=== PATIENT | male | born 2000 | race Caucasian/White ===

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

== ENCOUNTER → 2021-04-21 15:33 | Outpatient (CLI) | payer BC, SELFPAY ==
[2021-04-21 16:01] LABS: COVID19 -Nasal RAPID Negative (Negative)
== END ==
PROVIDERS: PCP Physician Assistant Medical; Visit Provider Nurse Practitioner Family
DX: R09.89 Other specified symptoms and signs involving the circulatory and respiratory systems (principal); R11.10 Vomiting, unspecified
CPT/HCPCS: 87635

== ENCOUNTER 2021-06-07 17:02 | Emergency (ER) | payer BC, SELFPAY ==
[2021-06-07 17:11] VITALS: BP 128/58; PULSE 75; RESP 14; TEMP 37.9; O2SAT 99; BMI 24.7
[2021-06-07] MEDS: ONDANSETRON 4 MG/2 ML INJ IV (17:31)
[2021-06-07] MEDS: SODIUM CHLORIDE 0.9% 1,000 ML 1000 ML IV (17:32)
[2021-06-07 17:35] LABS: Add Manual Diff / Slide Review NO; Basophils Absolute Auto 0 /uL (0-100); Basophils Percent Auto 0.2 % (0-2); Eosinophils Absolute Auto 200 /uL (0-450); Eosinophils Percent Auto 2.8 % (2-4); Hematocrit 45.4 % (41-53); Hemoglobin 16.2 g/dL (13.5-17.5); Lymphocytes Absolute Auto 1900 /uL (1100-4500); Lymphocytes Percent Auto 24.2 % (25-40); Mean Corpuscular HGB Conc 35.6 % (30-36); Mean Corpuscular Hemoglobin 31.3 PG (26-34); Mean Corpuscular Volume 87.8 fL (80-100); Monocytes Absolute Auto 500 /uL (0-900); Monocytes Percent Auto 6.7 % (3-14); Neutrophils Absolute Auto 5200 /uL (1500-7000); Neutrophils Percent Auto 66.1 % (50-75); Platelet Count 211 X10^3/uL (150-400); Red Blood Cell Count 5.17 X10^6/uL (4.5-5.9); Red Cell Distribution Width 13.1 % (11.6-14.8); White Blood Cell Count 7.8 X10^3/uL (4.5-11.0)
[2021-06-07 17:55] LABS: Alanine Aminotransferase 18 IU/L (<50); Albumin 4.4 g/dL (3.5-5.0); Albumin Globulin Ratio 1.5 (1.0-2.8); Alkaline Phosphatase 47 U/L (38-126); Aspartate Aminotransferase 24 IU/L (17-59); BUN Creatinine Ratio 23.1 (6-22); Bilirubin Total 0.6 mg/dL (0.2-1.3); Blood Urea Nitrogen 62 mg/dL (9-20); Calcium 9.6 mg/dL (8.4-10.2); Carbon Dioxide 25 mmol/L (22-32); Chloride 106 mmol/L (98-107); Estimated Glomerular Filt Rate 30.5 mL/min (>60); Globulin 2.9 g/dL (1.7-4.1); Glucose 101 mg/dL (70-100); HEMOLYSIS 27 (0-50); Lipase 161 U/L (23-300); Potassium 4.1 mmol/L (3.4-5.1); Sodium 140 mmol/L (137-145); Total Protein 7.3 g/dL (6.3-8.2)
[2021-06-07 18:03] LABS: COVID19 -Nasal RAPID Negative (Negative)
--- NOTE | 2021-06-07 18:19 | DI.CT.S_ITS ---
PROCEDURE: CT ABDOMEN PELVIS WO CON INDICATIONS: RLQ pain TECHNIQUE: After the administration of oral contrast, 5 mm thick sections acquired from the diaphragms to the symphysis. 5 mm coronal and sagittal reformats were performed. For radiation dose reduction, the following was used: automated exposure control, adjustment of mA and/or kV according to patient size. COMPARISON: None. FINDINGS: Image quality: Excellent. ABDOMEN: Lung bases: Mild lingula infiltrate. Heart size is normal. Solid organs: Liver is normal in size. Gallbladder is not visualized, probably contracted. Pancreas is normal in size. Spleen is normal in size. No adrenal nodules. Both kidneys are normal in size, without hydronephrosis or nephrolithiasis. Peritoneum and bowel: Bowel loops demonstrate normal wall thickness and caliber. Appendix is normal. No free fluid or air. Nodes and vessels: No retroperitoneal or mesenteric adenopathy by size criteria. Aorta and inferior vena cava are normal in size. Miscellaneous: No ventral hernias. PELVIS: Genitourinary: Bladder wall thickness is normal. Miscellaneous: No inguinal hernias or adenopathy. There is a elliptical taped structure in the left inguinal area measuring 2.3 x 2.8 x 6[address] density 38.4 HU. Bones: No suspicious bony lesions. No vertebral body compression fractures. IMPRESSION: 1. No acute abnormalities in abdomen or pelvis. A cause for right lower quadrant pain is not identified. 2. Normal appendix. 3. No renal stone or hydronephrosis. 4. A 2.3 x 2.8 x 6.9 cm elliptical shaped soft tissue density in the left inguinal area demonstrating CT density 38.4 HU not compatible with simple fluid. Differential diagnosis include postsurgical change no hematoma. Recommend clinical correlation. If clinically indicated, ultrasound follow-up may be helpful. Dictated by: Suellen Moncada M.D. on 06/07/2021 at 20:02 Approved by: Suellen Moncada M.D. on 06/07/2021 at 20:07
--- NOTE | 2021-06-07 18:19 | ED.ABDPAIN ---
HPI - Abdominal Pain General Chief Complaint: Abdominal Pain Stated Complaint: LOWER RT SIDE PAIN & ABD FEVER THREW UP Time Seen by Provider: 06/07/21 17:53 Source: patient Mode of arrival: Ambulatory History of Present Illness HPI narrative: Patient is a 20-year-old male on autistic spectrum is with history of kidney disease previously on dialysis but not currently history of hypertension presenting today with right lower quadrant pain. Pain is non radiating. He states his been on and off since middle school however today it is significantly worse and he feels nauseous. Denies vomiting or diarrhea. He presents with a low-grade fever. Pain Consistency: constant Quality: aching Radiation: none Related Data Previous Rx's Medication Instructions Recorded albuterol sulfate 90 mcg/actuation 1 inh INHALATION Q4-6H PRN #18 gram 06/06/18 aerosol inhaler albuterol sulfate 90 mcg/actuation 2 puff INHALATION Q4-6H PRN #8.5 08/28/18 aerosol inhaler gram fluticasone propionate 115 2 puff INHALATION BID #12 gram 08/28/18 mcg-salmeterol 21 mcg/actuation HFA inhaler (Advair HFA) albuterol sulfate 90 mcg/actuation 2 puff INHALATION Q4-6H PRN #18 01/30/19 aerosol inhaler (ProAir HFA) gram fluticasone propionate 115 2 puff INHALATION BID #12 gram 01/30/19 mcg-salmeterol 21 mcg/actuation HFA inhaler (Advair HFA) prednisone 50 mg tablet 50 mg PO DAILY #5 tab 01/30/19 doxycycline hyclate 100 mg capsule 100 mg PO BID #14 cap 07/17/19 Allergies Allergy/AdvReac Type Severity Reaction Status Date / Time No Known Drug Allergies Allergy Verified 06/07/21 16:55 Review of Systems Review of Systems Narrative: GENERAL: Denies chills, fatigue, malaise, fever, sweats, travel HEENT: Denies sinus pain, ear pain, sore throat, difficulty swallowing, neck pain RESPIRATORY: Denies dyspnea, cough, wheezing, hemoptysis, sputum. CARDIOVASCULAR: Denies chest pain, palpitations, orthopnea, edema GASTROINTESTINAL: See HPI : Denies dysuria, frequency, incontinence, hematuria, urinary retention, flank pain. MUSCULOSKELETAL: Denies weakness, joint pain, or bony pain SKIN: No rash, no erythema, no pruritus NEUROLOGIC: Denies weakness, dizziness, headache, numbness, change in speech, confusion PSYCHIATRIC: No concerning psychosocial issues. 12 point review of systems is negative except for those stated above and HPI Patient History Medical History (Updated 06/07/21 @ 20:22 by Julissa Toney DO) Asthma Chronic kidney disease Social History Smoking Status: Never smoker Smoking Status: Never smoker alcohol intake frequency: 0-2 drinks per day Substance Use Type: does not use Exam Initial Vital Signs Initial Vital Signs: Vital Signs Temperature 100.2 F H 06/07/21 17:11 Pulse Rate 75 06/07/21 17:11 Respiratory Rate 14 06/07/21 17:11 Blood Pressure 128/58 L 06/07/21 17:11 Pulse Oximetry 99 06/07/21 17:11 GENERAL: Alert well-appearing 20-year-old male HEENT: Head atraumatic,EOMI, pupils reactive, face symmetric, moist mucous membranes CARDIOVASCULAR: Regular rate and rhythm without murmurs, rubs or gallops. RESPIRATORY: Breath sounds equal bilaterally, no wheezes rales or rhonchi. ABDOMEN: Soft, tender right lower quadrant no guarding or rebound negative Harris's : No CVA tenderness EXTREMITIES: Normal range of motion, no clubbing or edema. Neurovascularly intact NEUROLOGICAL: Alert and oriented x4.Normal gait and speech. SKIN: Warm, dry, no laceration, no petechiae, no rashes or lesions. Course Orders Ordered: ED Orders 06/07/21 17:21 Complete Blood Count AUTO DIFF Stat Comprehensive Metabolic Panel Stat Lipase Stat 06/07/21 17:30 Urine Culture Stat Urine Microscopic Stat 06/07/21 17:40 COVID19 -Nasal swab/Pre-Proc Stat 06/07/21 18:19 CT abdomen pelvis wo con Stat Discontinued Medications Sodium Chloride (Normal Saline 0.9%) 1,000 mls @ 1,000 mls/hr IV BOLUS ONE Stop: 06/07/21 18:25 Last Infusion: 06/07/21 18:28 Dose: 0 mls/hr Documented by: Admin: 06/07/21 17:32 Dose: 1,000 mls/hr Documented by: PITA Ondansetron HCl (Ondansetron 4 Mg/2 Ml Inj) 4 mg IV NOW ONE Stop: 06/07/21 17:17 Last Admin: 06/07/21 17:31 Dose: 4 mg Documented by: PITA Vital Signs Vital signs: Vital Signs - 8 hr 06/07/21 17:11 06/07/21 20:29 Temperature 100.2 F H Pulse Rate 75 67 Respiratory Rate 14 14 Blood Pressure 128/58 L 114/66 Pulse Oximetry 99 98 MDM - Abdominal Pain Lab Data Result diagrams: 06/07/21 17:21 06/07/21 17:21 Labs: Lab Results 06/07/21 06/07/21 06/07/21 Range/Units 17:21 17:21 17:30 WBC 7.8 (4.5-11.0) X10^3/uL RBC 5.17 (4.5-5.9) X10^6/uL Hgb 16.2 (13.5-17.5) g/dL Hct 45.4 (41-53) % MCV 87.8 (80-100) fL MCH 31.3 (26-34) PG MCHC 35.6 (30-36) % RDW 13.1 (11.6-14.8) % Plt Count 211 (150-400) X10^3/uL Neut % (Auto) 66.1 (50-75) % Lymph % (Auto) 24.2 L (25-40) % [place] % (Auto) 6.7 (3-14) % Eos % (Auto) 2.8 (2-4) % Baso % (Auto) 0.2 (0-2) % Neut # (Auto) 5200 (6763-8204) /uL Lymph # (Auto) 1900 (8587-2324) /uL [place] # (Auto) 500 (0-900) /uL Eos # (Auto) 200 (0-450) /uL Baso # (Auto) 0 (0-100) /uL Sodium 140 (137-145) mmol/L Potassium 4.1 (3.4-5.1) mmol/L Chloride 106 (98-107) mmol/L Carbon Dioxide 25 (22-32) mmol/L BUN 62 H (9-20) mg/dL Creatinine 2.68 H (0.66-1.25) mg/dL Estimated GFR 30.5 L (>60) mL/min BUN/Creatinine Ratio 23.1 H (6-22) Glucose 101 H (70-100) mg/dL Calcium 9.6 (8.4-10.2) mg/dL Total Bilirubin 0.6 (0.2-1.3) mg/dL AST 24 (17-59) IU/L ALT 18 (<50) IU/L Alkaline Phosphatase 47 (38-126) U/L Total Protein 7.3 (6.3-8.2) g/dL Albumin 4.4 (3.5-5.0) g/dL Globulin 2.9 (1.7-4.1) g/dL Albumin/Globulin Ratio 1.5 (1.0-2.8) Lipase 161 (23-300) U/L Urine RBC None seen (0-5/HPF) Urine WBC 0-1/hpf (0-5/HPF) Ur Squamous Epith Cells 0-1 /hpf (0-5/HPF) Urine Bacteria None seen (None) Ur Culture Indicated? Cult not indicated SARS-CoV-2 (PCR) (Negative) 06/07/21 Range/Units 17:40 WBC (4.5-11.0) X10^3/uL RBC (4.5-5.9) X10^6/uL Hgb (13.5-17.5) g/dL Hct (41-53) % MCV (80-100) fL MCH (26-34) PG MCHC (30-36) % RDW (11.6-14.8) % Plt Count (150-400) X10^3/uL Neut % (Auto) (50-75) % Lymph % (Auto) (25-40) % [place] % (Auto) (3-14) % Eos % (Auto) (2-4) % Baso % (Auto) (0-2) % Neut # (Auto) (3233-0397) /uL Lymph # (Auto) (5370-8214) /uL [place] # (Auto) (0-900) /uL Eos # (Auto) (0-450) /uL Baso # (Auto) (0-100) /uL Sodium (137-145) mmol/L Potassium (3.4-5.1) mmol/L Chloride (98-107) mmol/L Carbon Dioxide (22-32) mmol/L BUN (9-20) mg/dL Creatinine (0.66-1.25) mg/dL Estimated GFR (>60) mL/min BUN/Creatinine Ratio (6-22) Glucose (70-100) mg/dL Calcium (8.4-10.2) mg/dL Total Bilirubin (0.2-1.3) mg/dL AST (17-59) IU/L ALT (<50) IU/L Alkaline Phosphatase (38-126) U/L Total Protein (6.3-8.2) g/dL Albumin (3.5-5.0) g/dL Globulin (1.7-4.1) g/dL Albumin/Globulin Ratio (1.0-2.8) Lipase (23-300) U/L Urine RBC (0-5/HPF) Urine WBC (0-5/HPF) Ur Squamous Epith Cells (0-5/HPF) Urine Bacteria (None) Ur Culture Indicated? SARS-CoV-2 (PCR) Negative (Negative) Point of care testing: Urine Dip Bedside Urine Glucose Negative Bedside Urine Bilirubin - Negative Bedside Urine Ketone - Negative Urine Specific [employer] 1.015 Bedside Urine Occult Blood - Negative Bedside Urine pH 6 Bedside Urine Protein + 30 Bedside Urine Urobilinogen - Negative Bedside Urine Nitrite - Negative Bedside Urine Leukocytes - Negative Esterase Imaging Data CT scan - abdomen/pelvis: Radiologist's Impression: PROCEDURE:? CT ABDOMEN PELVIS WO CON ? INDICATIONS:? RLQ pain ? TECHNIQUE:? After the administration of oral contrast, 5 mm thick sections acquired from the diaphragms to the symphysis.? 5 mm coronal and sagittal reformats were performed.? For radiation dose reduction, the following was used:? automated exposure control, adjustment of mA and/or kV according to patient size.? ? COMPARISON:? None. ? FINDINGS:? Image quality:? Excellent.? ? ABDOMEN:? Lung bases:? Mild lingula infiltrate.? Heart size is normal.? ? Solid organs:? Liver is normal in size.? Gallbladder is not visualized, probably contracted.? Pancreas is normal in size.? Spleen is normal in size.? No adrenal nodules.? Both kidneys are normal in size, without hydronephrosis or nephrolithiasis.? ? Peritoneum and bowel:? Bowel loops demonstrate normal wall thickness and caliber.? Appendix is normal.? No free fluid or air.? ? Nodes and vessels:? No retroperitoneal or mesenteric adenopathy by size criteria.? Aorta and inferior vena cava are normal in size.? ? Miscellaneous:? No ventral hernias.? ? ? PELVIS:? Genitourinary:? Bladder wall thickness is normal.? ? Miscellaneous:? No inguinal hernias or adenopathy.? There is a elliptical taped structure in the left inguinal area measuring 2.3 x 2.8 x 6.[address] density 38.4 HU. ? Bones:? No suspicious bony lesions.? No vertebral body compression fractures.? ? IMPRESSION:? ? 1. No acute abnormalities in abdomen or pelvis.? A cause for right lower quadrant pain is not identified.? 2. Normal appendix. 3. No renal stone or hydronephrosis. 4. A 2.3 x 2.8 x 6.9 cm elliptical shaped soft tissue density in the left inguinal area demonstrating CT density 38.4 HU not compatible with simple fluid.? Differential diagnosis include postsurgical change no hematoma.? Recommend clinical correlation.? If clinically indicated, ultrasound follow-up may be helpful. ? ? ? Dictated by: Suellen Moncada M.D. on 06/07/2021 at 20:02 ? ? [facility] Narrative Medical decision making narrative: Patient is found to have chronic kidney disease which seems stable at this time. Tender in right lower quadrant concern for possible appendicitis. Due to renal function IV contrast was not used but he did drink oral contrast and CT does not show any evidence of appendicitis. It is found have some abnormality in the left lower quadrant which does not correlate clinically. He is again reexamined and nontender in the left lower quadrant. He overall appears well. Discharge Plan Departure Patient Disposition: Home Clinical Impression: Abdominal pain Instructions: DI for Abdominal Pain-Adult Activity Restrictions/Additional Instructions: Creatinine today 2.68, GFR 30.5 *You have been diagnosed with abdominal pain *What to do: Of your abdominal pain found today. It was found that you have abnormal fluid collection on the left side but this is not thought to be causing her pain on the right side today and dental. Please have this followed with her primary care provider *Continue to take medications as directed *Follow up with your primary care provider in 2-3 days or call [phone] *Return to ER if you should have worsening abdominal pain, fever more than 100.4, persistent vomiting or any new, worsening or concerning symptoms Prescriptions: No Action albuterol sulfate 90 mcg/actuation HFA aerosol inhaler 1 inh INHALATION Q4-6H PRN (Reason: shortness of breath) Qty: 18 0RF albuterol sulfate 90 mcg/actuation HFA aerosol inhaler 2 puff INHALATION Q4-6H PRN (Reason: shortness of breath) Qty: 8.5 1RF Advair HFA 115-21 mcg/actuation HFA aerosol inhaler 2 puff INHALATION BID Qty: 12 1RF Advair HFA 115-21 mcg/actuation HFA aerosol inhaler 2 puff INHALATION BID Qty: 12 0RF Rx Instructions: administer with spacer albuterol sulfate [ProAir HFA] 90 mcg/actuation HFA aerosol inhaler 2 puff INHALATION Q4-6H PRN (Reason: shortness of breath) Qty: 18 0RF prednisone 50 mg tablet 50 mg PO DAILY Qty: 5 0RF doxycycline hyclate 100 mg capsule 100 mg PO BID Qty: 14 0RF Referrals: Regino Boyer PA-C [Primary Care Provider] -
[2021-06-07 18:43] LABS: Bacteria Urine None Seen; RBC Urine None Seen (0-5/HPF); Squamous Epithelial Cell Urine 0-1 /HPF (0-5/HPF); WBC Urine 0-1/HPF (0-5/HPF)
[2021-06-07 18:44] LABS: Culture Indicated Urine Cult Not Indicated
[2021-06-07 20:29] VITALS: BP 114/66; PULSE 67; RESP 14; O2SAT 98
== END 2021-06-07 20:32 | disposition home or self-care (01) ==
PROVIDERS: Emergency Medicine; Emergency Provider Emergency Medicine; PCP Physician Assistant Medical
DX: R10.31 Right lower quadrant pain (principal); Z20.822 Contact with and (suspected) exposure to COVID-19
CPT/HCPCS: 36415; 74176; 80053; 81003; 81015; 83690; 85025; 87086; 87635; 96361; 96374; 99284; C9803; J2405

== ENCOUNTER 2021-07-12 11:10 | Emergency (ER) | payer OTHER, SELFPAY ==
[2021-07-12 11:14] VITALS: BP 118/57; PULSE 81; RESP 14; TEMP 36.7; O2SAT 98; BMI 25.1
--- NOTE | 2021-07-12 12:08 | ED.URI ---
HPI - URI/Sore Throat <Carolee Nieves, [facility] - Last Filed: 07/12/21 18:09> General Chief Complaint: Upper Respiratory Symptoms Stated Complaint: COVID+, throwing up, night sweats; kidney disease Time Seen by Provider: 07/12/21 12:08 Source: patient Mode of arrival: Ambulatory History of Present Illness HPI Narrative: 20-year-old male presents to the emergency department complaining of nausea vomiting and diarrhea for 3 days with fever, headache, and chills for 4 days. Patient states he had a positive COVID test at home, today is day 4 of his symptoms, he states he has a history of chronic kidney disease with kidney function of 30% at baseline. Patient states he came to the emergency department because his kidney doctor told him to have his creatinine checked because he states it tends to go up when he gets sick. Patient states that he is still making urine, has had difficulty keeping anything down for the last 2 days and states that he feels dehydrated because he is also having diarrhea. Patient denies any shortness of breath, wheezing, difficulty breathing, chest tightness, chest pain, dizziness, or weakness. Related Data Previous Rx's Medication Instructions Recorded albuterol sulfate 90 mcg/actuation 1 inh INHALATION Q4-6H PRN #18 gram 06/06/18 aerosol inhaler albuterol sulfate 90 mcg/actuation 2 puff INHALATION Q4-6H PRN #8.5 08/28/18 aerosol inhaler gram fluticasone propionate 115 2 puff INHALATION BID #12 gram 08/28/18 mcg-salmeterol 21 mcg/actuation HFA inhaler (Advair HFA) albuterol sulfate 90 mcg/actuation 2 puff INHALATION Q4-6H PRN #18 01/30/19 aerosol inhaler (ProAir HFA) gram fluticasone propionate 115 2 puff INHALATION BID #12 gram 01/30/19 mcg-salmeterol 21 mcg/actuation HFA inhaler (Advair HFA) prednisone 50 mg tablet 50 mg PO DAILY #5 tab 01/30/19 doxycycline hyclate 100 mg capsule 100 mg PO BID #14 cap 07/17/19 loperamide 2 mg tablet 2 mg PO Q6H PRN #10 tab 07/12/21 ondansetron 4 mg disintegrating 4 mg PO Q8HR PRN #10 tab 07/12/21 tablet Allergies Allergy/AdvReac Type Severity Reaction Status Date / Time No Known Drug Allergies Allergy Verified 07/12/21 11:14 Review of Systems <SHARON Brunner - Last Filed: 07/12/21 18:09> Review of Systems Narrative: General: Endorses fever, chills, malaise, sweats, fatigue Head/Neck: Endorses headache, denies neck pain, dizziness Eyes: denies visual changes, eye pain Cardio: denies chest pain, palpitations, edema Respiratory: denies dyspnea, cough, orthopnea GI: denies abdominal pain, endorses nausea, vomiting, and diarrhea : denies dysuria, hematuria, urinary retention, frequency or incontinence MSK: denies joint pain, muscle weakness Skin: denies rash, itching, skin lesions or other Neuro: denies numbness, tingling Patient History <SHARON Brunner - Last Filed: 07/12/21 18:09> Medical History (Updated 07/12/21 @ 13:25 by SHARON Brunner) Asthma Chronic kidney disease Social History Smoking Status: Never smoker Smoking Status: Never smoker alcohol intake frequency: holidays/special occasions only Substance Use Type: does not use Exam <SHARON Brunner - Last Filed: 07/12/21 18:09> Narrative Exam Narrative: Independently reviewed vitals signs and nursing notes. General: Cooperative, comfortable, in no acute distress, appears tired, holding emesis bag Head/Neck: Normal visual inspection and supple, atraumatic, no JVD or lymphadenopathy. Normal facial exam Eyes: Pupils equal round and reactive, EOMI, conjunctiva normal, no scleral icterus or injections Nose: External nose normal, nares patent, no rhinorrhea, without purulent drainage Mouth/Throat: uvula midline, moist mucus membranes Cardio: Regular rate and rhythm, no peripheral edema, warm extremities Respiratory: Normal respiratory effort, able to speak in complete sentences without wheezing, stridor, or rales. No retractions. No accessory muscle use GI: Abdomen soft, nontender to palpation x4 quadrants, nondistended, no masses or exquisite tenderness with exam, no flank tenderness MSK: Moves all extremities, neurovascularly intact Skin: Normal capillary refill, no rash Neuro: Normal speech and cognition, normal gait, A&O x3, tone normal, moves all extremities Psych: Mental status is grossly normal, speech is clear, congruent mood, normal affect Initial Vital Signs Initial Vital Signs: Vital Signs Temperature 98.0 F 07/12/21 11:14 Pulse Rate 81 07/12/21 11:14 Respiratory Rate 14 07/12/21 11:14 Blood Pressure 118/57 L 07/12/21 11:14 Pulse Oximetry 98 07/12/21 11:14 <Alena Orlando DO - Last Filed: 07/13/21 09:17> Initial Vital Signs Initial Vital Signs: Vital Signs Temperature 98.0 F 07/12/21 11:14 Pulse Rate 81 07/12/21 11:14 Respiratory Rate 14 07/12/21 11:14 Blood Pressure 118/57 L 07/12/21 11:14 Pulse Oximetry 98 07/12/21 11:14 Course <SHARON Brunner - Last Filed: 07/12/21 18:09> Orders Ordered: Discontinued Medications Acetaminophen (Acetaminophen 325 Mg Tablet) 975 mg PO NOW ONE Stop: 07/12/21 13:03 Last Admin: 07/12/21 13:22 Dose: 975 mg Documented by: RONNIEYLYONATHAN Sodium Chloride (Normal Saline 0.9%) 1,000 mls @ 1,000 mls/hr IV BOLUS ONE Stop: 07/12/21 13:12 Last Infusion: 07/12/21 14:01 Dose: 0 mls/hr Documented by: Admin: 07/12/21 12:52 Dose: 1,000 mls/hr Documented by: RUTHY Ondansetron HCl (Ondansetron 4 Mg/2 Ml Inj) 4 mg IV NOW ONE Stop: 07/12/21 12:14 Last Admin: 07/12/21 12:53 Dose: 4 mg Documented by: RUTHY Vital Signs Vital signs: Vital Signs - 8 hr 07/12/21 11:14 07/12/21 13:28 Temperature 98.0 F Pulse Rate 81 76 Respiratory Rate 14 16 Blood Pressure 118/57 L 114/57 L Pulse Oximetry 98 99 <Alena Orlando DO - Last Filed: 07/13/21 09:17> Orders Ordered: Discontinued Medications Acetaminophen (Acetaminophen 325 Mg Tablet) 975 mg PO NOW ONE Stop: 07/12/21 13:03 Last Admin: 07/12/21 13:22 Dose: 975 mg Documented by: RUTHY Sodium Chloride (Normal Saline 0.9%) 1,000 mls @ 1,000 mls/hr IV BOLUS ONE Stop: 07/12/21 13:12 Last Infusion: 07/12/21 14:01 Dose: 0 mls/hr Documented by: Admin: 07/12/21 12:52 Dose: 1,000 mls/hr Documented by: RUTHY Ondansetron HCl (Ondansetron 4 Mg/2 Ml Inj) 4 mg IV NOW ONE Stop: 07/12/21 12:14 Last Admin: 07/12/21 12:53 Dose: 4 mg Documented by: RUTHY Vital Signs Vital signs: Vital Signs - 8 hr 07/12/21 11:14 07/12/21 13:28 Temperature 98.0 F Pulse Rate 81 76 Respiratory Rate 14 16 Blood Pressure 118/57 L 114/57 L Pulse Oximetry 98 99 MDM - URI/Sore Throat <SHARON Brunner - Last Filed: 07/12/21 18:09> Lab Data Result diagrams: 07/12/21 12:45 07/12/21 12:45 Labs: Lab Results 07/12/21 07/12/21 07/12/21 Range/Units 12:45 12:45 12:45 WBC 4.9 (4.5-11.0) X10^3/uL RBC 4.64 (4.5-5.9) X10^6/uL Hgb 14.5 (13.5-17.5) g/dL Hct 40.8 L (41-53) % MCV 88.0 (80-100) fL MCH 31.2 (26-34) PG MCHC 35.4 (30-36) % RDW 12.7 (11.6-14.8) % Plt Count 131 L (150-400) X10^3/uL Neut % (Auto) 66.5 (50-75) % Lymph % (Auto) 21.8 L (25-40) % Schley % (Auto) 9.6 (3-14) % Eos % (Auto) 1.7 L (2-4) % Baso % (Auto) 0.4 (0-2) % Neut # (Auto) 3300 (6646-1044) /uL Lymph # (Auto) 1100 (3477-0434) /uL Schley # (Auto) 500 (0-900) /uL Eos # (Auto) 100 (0-450) /uL Baso # (Auto) 0 (0-100) /uL Sodium 143 (137-145) mmol/L Potassium 4.2 (3.4-5.1) mmol/L Chloride 110 H (98-107) mmol/L Carbon Dioxide 24 (22-32) mmol/L BUN 35 H (9-20) mg/dL Creatinine 1.95 H (0.66-1.25) mg/dL Estimated GFR 44.1 L (>60) mL/min BUN/Creatinine Ratio 17.9 (6-22) Glucose 95 (70-100) mg/dL Calcium 8.8 (8.4-10.2) mg/dL Magnesium 1.8 (1.6-2.3) mg/dL Total Bilirubin 0.5 (0.2-1.3) mg/dL AST 30 (17-59) IU/L ALT 18 (<50) IU/L Alkaline Phosphatase 31 L (38-126) U/L Total Protein 6.9 (6.3-8.2) g/dL Albumin 4.0 (3.5-5.0) g/dL Globulin 2.9 (1.7-4.1) g/dL Albumin/Globulin Ratio 1.4 (1.0-2.8) MDM Narrative Medical decision making narrative: 20-year-old male presents to the emergency department with known COVID (+) diagnosis and is on day 4 of his symptoms without hypoxia, respiratory distress, dehydration, or focal exam to suggest secondary bacterial infection. Discussed CDC guidelines for quarantine, mask wearing, physical distancing, and infection prevention measures such as frequent handwashing. Patient was g 1 L normal saline for Low volume status and dehydration. Patient has a history of chronic kidney disease with a baseline creatinine Of approximately 2. Today his creatinine is 1.95, previously on 05/30/2021 is 2.68. Patient appears much better after 1 L of saline, Symptoms suggest bacterial infection. Breath sounds are clear throughout all cooney. Discussed supportive treatments: Tylenol/Motrin as needed for pain/fever. OTC decongestant medications and/or antihistamines for symptomatic relief. Maintain adequate fluid intake. Follow-up with PCP as directed. Return to clinic/ER instructions discussed for new, not improving, or worsening symptoms. All questions answered. <Alena Orlando, DO - Last Filed: 07/13/21 09:17> Lab Data Labs: Lab Results 07/12/21 07/12/21 07/12/21 Range/Units 12:45 12:45 12:45 WBC 4.9 (4.5-11.0) X10^3/uL RBC 4.64 (4.5-5.9) X10^6/uL Hgb 14.5 (13.5-17.5) g/dL Hct 40.8 L (41-53) % MCV 88.0 (80-100) fL MCH 31.2 (26-34) PG MCHC 35.4 (30-36) % RDW 12.7 (11.6-14.8) % Plt Count 131 L (150-400) X10^3/uL Neut % (Auto) 66.5 (50-75) % Lymph % (Auto) 21.8 L (25-40) % Schley % (Auto) 9.6 (3-14) % Eos % (Auto) 1.7 L (2-4) % Baso % (Auto) 0.4 (0-2) % Neut # (Auto) 3300 (7067-0288) /uL Lymph # (Auto) 1100 (0496-1179) /uL Schley # (Auto) 500 (0-900) /uL Eos # (Auto) 100 (0-450) /uL Baso # (Auto) 0 (0-100) /uL Sodium 143 (137-145) mmol/L Potassium 4.2 (3.4-5.1) mmol/L Chloride 110 H (98-107) mmol/L Carbon Dioxide 24 (22-32) mmol/L BUN 35 H (9-20) mg/dL Creatinine 1.95 H (0.66-1.25) mg/dL Estimated GFR 44.1 L (>60) mL/min BUN/Creatinine Ratio 17.9 (6-22) Glucose 95 (70-100) mg/dL Calcium 8.8 (8.4-10.2) mg/dL Magnesium 1.8 (1.6-2.3) mg/dL Total Bilirubin 0.5 (0.2-1.3) mg/dL AST 30 (17-59) IU/L ALT 18 (<50) IU/L Alkaline Phosphatase 31 L (38-126) U/L Total Protein 6.9 (6.3-8.2) g/dL Albumin 4.0 (3.5-5.0) g/dL Globulin 2.9 (1.7-4.1) g/dL Albumin/Globulin Ratio 1.4 (1.0-2.8) Discharge Plan Departure Patient Disposition: Home Clinical Impression: COVID-19 Instructions: DI for COVID-19 (Suspected or Confirmed ) Activity Restrictions/Additional Instructions: *You have been diagnosed with COVID-19, dehydration with nausea vomiting. Your white blood cell count was not elevated, your creatinine today was 1.95 which is less than the 2 previous values in our chart. I will send your chart to Dr. Mike and your kidney doctor. Please try and stay hydrated with drinks like you brought with you today, you may use Zofran every 8 hours for nausea and vomiting and loperamide every 6 hours as needed for diarrhea. I hope you start feeling better soon, if you develop any shortness of breath, difficulty breathing, or the inability to keep anything down, please return to the emergency department for evaluation. You should start to get better in the next couple of days. I hope you feel better soon. *What to do: *Please continue to take your regular medications as directed. [x ] New medication prescriptions sent to your pharmacy: [[facility] [place] ] [ ] New medication written as a paper prescription [ ] No new medications given *Please follow up with your primary care provider in 2-3 days, call for an appointment. Let them know you were seen in the Emergency Department and that we ask that you be seen in follow up. We will electronically transmit a record of today's note if your PCP is in our system *If you do not have a primary care provider please contact the [facility] Resource line at [phone]. They will ask some questions about your medical history and help get you set up with a doctor in the community. *Return to Emergency Department if you should have any new, worsening or concerning symptoms, such as [fever greater than 101F, chills, worsening pain, persistent vomiting or other bothersome symptoms] Prescriptions: New ondansetron 4 mg tablet,disintegrating 4 mg PO Q8HR PRN (Reason: nausea and vomiting) Qty: 10 0RF loperamide 2 mg tablet 2 mg PO Q6H PRN (Reason: loose stool) Qty: 10 0RF No Action albuterol sulfate 90 mcg/actuation HFA aerosol inhaler 1 inh INHALATION Q4-6H PRN (Reason: shortness of breath) Qty: 18 0RF albuterol sulfate 90 mcg/actuation HFA aerosol inhaler 2 puff INHALATION Q4-6H PRN (Reason: shortness of breath) Qty: 8.5 1RF Advair HFA 115-21 mcg/actuation HFA aerosol inhaler 2 puff INHALATION BID Qty: 12 1RF Advair HFA 115-21 mcg/actuation HFA aerosol inhaler 2 puff INHALATION BID Qty: 12 0RF Rx Instructions: administer with spacer albuterol sulfate [ProAir HFA] 90 mcg/actuation HFA aerosol inhaler 2 puff INHALATION Q4-6H PRN (Reason: shortness of breath) Qty: 18 0RF prednisone 50 mg tablet 50 mg PO DAILY Qty: 5 0RF doxycycline hyclate 100 mg capsule 100 mg PO BID Qty: 14 0RF Referrals: Wilfrido Young MD [Non-Staff] - Andrea Mike DO [Primary Care Provider] - <Alena Orlando DO - Last Filed: 07/13/21 09:17> Cosign ED Attending Ibeth Attestation: I was immediately available in the department for consultation. Documentation has been reviewed. Case was discussed agree with plan on assessment.
[2021-07-12] MEDS: SODIUM CHLORIDE 0.9% 1,000 ML 1000 ML IV (12:52)
[2021-07-12] MEDS: ONDANSETRON 4 MG/2 ML INJ IV (12:53)
[2021-07-12 12:55] LABS: Add Manual Diff / Slide Review NO; Basophils Absolute Auto 0 /uL (0-100); Basophils Percent Auto 0.4 % (0-2); Eosinophils Absolute Auto 100 /uL (0-450); Eosinophils Percent Auto 1.7 % (2-4); Hematocrit 40.8 % (41-53); Hemoglobin 14.5 g/dL (13.5-17.5); Lymphocytes Absolute Auto 1100 /uL (1100-4500); Lymphocytes Percent Auto 21.8 % (25-40); Mean Corpuscular HGB Conc 35.4 % (30-36); Mean Corpuscular Hemoglobin 31.2 PG (26-34); Monocytes Absolute Auto 500 /uL (0-900); Monocytes Percent Auto 9.6 % (3-14); Neutrophils Absolute Auto 3300 /uL (1500-7000); Neutrophils Percent Auto 66.5 % (50-75); Platelet Count 131 X10^3/uL (150-400); Red Blood Cell Count 4.64 X10^6/uL (4.5-5.9); Red Cell Distribution Width 12.7 % (11.6-14.8); White Blood Cell Count 4.9 X10^3/uL (4.5-11.0)
[2021-07-12 13:07] LABS: Alanine Aminotransferase 18 IU/L (<50); Albumin Globulin Ratio 1.4 (1.0-2.8); Alkaline Phosphatase 31 U/L (38-126); Aspartate Aminotransferase 30 IU/L (17-59); BUN Creatinine Ratio 17.9 (6-22); Bilirubin Total 0.5 mg/dL (0.2-1.3); Blood Urea Nitrogen 35 mg/dL (9-20); Calcium 8.8 mg/dL (8.4-10.2); Carbon Dioxide 24 mmol/L (22-32); Chloride 110 mmol/L (98-107); Estimated Glomerular Filt Rate 44.1 mL/min (>60); Globulin 2.9 g/dL (1.7-4.1); Glucose 95 mg/dL (70-100); HEMOLYSIS 57 (0-50); Potassium 4.2 mmol/L (3.4-5.1); Sodium 143 mmol/L (137-145); Total Protein 6.9 g/dL (6.3-8.2)
[2021-07-12 13:08] LABS: Magnesium 1.8 mg/dL (1.6-2.3)
[2021-07-12] MEDS: ACETAMINOPHEN 325 MG TABLET 975 MG PO (13:22)
[2021-07-12 13:28] VITALS: BP 114/57; PULSE 76; RESP 16; O2SAT 99
--- NOTE | 2021-07-12 14:04 | PC.NURSE ---
Per provider, no need to collect and run urine. patient's IV removed and he was discharged.
== END 2021-07-12 14:05 | disposition home or self-care (01) ==
PROVIDERS: Emergency Provider Nurse Practitioner Critical Care Medicine; PCP Family Medicine
DX: U07.1 COVID-19 (principal); E86.0 Dehydration; R11.2 Nausea with vomiting, unspecified
CPT/HCPCS: 36415; 80053; 83735; 85025; 96361; 96374; 99284; J2405

== ENCOUNTER 2022-04-23 15:50 | Emergency (ER) | payer OTHER, SELFPAY ==
[2022-04-23 15:55] VITALS: BP 132/87; PULSE 74; PULSE 88; RESP 15; TEMP 36.9; O2SAT 98; O2SAT 99; BMI 26.5
--- NOTE | 2022-04-23 15:56 | DI.CT.S_ITS ---
PROCEDURE: CT CERVICAL SPINE WO CON INDICATIONS: Trauma TECHNIQUE: Noncontrast 3 mm thick sections acquired from the skull base to the T4 level. Sagittal and coronal reformats were then constructed. For radiation dose reduction, the following was used: automated exposure control, adjustment of mA and/or kV according to patient size. COMPARISON: None. FINDINGS: Image quality: Excellent. Bones: No fractures or dislocations. Visualized superior ribs are intact. Soft tissues: Prevertebral soft tissues are normal in thickness. No paravertebral hematomas. No apical pneumothoraces. IMPRESSION: No CT evidence of acute traumatic cervical spine injury. Dictated by: Dante Tay M.D. on 04/23/2022 at 16:28 Approved by: Dante Tay M.D. on 04/23/2022 at 16:30
--- NOTE | 2022-04-23 15:56 | DI.CT.S_ITS ---
PROCEDURE: CT HEAD/BRAIN WO CON INDICATIONS: Trauma TECHNIQUE: Noncontrast 4.5 mm thick angled axial sections acquired from the foramen magnum to the vertex, with coronal and sagittal reformats. For radiation dose reduction, the following was used: automated exposure control, adjustment of mA and/or kV according to patient size. COMPARISON: None. FINDINGS: Image quality: Excellent. CSF spaces: Basal cisterns are patent. No extra-axial fluid collections. Ventricles are normal in size and shape. Brain: No midline shift. No intracranial masses or hemorrhage. Reyes-white matter interface is normal. Skull and face: Calvarium and visualized facial bones are intact, without suspicious lesions. Sinuses: Visualized sinuses and mastoids are clear other than aerated secretions in the right frontal sinus and mild mucosal thickening. IMPRESSION: No acute intracranial finding. Dictated by: Dante Tay M.D. on 04/23/2022 at 16:27 Approved by: Dante Tay M.D. on 04/23/2022 at 16:28
--- NOTE | 2022-04-23 16:02 | DI.CT.S_ITS ---
PROCEDURE: CT CHEST ABD PEL W CON INDICATIONS: trauma, back pain TECHNIQUE: After the administration of oral and intravenous contrast, axial sections acquired from the supraclavicular neck to the pubic symphysis. Coronal and sagittal reformats were performed. For radiation dose reduction, the following was used: automated exposure control, adjustment of mA and/or kV according to patient size. COMPARISON: [facility], CT, CT ABDOMEN PELVIS WO [facility], 06/07/2021, 19:28. [facility], CT, CT HEAD/BRAIN WO CON, 04/23/2022, 16:00. [facility], CT, CT CERVICAL SPINE WO CON, 04/23/2022, 16:00. FINDINGS: Image quality: Excellent. CHEST: Lower Neck: No enlarged lymph nodes. Thyroid: Within normal limits. Axillae: No enlarged lymph nodes. Chest Wall: Unremarkable. Lungs and Airways: No consolidation or suspicious nodules. Pleura: No pneumothorax or pleural effusions. Heart: Heart size is normal. No pericardial effusion. Thoracic Vessels: The aorta and pulmonary arteries demonstrate normal size. Mediastinum and Arianna: And soft tissue No enlarged lymph nodes. Prominent prevascular lymph node with likely residual thymic tissue. Esophagus: No wall thickening. Small hiatal hernia. ABDOMEN: Liver: Unremarkable. Gallbladder: Unremarkable. Biliary ducts: Unremarkable. Pancreas: Unremarkable. Spleen: Unremarkable. Adrenal Glands: Unremarkable. Kidneys and Ureters: Unremarkable. Stomach and Bowel: Stomach, small bowel loops, and colon are unremarkable. Normal appendix. Peritoneum: No abnormal intraperitoneal fluid. No free air. Ventral Wall: No hernia. Abdominal Nodes: No retroperitoneal or mesenteric adenopathy by size criteria. Numerous small mesenteric lymph nodes are present, most likely reactive. Vessels: Aorta and inferior vena cava are normal in size. PELVIS: Pelvic Organs: Unremarkable. Bladder: Unremarkable. Pelvic Nodes: No enlarged lymph nodes. Miscellaneous: No inguinal hernias are seen. Bones: Unremarkable. IMPRESSION: 1. No acute visceral injuries in thorax, abdomen or pelvis. Dictated by: Suellen Moncada M.D. on 04/23/2022 at 16:41 Approved by: Suellen Moncada M.D. on 04/23/2022 at 17:29
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
[2022-04-23 16:14] VITALS: BP 133/82; PULSE 96; O2SAT 99
[2022-04-23] MEDS: TET,DIPH,PERTUSS(ACELL),VAC/PF 0.5 ML SYRINGE IM (16:15)
[2022-04-23 16:30] VITALS: PULSE 99; O2SAT 99
[2022-04-23 16:41] LABS: Add Manual Diff / Slide Review NO; Basophils Absolute Auto 0 /uL (0-100); Basophils Percent Auto 0.3 % (0-2); Eosinophils Absolute Auto 300 /uL (0-450); Eosinophils Percent Auto 3.7 % (2-4); Hematocrit 39.5 % (41-53); Hemoglobin 13.9 g/dL (13.5-17.5); Lymphocytes Absolute Auto 1900 /uL (1100-4500); Lymphocytes Percent Auto 24.1 % (25-40); Mean Corpuscular HGB Conc 35.1 % (30-36); Mean Corpuscular Hemoglobin 31.6 PG (26-34); Monocytes Absolute Auto 500 /uL (0-900); Monocytes Percent Auto 6.7 % (3-14); Neutrophils Absolute Auto 5200 /uL (1500-7000); Neutrophils Percent Auto 65.2 % (50-75); Platelet Count 177 X10^3/uL (150-400); Red Blood Cell Count 4.39 X10^6/uL (4.5-5.9); Red Cell Distribution Width 12.6 % (11.6-14.8); White Blood Cell Count 7.9 X10^3/uL (4.5-11.0)
[2022-04-23 16:47] LABS: INR 1.1 (0.9-1.3); Prothrombin Time 12.2 SECONDS (10.1-12.7)
[2022-04-23 16:50] LABS: PTT Partial Thromboplastin Tim 27 SECONDS (26-36)
[2022-04-23 16:53] LABS: Lactate (Lactic Acid) 0.6 mmol/L (0.7-2.1)
[2022-04-23 16:54] LABS: Alanine Aminotransferase 26 IU/L (<50); Albumin Globulin Ratio 1.3 (1.0-2.8); Alkaline Phosphatase 51 U/L (38-126); Aspartate Aminotransferase 21 IU/L (17-59); BUN Creatinine Ratio 28.5 (6-22); Bilirubin Total 0.3 mg/dL (0.2-1.3); Blood Urea Nitrogen 69 mg/dL (9-20); Calcium 8.7 mg/dL (8.4-10.2); Carbon Dioxide 18 mmol/L (22-32); Chloride 105 mmol/L (98-107); Estimated Glomerular Filt Rate 38 mL/min (>60); Ethanol (ETOH) < 10 mg/dL; Globulin 3.1 g/dL (1.7-4.1); Glucose 76 mg/dL (70-100); HEMOLYSIS < 15 (0-50); Lipase 156 U/L (23-300); Potassium 4.3 mmol/L (3.4-5.1); Sodium 136 mmol/L (137-145); Total Protein 7.1 g/dL (6.3-8.2)
[2022-04-23 17:35] VITALS: BP 130/80; PULSE 80; RESP 18; O2SAT 98
[2022-04-23 17:42] LABS: UR Morphine/Opiate cutoff 300 Negative (Negative); Ur Creatinine Normal (Normal); Ur Specific Gravity Normal (Normal); Urine Amphetamines Negative (Negative); Urine Barbiturates Negative (Negative); Urine Benzodiazepines Negative (Negative); Urine Cocaine Negative (Negative); Urine MDMA Negative (Negative); Urine Methadone Negative (Negative); Urine Methamphetamines Negative (Negative); Urine Oxycodone Negative (Negative); Urine Phencyclidine Negative (Negative); Urine Tetrahydrocannabinol Negative (Negative); Urine Tricyclic Antidepressant Negative (Negative); Urine pH Normal (Normal)
== END 2022-04-23 17:41 | disposition home or self-care (01) ==
PROVIDERS: Emergency Provider Emergency Medicine; PCP Family Medicine
DX: M62.838 Other muscle spasm (principal); M54.9 Dorsalgia, unspecified; S09.90XA Unspecified injury of head, initial encounter; V89.2XXA Person injured in unspecified motor-vehicle accident, traffic, initial encounter; Z23 Encounter for immunization
CPT/HCPCS: 70450; 71260; 72125; 74177; 80053; 80305; 80320; 83605; 83690; 85025; 85610; 85730; 90471; 99284; 90715; Q9967

== ENCOUNTER 2022-05-02 13:54 | Inpatient (IN) | payer BC, SELFPAY ==
[2022-05-02] VITALS (66 sets, daily range): BP systolic 66–133; BP diastolic 31–65; PULSE 69–124; RESP 12–30; TEMP 36.6–37.7; O2SAT 92–100; BMI 25.1
[2022-05-02] MEDS: ONDANSETRON 4 MG ODT SL (14:14)
--- NOTE | 2022-05-02 15:02 | DI.RAD.S_ITS ---
PROCEDURE: XR ACUTE ABDOMEN SERIES INDICATIONS: nvd TECHNIQUE: One view chest and two views of the abdomen were acquired. COMPARISON: None. FINDINGS: Surgical changes and devices: None. Chest: Lungs are clear. Heart size is normal. No pleural effusions. No pneumoperitoneum. Abdomen: Bowel gas pattern is normal. No dilated loops of bowel. There are air-fluid levels present in small and large bowel suggesting possible gastroenteritis. No suspicious calcifications. Visualized solid organ contours appear normal. Bones: No suspicious bony lesions. IMPRESSION: Bowel gas pattern is supportive of a diagnosis of gastroenteritis. No evidence acute pulmonary process. Dictated by: Vaibhav Anna M.D. on 05/02/2022 at 15:43 Approved by: Vaibhav Anna M.D. on 05/02/2022 at 15:45
[2022-05-02 15:25] LABS: Alanine Aminotransferase 30 IU/L (<50); Albumin 4.8 g/dL (3.5-5.0); Albumin Globulin Ratio 1.2 (1.0-2.8); Alkaline Phosphatase 64 U/L (38-126); Aspartate Aminotransferase 32 IU/L (17-59); BUN Creatinine Ratio 24.8 (6-22); Bilirubin Total 0.6 mg/dL (0.2-1.3); Blood Urea Nitrogen 84 mg/dL (9-20); Calcium 9.4 mg/dL (8.4-10.2); Carbon Dioxide 20 mmol/L (22-32); Chloride 111 mmol/L (98-107); Creatine Kinase 56 U/L (55-170); Estimated Glomerular Filt Rate 25 mL/min (>60); Globulin 4.1 g/dL (1.7-4.1); Glucose 120 mg/dL (70-100); HEMOLYSIS 23 (0-50); Sodium 142 mmol/L (137-145); Total Protein 8.9 g/dL (6.3-8.2)
[2022-05-02 15:26] LABS: Lactate (Lactic Acid) 0.9 mmol/L (0.7-2.1)
[2022-05-02 15:36] LABS: Troponin I < 0.012 ng/mL (0.01-0.034)
[2022-05-02 15:41] LABS: Procalcitonin 0.25 ng/mL (<0.5)
[2022-05-02 15:53] LABS: Add Manual Diff / Slide Review NO; Basophils Absolute Auto 0 /uL (0-100); Basophils Percent Auto 0.1 % (0-2); Eosinophils Absolute Auto 100 /uL (0-450); Eosinophils Percent Auto 0.9 % (2-4); Hematocrit 49.7 % (41-53); Hemoglobin 16.7 g/dL (13.5-17.5); Lymphocytes Absolute Auto 300 /uL (1100-4500); Lymphocytes Percent Auto 3.3 % (25-40); Mean Corpuscular HGB Conc 33.6 % (30-36); Mean Corpuscular Hemoglobin 30.8 PG (26-34); Mean Corpuscular Volume 91.7 fL (80-100); Monocytes Absolute Auto 600 /uL (0-900); Monocytes Percent Auto 5.6 % (3-14); Neutrophils Absolute Auto 9200 /uL (1500-7000); Neutrophils Percent Auto 90.1 % (50-75); Platelet Count 249 X10^3/uL (150-400); Red Blood Cell Count 5.42 X10^6/uL (4.5-5.9); Red Cell Distribution Width 13.1 % (11.6-14.8); White Blood Cell Count 10.2 X10^3/uL (4.5-11.0)
[2022-05-02] MEDS: SODIUM CHLORIDE 0.9% 2,449.41 ML 816.47 ML IV (15:57)
[2022-05-02 16:34] LABS: Influenza A - CEPHEID Flu A NEGATIVE (NEGATIVE); Influenza B - CEPHEID Flu B NEGATIVE (NEGATIVE); Respiratory Syncytial Virus Negative (Negative)
[2022-05-02 16:38] LABS: COVID-19 CEPHEID 4-PLEX PCR Negative (Negative)
[2022-05-02 16:53] LABS: Appearance Urine UA CLEAR; Bilirubin Urine UA NEGATIVE (NEGATIVE); Color Urine UA YELLOW; Glucose Urine UA TRACE g/dL (Negative); Ketones Urine UA NEGATIVE (NEGATIVE); Leukocyte Esterase Urine UA NEGATIVE (NEGATIVE); Nitrite Urine UA NEGATIVE (Negative); Occult Blood Urine UA NEGATIVE (Negative); Protein Urine UA 2+ (Negative); Specific Gravity Urine UA >=1.030 (1.000-1.035); Urobilinogen Urine UA 0.2 E.U./dL (0.2)
--- NOTE | 2022-05-02 17:02 | PC.NURSE ---
notified Dr. Orlando of pt's blood pressure. Verbal order to start second IV line.
--- NOTE | 2022-05-02 17:04 | ED.NAVMDI ---
HPI - Nausea/Vomiting/Diarrhea General Chief complaint: Nausea/Vomiting/Diarrhea Stated complaint: food posioning x1 Time Seen by Provider: 05/02/22 15:01 Source: patient Mode of arrival: Ambulatory Limitations: no limitations Related Data Previous Rx's Medication Instructions Recorded albuterol sulfate 90 mcg/actuation 1 inh inhalation Q4-6H PRN 06/06/18 aerosol inhaler shortness of breath #18 grams albuterol sulfate 90 mcg/actuation 2 puff inhalation Q4-6H PRN 08/28/18 aerosol inhaler shortness of breath #8.5 grams fluticasone propionate 115 2 puff inhalation BID #12 grams 08/28/18 mcg-salmeterol 21 mcg/actuation HFA inhaler (Advair HFA) albuterol sulfate 90 mcg/actuation 2 puff inhalation Q4-6H PRN 01/30/19 aerosol inhaler (ProAir HFA) shortness of breath #18 grams fluticasone propionate 115 2 puff inhalation BID #12 grams 01/30/19 mcg-salmeterol 21 mcg/actuation HFA inhaler (Advair HFA) prednisone 50 mg tablet 50 mg PO DAILY #5 tabs 01/30/19 doxycycline hyclate 100 mg capsule 100 mg PO BID #14 caps 07/17/19 loperamide 2 mg tablet 2 mg PO Q6H PRN loose stool #10 07/12/21 tabs ondansetron 4 mg disintegrating 4 mg PO Q8HR PRN nausea and 07/12/21 tablet vomiting #10 tabs cyclobenzaprine 10 mg tablet 10 mg PO TID PRN muscle spasm #14 04/23/22 tabs hydrocodone 5 mg-acetaminophen 325 1 tab PO Q4-6H PRN pain #10 tabs 04/23/22 mg tablet ondansetron 4 mg disintegrating 4 mg PO TID-QID PRN nausea and 04/23/22 tablet vomiting #10 tabs Allergies Allergy/AdvReac Type Severity Reaction Status Date / Time No Known Drug Allergies Allergy Verified 05/02/22 14:06 Review of Systems Review of Systems ROS Unobtainable: All systems reviewed & are unremarkable except as noted in HPI and below Patient History Medical History Asthma Chronic kidney disease Social History Smoking Status: Never smoker Smoking Status: Never smoker alcohol intake frequency: holidays/special occasions only Substance Use Type: does not use Exam Initial Vital Signs Initial Vital Signs: Vital Signs Temperature 97.8 F 05/02/22 14:06 Pulse Rate 123 H 05/02/22 14:06 Respiratory Rate 16 05/02/22 14:06 Blood Pressure 72/44 L 05/02/22 14:06 Pulse Oximetry 96 05/02/22 14:06 Oxygen Delivery Method 05/02/22 14:06 Course Orders Ordered: ED Orders 05/02/22 14:20 BNP [NT-proBNP (BNP-Adult 18+)] Stat Complete Blood Count AUTO DIFF Stat Comprehensive Metabolic Panel Stat Lactate (Lactic Acid) Stat Procalcitonin Stat Troponin & CK Cardiac Panel Stat 05/02/22 15:01 EKG-12 Lead Stat 05/02/22 15:02 XR acute abdomen series Stat 05/02/22 15:42 Covid-19 + FLU A/B + RSV - PCR Stat 05/02/22 15:45 Blood Culture Stat 05/02/22 16:28 Urinalysis and Microscopic Stat 05/02/22 17:26 CT kidney ureter bladder (KUB) Stat 05/02/22 17:52 XR chest for PICC 1V Stat 05/02/22 19:05 EKG-12 Lead Stat Ondansetron HCl (Ondansetron 4 Mg Odt) 4 mg SL NOW PRN PRN Reason: Nausea And Vomiting Last Admin: 05/02/22 14:14 Dose: 4 mg Documented By: VENUS Discontinued Medications Sodium Chloride (Normal Saline 0.9%) 2,449.41 mls @ 816.47 mls/hr 30 ml/kg infuse over 3 hr (2449.41 ml) IV NOW ONE Stop: 05/02/22 18:00 Last Admin: 05/02/22 15:57 Dose: 816.47 mls/hr Documented By: BIA Ondansetron HCl (Ondansetron 4 Mg/2 Ml Inj) 4 mg IV NOW ONE Stop: 05/02/22 19:06 Vital Signs Vital signs: Vital Signs - 8 hr 05/02/22 14:06 05/02/22 14:26 05/02/22 14:29 Temperature 97.8 F Pulse Rate 123 H 109 H Respiratory Rate 16 Blood Pressure 72/44 L 109/53 L Pulse Oximetry 96 98 Oxygen Delivery Method Room Air 05/02/22 14:29 05/02/22 14:30 05/02/22 14:30 Temperature Pulse Rate 111 H 110 H Respiratory Rate 19 16 Blood Pressure 102/50 L Pulse Oximetry 98 97 Oxygen Delivery Method Room Air Room Air 05/02/22 15:00 05/02/22 15:00 05/02/22 15:32 Temperature Pulse Rate 105 H 111 H Respiratory Rate 17 17 Blood Pressure 94/46 L Pulse Oximetry 95 96 Oxygen Delivery Method Room Air 05/02/22 16:03 05/02/22 16:04 05/02/22 16:04 Temperature Pulse Rate 104 H Respiratory Rate 18 Blood Pressure 98/54 L Pulse Oximetry 92 97 Oxygen Delivery Method Room Air 05/02/22 16:30 05/02/22 16:30 05/02/22 17:00 Temperature Pulse Rate 94 H Respiratory Rate 17 Blood Pressure 92/46 L 89/43 L Pulse Oximetry 99 Oxygen Delivery Method Room Air 05/02/22 17:00 05/02/22 17:02 05/02/22 17:02 Temperature Pulse Rate 97 H 93 H Respiratory Rate 18 16 Blood Pressure 86/42 L Pulse Oximetry 99 100 Oxygen Delivery Method Room Air Room Air 05/02/22 17:06 05/02/22 17:06 05/02/22 17:08 Temperature Pulse Rate 89 89 Respiratory Rate 16 16 Blood Pressure 85/40 L Pulse Oximetry 99 100 Oxygen Delivery Method Room Air Room Air 05/02/22 17:08 05/02/22 17:20 05/02/22 17:20 Temperature Pulse Rate 90 Respiratory Rate 18 Blood Pressure 84/40 L 85/49 L Pulse Oximetry 100 Oxygen Delivery Method Room Air 05/02/22 17:30 05/02/22 17:30 05/02/22 18:00 Temperature Pulse Rate 91 H 95 H Respiratory Rate 18 17 Blood Pressure 87/52 L Pulse Oximetry 100 100 Oxygen Delivery Method Room Air Room Air 05/02/22 18:09 05/02/22 18:09 05/02/22 18:10 Temperature Pulse Rate 108 H Respiratory Rate Blood Pressure 111/53 L 110/50 L Pulse Oximetry 100 Oxygen Delivery Method Room Air 05/02/22 18:10 05/02/22 18:18 05/02/22 18:18 Temperature Pulse Rate 113 H 119 H Respiratory Rate 22 24 Blood Pressure 114/53 L Pulse Oximetry 100 95 Oxygen Delivery Method Room Air Room Air 05/02/22 18:24 05/02/22 18:24 05/02/22 18:30 Temperature Pulse Rate 108 H Respiratory Rate 12 Blood Pressure 109/53 L 116/57 L Pulse Oximetry 99 Oxygen Delivery Method Room Air 05/02/22 18:30 Temperature Pulse Rate 104 H Respiratory Rate 20 Blood Pressure Pulse Oximetry 99 Oxygen Delivery Method Room Air MDM - Nausea/Vomiting/Diarrhea Lab Data Result diagrams: 05/02/22 14:20 05/02/22 14:20 Labs: Lab Results 05/02/22 05/02/22 05/02/22 Range/Units 14:20 14:20 14:20 WBC 10.2 (4.5-11.0) X10^3/uL RBC 5.42 (4.5-5.9) X10^6/uL Hgb 16.7 (13.5-17.5) g/dL Hct 49.7 (41-53) % MCV 91.7 (80-100) fL MCH 30.8 (26-34) PG MCHC 33.6 (30-36) % RDW 13.1 (11.6-14.8) % Plt Count 249 (150-400) X10^3/uL Neut % (Auto) 90.1 H (50-75) % Lymph % (Auto) 3.3 L (25-40) % Stanley % (Auto) 5.6 (3-14) % Eos % (Auto) 0.9 L (2-4) % Baso % (Auto) 0.1 (0-2) % Neut # (Auto) 9200 H (1649-6347) /uL Lymph # (Auto) 300 L (7280-7040) /uL Stanley # (Auto) 600 (0-900) /uL Eos # (Auto) 100 (0-450) /uL Baso # (Auto) 0 (0-100) /uL Sodium 142 (137-145) mmol/L Potassium 5.0 (3.4-5.1) mmol/L Chloride 111 H (98-107) mmol/L Carbon Dioxide 20 L (22-32) mmol/L BUN 84 H (9-20) mg/dL Creatinine 3.39 H (0.66-1.25) mg/dL Estimated GFR 25 L (>60) mL/min BUN/Creatinine Ratio 24.8 H (6-22) Glucose 120 H (70-100) mg/dL Lactate 0.9 (0.7-2.1) mmol/L Calcium 9.4 (8.4-10.2) mg/dL Total Bilirubin 0.6 (0.2-1.3) mg/dL AST 32 (17-59) IU/L ALT 30 (<50) IU/L Alkaline Phosphatase 64 (38-126) U/L Total Creatine Kinase 56 (55-170) U/L CK-MB (CK-2) TNP CK-MB (CK-2) Rel Index TNP Troponin I < 0.012 (0.01-0.034) ng/mL NT-Pro-B Natriuret Pep (<125) pg/mL Total Protein 8.9 H (6.3-8.2) g/dL Albumin 4.8 (3.5-5.0) g/dL Globulin 4.1 (1.7-4.1) g/dL Albumin/Globulin Ratio 1.2 (1.0-2.8) Procalcitonin 0.25 (<0.5) ng/mL Urine Color Urine Appearance Urine pH (4.5-8.0) Ur Specific [place] (1.000-1.035) Urine Protein (Negative) Urine Glucose (UA) (Negative) g/dL Urine Ketones (NEGATIVE) Urine Occult Blood (Negative) Urine Nitrate (Negative) Urine Bilirubin (NEGATIVE) Urine Urobilinogen (0.2) E.U./dL Ur Leukocyte Esterase (NEGATIVE) Urine RBC (0-5/HPF) Urine WBC (0-5/HPF) Ur Squamous Epith Cells (0-5/HPF) Amorphous Sediment Urine Bacteria (None) Urine Mucus (Negative) Ur Culture Indicated? SARS-CoV-2 (PCR) (Negative) Influenza A (RT-PCR) (NEGATIVE) Influenza B (RT-PCR) (NEGATIVE) RSV (PCR) (Negative) 05/02/22 05/02/22 05/02/22 Range/Units 14:20 15:42 16:28 WBC (4.5-11.0) X10^3/uL RBC (4.5-5.9) X10^6/uL Hgb (13.5-17.5) g/dL Hct (41-53) % MCV (80-100) fL MCH (26-34) PG MCHC (30-36) % RDW (11.6-14.8) % Plt Count (150-400) X10^3/uL Neut % (Auto) (50-75) % Lymph % (Auto) (25-40) % Stanley % (Auto) (3-14) % Eos % (Auto) (2-4) % Baso % (Auto) (0-2) % Neut # (Auto) (7122-2662) /uL Lymph # (Auto) (2776-0593) /uL Stanley # (Auto) (0-900) /uL Eos # (Auto) (0-450) /uL Baso # (Auto) (0-100) /uL Sodium (137-145) mmol/L Potassium (3.4-5.1) mmol/L Chloride (98-107) mmol/L Carbon Dioxide (22-32) mmol/L BUN (9-20) mg/dL Creatinine (0.66-1.25) mg/dL Estimated GFR (>60) mL/min BUN/Creatinine Ratio (6-22) Glucose (70-100) mg/dL Lactate (0.7-2.1) mmol/L Calcium (8.4-10.2) mg/dL Total Bilirubin (0.2-1.3) mg/dL AST (17-59) IU/L ALT (<50) IU/L Alkaline Phosphatase (38-126) U/L Total Creatine Kinase (55-170) U/L CK-MB (CK-2) CK-MB (CK-2) Rel Index Troponin I (0.01-0.034) ng/mL NT-Pro-B Natriuret Pep 44 (<125) pg/mL Total Protein (6.3-8.2) g/dL Albumin (3.5-5.0) g/dL Globulin (1.7-4.1) g/dL Albumin/Globulin Ratio (1.0-2.8) Procalcitonin (<0.5) ng/mL Urine Color Yellow Urine Appearance Clear Urine pH 5.0 (4.5-8.0) Ur Specific [place] >=1.030 H (1.000-1.035) Urine Protein 2+ H (Negative) Urine Glucose (UA) Trace H (Negative) g/dL Urine Ketones Negative (NEGATIVE) Urine Occult Blood Negative (Negative) Urine Nitrate Negative (Negative) Urine Bilirubin Negative (NEGATIVE) Urine Urobilinogen 0.2 (0.2) E.U./dL Ur Leukocyte Esterase Negative (NEGATIVE) Urine RBC None seen (0-5/HPF) Urine WBC 1-5/hpf (0-5/HPF) Ur Squamous Epith Cells 1-5 /hpf (0-5/HPF) Amorphous Sediment 2+ Urine Bacteria None seen (None) Urine Mucus 1+ H (Negative) Ur Culture Indicated? Cult not indicated SARS-CoV-2 (PCR) Negative (Negative) Influenza A (RT-PCR) Flu a negative (NEGATIVE) Influenza B (RT-PCR) Flu b negative (NEGATIVE) RSV (PCR) Negative (Negative) Discharge Plan Departure Prescriptions: No Action albuterol sulfate 90 mcg/actuation HFA aerosol inhaler 1 inh INHALATION Q4-6H PRN (Reason: shortness of breath) Qty: 18 0RF albuterol sulfate 90 mcg/actuation HFA aerosol inhaler 2 puff INHALATION Q4-6H PRN (Reason: shortness of breath) Qty: 8.5 1RF Advair HFA 115-21 mcg/actuation HFA aerosol inhaler 2 puff INHALATION BID Qty: 12 1RF Advair HFA 115-21 mcg/actuation HFA aerosol inhaler 2 puff INHALATION BID Qty: 12 0RF Rx Instructions: administer with spacer albuterol sulfate [ProAir HFA] 90 mcg/actuation HFA aerosol inhaler 2 puff INHALATION Q4-6H PRN (Reason: shortness of breath) Qty: 18 0RF prednisone 50 mg tablet 50 mg PO DAILY Qty: 5 0RF doxycycline hyclate 100 mg capsule 100 mg PO BID Qty: 14 0RF cyclobenzaprine 10 mg tablet 10 mg PO TID PRN (Reason: muscle spasm) Qty: 14 0RF hydrocodone-acetaminophen 5-325 mg tablet 1 tab PO Q4-6H PRN (Reason: pain) Qty: 10 0RF ondansetron 4 mg tablet,disintegrating 4 mg PO TID-QID PRN (Reason: nausea and vomiting) Qty: 10 0RF ondansetron 4 mg tablet,disintegrating 4 mg PO Q8HR PRN (Reason: nausea and vomiting) Qty: 10 0RF loperamide 2 mg tablet 2 mg PO Q6H PRN (Reason: loose stool) Qty: 10 0RF Referrals: Andrea Mike DO [Primary Care Provider] -
[2022-05-02 17:05] LABS: Amorphous Sediment Urine 2+; Bacteria Urine None Seen; Culture Indicated Urine Cult Not Indicated; Mucus Urine 1+ (Negative); RBC Urine None Seen (0-5/HPF); Squamous Epithelial Cell Urine 1-5 /HPF (0-5/HPF); WBC Urine 1-5/HPF (0-5/HPF)
--- NOTE | 2022-05-02 17:26 | DI.CT.S_ITS ---
PROCEDURE: CT KIDNEY URETER BLADDER (KUB) INDICATIONS: n,v, d started yesterday acute on chronic kidney failiure TECHNIQUE: Axial sections were acquired from the lung bases to the pubic symphysis. Coronal and sagittal reformats were performed. For radiation dose reduction, the following was used: automated exposure control, adjustment of mA and/or kV according to patient size. COMPARISON: [facility], CT, CT CHEST ABD PEL W CON, 04/23/2022, 16:06. FINDINGS: Image quality: Excellent. Lung bases: Unremarkable. Heart: No significant findings. URINARY: Right Kidney: Somewhat small. No stones or hydronephrosis. Right Ureter: No hydroureter. Left Kidney: Somewhat small. No stones or hydronephrosis. Left Ureter: No hydroureter. Bladder: Normal wall thickness. No stones. ABDOMEN: Liver: Unremarkable. Gallbladder: Not visualized, possibly surgically absent. Biliary ducts: Unremarkable. Pancreas: Unremarkable. Spleen: Unremarkable. Adrenal Glands: Unremarkable. Stomach and Bowel: Ileus pattern. Liquid colonic contents. Findings consistent with gastroenteritis. No obstructed or thickened loops. Peritoneum: No abnormal intraperitoneal fluid. No free air. Ventral Wall: No hernia. Abdominal Nodes: No enlarged retroperitoneal or mesenteric lymph nodes. Vessels: Aorta and inferior vena cava are normal in size. PELVIS: Pelvic Organs: Unremarkable. Pelvic Nodes: Unremarkable. Miscellaneous: No inguinal hernias are seen. The left testicle is currently in the top of the inguinal canal. It was in normal location previously. Bones: Mild degenerative change at L5-S1. IMPRESSION: 1. Kidneys are both somewhat small. There is no stone, mass, hydronephrosis, or hydroureter noted. 2. Ileus pattern, gastroenteritis. 3. Left testicle currently at top of inguinal canal. Dictated by: Vaibhav Anna M.D. on 05/02/2022 at 18:41 Approved by: Vaibhav Anna M.D. on 05/02/2022 at 18:47
--- NOTE | 2022-05-02 17:52 | DI.RAD.S_ITS ---
PROCEDURE: XR CHEST FOR PICC 1V INDICATIONS: line placement COMPARISON: [facility], CR, XR CHEST 2V, 07/17/2019, 19:11. FINDINGS: PICC was placed by the intravenous therapy team from the left side. Fluoroscopic spot film demonstrates the tip of PICC projecting to the area of SVC. IMPRESSION: Tip of PICC projects to the area of SVC. Dictated by: Moreno Townsend M.D. on 05/02/2022 at 18:13 Approved by: Moreno Townsend M.D. on 05/02/2022 at 18:14
[2022-05-02 18:31] LABS: NT-proBNP (BNP-Adult 18+) 44 pg/mL (<125)
[2022-05-02] MEDS: ONDANSETRON 4 MG/2 ML INJ IV (19:17)
[2022-05-02] MEDS: PIPERACILLIN/TAZO 4.5 GM in SODIUM CHLORIDE 0.9% 100 ML IV (19:39)
[2022-05-02] MEDS: ACETAMINOPHEN 325 MG TABLET 975 MG PO (19:40)
--- NOTE | 2022-05-02 20:01 | ED.GENADULT ---
HPI - General Adult General Chief complaint: Nausea/Vomiting/Diarrhea Stated complaint: food posioning x1 Time Seen by Provider: 05/02/22 15:01 Source: patient Mode of arrival: Ambulatory History of Present Illness HPI narrative: 21-year-old gentleman with a history of chronic kidney disease, asthma occasional recurrent episodes of vomiting and diarrhea sometimes associated with chills and rigors that have never had a definitive source diagnosed. States that he ate a [employer] last night began having diarrhea last night vomiting approximately 12 hours later and has continued to have prolific vomiting and diarrhea with no blood involved. On arrival blood pressure is 72/44 and he is tachycardic at 123 with normal oxygen saturations, he reports no fevers no significant abdominal pain aside from cramping associated with the diarrhea and the vomiting. There is no chest pain or hypoxia. He has not noticed rashes or skin changes. No changes to medications otherwise. No recent headaches, fevers or cough. Related Data Previous Rx's Medication Instructions Recorded albuterol sulfate 90 mcg/actuation 1 inh inhalation Q4-6H PRN 06/06/18 aerosol inhaler shortness of breath #18 grams albuterol sulfate 90 mcg/actuation 2 puff inhalation Q4-6H PRN 08/28/18 aerosol inhaler shortness of breath #8.5 grams fluticasone propionate 115 2 puff inhalation BID #12 grams 08/28/18 mcg-salmeterol 21 mcg/actuation HFA inhaler (Advair HFA) albuterol sulfate 90 mcg/actuation 2 puff inhalation Q4-6H PRN 01/30/19 aerosol inhaler (ProAir HFA) shortness of breath #18 grams fluticasone propionate 115 2 puff inhalation BID #12 grams 01/30/19 mcg-salmeterol 21 mcg/actuation HFA inhaler (Advair HFA) prednisone 50 mg tablet 50 mg PO DAILY #5 tabs 01/30/19 doxycycline hyclate 100 mg capsule 100 mg PO BID #14 caps 07/17/19 loperamide 2 mg tablet 2 mg PO Q6H PRN loose stool #10 07/12/21 tabs ondansetron 4 mg disintegrating 4 mg PO Q8HR PRN nausea and 07/12/21 tablet vomiting #10 tabs cyclobenzaprine 10 mg tablet 10 mg PO TID PRN muscle spasm #14 04/23/22 tabs hydrocodone 5 mg-acetaminophen 325 1 tab PO Q4-6H PRN pain #10 tabs 04/23/22 mg tablet ondansetron 4 mg disintegrating 4 mg PO TID-QID PRN nausea and 04/23/22 tablet vomiting #10 tabs Allergies Allergy/AdvReac Type Severity Reaction Status Date / Time No Known Drug Allergies Allergy Verified 05/02/22 14:06 Review of Systems Review of Systems Narrative: Remainder of complete review of systems is otherwise unremarkable except for that included in the HPI. Patient History Medical History (Updated 05/02/22 @ 20:32 by Nicole Almonte MD) Asthma Chronic kidney disease Social History Smoking Status: Never smoker Smoking Status: Never smoker alcohol intake frequency: holidays/special occasions only Substance Use Type: does not use Exam Initial Vital Signs Initial Vital Signs: Vital Signs Temperature 97.8 F 05/02/22 14:06 Pulse Rate 123 H 05/02/22 14:06 Respiratory Rate 16 05/02/22 14:06 Blood Pressure 72/44 L 05/02/22 14:06 Pulse Oximetry 96 05/02/22 14:06 Oxygen Delivery Method 05/02/22 14:06 General: Pale, appears to feel unwell and asked his mother to help with history because he does not want to talk. HEENT: Moist mucous membranes, normal sclera with reactive pupils, Neck: No JVD, supple Respiratory: Lungs are clear to auscultation, no wheezing no rales no rhonchi. Full and symmetrical air movement Cardiac: Tachycardic but otherwise Regular rate and rhythm no murmurs no bruits Abdomen: Soft, mild diffuse tenderness without rebound or guarding, hyperactive bowel tones, no flank pain Skin: Pale but Warm and dry, no rashes Neurologic: Globally weak, Grossly neurologically intact with no obvious asymmetries or abnormalities Extremities: No trauma, well perfused Psych: Cooperative, appropriate insight and affect Course Orders Ordered: ED Orders 05/02/22 14:20 BNP [NT-proBNP (BNP-Adult 18+)] Stat Complete Blood Count AUTO DIFF Stat Comprehensive Metabolic Panel Stat Lactate (Lactic Acid) Stat Procalcitonin Stat Troponin & CK Cardiac Panel Stat 05/02/22 15:01 EKG-12 Lead Stat 05/02/22 15:02 XR acute abdomen series Stat 05/02/22 15:42 Covid-19 + FLU A/B + RSV - PCR Stat 05/02/22 15:45 Blood Culture Stat 05/02/22 16:28 Urinalysis and Microscopic Stat Urine Culture Stat 05/02/22 17:26 CT kidney ureter bladder (KUB) Stat 05/02/22 17:52 XR chest for PICC 1V Stat Ondansetron HCl (Ondansetron 4 Mg Odt) 4 mg SL NOW PRN PRN Reason: Nausea And Vomiting Last Admin: 05/02/22 14:14 Dose: 4 mg Documented By: VENUS Discontinued Medications Acetaminophen (Acetaminophen 325 Mg Tablet) 975 mg PO NOW ONE Stop: 05/02/22 19:15 Last Admin: 05/02/22 19:40 Dose: 975 mg Documented By: BIA Sodium Chloride (Normal Saline 0.9%) 2,449.41 mls @ 816.47 mls/hr 30 ml/kg infuse over 3 hr (2449.41 ml) IV NOW ONE Stop: 05/02/22 18:00 Last Infusion: 05/02/22 19:02 Dose: 0 mls/hr Documented By: Admin: 05/02/22 15:57 Dose: 816.47 mls/hr Documented By: BIA Piperacillin Sod/Tazobactam (Sod 4.5 gm/ Sodium Chloride) 100 mls @ 200 mls/hr IV NOW ONE Stop: 05/02/22 19:13 Last Admin: 05/02/22 19:39 Dose: 200 mls/hr Documented By: BIA Ondansetron HCl (Ondansetron 4 Mg/2 Ml Inj) 4 mg IV NOW ONE Stop: 05/02/22 19:06 Last Admin: 05/02/22 19:17 Dose: 4 mg Documented By: BIA Vital Signs Vital signs: Vital Signs - 8 hr 05/02/22 14:06 05/02/22 14:26 05/02/22 14:29 Temperature 97.8 F Pulse Rate 123 H 109 H Respiratory Rate 16 Blood Pressure 72/44 L 109/53 L Pulse Oximetry 96 98 Oxygen Delivery Method Room Air 05/02/22 14:29 05/02/22 14:30 05/02/22 14:30 Temperature Pulse Rate 111 H 110 H Respiratory Rate 19 16 Blood Pressure 102/50 L Pulse Oximetry 98 97 Oxygen Delivery Method Room Air Room Air 05/02/22 15:00 05/02/22 15:00 05/02/22 15:32 Temperature Pulse Rate 105 H 111 H Respiratory Rate 17 17 Blood Pressure 94/46 L Pulse Oximetry 95 96 Oxygen Delivery Method Room Air 05/02/22 16:03 05/02/22 16:04 05/02/22 16:04 Temperature Pulse Rate 104 H Respiratory Rate 18 Blood Pressure 98/54 L Pulse Oximetry 92 97 Oxygen Delivery Method Room Air 05/02/22 16:30 05/02/22 16:30 05/02/22 17:00 Temperature Pulse Rate 94 H Respiratory Rate 17 Blood Pressure 92/46 L 89/43 L Pulse Oximetry 99 Oxygen Delivery Method Room Air 05/02/22 17:00 05/02/22 17:02 05/02/22 17:02 Temperature Pulse Rate 97 H 93 H Respiratory Rate 18 16 Blood Pressure 86/42 L Pulse Oximetry 99 100 Oxygen Delivery Method Room Air Room Air 05/02/22 17:06 05/02/22 17:06 05/02/22 17:08 Temperature Pulse Rate 89 89 Respiratory Rate 16 16 Blood Pressure 85/40 L Pulse Oximetry 99 100 Oxygen Delivery Method Room Air Room Air 05/02/22 17:08 05/02/22 17:20 05/02/22 17:20 Temperature Pulse Rate 90 Respiratory Rate 18 Blood Pressure 84/40 L 85/49 L Pulse Oximetry 100 Oxygen Delivery Method Room Air 05/02/22 17:30 05/02/22 17:30 05/02/22 18:00 Temperature Pulse Rate 91 H 95 H Respiratory Rate 18 17 Blood Pressure 87/52 L Pulse Oximetry 100 100 Oxygen Delivery Method Room Air Room Air 05/02/22 18:09 05/02/22 18:09 05/02/22 18:10 Temperature Pulse Rate 108 H Respiratory Rate Blood Pressure 111/53 L 110/50 L Pulse Oximetry 100 Oxygen Delivery Method Room Air 05/02/22 18:10 05/02/22 18:18 05/02/22 18:18 Temperature Pulse Rate 113 H 119 H Respiratory Rate 22 24 Blood Pressure 114/53 L Pulse Oximetry 100 95 Oxygen Delivery Method Room Air Room Air 05/02/22 18:24 05/02/22 18:24 05/02/22 18:30 Temperature Pulse Rate 108 H Respiratory Rate 12 Blood Pressure 109/53 L 116/57 L Pulse Oximetry 99 Oxygen Delivery Method Room Air 05/02/22 18:30 05/02/22 18:45 05/02/22 18:45 Temperature Pulse Rate 104 H 108 H Respiratory Rate 20 27 H Blood Pressure 120/60 Pulse Oximetry 99 99 Oxygen Delivery Method Room Air Room Air 05/02/22 19:00 05/02/22 19:00 05/02/22 19:15 Temperature Pulse Rate 119 H Respiratory Rate 24 Blood Pressure 133/65 124/56 L Pulse Oximetry 100 Oxygen Delivery Method Room Air 05/02/22 19:15 05/02/22 19:30 05/02/22 19:30 Temperature Pulse Rate 120 H 114 H Respiratory Rate 24 23 Blood Pressure 101/50 L Pulse Oximetry 99 99 Oxygen Delivery Method Room Air Room Air 05/02/22 19:45 05/02/22 19:45 05/02/22 19:20 Temperature 98.5 F Pulse Rate 121 H Respiratory Rate 22 Blood Pressure 101/48 L Pulse Oximetry 98 Oxygen Delivery Method Room Air Medical Decision Making Lab Data Result diagrams: 05/02/22 14:20 05/02/22 14:20 Labs: Lab Results 05/02/22 05/02/22 05/02/22 Range/Units 14:20 14:20 14:20 WBC 10.2 (4.5-11.0) X10^3/uL RBC 5.42 (4.5-5.9) X10^6/uL Hgb 16.7 (13.5-17.5) g/dL Hct 49.7 (41-53) % MCV 91.7 (80-100) fL MCH 30.8 (26-34) PG MCHC 33.6 (30-36) % RDW 13.1 (11.6-14.8) % Plt Count 249 (150-400) X10^3/uL Neut % (Auto) 90.1 H (50-75) % Lymph % (Auto) 3.3 L (25-40) % [place] % (Auto) 5.6 (3-14) % Eos % (Auto) 0.9 L (2-4) % Baso % (Auto) 0.1 (0-2) % Neut # (Auto) 9200 H (6970-5289) /uL Lymph # (Auto) 300 L (5065-8931) /uL [place] # (Auto) 600 (0-900) /uL Eos # (Auto) 100 (0-450) /uL Baso # (Auto) 0 (0-100) /uL Sodium 142 (137-145) mmol/L Potassium 5.0 (3.4-5.1) mmol/L Chloride 111 H (98-107) mmol/L Carbon Dioxide 20 L (22-32) mmol/L BUN 84 H (9-20) mg/dL Creatinine 3.39 H (0.66-1.25) mg/dL Estimated GFR 25 L (>60) mL/min BUN/Creatinine Ratio 24.8 H (6-22) Glucose 120 H (70-100) mg/dL Lactate 0.9 (0.7-2.1) mmol/L Calcium 9.4 (8.4-10.2) mg/dL Total Bilirubin 0.6 (0.2-1.3) mg/dL AST 32 (17-59) IU/L ALT 30 (<50) IU/L Alkaline Phosphatase 64 (38-126) U/L Total Creatine Kinase 56 (55-170) U/L CK-MB (CK-2) TNP CK-MB (CK-2) Rel Index TNP Troponin I < 0.012 (0.01-0.034) ng/mL NT-Pro-B Natriuret Pep (<125) pg/mL Total Protein 8.9 H (6.3-8.2) g/dL Albumin 4.8 (3.5-5.0) g/dL Globulin 4.1 (1.7-4.1) g/dL Albumin/Globulin Ratio 1.2 (1.0-2.8) Procalcitonin 0.25 (<0.5) ng/mL Urine Color Urine Appearance Urine pH (4.5-8.0) Ur Specific [place] (1.000-1.035) Urine Protein (Negative) Urine Glucose (UA) (Negative) g/dL Urine Ketones (NEGATIVE) Urine Occult Blood (Negative) Urine Nitrate (Negative) Urine Bilirubin (NEGATIVE) Urine Urobilinogen (0.2) E.U./dL Ur Leukocyte Esterase (NEGATIVE) Urine RBC (0-5/HPF) Urine WBC (0-5/HPF) Ur Squamous Epith Cells (0-5/HPF) Amorphous Sediment Urine Bacteria (None) Urine Mucus (Negative) Ur Culture Indicated? SARS-CoV-2 (PCR) (Negative) Influenza A (RT-PCR) (NEGATIVE) Influenza B (RT-PCR) (NEGATIVE) RSV (PCR) (Negative) 05/02/22 05/02/22 05/02/22 Range/Units 14:20 15:42 16:28 WBC (4.5-11.0) X10^3/uL RBC (4.5-5.9) X10^6/uL Hgb (13.5-17.5) g/dL Hct (41-53) % MCV (80-100) fL MCH (26-34) PG MCHC (30-36) % RDW (11.6-14.8) % Plt Count (150-400) X10^3/uL Neut % (Auto) (50-75) % Lymph % (Auto) (25-40) % [place] % (Auto) (3-14) % Eos % (Auto) (2-4) % Baso % (Auto) (0-2) % Neut # (Auto) (9285-8891) /uL Lymph # (Auto) (8440-3430) /uL [place] # (Auto) (0-900) /uL Eos # (Auto) (0-450) /uL Baso # (Auto) (0-100) /uL Sodium (137-145) mmol/L Potassium (3.4-5.1) mmol/L Chloride (98-107) mmol/L Carbon Dioxide (22-32) mmol/L BUN (9-20) mg/dL Creatinine (0.66-1.25) mg/dL Estimated GFR (>60) mL/min BUN/Creatinine Ratio (6-22) Glucose (70-100) mg/dL Lactate (0.7-2.1) mmol/L Calcium (8.4-10.2) mg/dL Total Bilirubin (0.2-1.3) mg/dL AST (17-59) IU/L ALT (<50) IU/L Alkaline Phosphatase (38-126) U/L Total Creatine Kinase (55-170) U/L CK-MB (CK-2) CK-MB (CK-2) Rel Index Troponin I (0.01-0.034) ng/mL NT-Pro-B Natriuret Pep 44 (<125) pg/mL Total Protein (6.3-8.2) g/dL Albumin (3.5-5.0) g/dL Globulin (1.7-4.1) g/dL Albumin/Globulin Ratio (1.0-2.8) Procalcitonin (<0.5) ng/mL Urine Color Yellow Urine Appearance Clear Urine pH 5.0 (4.5-8.0) Ur Specific [place] >=1.030 H (1.000-1.035) Urine Protein 2+ H (Negative) Urine Glucose (UA) Trace H (Negative) g/dL Urine Ketones Negative (NEGATIVE) Urine Occult Blood Negative (Negative) Urine Nitrate Negative (Negative) Urine Bilirubin Negative (NEGATIVE) Urine Urobilinogen 0.2 (0.2) E.U./dL Ur Leukocyte Esterase Negative (NEGATIVE) Urine RBC None seen (0-5/HPF) Urine WBC 1-5/hpf (0-5/HPF) Ur Squamous Epith Cells 1-5 /hpf (0-5/HPF) Amorphous Sediment 2+ Urine Bacteria None seen (None) Urine Mucus 1+ H (Negative) Ur Culture Indicated? Cult not indicated SARS-CoV-2 (PCR) Negative (Negative) Influenza A (RT-PCR) Flu a negative (NEGATIVE) Influenza B (RT-PCR) Flu b negative (NEGATIVE) RSV (PCR) Negative (Negative) Imaging Data CT scan - abdomen/pelvis: Radiologist's Impression: FINDINGS:? Image quality:? Excellent.? ? Lung bases:? Unremarkable.? ? Heart:? No significant findings. ? URINARY: Right Kidney:? Somewhat small.? No stones or hydronephrosis.? Right Ureter:? No hydroureter.? ? Left Kidney:? Somewhat small.? No stones or hydronephrosis.? Left Ureter:? No hydroureter.? ? Bladder:? Normal wall thickness. No stones. ? ? ? ABDOMEN: Liver:? Unremarkable.? ? Gallbladder:? Not visualized, possibly surgically absent.? ? Biliary ducts:? Unremarkable.? ? Pancreas:? Unremarkable.? ? Spleen:? Unremarkable.? ? Adrenal Glands:? Unremarkable.? ? ? Stomach and Bowel:? Ileus pattern.? Liquid colonic contents.? Findings consistent with gastroenteritis.? No obstructed or thickened loops.? Peritoneum:? No abnormal intraperitoneal fluid.? No free air.? ? Ventral Wall: ? No hernia.? Abdominal Nodes:? No enlarged retroperitoneal or mesenteric lymph nodes.? Vessels:? Aorta and inferior vena cava are normal in size.? ? PELVIS: Pelvic Organs:? Unremarkable.? ? Pelvic Nodes: Unremarkable. Miscellaneous: No inguinal hernias are seen. ? The left testicle is currently in the top of the inguinal canal.? It was in normal location previously.? ? Bones:? Mild degenerative change at L5-S1. ? IMPRESSION:? ? 1. Kidneys are both somewhat small.? There is no stone, mass, hydronephrosis, or hydroureter noted. ? 2. Ileus pattern, gastroenteritis. ? 3. Left testicle currently at top of inguinal canal.? Dictated by: Vaibhav Anna M.D. on 05/02/2022 at 18:41 ? ? Chest x-ray: Radiologist's Impression: FINDINGS:? PICC was placed by the intravenous therapy team from the left side.? Fluoroscopic spot film demonstrates the tip of PICC projecting to the area of SVC. ? IMPRESSION:? Tip of PICC projects to the area of SVC. ? ? Dictated by: Moreno Townsend M.D. on 05/02/2022 at 18:13 ? ? X-ray chest and abdomen: Radiologist's Impression: FINDINGS:? ? Surgical changes and devices:? None.? ? Chest:? Lungs are clear.? Heart size is normal.? No pleural effusions.? No pneumoperitoneum.? ? Abdomen:? Bowel gas pattern is normal.? No dilated loops of bowel.? There are air-fluid levels present in small and large bowel suggesting possible gastroenteritis.? No suspicious calcifications.? Visualized solid organ contours appear normal.? ? Bones:? No suspicious bony lesions.? ? IMPRESSION:? Bowel gas pattern is supportive of a diagnosis of gastroenteritis.? No evidence acute pulmonary process. ? ? Dictated by: Vaibhav Anna M.D. on 05/02/2022 at 15:43 ? ? ECG Data Interpretation: Interpreted by me Sinus tachycardia at 124 Poor baseline No acute ischemic changes MDM Narrative Medical decision making narrative: 21-year-old gentleman with chronic kidney disease recurrent episodes of vomiting and diarrhea in the past started last night CT scan does not suggest acute surgical findings but suspicious for gastroenteritis. Stool PCR will be obtained. Has responded nicely to 30 per kilos bolus of fluid however blood pressure is now continuing to drop again will add another L of fluid and then continuous maintenance fluid. At this time I do not believe he needs any IV vasopressors. Because of the shakes and rigors we have added Zosyn. Will wait for remainder of cultures to return. I am slightly concerned that he may be bacteremic although I do not have a source for said bacteremia. Discussed findings with patient and his mother and have recommended hospitalization, both are amenable to this. Findings reviewed with the hospitalist service and he will be accepted for admission for acute dehydration with worsening renal function in the setting of renal insufficiency, rigors with suspected bacteremia, continue diarrhea. No evidence of influenza, COVID or RSV. No acute surgical abnormalities or GI bleeding. He is safe for transfer to the floor Discharge Plan Departure Patient Disposition: Admitted as Observation Clinical Impression: Acute kidney injury superimposed on chronic kidney disease, Gastroenteritis, Dehydration, Vomiting and diarrhea, Bacteremia Admit Date/Time: 05/02/22 19:53 Admit Provider: Ronel Alfonso
[2022-05-02] MEDS: LACTATED RINGERS 1,000 ML 1000 ML IV (20:57)
[2022-05-02] MEDS: NOREPINEPHRINE BITARTRATE/D5W 4 MG/250 ML PLAST..BAG 30 MG IV (21:43)
[2022-05-02] MEDS: LACTATED RINGERS 1,000 ML 200 ML IV (22:02)
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
[2022-05-02 22:51] LABS: Lipase 148 U/L (23-300)
[2022-05-02] MEDS: HEPARIN 5,000 UNIT/ML VIAL 5000 UNIT SUBCUT (23:22)
--- NOTE | 2022-05-02 23:30 | PC.NURSE ---
Report received - assumed care of pt at this time - family at bedside - no needs voiced - resting quietly
[2022-05-02 23:45] LABS: Lactate (Lactic Acid) 0.6 mmol/L (0.7-2.1)
[2022-05-02 23:53] LABS: Phosphorous 4.5 mg/dL (2.5-4.5)
[2022-05-03] VITALS (188 sets, daily range): BP systolic 78–139; BP diastolic 44–75; PULSE 26–134; RESP 10–59; TEMP 36.6–39.3; O2SAT 92–100
--- NOTE | 2022-05-03 | PC.NURSE ---
Resting quietly in darkened room with family at bedside - no needs voiced at this time - VSS - respirations equal and unlabored bilaterally
--- NOTE | 2022-05-03 00:30 | PC.NURSE ---
No changes in pt status at this time
--- NOTE | 2022-05-03 01:00 | PC.NURSE ---
No changes in pt status at this time
--- NOTE | 2022-05-03 01:30 | PC.NURSE ---
no changes in pt status - left to rest - Mom at bedside - no titration or changes in pt BP - stable
--- NOTE | 2022-05-03 02:00 | PC.NURSE ---
no changes in pt status - mom at the bedside
--- NOTE | 2022-05-03 02:30 | PC.NURSE ---
No changes in pt status at this time - mom remains at bedside
--- NOTE | 2022-05-03 03:00 | PC.NURSE ---
Pt called RN to bedside - Assisted to get up and use the bedside commode - able to stand and walk without assistance - denies shortness of breath dizziness - pt tremulous - states that he is cold - gown changed VSS have remained stable - levo infusion continued at current rate
--- NOTE | 2022-05-03 03:20 | PC.NURSE ---
Pt climbs back in bed - old blankets removed nad new blankets placed for comfort - recliner put in room for Mom - pt given ice chips at this time - no further needs voiced - alert and oriented - PWD with respirations equal and unlabored bilaterally - speaking clearly
--- NOTE | 2022-05-03 03:45 | PC.NURSE ---
At bedside with the tin can laborer - blood drawn from the PICC line - tolerated well - given to tin can laborer - blood transferred to tubes and labelled at bedside by tech - family remains at bedside - lights dimmed and door closed for patient comfort
[2022-05-03 03:53] LABS: Add Manual Diff / Slide Review NO; Basophils Absolute Auto 100 /uL (0-100); Basophils Percent Auto 1.3 % (0-2); Eosinophils Absolute Auto 100 /uL (0-450); Eosinophils Percent Auto 2.6 % (2-4); Hematocrit 37.5 % (41-53); Hemoglobin 12.8 g/dL (13.5-17.5); Lymphocytes Absolute Auto 300 /uL (1100-4500); Lymphocytes Percent Auto 5.6 % (25-40); Mean Corpuscular HGB Conc 34.1 % (30-36); Mean Corpuscular Volume 91.1 fL (80-100); Monocytes Absolute Auto 700 /uL (0-900); Monocytes Percent Auto 13.1 % (3-14); Neutrophils Absolute Auto 4200 /uL (1500-7000); Neutrophils Percent Auto 77.4 % (50-75); Platelet Count 167 X10^3/uL (150-400); Red Blood Cell Count 4.12 X10^6/uL (4.5-5.9); Red Cell Distribution Width 12.7 % (11.6-14.8); White Blood Cell Count 5.4 X10^3/uL (4.5-11.0)
--- NOTE | 2022-05-03 04:00 | PC.NURSE ---
Mom asking about plan of care - updated that the patient is awaiting admission to the ICU upstairs - understanding verbalized - denies further questions or needs
[2022-05-03 04:08] LABS: Alanine Aminotransferase 21 IU/L (<50); Albumin 3.3 g/dL (3.5-5.0); Albumin Globulin Ratio 1.1 (1.0-2.8); Alkaline Phosphatase 45 U/L (38-126); Aspartate Aminotransferase 16 IU/L (17-59); BUN Creatinine Ratio 20.8 (6-22); Bilirubin Total 0.5 mg/dL (0.2-1.3); Blood Urea Nitrogen 65 mg/dL (9-20); Calcium 7.6 mg/dL (8.4-10.2); Carbon Dioxide 15 mmol/L (22-32); Chloride 110 mmol/L (98-107); Estimated Glomerular Filt Rate 28 mL/min (>60); Globulin 2.9 g/dL (1.7-4.1); Glucose 188 mg/dL (70-100); HEMOLYSIS < 15 (0-50); Magnesium 1.5 mg/dL (1.6-2.3); Potassium 3.8 mmol/L (3.4-5.1); Sodium 138 mmol/L (137-145); Total Protein 6.2 g/dL (6.3-8.2)
--- NOTE | 2022-05-03 04:30 | PC.NURSE ---
Resting quietly in a darkened room - Mom at bedside - no needs voiced - left to rest at this time
--- NOTE | 2022-05-03 05:00 | PC.NURSE ---
No changes in pt status at this time
--- NOTE | 2022-05-03 05:07 | PM.EICU.INT ---
Teleintensivist Intervention Date/Time Was camera activated?: No Issue(s) Addressed Issue(s): Shock/hypotension Other:: Notified by CARLOTTA Kaden of this patient's pending admission to ICU for hypovolemic shock requiring vasopressors and CJ superimposed on CKD. Etiology appears to be gastroenteritis-related diarrhea. Lactate/procalcitonin (-). Orders reviewed; continue present plan. Unable to evaluate patient as he is still physicially in the ED.
--- NOTE | 2022-05-03 05:30 | PC.NURSE ---
No changes in pt status at this time
[2022-05-03] MEDS: LACTATED RINGERS 1,000 ML 200 ML IV ×5 (06:13→22:52)
--- NOTE | 2022-05-03 06:15 | PC.NURSE ---
In to check patient - sitting upright - appears better - states that he is feeling better at this time - denies feeling s/sx of hypotension - states that he feels off and sleepy when his BP drops - has not felt that way all night - alert and oriented - PWD with respirations equal and unlabored bilaterally
--- NOTE | 2022-05-03 07:17 | PC.NURSE ---
Report given to dayshift RN team - care relinquished at this time
[2022-05-03] MEDS: ACETAMINOPHEN 325 MG TABLET 650 MG PO ×3 (08:01→21:23)
[2022-05-03] MEDS: NOREPINEPHRINE BITARTRATE/D5W 4 MG/250 ML PLAST..BAG 11.25 MG IV (08:05)
[2022-05-03] MEDS: HEPARIN 5,000 UNIT/ML VIAL 5000 UNIT SUBCUT ×2 (08:24→21:19)
[2022-05-03] MEDS: MAGNESIUM SULFATE 2 GM/50 ML PIGGYBACK IV (08:45)
[2022-05-03] MEDS: AZITHROMYCIN 250 MG TABLET 500 MG PO (09:15)
[2022-05-03] MEDS: VANCOMYCIN 125 MG CAPSULE PO (09:50)
[2022-05-03] MEDS: CEFEPIME 1 GM in SODIUM CHLORIDE 0.9% 100 ML IV (09:51)
[2022-05-03 10:25] LABS: Clostridium Difficile Tox PCR Negative for C. diff (Negative)
[2022-05-03 10:46] LABS: HCO3 ABG 15 mmol/L (22-26); PCO2 ABG 30.3 mmHg (35-45); PO2 ABG 85 mmHg (80-100)
[2022-05-03 10:47] LABS: Fractionated Inspired Oxygen 21; Oxygen Saturation ABG 96 % (95-100); TCO2 ABG 16 mmol/L (21-31)
[2022-05-03] MEDS: ONDANSETRON 4 MG/2 ML INJ IV ×2 (12:21→19:41)
[2022-05-03 13:10] LABS: Adenovirus F 40/41 Not Detected (Not Detect); Astrovirus Not Detected (Not Detect); Campylobacter Not Detected (Not Detect); Clostridium difficile toxin AB Not Detected (Not Detect); Cryptosporidium Not Detected (Not Detect); Cyclospora cayetanensis Not Detected (Not Detect); Entamoeba histolytica Not Detected (Not Detect); Enteroaggregative E.coli Not Detected (Not Detect); Enteropathogenic E.coli Not Detected (Not Detect); Enterotoxigenic E.coli It/st Not Detected (Not Detect); Giardia lamblia Not Detected (Not Detect); Norovirus GI/GII Not Detected (Not Detect); Plesiomonsa shigelloides Not Detected (Not Detect); Rotavirus A Detected (Not Detect); Salmonella Not Detected (Not Detect); Sapovirus Not Detected (Not Detect); Shiga-like toxin-prod E.coli Not Detected (Not Detect); Shigella/Enteroinvasive E.coli Not Detected (Not Detect); Vibrio Not Detected (Not Detect); Vibrio cholerae Not Detected (Not Detect); Yersinia enterocolitica Not Detected (Not Detect)
[2022-05-03 15:50] LABS: BUN Creatinine Ratio 18.8 (6-22); Blood Urea Nitrogen 53 mg/dL (9-20); Calcium 7.7 mg/dL (8.4-10.2); Carbon Dioxide 18 mmol/L (22-32); Chloride 112 mmol/L (98-107); Estimated Glomerular Filt Rate 32 mL/min (>60); Glucose 90 mg/dL (70-100); HEMOLYSIS < 15 (0-50); Magnesium 2.3 mg/dL (1.6-2.3); Potassium 3.6 mmol/L (3.4-5.1); Sodium 138 mmol/L (137-145)
--- NOTE | 2022-05-03 20:03 | PM.PN.1 ---
Subjective Subjective Date Patient Seen: 05/03/22 Time Patient Seen: 08:00 Interval history: He is having frequent diarrhea. He actually does feel quite a bit better. Levophed has been attempted to be weaned off and he becomes hypotensive. Exam Vital Signs (past 8 hours): - 05/03/22 12:05 05/03/22 12:10 05/03/22 12:15 Temperature Pulse Rate 123 H 116 H 115 H Respiratory Rate 31 H 19 19 Blood Pressure Pulse Oximetry 100 97 96 Oxygen Delivery Method Oxygen Flow Rate 05/03/22 12:20 05/03/22 12:25 05/03/22 12:30 Temperature Pulse Rate 114 H 116 H 115 H Respiratory Rate 17 20 23 Blood Pressure Pulse Oximetry 97 94 93 Oxygen Delivery Method Oxygen Flow Rate 05/03/22 12:53 05/03/22 12:35 05/03/22 12:40 Temperature 100.8 F H Pulse Rate 122 H 116 H Respiratory Rate 16 23 Blood Pressure Pulse Oximetry 96 93 Oxygen Delivery Method Oxygen Flow Rate 05/03/22 12:45 05/03/22 12:45 05/03/22 12:50 Temperature Pulse Rate 124 H Respiratory Rate 20 Blood Pressure 108/51 L 104/50 L Pulse Oximetry 95 Oxygen Delivery Method Oxygen Flow Rate 05/03/22 12:50 05/03/22 12:55 05/03/22 13:00 Temperature Pulse Rate 128 H 119 H Respiratory Rate 17 17 Blood Pressure 111/53 L Pulse Oximetry 96 98 Oxygen Delivery Method Oxygen Flow Rate 05/03/22 13:00 05/03/22 13:05 05/03/22 13:10 Temperature Pulse Rate 117 H 120 H Respiratory Rate 22 24 Blood Pressure 116/54 L Pulse Oximetry 99 98 Oxygen Delivery Method Oxygen Flow Rate 05/03/22 13:10 05/03/22 13:15 05/03/22 13:20 Temperature Pulse Rate 117 H 118 H Respiratory Rate 18 20 Blood Pressure 93/54 L Pulse Oximetry 98 98 Oxygen Delivery Method Oxygen Flow Rate 05/03/22 13:20 05/03/22 13:25 05/03/22 13:30 Temperature Pulse Rate 119 H 132 H Respiratory Rate 23 20 Blood Pressure 102/51 L Pulse Oximetry 98 97 Oxygen Delivery Method Oxygen Flow Rate 05/03/22 13:30 05/03/22 13:35 05/03/22 13:40 Temperature Pulse Rate 118 H 121 H Respiratory Rate 22 23 Blood Pressure 104/51 L Pulse Oximetry 98 95 Oxygen Delivery Method Oxygen Flow Rate 05/03/22 13:40 05/03/22 13:45 05/03/22 13:48 Temperature 99.7 F H Pulse Rate 120 H 122 H Respiratory Rate 21 21 Blood Pressure Pulse Oximetry 98 98 Oxygen Delivery Method Oxygen Flow Rate 05/03/22 13:50 05/03/22 13:50 05/03/22 13:50 Temperature 99.7 F H Pulse Rate 119 H Respiratory Rate 20 Blood Pressure 102/49 L Pulse Oximetry 96 Oxygen Delivery Method Oxygen Flow Rate 05/03/22 13:55 05/03/22 14:00 05/03/22 14:00 Temperature Pulse Rate 122 H 121 H Respiratory Rate 19 21 Blood Pressure 105/49 L Pulse Oximetry 95 96 Oxygen Delivery Method Oxygen Flow Rate 05/03/22 14:05 05/03/22 14:10 05/03/22 14:10 Temperature Pulse Rate 121 H 122 H Respiratory Rate 23 19 Blood Pressure 92/48 L Pulse Oximetry 95 95 Oxygen Delivery Method Oxygen Flow Rate 05/03/22 14:15 05/03/22 14:20 05/03/22 14:20 Temperature Pulse Rate 121 H 116 H Respiratory Rate 22 17 Blood Pressure 95/46 L Pulse Oximetry 93 95 Oxygen Delivery Method Oxygen Flow Rate 05/03/22 14:25 05/03/22 14:30 05/03/22 14:30 Temperature Pulse Rate 121 H 120 H Respiratory Rate 21 19 Blood Pressure 94/46 L Pulse Oximetry 93 93 Oxygen Delivery Method Oxygen Flow Rate 05/03/22 14:35 05/03/22 14:40 05/03/22 14:40 Temperature Pulse Rate 119 H 120 H Respiratory Rate 19 22 Blood Pressure 95/44 L Pulse Oximetry 93 93 Oxygen Delivery Method Oxygen Flow Rate 05/03/22 14:45 05/03/22 14:50 05/03/22 14:50 Temperature Pulse Rate 115 H 116 H Respiratory Rate 21 20 Blood Pressure 97/51 L Pulse Oximetry 93 93 Oxygen Delivery Method Oxygen Flow Rate 05/03/22 14:55 05/03/22 15:00 05/03/22 15:00 Temperature Pulse Rate 114 H 116 H Respiratory Rate 20 19 Blood Pressure 106/48 L Pulse Oximetry 93 92 Oxygen Delivery Method Oxygen Flow Rate 05/03/22 15:05 05/03/22 15:10 05/03/22 15:10 Temperature Pulse Rate 115 H 110 H Respiratory Rate 21 19 Blood Pressure 93/46 L Pulse Oximetry 93 93 Oxygen Delivery Method Oxygen Flow Rate 05/03/22 15:15 05/03/22 15:20 05/03/22 15:20 Temperature Pulse Rate 109 H 112 H Respiratory Rate 22 19 Blood Pressure 78/48 L Pulse Oximetry 94 95 Oxygen Delivery Method Oxygen Flow Rate 05/03/22 15:25 05/03/22 15:30 05/03/22 15:30 Temperature Pulse Rate 115 H 112 H Respiratory Rate 10 L 22 Blood Pressure 88/48 L Pulse Oximetry 94 94 Oxygen Delivery Method Oxygen Flow Rate 05/03/22 15:35 05/03/22 15:40 05/03/22 15:40 Temperature Pulse Rate 110 H 115 H Respiratory Rate 23 19 Blood Pressure 93/51 L Pulse Oximetry 93 96 Oxygen Delivery Method Room Air Oxygen Flow Rate 05/03/22 15:45 05/03/22 15:50 05/03/22 15:55 Temperature Pulse Rate 117 H 123 H 134 H Respiratory Rate 21 Blood Pressure Pulse Oximetry 95 Oxygen Delivery Method Oxygen Flow Rate 05/03/22 16:00 05/03/22 16:02 05/03/22 16:02 Temperature Pulse Rate 117 H 112 H Respiratory Rate 17 Blood Pressure 99/48 L Pulse Oximetry 97 95 Oxygen Delivery Method Oxygen Flow Rate 05/03/22 16:05 05/03/22 16:10 05/03/22 16:10 Temperature Pulse Rate 106 H 99 H Respiratory Rate 22 19 Blood Pressure 107/57 L Pulse Oximetry 97 98 Oxygen Delivery Method Oxygen Flow Rate 05/03/22 16:15 05/03/22 16:20 05/03/22 16:20 Temperature Pulse Rate 97 H 97 H Respiratory Rate 19 18 Blood Pressure 109/56 L Pulse Oximetry 96 95 Oxygen Delivery Method Oxygen Flow Rate 05/03/22 16:25 05/03/22 16:30 05/03/22 16:30 Temperature Pulse Rate 96 H 97 H Respiratory Rate 19 19 Blood Pressure 112/55 L Pulse Oximetry 95 94 Oxygen Delivery Method Oxygen Flow Rate 05/03/22 16:35 05/03/22 16:40 05/03/22 16:40 Temperature Pulse Rate 97 H 97 H Respiratory Rate 18 17 Blood Pressure 112/53 L Pulse Oximetry 94 95 Oxygen Delivery Method Oxygen Flow Rate 05/03/22 16:45 05/03/22 16:50 05/03/22 16:50 Temperature Pulse Rate 98 H 98 H Respiratory Rate 18 19 Blood Pressure 114/53 L Pulse Oximetry 94 94 Oxygen Delivery Method Oxygen Flow Rate 05/03/22 16:55 05/03/22 17:00 05/03/22 17:00 Temperature Pulse Rate 99 H 99 H Respiratory Rate 16 19 Blood Pressure 109/52 L Pulse Oximetry 95 95 Oxygen Delivery Method Oxygen Flow Rate 05/03/22 17:05 05/03/22 17:10 05/03/22 17:10 Temperature Pulse Rate 97 H 99 H Respiratory Rate 17 20 Blood Pressure 119/53 L Pulse Oximetry 96 97 Oxygen Delivery Method Oxygen Flow Rate 05/03/22 17:15 05/03/22 17:20 05/03/22 17:20 Temperature Pulse Rate 110 H 105 H Respiratory Rate 28 H 27 H Blood Pressure 119/57 L Pulse Oximetry 96 96 Oxygen Delivery Method Oxygen Flow Rate 05/03/22 17:25 05/03/22 17:30 05/03/22 17:30 Temperature Pulse Rate 101 H 103 H Respiratory Rate 21 18 Blood Pressure 115/55 L Pulse Oximetry 97 97 Oxygen Delivery Method Oxygen Flow Rate 05/03/22 17:35 05/03/22 17:40 05/03/22 17:40 Temperature Pulse Rate 103 H 108 H Respiratory Rate 22 22 Blood Pressure 120/63 Pulse Oximetry 97 98 Oxygen Delivery Method Oxygen Flow Rate 05/03/22 17:45 05/03/22 17:50 05/03/22 17:50 Temperature Pulse Rate 104 H 103 H Respiratory Rate 22 27 H Blood Pressure 114/59 L Pulse Oximetry 99 98 Oxygen Delivery Method Oxygen Flow Rate 05/03/22 17:55 05/03/22 18:00 05/03/22 18:05 Temperature Pulse Rate 103 H 123 H 122 H Respiratory Rate 47 H 35 H 35 H Blood Pressure Pulse Oximetry 96 98 96 Oxygen Delivery Method Oxygen Flow Rate 05/03/22 18:10 05/03/22 18:15 05/03/22 18:20 Temperature Pulse Rate 111 H 107 H 102 H Respiratory Rate 20 22 21 Blood Pressure Pulse Oximetry 98 99 99 Oxygen Delivery Method Oxygen Flow Rate 05/03/22 18:25 05/03/22 18:30 12/24/22 18:31 Temperature Pulse Rate 102 H 99 H Respiratory Rate 24 20 Blood Pressure 127/61 Pulse Oximetry 98 99 Oxygen Delivery Method Oxygen Flow Rate 05/03/22 18:31 05/03/22 18:50 Temperature 101.3 F H Pulse Rate 100 H 97 H Respiratory Rate 21 21 Blood Pressure 137/75 Pulse Oximetry 99 97 Oxygen Delivery Method Oxygen Flow Rate 0 Oxygen Delivery Method Room Air Oxygen Flow Rate 0 Narrative Exam Narrative: GEN: mild distress from abdominal discomfort HEENT: dry mucous membranes CV: tachycardic PULM: clear bilaterally ABD: soft, tenderness is mild and diffuse, no rebound/guarding Objective Labs Result Diagrams: 05/03/22 03:40 05/03/22 15:00 Labs: Laboratory Results - last 24 hr 05/02/22 05/02/22 05/02/22 14:20 14:20 23:20 WBC RBC Hgb Hct MCV MCH MCHC RDW Plt Count Neut % (Auto) Lymph % (Auto) Zavala % (Auto) Eos % (Auto) Baso % (Auto) Neut # (Auto) Lymph # (Auto) Zavala # (Auto) Eos # (Auto) Baso # (Auto) ABG pH ABG pCO2 ABG pO2 ABG HCO3 ABG Total CO2 ABG O2 Saturation ABG Base Excess FiO2 Sodium Potassium Chloride Carbon Dioxide BUN Creatinine Estimated GFR BUN/Creatinine Ratio Glucose Lactate 0.6 L Calcium Phosphorus 4.5 Magnesium Total Bilirubin AST ALT Alkaline Phosphatase Total Protein Albumin Globulin Albumin/Globulin Ratio Lipase 148 TSH Stl C. cayetanensis PCR Stool Rotavirus (PCR) Stool Adenovirus (PCR) Stool Astrovirus (PCR) Stool Cryptosporidium PCR Stl E.coli Shiga Tox PCR St Sh/Enteroin Ecoli PCR Stool E coli O157 PCR Stl Enterotoxigenic E PCR Stool EPEC (PCR) Stl E. histolytica PCR Stool Giardia Lamblia PCR Stool Sapovirus (PCR) Stl P. shigelloides PCR St Y.enterocolitica PCR Stool Vibrio (PCR) Stl Vibrio cholerae PCR Stl Enteroaggr Ecoli PCR Stl Norovirus GI/GII PCR Campylobacter (PCR) C. difficile Tox (PCR) Salmonella (PCR) 05/03/22 05/03/22 05/03/22 03:40 03:40 03:40 WBC 5.4 RBC 4.12 L Hgb 12.8 L Hct 37.5 L MCV 91.1 MCH 31.0 MCHC 34.1 RDW 12.7 Plt Count 167 Neut % (Auto) 77.4 H Lymph % (Auto) 5.6 L Zavala % (Auto) 13.1 Eos % (Auto) 2.6 Baso % (Auto) 1.3 Neut # (Auto) 4200 Lymph # (Auto) 300 L Zavala # (Auto) 700 Eos # (Auto) 100 Baso # (Auto) 100 ABG pH ABG pCO2 ABG pO2 ABG HCO3 ABG Total CO2 ABG O2 Saturation ABG Base Excess FiO2 Sodium 138 Potassium 3.8 D Chloride 110 H Carbon Dioxide 15 L BUN 65 H Creatinine 3.13 H Estimated GFR 28 L BUN/Creatinine Ratio 20.8 Glucose 188 H Lactate Calcium 7.6 L Phosphorus Magnesium 1.5 L Total Bilirubin 0.5 AST 16 L ALT 21 Alkaline Phosphatase 45 Total Protein 6.2 L Albumin 3.3 L Globulin 2.9 Albumin/Globulin Ratio 1.1 Lipase TSH 2.10 Stl C. cayetanensis PCR Stool Rotavirus (PCR) Stool Adenovirus (PCR) Stool Astrovirus (PCR) Stool Cryptosporidium PCR Stl E.coli Shiga Tox PCR St Sh/Enteroin Ecoli PCR Stool E coli O157 PCR Stl Enterotoxigenic E PCR Stool EPEC (PCR) Stl E. histolytica PCR Stool Giardia Lamblia PCR Stool Sapovirus (PCR) Stl P. shigelloides PCR St Y.enterocolitica PCR Stool Vibrio (PCR) Stl Vibrio cholerae PCR Stl Enteroaggr Ecoli PCR Stl Norovirus GI/GII PCR Campylobacter (PCR) C. difficile Tox (PCR) Salmonella (PCR) 05/03/22 05/03/22 05/03/22 08:21 08:21 08:37 WBC RBC Hgb Hct MCV MCH MCHC RDW Plt Count Neut % (Auto) Lymph % (Auto) Zavala % (Auto) Eos % (Auto) Baso % (Auto) Neut # (Auto) Lymph # (Auto) Zavala # (Auto) Eos # (Auto) Baso # (Auto) ABG pH 7.30 L ABG pCO2 30.3 L ABG pO2 85 ABG HCO3 15 L ABG Total CO2 16 L ABG O2 Saturation 96 ABG Base Excess -11.0 L FiO2 21 Sodium Potassium Chloride Carbon Dioxide BUN Creatinine Estimated GFR BUN/Creatinine Ratio Glucose Lactate Calcium Phosphorus Magnesium Total Bilirubin AST ALT Alkaline Phosphatase Total Protein Albumin Globulin Albumin/Globulin Ratio Lipase TSH Stl C. cayetanensis PCR Not detected Stool Rotavirus (PCR) Detected H Stool Adenovirus (PCR) Not detected Stool Astrovirus (PCR) Not detected Stool Cryptosporidium PCR Not detected Stl E.coli Shiga Tox PCR Not detected St Sh/Enteroin Ecoli PCR Not detected Stool E coli O157 PCR Not detected Stl Enterotoxigenic E PCR Not detected Stool EPEC (PCR) Not detected Stl E. histolytica PCR Not detected Stool Giardia Lamblia PCR Not detected Stool Sapovirus (PCR) Not detected Stl P. shigelloides PCR Not detected St Y.enterocolitica PCR Not detected Stool Vibrio (PCR) Not detected Stl Vibrio cholerae PCR Not detected Stl Enteroaggr Ecoli PCR Not detected Stl Norovirus GI/GII PCR Not detected Campylobacter (PCR) Not detected C. difficile Tox (PCR) Not detected Negative for c. diff Salmonella (PCR) Not detected 05/03/22 15:00 WBC RBC Hgb Hct MCV MCH MCHC RDW Plt Count Neut % (Auto) Lymph % (Auto) Zavala % (Auto) Eos % (Auto) Baso % (Auto) Neut # (Auto) Lymph # (Auto) Zavala # (Auto) Eos # (Auto) Baso # (Auto) ABG pH ABG pCO2 ABG pO2 ABG HCO3 ABG Total CO2 ABG O2 Saturation ABG Base Excess FiO2 Sodium 138 Potassium 3.6 Chloride 112 H Carbon Dioxide 18 L BUN 53 H Creatinine 2.82 H Estimated GFR 32 L BUN/Creatinine Ratio 18.8 Glucose 90 Lactate Calcium 7.7 L Phosphorus Magnesium 2.3 Total Bilirubin AST ALT Alkaline Phosphatase Total Protein Albumin Globulin Albumin/Globulin Ratio Lipase TSH Stl C. cayetanensis PCR Stool Rotavirus (PCR) Stool Adenovirus (PCR) Stool Astrovirus (PCR) Stool Cryptosporidium PCR Stl E.coli Shiga Tox PCR St Sh/Enteroin Ecoli PCR Stool E coli O157 PCR Stl Enterotoxigenic E PCR Stool EPEC (PCR) Stl E. histolytica PCR Stool Giardia Lamblia PCR Stool Sapovirus (PCR) Stl P. shigelloides PCR St Y.enterocolitica PCR Stool Vibrio (PCR) Stl Vibrio cholerae PCR Stl Enteroaggr Ecoli PCR Stl Norovirus GI/GII PCR Campylobacter (PCR) C. difficile Tox (PCR) Salmonella (PCR) [facility] Medical History Asthma Chronic kidney disease Pyloric stricture Surgical History History of gastrostomy tube placement Family History Mother Placental abruption Grandmother Diabetes mellitus Father Alive and well Social History Smoking Status: Never smoker Assessment & Plan Assessment & Plan narrative: 1. 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
--- NOTE | 2022-05-03 20:42 | PM.CN.EICU ---
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 Further workup showed possible ileus pattern c/w gastroenteritis. He met SIRS for sepsis and was given crystalloids bolus and started on broad spectrum abx. Stool positive for rotavirus. Cx negative to date. Patient remains hypotensive which he was started on levophed which is currently at 3 mcg. Admitted to ICU for further management. [facility] Medical History Asthma Chronic kidney disease Pyloric stricture Surgical History History of gastrostomy tube placement Family History Mother Placental abruption Grandmother Diabetes mellitus Father Alive and well Social History Smoking Status: Never smoker Current Medications Current Medications Medications: Home Medications albuterol sulfate 90 mcg/actuation aerosol inhaler 1 inh inhalation Q4-6H PRN shortness of breath #18 grams 06/06/18 [Rx Confirmed 06/07/21] albuterol sulfate 90 mcg/actuation aerosol inhaler 2 puff inhalation Q4-6H PRN shortness of breath #8.5 grams 08/28/18 [Rx Confirmed 06/07/21] fluticasone propionate 115 mcg-salmeterol 21 mcg/actuation HFA inhaler (Advair HFA) 2 puff inhalation BID #12 grams 08/28/18 [Rx Confirmed 06/07/21] albuterol sulfate 90 mcg/actuation aerosol inhaler (ProAir HFA) 2 puff inhalation Q4-6H PRN shortness of breath #18 grams 01/30/19 [Rx Confirmed 06/07/21] fluticasone propionate 115 mcg-salmeterol 21 mcg/actuation HFA inhaler (Advair HFA) 2 puff inhalation BID #12 grams 01/30/19 [Rx Confirmed 06/07/21] prednisone 50 mg tablet 50 mg PO DAILY #5 tabs 01/30/19 [Rx Confirmed 06/07/21] doxycycline hyclate 100 mg capsule 100 mg PO BID #14 caps 07/17/19 [Rx Confirmed 06/07/21] loperamide 2 mg tablet 2 mg PO Q6H PRN loose stool #10 tabs 07/12/21 [Rx] ondansetron 4 mg disintegrating tablet 4 mg PO Q8HR PRN nausea and vomiting #10 tabs 07/12/21 [Rx] cyclobenzaprine 10 mg tablet 10 mg PO TID PRN muscle spasm #14 tabs 04/23/22 [Rx] hydrocodone 5 mg-acetaminophen 325 mg tablet 1 tab PO Q4-6H PRN pain #10 tabs 04/23/22 [Rx] ondansetron 4 mg disintegrating tablet 4 mg PO TID-QID PRN nausea and vomiting #10 tabs 04/23/22 [Rx] Visit Medications (administered) Generic Name Dose Route Start Last Admin Trade Name Freq PRN Reason Stop Dose Admin Acetaminophen 650 mg 05/02/22 22:31 05/03/22 12:53 Acetaminophen 325 Mg Tablet PO 650 mg Q6H PRN Administration Fever/Mild Pain (1-3) Heparin Sodium (Porcine) 5,000 unit 05/02/22 22:45 05/03/22 08:24 Heparin 5,000 Unit/Ml Vial SUBCUT 5,000 unit BID MICAELA Administration Lactated Ringer's 1,000 mls @ 200 mls/hr 05/02/22 20:45 05/03/22 11:32 Lactated Ringers IV Infused CONT MICAELA Infusion NOREPINEPHRINE BITARTRATE/D5W 4 mg in 250 mls @ 30 mls/hr 05/02/22 21:33 05/03/22 19:53 Levophed IV 3 mcg/min TITRATE MICAELA 11.25 mls/hr Titration Protocol 8 MCG/MIN Lactated Ringer's 1,000 mls @ 200 mls/hr 05/03/22 11:45 05/03/22 16:52 Lactated Ringers IV Infused CONT MICAELA Infusion Lactated Ringer's 1,000 mls @ 200 mls/hr 05/03/22 17:00 05/03/22 17:00 Lactated Ringers IV 200 mls/hr CONT MICAELA Administration Ondansetron HCl 4 mg 05/02/22 14:09 05/02/22 14:14 Ondansetron 4 Mg Odt SL 4 mg NOW PRN Administration Nausea And Vomiting Ondansetron HCl 4 mg 05/03/22 19:35 05/03/22 19:41 Ondansetron 4 Mg/2 Ml Inj IV 4 mg Q6HR PRN Administration Nausea And Vomiting Exam Vital Signs (past 8 hours): - 05/03/22 12:53 05/03/22 12:45 05/03/22 12:45 Temperature 100.8 F H Pulse Rate 124 H Respiratory Rate 20 Blood Pressure 108/51 L Pulse Oximetry 95 Oxygen Delivery Method Oxygen Flow Rate 05/03/22 12:50 05/03/22 12:50 05/03/22 12:55 Temperature Pulse Rate 128 H 119 H Respiratory Rate 17 17 Blood Pressure 104/50 L Pulse Oximetry 96 98 Oxygen Delivery Method Oxygen Flow Rate 05/03/22 13:00 05/03/22 13:00 05/03/22 13:05 Temperature Pulse Rate 117 H 120 H Respiratory Rate 22 24 Blood Pressure 111/53 L Pulse Oximetry 99 98 Oxygen Delivery Method Oxygen Flow Rate 05/03/22 13:10 05/03/22 13:10 05/03/22 13:15 Temperature Pulse Rate 117 H 118 H Respiratory Rate 18 20 Blood Pressure 116/54 L Pulse Oximetry 98 98 Oxygen Delivery Method Oxygen Flow Rate 05/03/22 13:20 05/03/22 13:20 05/03/22 13:25 Temperature Pulse Rate 119 H 132 H Respiratory Rate 23 20 Blood Pressure 93/54 L Pulse Oximetry 98 97 Oxygen Delivery Method Oxygen Flow Rate 05/03/22 13:30 05/03/22 13:30 05/03/22 13:35 Temperature Pulse Rate 118 H 121 H Respiratory Rate 22 23 Blood Pressure 102/51 L Pulse Oximetry 98 95 Oxygen Delivery Method Oxygen Flow Rate 05/03/22 13:40 05/03/22 13:40 05/03/22 13:45 Temperature Pulse Rate 120 H 122 H Respiratory Rate 21 21 Blood Pressure 104/51 L Pulse Oximetry 98 98 Oxygen Delivery Method Oxygen Flow Rate 05/03/22 13:48 05/03/22 13:50 05/03/22 13:50 Temperature 99.7 F H 99.7 F H Pulse Rate Respiratory Rate Blood Pressure 102/49 L Pulse Oximetry Oxygen Delivery Method Oxygen Flow Rate 05/03/22 13:50 05/03/22 13:55 05/03/22 14:00 Temperature Pulse Rate 119 H 122 H Respiratory Rate 20 19 Blood Pressure 105/49 L Pulse Oximetry 96 95 Oxygen Delivery Method Oxygen Flow Rate 05/03/22 14:00 05/03/22 14:05 05/03/22 14:10 Temperature Pulse Rate 121 H 121 H Respiratory Rate 21 23 Blood Pressure 92/48 L Pulse Oximetry 96 95 Oxygen Delivery Method Oxygen Flow Rate 05/03/22 14:10 05/03/22 14:15 05/03/22 14:20 Temperature Pulse Rate 122 H 121 H Respiratory Rate 19 22 Blood Pressure 95/46 L Pulse Oximetry 95 93 Oxygen Delivery Method Oxygen Flow Rate 05/03/22 14:20 05/03/22 14:25 05/03/22 14:30 Temperature Pulse Rate 116 H 121 H Respiratory Rate 17 21 Blood Pressure 94/46 L Pulse Oximetry 95 93 Oxygen Delivery Method Oxygen Flow Rate 05/03/22 14:30 05/03/22 14:35 05/03/22 14:40 Temperature Pulse Rate 120 H 119 H Respiratory Rate 19 19 Blood Pressure 95/44 L Pulse Oximetry 93 93 Oxygen Delivery Method Oxygen Flow Rate 05/03/22 14:40 05/03/22 14:45 05/03/22 14:50 Temperature Pulse Rate 120 H 115 H Respiratory Rate 22 21 Blood Pressure 97/51 L Pulse Oximetry 93 93 Oxygen Delivery Method Oxygen Flow Rate 05/03/22 14:50 05/03/22 14:55 05/03/22 15:00 Temperature Pulse Rate 116 H 114 H Respiratory Rate 20 20 Blood Pressure 106/48 L Pulse Oximetry 93 93 Oxygen Delivery Method Oxygen Flow Rate 05/03/22 15:00 05/03/22 15:05 05/03/22 15:10 Temperature Pulse Rate 116 H 115 H Respiratory Rate 19 21 Blood Pressure 93/46 L Pulse Oximetry 92 93 Oxygen Delivery Method Oxygen Flow Rate 05/03/22 15:10 05/03/22 15:15 05/03/22 15:20 Temperature Pulse Rate 110 H 109 H Respiratory Rate 19 22 Blood Pressure 78/48 L Pulse Oximetry 93 94 Oxygen Delivery Method Oxygen Flow Rate 05/03/22 15:20 05/03/22 15:25 05/03/22 15:30 Temperature Pulse Rate 112 H 115 H Respiratory Rate 19 10 L Blood Pressure 88/48 L Pulse Oximetry 95 94 Oxygen Delivery Method Oxygen Flow Rate 05/03/22 15:30 05/03/22 15:35 05/03/22 15:40 Temperature Pulse Rate 112 H 110 H Respiratory Rate 22 23 Blood Pressure 93/51 L Pulse Oximetry 94 93 Oxygen Delivery Method Oxygen Flow Rate 05/03/22 15:40 05/03/22 15:45 05/03/22 15:50 Temperature Pulse Rate 115 H 117 H 123 H Respiratory Rate 19 21 Blood Pressure Pulse Oximetry 96 95 Oxygen Delivery Method Room Air Oxygen Flow Rate 05/03/22 15:55 05/03/22 16:00 05/03/22 16:02 Temperature Pulse Rate 134 H 117 H 112 H Respiratory Rate 17 Blood Pressure Pulse Oximetry 97 95 Oxygen Delivery Method Oxygen Flow Rate 05/03/22 16:02 05/03/22 16:05 05/03/22 16:10 Temperature Pulse Rate 106 H Respiratory Rate 22 Blood Pressure 99/48 L 107/57 L Pulse Oximetry 97 Oxygen Delivery Method Oxygen Flow Rate 05/03/22 16:10 05/03/22 16:15 05/03/22 16:20 Temperature Pulse Rate 99 H 97 H Respiratory Rate 19 19 Blood Pressure 109/56 L Pulse Oximetry 98 96 Oxygen Delivery Method Oxygen Flow Rate 05/03/22 16:20 05/03/22 16:25 05/03/22 16:30 Temperature Pulse Rate 97 H 96 H Respiratory Rate 18 19 Blood Pressure 112/55 L Pulse Oximetry 95 95 Oxygen Delivery Method Oxygen Flow Rate 05/03/22 16:30 05/03/22 16:35 05/03/22 16:40 Temperature Pulse Rate 97 H 97 H Respiratory Rate 19 18 Blood Pressure 112/53 L Pulse Oximetry 94 94 Oxygen Delivery Method Oxygen Flow Rate 05/03/22 16:40 05/03/22 16:45 05/03/22 16:50 Temperature Pulse Rate 97 H 98 H Respiratory Rate 17 18 Blood Pressure 114/53 L Pulse Oximetry 95 94 Oxygen Delivery Method Oxygen Flow Rate 05/03/22 16:50 05/03/22 16:55 05/03/22 17:00 Temperature Pulse Rate 98 H 99 H Respiratory Rate 19 16 Blood Pressure 109/52 L Pulse Oximetry 94 95 Oxygen Delivery Method Oxygen Flow Rate 05/03/22 17:00 05/03/22 17:05 05/03/22 17:10 Temperature Pulse Rate 99 H 97 H Respiratory Rate 19 17 Blood Pressure 119/53 L Pulse Oximetry 95 96 Oxygen Delivery Method Oxygen Flow Rate 05/03/22 17:10 05/03/22 17:15 05/03/22 17:20 Temperature Pulse Rate 99 H 110 H Respiratory Rate 20 28 H Blood Pressure 119/57 L Pulse Oximetry 97 96 Oxygen Delivery Method Oxygen Flow Rate 05/03/22 17:20 05/03/22 17:25 05/03/22 17:30 Temperature Pulse Rate 105 H 101 H Respiratory Rate 27 H 21 Blood Pressure 115/55 L Pulse Oximetry 96 97 Oxygen Delivery Method Oxygen Flow Rate 05/03/22 17:30 05/03/22 17:35 05/03/22 17:40 Temperature Pulse Rate 103 H 103 H Respiratory Rate 18 22 Blood Pressure 120/63 Pulse Oximetry 97 97 Oxygen Delivery Method Oxygen Flow Rate 05/03/22 17:40 05/03/22 17:45 05/03/22 17:50 Temperature Pulse Rate 108 H 104 H Respiratory Rate 22 22 Blood Pressure 114/59 L Pulse Oximetry 98 99 Oxygen Delivery Method Oxygen Flow Rate 05/03/22 17:50 05/03/22 17:55 05/03/22 18:00 Temperature Pulse Rate 103 H 103 H 123 H Respiratory Rate 27 H 47 H 35 H Blood Pressure Pulse Oximetry 98 96 98 Oxygen Delivery Method Oxygen Flow Rate 05/03/22 18:05 05/03/22 18:10 05/03/22 18:15 Temperature Pulse Rate 122 H 111 H 107 H Respiratory Rate 35 H 20 22 Blood Pressure Pulse Oximetry 96 98 99 Oxygen Delivery Method Oxygen Flow Rate 05/03/22 18:20 05/03/22 18:25 05/03/22 18:30 Temperature Pulse Rate 102 H 102 H 99 H Respiratory Rate 21 24 20 Blood Pressure Pulse Oximetry 99 98 99 Oxygen Delivery Method Oxygen Flow Rate 05/03/22 18:31 05/03/22 18:31 05/03/22 18:50 Temperature 101.3 F H Pulse Rate 100 H 97 H Respiratory Rate 21 21 Blood Pressure 127/61 137/75 Pulse Oximetry 99 97 Oxygen Delivery Method Oxygen Flow Rate 0 Oxygen Delivery Method Room Air Oxygen Flow Rate 0 Narrative Exam Narrative: NAD. Ill appearing. Objective Labs Result Diagrams: 05/03/22 03:40 05/03/22 15:00 Labs: Laboratory Results - last 24 hr 05/02/22 05/02/22 05/02/22 14:20 14:20 23:20 WBC RBC Hgb Hct MCV MCH MCHC RDW Plt Count Neut % (Auto) Lymph % (Auto) [place] % (Auto) Eos % (Auto) Baso % (Auto) Neut # (Auto) Lymph # (Auto) [place] # (Auto) Eos # (Auto) Baso # (Auto) ABG pH ABG pCO2 ABG pO2 ABG HCO3 ABG Total CO2 ABG O2 Saturation ABG Base Excess FiO2 Sodium Potassium Chloride Carbon Dioxide BUN Creatinine Estimated GFR BUN/Creatinine Ratio Glucose Lactate 0.6 L Calcium Phosphorus 4.5 Magnesium Total Bilirubin AST ALT Alkaline Phosphatase Total Protein Albumin Globulin Albumin/Globulin Ratio Lipase 148 TSH Stl C. cayetanensis PCR Stool Rotavirus (PCR) Stool Adenovirus (PCR) Stool Astrovirus (PCR) Stool Cryptosporidium PCR Stl E.coli Shiga Tox PCR St Sh/Enteroin Ecoli PCR Stool E coli O157 PCR Stl Enterotoxigenic E PCR Stool EPEC (PCR) Stl E. histolytica PCR Stool Giardia Lamblia PCR Stool Sapovirus (PCR) Stl P. shigelloides PCR St Y.enterocolitica PCR Stool Vibrio (PCR) Stl Vibrio cholerae PCR Stl Enteroaggr Ecoli PCR Stl Norovirus GI/GII PCR Campylobacter (PCR) C. difficile Tox (PCR) Salmonella (PCR) 05/03/22 05/03/22 05/03/22 03:40 03:40 03:40 WBC 5.4 RBC 4.12 L Hgb 12.8 L Hct 37.5 L MCV 91.1 MCH 31.0 MCHC 34.1 RDW 12.7 Plt Count 167 Neut % (Auto) 77.4 H Lymph % (Auto) 5.6 L [place] % (Auto) 13.1 Eos % (Auto) 2.6 Baso % (Auto) 1.3 Neut # (Auto) 4200 Lymph # (Auto) 300 L [place] # (Auto) 700 Eos # (Auto) 100 Baso # (Auto) 100 ABG pH ABG pCO2 ABG pO2 ABG HCO3 ABG Total CO2 ABG O2 Saturation ABG Base Excess FiO2 Sodium 138 Potassium 3.8 D Chloride 110 H Carbon Dioxide 15 L BUN 65 H Creatinine 3.13 H Estimated GFR 28 L BUN/Creatinine Ratio 20.8 Glucose 188 H Lactate Calcium 7.6 L Phosphorus Magnesium 1.5 L Total Bilirubin 0.5 AST 16 L ALT 21 Alkaline Phosphatase 45 Total Protein 6.2 L Albumin 3.3 L Globulin 2.9 Albumin/Globulin Ratio 1.1 Lipase TSH 2.10 Stl C. cayetanensis PCR Stool Rotavirus (PCR) Stool Adenovirus (PCR) Stool Astrovirus (PCR) Stool Cryptosporidium PCR Stl E.coli Shiga Tox PCR St Sh/Enteroin Ecoli PCR Stool E coli O157 PCR Stl Enterotoxigenic E PCR Stool EPEC (PCR) Stl E. histolytica PCR Stool Giardia Lamblia PCR Stool Sapovirus (PCR) Stl P. shigelloides PCR St Y.enterocolitica PCR Stool Vibrio (PCR) Stl Vibrio cholerae PCR Stl Enteroaggr Ecoli PCR Stl Norovirus GI/GII PCR Campylobacter (PCR) C. difficile Tox (PCR) Salmonella (PCR) 05/03/22 05/03/22 05/03/22 08:21 08:21 08:37 WBC RBC Hgb Hct MCV MCH MCHC RDW Plt Count Neut % (Auto) Lymph % (Auto) [place] % (Auto) Eos % (Auto) Baso % (Auto) Neut # (Auto) Lymph # (Auto) [place] # (Auto) Eos # (Auto) Baso # (Auto) ABG pH 7.30 L ABG pCO2 30.3 L ABG pO2 85 ABG HCO3 15 L ABG Total CO2 16 L ABG O2 Saturation 96 ABG Base Excess -11.0 L FiO2 21 Sodium Potassium Chloride Carbon Dioxide BUN Creatinine Estimated GFR BUN/Creatinine Ratio Glucose Lactate Calcium Phosphorus Magnesium Total Bilirubin AST ALT Alkaline Phosphatase Total Protein Albumin Globulin Albumin/Globulin Ratio Lipase TSH Stl C. cayetanensis PCR Not detected Stool Rotavirus (PCR) Detected H Stool Adenovirus (PCR) Not detected Stool Astrovirus (PCR) Not detected Stool Cryptosporidium PCR Not detected Stl E.coli Shiga Tox PCR Not detected St Sh/Enteroin Ecoli PCR Not detected Stool E coli O157 PCR Not detected Stl Enterotoxigenic E PCR Not detected Stool EPEC (PCR) Not detected Stl E. histolytica PCR Not detected Stool Giardia Lamblia PCR Not detected Stool Sapovirus (PCR) Not detected Stl P. shigelloides PCR Not detected St Y.enterocolitica PCR Not detected Stool Vibrio (PCR) Not detected Stl Vibrio cholerae PCR Not detected Stl Enteroaggr Ecoli PCR Not detected Stl Norovirus GI/GII PCR Not detected Campylobacter (PCR) Not detected C. difficile Tox (PCR) Not detected Negative for c. diff Salmonella (PCR) Not detected 05/03/22 15:00 WBC RBC Hgb Hct MCV MCH MCHC RDW Plt Count Neut % (Auto) Lymph % (Auto) [place] % (Auto) Eos % (Auto) Baso % (Auto) Neut # (Auto) Lymph # (Auto) [place] # (Auto) Eos # (Auto) Baso # (Auto) ABG pH ABG pCO2 ABG pO2 ABG HCO3 ABG Total CO2 ABG O2 Saturation ABG Base Excess FiO2 Sodium 138 Potassium 3.6 Chloride 112 H Carbon Dioxide 18 L BUN 53 H Creatinine 2.82 H Estimated GFR 32 L BUN/Creatinine Ratio 18.8 Glucose 90 Lactate Calcium 7.7 L Phosphorus Magnesium 2.3 Total Bilirubin AST ALT Alkaline Phosphatase Total Protein Albumin Globulin Albumin/Globulin Ratio Lipase TSH Stl C. cayetanensis PCR Stool Rotavirus (PCR) Stool Adenovirus (PCR) Stool Astrovirus (PCR) Stool Cryptosporidium PCR Stl E.coli Shiga Tox PCR St Sh/Enteroin Ecoli PCR Stool E coli O157 PCR Stl Enterotoxigenic E PCR Stool EPEC (PCR) Stl E. histolytica PCR Stool Giardia Lamblia PCR Stool Sapovirus (PCR) Stl P. shigelloides PCR St Y.enterocolitica PCR Stool Vibrio (PCR) Stl Vibrio cholerae PCR Stl Enteroaggr Ecoli PCR Stl Norovirus GI/GII PCR Campylobacter (PCR) C. difficile Tox (PCR) Salmonella (PCR) Assessment & Plan Assessment & Plan narrative: NEURO: -- Seek early mobility RESP: -- Encourage IS and OOB as tolerated CVS: # Distributive shock -- Secondary to sepsis and dehydration from diarrhea -- Cont IVF resuscitation -- On levophed 3 mcg -- MAP goal > 65 : # CJ on CKD -- Unknown baseline Cr -- Cr improving slowly with IVF -- Cont IVF -- Avoid nephrotoxin agents -- Daily BMP -- Monitor UOP ID: # Septic shock -- Secondary to rota virus w/ possible superimposed bacterial infection -- On ceftriaxone and flagyl -- Cx negative to date -- DC abx after 48 hours if cx remains negative ENDO: -- Goal BS < 180 D/w RN. Time Spent With Patient Critical Care time: I spent a total of 35 minutes of critical care time on this patient's care today; this time is exclusive of procedural time.
[2022-05-03] MEDS: metroNIDAZOLE 500 MG/100 ML PIGGYBACK 100 MG IV (21:19)
[2022-05-03] MEDS: cefTRIAXone 1,000 MG in SODIUM CHLORIDE 0.9% 100 ML 200 MG IV (21:20)
[2022-05-04] VITALS (17 sets, daily range): BP systolic 102–150; BP diastolic 53–72; PULSE 77–99; RESP 13–20; TEMP 36.4–38.4; O2SAT 95–98; BMI 25.0
[2022-05-04] MEDS: metroNIDAZOLE 500 MG/100 ML PIGGYBACK 100 MG IV (03:52)
[2022-05-04] MEDS: LACTATED RINGERS 1,000 ML 200 ML IV (03:53)
[2022-05-04 04:18] LABS: Add Manual Diff / Slide Review NO; Basophils Absolute Auto 0 /uL (0-100); Basophils Percent Auto 0.2 % (0-2); Eosinophils Absolute Auto 0 /uL (0-450); Eosinophils Percent Auto 0.6 % (2-4); Hematocrit 32.9 % (41-53); Hemoglobin 11.4 g/dL (13.5-17.5); Lymphocytes Absolute Auto 800 /uL (1100-4500); Lymphocytes Percent Auto 22.3 % (25-40); Mean Corpuscular HGB Conc 34.6 % (30-36); Mean Corpuscular Hemoglobin 31.1 PG (26-34); Mean Corpuscular Volume 89.8 fL (80-100); Monocytes Absolute Auto 600 /uL (0-900); Monocytes Percent Auto 16.4 % (3-14); Neutrophils Absolute Auto 2300 /uL (1500-7000); Neutrophils Percent Auto 60.5 % (50-75); Platelet Count 136 X10^3/uL (150-400); Red Blood Cell Count 3.66 X10^6/uL (4.5-5.9); Red Cell Distribution Width 12.5 % (11.6-14.8); White Blood Cell Count 3.8 X10^3/uL (4.5-11.0)
[2022-05-04 04:29] LABS: Alanine Aminotransferase 27 IU/L (<50); Albumin Globulin Ratio 1.1 (1.0-2.8); Alkaline Phosphatase 40 U/L (38-126); Aspartate Aminotransferase 25 IU/L (17-59); Bilirubin Total 0.3 mg/dL (0.2-1.3); Blood Urea Nitrogen 36 mg/dL (9-20); Calcium 7.7 mg/dL (8.4-10.2); Carbon Dioxide 17 mmol/L (22-32); Chloride 111 mmol/L (98-107); Estimated Glomerular Filt Rate 35 mL/min (>60); Globulin 2.7 g/dL (1.7-4.1); Glucose 106 mg/dL (70-100); HEMOLYSIS < 15 (0-50); Magnesium 1.9 mg/dL (1.6-2.3); Potassium 3.4 mmol/L (3.4-5.1); Sodium 138 mmol/L (137-145); Total Protein 5.7 g/dL (6.3-8.2)
[2022-05-04] MEDS: ACETAMINOPHEN 325 MG TABLET 650 MG PO ×2 (04:51→16:40)
[2022-05-04] MEDS: POTASSIUM CHLORIDE 20 MEQ TAB 40 MEQ PO (09:12)
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
--- NOTE | 2022-05-04 13:16 | PC.NURSE ---
Addendum entered by Roula Angel R.N. 05/04/22 17:02: Pt feeling better. VSS. Discharge instructions reviewed with pt and mom. Questions answered. APAP and Zofran provided prior to discharge. D/C via WC with PCT. Original Note: [id number] - Dr. Meza notified that vitals remain stable off of IV support. Pt has had 2 episodes of stooling today. Per MD continue to monitor until after lunch. Possible D/C late afternoon. Patient requesting a shower. PCT to assist.
--- NOTE | 2022-05-04 13:27 | CM.DANOTE ---
DCP Assessment: Payor confirmed: [place] [employer] PCP: [facility] providers Pt is a 21 y.o. M who was admitted for CJ and gastroenteritis. Pt continuing on med management DCP met with pt and pt mom briefly to discuss discharge needs. Pt sitting in bed eating. Mom answered all questions and pt is independent at baseline. Pt lives in [place] with family and is a student. Pt has no needs. Pt mom thankful for discussion. DCP does not identify any needs. DCP available if needs arise. P: Anticipate home via mom POV once medically stable for discharge. Rebekah Mcclure RN/ANNETTAP Discharge Planning/Care Management CM Discharge Assessment Start: 05/04/22 08:50 Freq: Status: Active Protocol: Document 05/04/22 13:26 BRADLY (Rec: 05/04/22 13:27 BRADLY [id number]) Discharge Planning Assessment Assigned Apprentice Photographer Rebekah Mcclure RN/STANTON Advance Directives? No History Provided By Patient,Parents Prior Living Arrangements House Household Members family Independent with ADL's Yes Is patient alert and oriented? Yes Discharge Plan Home Referrals Initiated None needed Review Status In Process Please Provide Date Initial DC 05/04/22 Assessment Was Performed Next Review Type Continued Stay Review
[2022-05-04] MEDS: ONDANSETRON 4 MG ODT SL (16:52)
== END 2022-05-04 16:57 | disposition home or self-care (01) | DRG 871 ==
LOC: ED 19:12 → AC 19:54 → ICU 05-04 11:36 → AC 05-06 08:36 → ICU 05-06 08:37
PROVIDERS: Emergency Medicine; Internal Medicine; Admitting Provider Nurse Practitioner Family; Emergency Provider Emergency Medicine; PCP Family Medicine; Referring Provider Emergency Medicine; Visit Provider Nurse Practitioner Family
DX: A41.9 Sepsis, unspecified organism (principal); R65.21 Severe sepsis with septic shock; A08.0 Rotaviral enteritis; N17.9 Acute kidney failure, unspecified; N18.4 Chronic kidney disease, stage 4 (severe); J45.909 Unspecified asthma, uncomplicated; Z20.822 Contact with and (suspected) exposure to COVID-19
CPT/HCPCS: 0241U; 36415; 36569; 36600; 74022; 74176; 80048; 80053; 81001; 82550; 82805; 83605; 83690; 83735; 83880; 84100; 84145; 84443; 84484; 85025; 87040; 87086; 87493; 87507; 93005; 96365; 96366; 96367; 96368; 96375; 96376; 99285; 99291; 99292; G0378; J0692; J0696; J1642; J1644; J2405; J2543; J3475

== ENCOUNTER 2022-05-27 10:19 | Emergency (ER) | payer BC, SELFPAY ==
[2022-05-04 00:19] VITALS: BMI 25.0
[2022-05-27] VITALS (7 sets, daily range): BP systolic 105–111; BP diastolic 61–69; PULSE 63–93; RESP 14; TEMP 37.4; O2SAT 94–98; BMI 25.5
--- NOTE | 2022-05-27 11:21 | ED.GIBLEED ---
HPI - GI Bleed General Chief complaint: GI Bleed Stated complaint: blood in stool Time Seen by Provider: 05/27/22 10:27 Source: patient Mode of arrival: Family Vehicle History of Present Illness HPI Narrative: 21-year-old male nonsmoker, nondrinker with history of chronic kidney disease stage 3 presents at the request of his primary care provider for evaluation of an episode of painless bright red stool. He had a bowel movement that his mother looked at and thought it looked like blood and called his doctor. He denies any pain, fever or chills. He denies any straining on the toilet. He is not dizzy nor weak or lightheaded. He denies nausea, vomiting or diarrhea. He states that he had a hospitalization at another facility a few weeks ago for rotovirus. He denies any new medications or dietary change. He does not know if it was bright red blood or streaks. He denies urinary complaints Related Data Previous Rx's Medication Instructions Recorded albuterol sulfate 90 mcg/actuation 1 inh inhalation Q4-6H PRN 06/06/18 aerosol inhaler shortness of breath #18 grams Allergies Allergy/AdvReac Type Severity Reaction Status Date / Time No Known Drug Allergies Allergy Verified 05/02/22 14:06 Review of Systems Review of Systems Narrative: GENERAL: Denies chills, fatigue, malaise, fever, sweats. HEENT: Denies sinus pain, ear pain, sore throat, difficulty swallowing, dizziness. RESPIRATORY: Denies dyspnea, cough, wheezing, hemoptysis, sputum. CARDIOVASCULAR: Denies chest pain, palpitations, orthopnea, edema, GASTROINTESTINAL: See HPI : Denies dysuria, frequency, incontinence, hematuria, urinary retention. MUSCULOSKELETAL: denies weakness, joint pain, or bony pain SKIN: Denies rash, skin lesions, or other NEUROLOGIC: Denies weakness, headache, numbness, change in speech, confusion, seizures, incoordination. PSYCHIATRIC: No concerning psychosocial issues. 12 point review of systems is negative except for those stated above Patient History Medical History Asthma Chronic kidney disease Pyloric stricture Surgical History History of gastrostomy tube placement Family History Mother Placental abruption Grandmother Diabetes mellitus Father Alive and well Social History household members: family Smoking Status: Never smoker Smoking Status: Never smoker alcohol intake frequency: holidays/special occasions only Substance Use Type: does not use Exam Narrative Exam Narrative: GENERAL: [21] year old patient appears stated age. Well-developed patient, in mild distress. HEAD: Atraumatic. Normocephalic. EYES: Pupils equal round and reactive. Extraocular motions intact. No scleral icterus. No injection or drainage. ENT: Nose without bleeding, purulent drainage. Throat without erythema, tonsillar hypertrophy or exudate. Airway patent. NECK: Trachea midline. Non tender CARDIOVASCULAR: Regular rate and rhythm without murmurs, gallops, or rubs. RESPIRATORY: Clear to auscultation. Breath sounds equal bilaterally. No wheezes, rales, or rhonchi. GASTROINTESTINAL: Abdomen soft, non-tender, nondistended. RECTAL: No hemorrhoid or fissure, heme-negative, no evidence of bleeding EXTREMITIES: No edema or joint tenderness. BACK: Nontender without deformity or crepitance. No flank tenderness. NEURO: AOx3. SKIN: No rash or erythema of visible areas Initial Vital Signs Initial Vital Signs: Vital Signs Temperature 99.4 F 05/27/22 10:43 Pulse Rate 93 H 05/27/22 10:43 Respiratory Rate 14 05/27/22 10:43 Blood Pressure 110/63 05/27/22 10:43 Pulse Oximetry 94 05/27/22 10:43 Oxygen Delivery Method 05/27/22 10:43 Course Orders Ordered: ED Orders 05/27/22 11:26 BMP [Basic Metabolic Panel] Stat CBC Auto Diff [Complete Blood Count AUTO DIFF] Stat Vital Signs Vital signs: Vital Signs - 8 hr 05/27/22 10:43 Temperature 99.4 F Pulse Rate 93 H Respiratory Rate 14 Blood Pressure 110/63 Pulse Oximetry 94 Oxygen Delivery Method Room Air MDM - GI Bleed Lab Data Result diagrams: 05/27/22 11:30 05/27/22 11:30 Labs: Lab Results 05/27/22 05/27/22 Range/Units 11:30 11:30 WBC 5.8 (4.5-11.0) X10^3/uL RBC 4.73 (4.5-5.9) X10^6/uL Hgb 14.4 (13.5-17.5) g/dL Hct 42.4 (41-53) % MCV 89.5 (80-100) fL MCH 30.5 (26-34) PG MCHC 34.0 (30-36) % RDW 13.2 (11.6-14.8) % Plt Count 169 (150-400) X10^3/uL Neut % (Auto) 58.6 (50-75) % Lymph % (Auto) 28.4 (25-40) % [place] % (Auto) 6.9 (3-14) % Eos % (Auto) 5.5 H (2-4) % Baso % (Auto) 0.6 (0-2) % Neut # (Auto) 3400 (8769-0536) /uL Lymph # (Auto) 1600 (0071-7994) /uL [place] # (Auto) 400 (0-900) /uL Eos # (Auto) 300 (0-450) /uL Baso # (Auto) 0 (0-100) /uL Sodium 140 (137-145) mmol/L Potassium 4.3 (3.4-5.1) mmol/L Chloride 106 (98-107) mmol/L Carbon Dioxide 22 (22-32) mmol/L BUN 43 H (9-20) mg/dL Creatinine 2.26 H (0.66-1.25) mg/dL Estimated GFR 41 L (>60) mL/min BUN/Creatinine Ratio 19.0 (6-22) Glucose 81 (70-100) mg/dL Calcium 9.4 (8.4-10.2) mg/dL [facility] Narrative Medical decision making narrative: CC: 21-year-old with concern of GI bleed Complicating co-morbidities: Chronic kidney disease Data collected from: Patient and mother Medical records reviewed: Including prior visits in the emergency department Differential considered, but not limited to: Hemorrhoid, fissure, diverticular bleed versus other Exam documented above, pertinent findings include: No conjunctival pallor, abdomen soft and nontender, no hemorrhoid or fissure, heme-negative exam and no evidence of bleed currently Lab Test results independently reviewed as above. Pertinent findings: H&H stable, BUN and creatinine relatively stable for patient Re-evaluations: Patient stable throughout visit, no episodes of bleeding, he is completely asymptomatic for the duration Discussion: 21-year-old male with concern for lower GI bleed. He states his mother looked in the toilet after he had a bowel movement and thought it was blood, he never looked in his had no recurrent episodes. He is completely asymptomatic leading into this visit and for the duration of this visit. No abdominal pain, labs reassuring, heme-negative rectal exam. Disposition: see below, along with detailed discharge instructions that have been reviewed with patient as well as indications for ED re-evaluation and additional outpatient follow up Discharge Plan Departure Patient Disposition: Home Clinical Impression: Rectal bleed Instructions: Gastrointestinal Bleeding Activity Restrictions/Additional Instructions: *You have been diagnosed with [possible rectal bleeding. As we discussed there was no evidence of bleeding on my exam, the chemical test or suggestion of low blood counts in the blood work.] *What to do: *Please continue to take your regular medications as directed. *Please follow up with your primary care provider in 2-3 days, call for an appointment. Let them know you were seen in the Emergency Department and that we ask that you be seen in follow up. We will electronically transmit a record of today's note if your PCP is in our system *If you do not have a primary care provider please contact the [facility] Resource line at [phone]. They will ask some questions about your medical history and help get you set up with a doctor in the community. *Return to Emergency Department if you should have any new, worsening or concerning symptoms, such as [fever greater than 101 F, shaking chills, worsening pain, persistent vomiting or other bothersome symptoms] Prescriptions: No Action albuterol sulfate 90 mcg/actuation HFA aerosol inhaler 1 inh INHALATION Q4-6H PRN (Reason: shortness of breath) Qty: 18 0RF Referrals: Andrea Mike DO [Primary Care Provider] - Stand Alone Forms: Patient Portal/API
[2022-05-27 11:46] LABS: Add Manual Diff / Slide Review NO; Basophils Absolute Auto 0 /uL (0-100); Basophils Percent Auto 0.6 % (0-2); Eosinophils Absolute Auto 300 /uL (0-450); Eosinophils Percent Auto 5.5 % (2-4); Hematocrit 42.4 % (41-53); Hemoglobin 14.4 g/dL (13.5-17.5); Lymphocytes Absolute Auto 1600 /uL (1100-4500); Lymphocytes Percent Auto 28.4 % (25-40); Mean Corpuscular Hemoglobin 30.5 PG (26-34); Mean Corpuscular Volume 89.5 fL (80-100); Monocytes Absolute Auto 400 /uL (0-900); Monocytes Percent Auto 6.9 % (3-14); Neutrophils Absolute Auto 3400 /uL (1500-7000); Neutrophils Percent Auto 58.6 % (50-75); Platelet Count 169 X10^3/uL (150-400); Red Blood Cell Count 4.73 X10^6/uL (4.5-5.9); Red Cell Distribution Width 13.2 % (11.6-14.8); White Blood Cell Count 5.8 X10^3/uL (4.5-11.0)
[2022-05-27 13:12] LABS: Blood Urea Nitrogen 43 mg/dL (9-20); Calcium 9.4 mg/dL (8.4-10.2); Carbon Dioxide 22 mmol/L (22-32); Chloride 106 mmol/L (98-107); Estimated Glomerular Filt Rate 41 mL/min (>60); Glucose 81 mg/dL (70-100); HEMOLYSIS < 15 (0-50); Potassium 4.3 mmol/L (3.4-5.1); Sodium 140 mmol/L (137-145)
== END 2022-05-27 13:28 | disposition home or self-care (01) ==
PROVIDERS: Emergency Provider Emergency Medicine; PCP Family Medicine
DX: K92.2 Gastrointestinal hemorrhage, unspecified (principal); N18.30 Chronic kidney disease, stage 3 unspecified
CPT/HCPCS: 36415; 80048; 85025; 99283

== ENCOUNTER 2022-07-23 21:04 | Inpatient (IN) | payer BC, SELFPAY ==
[2022-05-04 00:19] VITALS: BMI 25.0
[2022-07-23] VITALS (10 sets, daily range): BP systolic 81–127; BP diastolic 51–68; PULSE 113–130; RESP 13–26; TEMP 37.2; O2SAT 96–99; BMI 27.9
--- NOTE | 2022-07-23 21:33 | DI.RAD.S_ITS ---
PROCEDURE: XR CHEST 1V INDICATIONS: suspected sepsis TECHNIQUE: One view of the chest was acquired. COMPARISON: [facility], CR, XR CHEST FOR PICC 1V, 05/02/2022, 17:50. FINDINGS: Surgical changes and devices: Macro CT normal abdomen macro CT normal abdomen Lungs and pleura: Lungs are clear. No pleural effusions or pneumothorax. Mediastinum: Mediastinal contours appear normal. Heart size is normal. Bones and chest wall: No suspicious bony lesions. Overlying soft tissues appear unremarkable. IMPRESSION: 1. No acute cardiopulmonary disease. Dictated by: Hadley Jama M.D. on 07/23/2022 at 23:05 Approved by: Hadley Jama M.D. on 07/23/2022 at 23:08
[2022-07-23] MEDS: ONDANSETRON 4 MG/2 ML INJ IV (21:38)
[2022-07-23] MEDS: SODIUM CHLORIDE 0.9% 1,000 ML 1000 ML IV ×2 (21:38→23:15)
--- NOTE | 2022-07-23 21:45 | ED_ITS ---
HPI - Nausea/Vomiting/Diarrhea General Chief complaint: Nausea/Vomiting/Diarrhea Stated complaint: vomiting, diarrhea, abn BP Time Seen by Provider: 07/23/22 21:44 Source: patient and family Mode of arrival: Ambulatory History of Present Illness HPI Narrative: Patient is a 22-year-old male history of chronic kidney disease, asthma, ongoing diarrhea since April 2022 presenting today with vomiting. Mom reports that she had a gastrointestinal she with diarrhea and vomiting he started vomiting this afternoon. She does check his blood pressure was low he was dizzy and lightheaded. He vomited numerous times. He denies any fever or chills. He is got some cramping. He reports that he has about 2 episodes of diarrhea daily to usually pure liquid. He also had PICC line placed in April where he got IV fluids he then later developed an upper extremity DVT was supposed to be on Xarelto due to insurance reasons he only got 11 days of Xarelto this was back in May. His arm is no longer swollen isn't having chest pain or shortness of breath. He is found to be slightly hypotensive with a blood pressure than 90 and heart rate in 120s. Related Data Previous Rx's Medication Instructions Recorded albuterol sulfate 90 mcg/actuation 1 inh inhalation Q4-6H PRN 06/06/18 aerosol inhaler shortness of breath #18 grams Allergies Allergy/AdvReac Type Severity Reaction Status Date / Time No Known Drug Allergies Allergy Verified 05/02/22 14:06 Review of Systems Review of Systems ROS Unobtainable: All systems reviewed & are unremarkable except as noted in HPI and below Patient History Medical History Asthma Chronic kidney disease Pyloric stricture Surgical History History of gastrostomy tube placement Family History Mother Placental abruption Grandmother Diabetes mellitus Father Alive and well Social History household members: family Smoking Status: Never smoker Smoking Status: Never smoker alcohol intake frequency: holidays/special occasions only Substance Use Type: does not use Exam Initial Vital Signs Initial Vital Signs: Vital Signs Temperature 98.9 F 07/23/22 21:10 Pulse Rate 122 H 07/23/22 21:10 Respiratory Rate 18 07/23/22 21:10 Blood Pressure 90/53 L 07/23/22 21:10 Pulse Oximetry 97 07/23/22 21:10 Oxygen Delivery Method Room Air 07/23/22 21:10 GENERAL: Alert shaking 22-year-old male, holding vomit bag dry heaving HEENT: Head atraumatic,EOMI, pupils reactive, face symmetric, moist mucous membranes CARDIOVASCULAR: Tachycardic regular no murmur RESPIRATORY: Breath sounds equal bilaterally, no wheezes rales or rhonchi. ABDOMEN: Soft, nontender. Normoactive bowel sounds all 4 quadrants. No guarding or rebound. EXTREMITIES: Normal range of motion, no clubbing or edema. Neurovascularly intact NEUROLOGICAL: Alert and oriented x4. SKIN: Warm, dry, no laceration, no petechiae, no rashes or lesions. Course Orders Ordered: ED Orders 07/23/22 21:28 Complete Blood Count AUTO DIFF Stat Comprehensive Metabolic Panel Stat Lactate (Lactic Acid) Stat Lipase Stat PTT Partial Thromboplastin Sammy Stat Procalcitonin Stat Prothrombin Time INR Stat 07/23/22 21:33 XR chest 1V Stat EKG-12 Lead Stat RT Consult Eval and Treat NOW 07/23/22 21:58 Blood Culture Stat 07/23/22 22:09 COVID19 -Nasal RAPID Stat 07/23/22 23:23 GI Panel (Film Array) Stat 07/23/22 23:31 CT abdomen pelvis wo con Stat 07/24/22 02:08 BMP [Basic Metabolic Panel] Stat Lactate (Lactic Acid) Stat 07/25/22 05:00 Basic Metabolic Panel Routine Complete Blood Count AUTO DIFF Routine Magnesium Routine Acetaminophen (Acetaminophen 325 Mg Tablet) 650 mg PO Q6H PRN PRN Reason: Fever/Mild Pain (1-3) Enoxaparin Sodium (Enoxaparin 40 Mg/0.4 Ml Syringe) 40 mg SUBCUT DAILY [facility] Metronidazole (Flagyl) 500 mg in 100 mls @ 100 mls/hr IV Q8H MICAELA Naloxone HCl (Naloxone 0.4 Mg/Ml Vial) 0.2 mg IV Q2MIN PRN PRN Reason: Opiate Reversal Ondansetron HCl (Ondansetron 4 Mg/2 Ml Inj) 4 mg IV Q8HR PRN PRN Reason: Nausea And Vomiting Vancomycin HCl (Vancomycin 125 Mg Capsule) 500 mg PO Q6H MICAELA Discontinued Medications Sodium Chloride (Normal Saline 0.9%) 1,000 mls @ 1,000 mls/hr IV BOLUS ONE Stop: 07/23/22 22:32 Last Infusion: 07/23/22 23:03 Dose: 0 mls/hr Documented By: Admin: 07/23/22 21:38 Dose: 1,000 mls/hr Documented By: HAROON Sodium Chloride (Normal Saline 0.9%) 1,000 mls @ 1,000 mls/hr IV BOLUS ONE Stop: 07/24/22 00:09 Last Infusion: 07/24/22 00:20 Dose: 0 mls/hr Documented By: Admin: 07/23/22 23:15 Dose: 1,000 mls/hr Documented By: KONSTANTIN Lactated Ringer's (Lactated Ringers) 2,653.53 mls @ 884.51 mls/hr 30 ml/kg infuse over 3 hr (2653.53 ml) IV NOW ONE Stop: 07/24/22 02:09 Last Infusion: 07/24/22 02:16 Dose: 0 mls/hr Documented By: Admin: 07/23/22 23:17 Dose: 884.51 mls/hr Documented By: KONSTANTIN Lactated Ringer's (Lactated Ringers) 1,000 mls @ 1,000 mls/hr IV BOLUS ONE Stop: 07/24/22 02:28 Last Infusion: 07/24/22 02:54 Dose: 0 mls/hr Documented By: Admin: 07/24/22 01:40 Dose: 1,000 mls/hr Documented By: KONSTANTIN Ketorolac Tromethamine (Ketorolac 30 Mg/Ml Vial) 15 mg IV NOW ONE Stop: 07/23/22 21:51 Last Admin: 07/23/22 22:02 Dose: Not Given Documented By: HAROON Metoclopramide HCl (Metoclopramide 10 Mg/2 Ml Inj) 10 mg IV NOW ONE Stop: 07/23/22 23:11 Last Admin: 07/23/22 23:18 Dose: 10 mg Documented By: KONSTANTIN Ondansetron HCl (Ondansetron 4 Mg Odt) 4 mg SL NOW PRN PRN Reason: Nausea And Vomiting Ondansetron HCl (Ondansetron 4 Mg/2 Ml Inj) 4 mg IV NOW PRN PRN Reason: Nausea And Vomiting Last Admin: 07/23/22 21:38 Dose: 4 mg Documented By: HAROON Pantoprazole Sodium (Pantoprazole 40 Mg Vial) 40 mg IV NOW ONE Stop: 07/23/22 21:51 Last Admin: 07/23/22 22:02 Dose: 40 mg Documented By: KONSTANTIN Vital Signs Vital signs: Vital Signs - 8 hr 07/23/22 21:10 07/23/22 21:14 07/23/22 21:17 Temperature 98.9 F Pulse Rate 122 H 124 H Respiratory Rate 18 Blood Pressure 90/53 L 90/53 L Pulse Oximetry 97 96 Oxygen Delivery Method Room Air 07/23/22 21:17 07/23/22 21:30 07/23/22 22:00 Temperature Pulse Rate 121 H 126 H Respiratory Rate 20 Blood Pressure 102/51 L Pulse Oximetry 97 97 Oxygen Delivery Method Room Air 07/23/22 22:00 07/23/22 22:30 07/23/22 22:30 Temperature Pulse Rate 113 H 114 H Respiratory Rate 21 13 Blood Pressure 127/68 Pulse Oximetry 99 97 Oxygen Delivery Method 07/23/22 23:00 07/23/22 23:01 07/23/22 23:01 Temperature Pulse Rate 129 H 130 H Respiratory Rate 26 H 23 Blood Pressure 81/51 L Pulse Oximetry 98 98 Oxygen Delivery Method 07/23/22 23:30 07/23/22 23:30 07/23/22 23:33 Temperature Pulse Rate 115 H 113 H Respiratory Rate 19 20 Blood Pressure 116/59 L Pulse Oximetry 96 98 Oxygen Delivery Method Room Air 07/23/22 23:33 07/24/22 00:00 07/24/22 00:30 Temperature Pulse Rate 115 H 111 H Respiratory Rate 19 18 Blood Pressure 109/53 L Pulse Oximetry 97 99 Oxygen Delivery Method 07/24/22 00:58 07/24/22 00:58 07/24/22 01:00 Temperature Pulse Rate 118 H Respiratory Rate 21 Blood Pressure 111/55 L 102/50 L Pulse Oximetry 97 Oxygen Delivery Method 07/24/22 01:00 07/24/22 01:30 07/24/22 01:30 Temperature Pulse Rate 123 H 116 H Respiratory Rate 21 20 Blood Pressure 103/52 L Pulse Oximetry 96 97 Oxygen Delivery Method 07/24/22 02:00 07/24/22 02:00 Temperature Pulse Rate 130 H Respiratory Rate 24 Blood Pressure 97/56 L Pulse Oximetry 98 Oxygen Delivery Method MDM - Nausea/Vomiting/Diarrhea Lab Data 07/23/22 21:28 07/24/22 02:08 Labs: Lab Results 07/23/22 07/23/22 07/23/22 Range/Units 21:28 21:28 21:28 WBC 11.4 H (4.5-11.0) X10^3/uL RBC 5.92 H (4.5-5.9) X10^6/uL Hgb 18.0 H (13.5-17.5) g/dL Hct 52.4 (41-53) % MCV 88.5 (80-100) fL MCH 30.3 (26-34) PG MCHC 34.3 (30-36) % RDW 13.6 (11.6-14.8) % Plt Count 271 (150-400) X10^3/uL Neut % (Auto) 82.5 H (50-75) % Lymph % (Auto) 6.9 L (25-40) % Harrison % (Auto) 8.9 (3-14) % Eos % (Auto) 1.5 L (2-4) % Baso % (Auto) 0.2 (0-2) % Neut # (Auto) 9400 H (0691-0743) /uL Lymph # (Auto) 800 L (8508-8781) /uL Harrison # (Auto) 1000 H (0-900) /uL Eos # (Auto) 200 (0-450) /uL Baso # (Auto) 0 (0-100) /uL PT 11.6 (10.1-12.7) SECONDS INR 1.0 (0.9-1.3) APTT 30 (26-36) SECONDS Sodium 139 (137-145) mmol/L Potassium 4.6 (3.4-5.1) mmol/L Chloride 107 (98-107) mmol/L Carbon Dioxide 16 L (22-32) mmol/L BUN 55 H (9-20) mg/dL Creatinine 2.91 H (0.66-1.25) mg/dL Estimated GFR 30 L (>60) mL/min BUN/Creatinine Ratio 18.9 (6-22) Glucose 133 H (70-100) mg/dL Lactate (0.7-2.1) mmol/L Calcium 9.2 (8.4-10.2) mg/dL Total Bilirubin 0.8 (0.2-1.3) mg/dL AST 26 (17-59) IU/L ALT 43 (<50) IU/L Alkaline Phosphatase 69 (38-126) U/L Total Protein 9.3 H (6.3-8.2) g/dL Albumin 5.0 (3.5-5.0) g/dL Globulin 4.3 H (1.7-4.1) g/dL Albumin/Globulin Ratio 1.2 (1.0-2.8) Lipase 174 (23-300) U/L Procalcitonin 0.19 (<0.5) ng/mL Stl C. cayetanensis PCR (Not Detect) Stool Rotavirus (PCR) (Not Detect) Stool Adenovirus (PCR) (Not Detect) Stool Astrovirus (PCR) (Not Detect) Stool Cryptosporidium PCR (Not Detect) Stl E.coli Shiga Tox PCR (Not Detect) St Sh/Enteroin Ecoli PCR (Not Detect) Stool E coli O157 PCR Stl Enterotoxigenic E PCR (Not Detect) Stool EPEC (PCR) (Not Detect) Stl E. histolytica PCR (Not Detect) Stool Giardia Lamblia PCR (Not Detect) Stool Sapovirus (PCR) (Not Detect) Stl P. shigelloides PCR (Not Detect) St Y.enterocolitica PCR (Not Detect) Stool Vibrio (PCR) (Not Detect) Stl Vibrio cholerae PCR (Not Detect) Stl Enteroaggr Ecoli PCR (Not Detect) Stl Norovirus GI/GII PCR (Not Detect) Campylobacter (PCR) (Not Detect) C. difficile Tox (PCR) (Not Detect) SARS-CoV-2 (PCR) (Negative) Salmonella (PCR) (Not Detect) 07/23/22 07/23/22 07/23/22 Range/Units 21:28 22:09 23:23 WBC (4.5-11.0) X10^3/uL RBC (4.5-5.9) X10^6/uL Hgb (13.5-17.5) g/dL Hct (41-53) % MCV (80-100) fL MCH (26-34) PG MCHC (30-36) % RDW (11.6-14.8) % Plt Count (150-400) X10^3/uL Neut % (Auto) (50-75) % Lymph % (Auto) (25-40) % Harrison % (Auto) (3-14) % Eos % (Auto) (2-4) % Baso % (Auto) (0-2) % Neut # (Auto) (5386-0871) /uL Lymph # (Auto) (8455-0136) /uL Harrison # (Auto) (0-900) /uL Eos # (Auto) (0-450) /uL Baso # (Auto) (0-100) /uL PT (10.1-12.7) SECONDS INR (0.9-1.3) APTT (26-36) SECONDS Sodium (137-145) mmol/L Potassium (3.4-5.1) mmol/L Chloride (98-107) mmol/L Carbon Dioxide (22-32) mmol/L BUN (9-20) mg/dL Creatinine (0.66-1.25) mg/dL Estimated GFR (>60) mL/min BUN/Creatinine Ratio (6-22) Glucose (70-100) mg/dL Lactate 1.2 (0.7-2.1) mmol/L Calcium (8.4-10.2) mg/dL Total Bilirubin (0.2-1.3) mg/dL AST (17-59) IU/L ALT (<50) IU/L Alkaline Phosphatase (38-126) U/L Total Protein (6.3-8.2) g/dL Albumin (3.5-5.0) g/dL Globulin (1.7-4.1) g/dL Albumin/Globulin Ratio (1.0-2.8) Lipase (23-300) U/L Procalcitonin (<0.5) ng/mL Stl C. cayetanensis PCR Not detected (Not Detect) Stool Rotavirus (PCR) Detected H (Not Detect) Stool Adenovirus (PCR) Not detected (Not Detect) Stool Astrovirus (PCR) Not detected (Not Detect) Stool Cryptosporidium PCR Not detected (Not Detect) Stl E.coli Shiga Tox PCR Not detected (Not Detect) St Sh/Enteroin Ecoli PCR Not detected (Not Detect) Stool E coli O157 PCR Not Reportable Stl Enterotoxigenic E PCR Not detected (Not Detect) Stool EPEC (PCR) Not detected (Not Detect) Stl E. histolytica PCR Not detected (Not Detect) Stool Giardia Lamblia PCR Not detected (Not Detect) Stool Sapovirus (PCR) Not detected (Not Detect) Stl P. shigelloides PCR Not detected (Not Detect) St Y.enterocolitica PCR Not detected (Not Detect) Stool Vibrio (PCR) Not detected (Not Detect) Stl Vibrio cholerae PCR Not detected (Not Detect) Stl Enteroaggr Ecoli PCR Not detected (Not Detect) Stl Norovirus GI/GII PCR Detected H (Not Detect) Campylobacter (PCR) Not detected (Not Detect) C. difficile Tox (PCR) Detected H (Not Detect) SARS-CoV-2 (PCR) Negative (Negative) Salmonella (PCR) Not detected (Not Detect) 07/24/22 07/24/22 Range/Units 02:08 02:08 WBC (4.5-11.0) X10^3/uL RBC (4.5-5.9) X10^6/uL Hgb (13.5-17.5) g/dL Hct (41-53) % MCV (80-100) fL MCH (26-34) PG MCHC (30-36) % RDW (11.6-14.8) % Plt Count (150-400) X10^3/uL Neut % (Auto) (50-75) % Lymph % (Auto) (25-40) % Harrison % (Auto) (3-14) % Eos % (Auto) (2-4) % Baso % (Auto) (0-2) % Neut # (Auto) (5936-8629) /uL Lymph # (Auto) (1832-6006) /uL Harrison # (Auto) (0-900) /uL Eos # (Auto) (0-450) /uL Baso # (Auto) (0-100) /uL PT (10.1-12.7) SECONDS INR (0.9-1.3) APTT (26-36) SECONDS Sodium 141 (137-145) mmol/L Potassium 4.7 (3.4-5.1) mmol/L Chloride 116 H (98-107) mmol/L Carbon Dioxide 18 L (22-32) mmol/L BUN 58 H (9-20) mg/dL Creatinine 2.56 H (0.66-1.25) mg/dL Estimated GFR 35 L (>60) mL/min BUN/Creatinine Ratio 22.7 H (6-22) Glucose 107 H (70-100) mg/dL Lactate 2.0 (0.7-2.1) mmol/L Calcium 7.5 L (8.4-10.2) mg/dL Total Bilirubin (0.2-1.3) mg/dL AST (17-59) IU/L ALT (<50) IU/L Alkaline Phosphatase (38-126) U/L Total Protein (6.3-8.2) g/dL Albumin (3.5-5.0) g/dL Globulin (1.7-4.1) g/dL Albumin/Globulin Ratio (1.0-2.8) Lipase (23-300) U/L Procalcitonin (<0.5) ng/mL Stl C. cayetanensis PCR (Not Detect) Stool Rotavirus (PCR) (Not Detect) Stool Adenovirus (PCR) (Not Detect) Stool Astrovirus (PCR) (Not Detect) Stool Cryptosporidium PCR (Not Detect) Stl E.coli Shiga Tox PCR (Not Detect) St Sh/Enteroin Ecoli PCR (Not Detect) Stool E coli O157 PCR Stl Enterotoxigenic E PCR (Not Detect) Stool EPEC (PCR) (Not Detect) Stl E. histolytica PCR (Not Detect) Stool Giardia Lamblia PCR (Not Detect) Stool Sapovirus (PCR) (Not Detect) Stl P. shigelloides PCR (Not Detect) St Y.enterocolitica PCR (Not Detect) Stool Vibrio (PCR) (Not Detect) Stl Vibrio cholerae PCR (Not Detect) Stl Enteroaggr Ecoli PCR (Not Detect) Stl Norovirus GI/GII PCR (Not Detect) Campylobacter (PCR) (Not Detect) C. difficile Tox (PCR) (Not Detect) SARS-CoV-2 (PCR) (Negative) Salmonella (PCR) (Not Detect) Imaging Data CT scan - abdomen/pelvis: Radiologist's Impression: PROCEDURE:? CT ABDOMEN PELVIS WO CON ? INDICATIONS:? Vomiting ? TECHNIQUE:? Axial sections were acquired from the lung bases to the pubic symphysis.? Coronal and sagittal reformats were performed.? For radiation dose reduction, the following was used: ?automated exposure control, adjustment of mA and/or kV according to patient si ze.? ? COMPARISON:? [facility], CT, CT KIDNEY URETER BLADDER (KUB), 05/02/2022, 17:31.? [facility], CT, CT ABDOMEN PELVIS WO CON, 06/07/2021, 19:28. ? FINDINGS:? Image quality:? Excellent.? ? Lung bases:? There is mild dependent atelectasis.? ? Heart:? Heart is normal in size. ? ? ABDOMEN: Liver:? Noncontrast evaluation of the liver demonstrates no discrete hepatic mass. Gallbladder:? Within normal limits without calcified gallstones.? ? Biliary ducts:? No biliary ductal dilatation.? ? Pancreas:? Unremarkable.? ? Spleen:? Normal in size.? ? Adrenal Glands:? No adrenal nodules.? ? Kidneys and Ureters:? No hydronephrosis or renal stones.? Kidneys are mildly atrophic in size.? Ureters are nondistended.? ? ? Stomach and Bowel:? Stomach, small bowel loops, and colon are normal in caliber and wall thickness.? There is mild fluid distention with scattered air-fluid levels throughout the small and large bowel suggestive of a gastroenteritis or ileus.? No definite bowel obstruction.? The appendix is normal.? Peritoneum:? No abnormal intraperitoneal fluid.? No free air.? ? Ventral Wall: ? No hernia.? Abdominal Nodes:? No retroperitoneal or mesenteric adenopathy by size criteria.? Vessels:? Aorta and inferior vena cava are normal in size.? ? PELVIS: Pelvic Organs:? Unremarkable.? ? Bladder:? The bladder is partially distended.? ? Pelvic Nodes: No enlarged lymph nodes.? Miscellaneous: No inguinal hernias are seen. ? ? ? Bones:? Visualized osseous structures demonstrate no suspicious focal lesions. IMPRESSION:? ? 1. Mild fluid distention with scattered air-fluid levels throughout the small and large bowel likely representing a gastroenteritis, versus an ileus.? No definite bowel obstruction. ? ? Dictated by: Hadley Jama M.D. on 07/24/2022 at 0:31 ? Chest x-ray: Radiologist's Impression: PROCEDURE:? XR CHEST 1V ? INDICATIONS:? suspected sepsis ? TECHNIQUE:? One view of the chest was acquired.? ? COMPARISON:? [facility], , XR CHEST FOR PICC 1V, 05/02/2022, 17:50. ? FINDINGS:? ? Surgical changes and devices:? Macro CT normal abdomen macro CT normal abdomen ? Lungs and pleura:? Lungs are clear.? No pleural effusions or pneumothorax.? ? Mediastinum:? Mediastinal contours appear normal.? Heart size is normal.? ? Bones and chest wall:? No suspicious bony lesions.? Overlying soft tissues appear unremarkable.? ? IMPRESSION:? ? 1.? No acute cardiopulmonary disease. ? ? ? Dictated by: Hadley Jama M.D. on 07/23/2022 at 23:05? ECG Data Interpretation: Sinus tachycardia rate 108 ND interval 140 QRS [address] changes no T- wave inversions similar to previous MDM Narrative Medical decision making narrative: Patient 22-year-old male who presents with ongoing diarrhea and vomiting. He is had diarrhea off and on for a number of months. He actually went to [facility] recently had a negative GI panel. 3rd vomiting suddenly today. He is found to be tachycardic and hypotensive heart rate 122 blood pressure 90/53. Electrolytes show normal sodium 139, potassium 4.6, chloride 107, bicarb 16, BUN 55 and creatinine 2.9. Baseline seems to be about 2.2. He also was found to have mild leukocytosis of 11.4 hemoglobin of 18 with hematocrit 50.9 likely concentrated. Lactate is 1.2 and repeat 2.0 and a procalcitonin 0.19. Patient is given IV fluids and anti nausea medication. CT shows probable enteritis without other etiology. He continues to be tachycardic although his heart rate and blood pressure do improve. Every time he stands up to urinate heart rate increases to 150. GI panel is positive for C diff, norovirus and rotavirus. Due to persistent ongoing tachycardia with standing up blood pressure is labile and low patient will be admitted for IV fluids and monitoring Dr. Meza in ED, accepts patient Discharge Plan Departure Patient Disposition: Admitted As Inpatient Clinical Impression: Clostridium difficile infection, Rotavirus infection, Norovirus Admit Date/Time: 07/24/22 02:17 Admit Provider: Armand Meza
[2022-07-23 21:46] LABS: Prothrombin Time 11.6 SECONDS (10.1-12.7)
[2022-07-23 21:49] LABS: Lactate (Lactic Acid) 1.2 mmol/L (0.7-2.1); PTT Partial Thromboplastin Tim 30 SECONDS (26-36)
[2022-07-23 21:51] LABS: Alanine Aminotransferase 43 IU/L (<50); Albumin Globulin Ratio 1.2 (1.0-2.8); Alkaline Phosphatase 69 U/L (38-126); Aspartate Aminotransferase 26 IU/L (17-59); BUN Creatinine Ratio 18.9 (6-22); Bilirubin Total 0.8 mg/dL (0.2-1.3); Blood Urea Nitrogen 55 mg/dL (9-20); Calcium 9.2 mg/dL (8.4-10.2); Carbon Dioxide 16 mmol/L (22-32); Chloride 107 mmol/L (98-107); Estimated Glomerular Filt Rate 30 mL/min (>60); Globulin 4.3 g/dL (1.7-4.1); Glucose 133 mg/dL (70-100); HEMOLYSIS < 15 (0-50); Lipase 174 U/L (23-300); Potassium 4.6 mmol/L (3.4-5.1); Sodium 139 mmol/L (137-145); Total Protein 9.3 g/dL (6.3-8.2)
[2022-07-23] MEDS: PANTOPRAZOLE 40 MG VIAL IV (22:02)
[2022-07-23 22:04] LABS: Add Manual Diff / Slide Review NO; Basophils Absolute Auto 0 /uL (0-100); Basophils Percent Auto 0.2 % (0-2); Eosinophils Absolute Auto 200 /uL (0-450); Eosinophils Percent Auto 1.5 % (2-4); Hematocrit 52.4 % (41-53); Lymphocytes Absolute Auto 800 /uL (1100-4500); Lymphocytes Percent Auto 6.9 % (25-40); Mean Corpuscular HGB Conc 34.3 % (30-36); Mean Corpuscular Hemoglobin 30.3 PG (26-34); Mean Corpuscular Volume 88.5 fL (80-100); Monocytes Absolute Auto 1000 /uL (0-900); Monocytes Percent Auto 8.9 % (3-14); Neutrophils Absolute Auto 9400 /uL (1500-7000); Neutrophils Percent Auto 82.5 % (50-75); Platelet Count 271 X10^3/uL (150-400); Red Blood Cell Count 5.92 X10^6/uL (4.5-5.9); Red Cell Distribution Width 13.6 % (11.6-14.8); White Blood Cell Count 11.4 X10^3/uL (4.5-11.0)
[2022-07-23 22:07] LABS: Procalcitonin 0.19 ng/mL (<0.5)
[2022-07-23 22:55] LABS: COVID19 -Nasal RAPID Negative (Negative)
[2022-07-23] MEDS: LACTATED RINGERS 2,653.53 ML 884.51 ML IV (23:17)
[2022-07-23] MEDS: METOCLOPRAMIDE 10 MG/2 ML INJ IV (23:18)
--- NOTE | 2022-07-23 23:31 | DI.CT.S_ITS ---
PROCEDURE: CT ABDOMEN PELVIS WO CON INDICATIONS: Vomiting TECHNIQUE: Axial sections were acquired from the lung bases to the pubic symphysis. Coronal and sagittal reformats were performed. For radiation dose reduction, the following was used: automated exposure control, adjustment of mA and/or kV according to patient size. COMPARISON: [facility], CT, CT KIDNEY URETER BLADDER (KUB), 05/02/2022, 17:31. [facility], CT, CT ABDOMEN PELVIS WO CON, 06/07/2021, 19:28. FINDINGS: Image quality: Excellent. Lung bases: There is mild dependent atelectasis. Heart: Heart is normal in size. ABDOMEN: Liver: Noncontrast evaluation of the liver demonstrates no discrete hepatic mass. Gallbladder: Within normal limits without calcified gallstones. Biliary ducts: No biliary ductal dilatation. Pancreas: Unremarkable. Spleen: Normal in size. Adrenal Glands: No adrenal nodules. Kidneys and Ureters: No hydronephrosis or renal stones. Kidneys are mildly atrophic in size. Ureters are nondistended. Stomach and Bowel: Stomach, small bowel loops, and colon are normal in caliber and wall thickness. There is mild fluid distention with scattered air-fluid levels throughout the small and large bowel suggestive of a gastroenteritis or ileus. No definite bowel obstruction. The appendix is normal. Peritoneum: No abnormal intraperitoneal fluid. No free air. Ventral Wall: No hernia. Abdominal Nodes: No retroperitoneal or mesenteric adenopathy by size criteria. Vessels: Aorta and inferior vena cava are normal in size. PELVIS: Pelvic Organs: Unremarkable. Bladder: The bladder is partially distended. Pelvic Nodes: No enlarged lymph nodes. Miscellaneous: No inguinal hernias are seen. Bones: Visualized osseous structures demonstrate no suspicious focal lesions. IMPRESSION: 1. Mild fluid distention with scattered air-fluid levels throughout the small and large bowel likely representing a gastroenteritis, versus an ileus. No definite bowel obstruction. Dictated by: Hadley Jama M.D. on 07/24/2022 at 0:31 Approved by: Hadley Jama M.D. on 07/24/2022 at 0:48
[2022-07-24] VITALS (24 sets, daily range): BP systolic 94–146; BP diastolic 45–82; PULSE 72–130; RESP 13–24; TEMP 36.7–38.4; O2SAT 94–100; BMI 27.9
[2022-07-24 01:05] LABS: Campylobacter Not Detected (Not Detect)
[2022-07-24 01:07] LABS: Clostridium difficile toxin AB Detected (Not Detect); Enteroaggregative E.coli Not Detected (Not Detect); Enteropathogenic E.coli Not Detected (Not Detect); Enterotoxigenic E.coli It/st Not Detected (Not Detect); Plesiomonsa shigelloides Not Detected (Not Detect); Salmonella Not Detected (Not Detect); Shiga-like toxin-prod E.coli Not Detected (Not Detect); Shigella/Enteroinvasive E.coli Not Detected (Not Detect); Vibrio Not Detected (Not Detect); Vibrio cholerae Not Detected (Not Detect); Yersinia enterocolitica Not Detected (Not Detect)
[2022-07-24 01:08] LABS: Adenovirus F 40/41 Not Detected (Not Detect); Astrovirus Not Detected (Not Detect); Cryptosporidium Not Detected (Not Detect); Cyclospora cayetanensis Not Detected (Not Detect); Entamoeba histolytica Not Detected (Not Detect); Giardia lamblia Not Detected (Not Detect); Norovirus GI/GII Detected (Not Detect); Rotavirus A Detected (Not Detect); Sapovirus Not Detected (Not Detect)
[2022-07-24] MEDS: LACTATED RINGERS 1,000 ML 1000 ML IV (01:40)
--- NOTE | 2022-07-24 01:49 | P.HP_ITS ---
History of Present Illness History of Present Illness Date Patient Seen: 07/24/22 Time Patient Seen: 01:30 Chief complaint: vomiting, diarrhea, abn BP Narrative: Mr. Cruz is a 22M with H CKD stage 3 who presents to the hospital with diarrhea and vomiting. 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 He also has a hsitory of pyloric stricture requiring dilation, he previously needed PEG feedings. He presented to the hospital with gastroenteritis in April and was found to have rotavirus. After discharge he had felt better, but had chronic diarrhea 1-2x daily. Earlier this week his family member had gotten sick with vomiting, and today he developed frequent diarrhea and vomiting. He felt dizzy and lightheaded so he presented to the hospital. In the ED workup was done, vitals notable for heart rate in the 120s, blood pressure in the 90s/50s, afebrile. Labs notable for WBC 11.4 hgb 18, plts 271. CO2 16, BUN 55, creatinine 2.91. Procal 0.19, Lactate 1.2. Stool pcr positive fo r rotavirus, norovirus and c diff. CT abdomen showed air fluid levels in small and large bowel consistent with gastroenteritis. He was given fluids and admitted for further treatment. Patient History Medical History Asthma Chronic kidney disease Pyloric stricture Surgical History History of gastrostomy tube placement Family & Social History Family History Mother Placental abruption Grandmother Diabetes mellitus Father Alive and well Social History: household members family Safety & Behavioral: Feels Safe in Current Yes Environment Been Physically Hurt or No Threatened By a Person Tobacco & Substance use: Smoking Status Never smoker alcohol intake frequency holiday/special occasion Substance Use Type does not use Meds Home Medications and Allergies Home Medications Medication Instructions Recorded Confirmed Type albuterol sulfate 90 mcg/actuation 1 inh inhalation Q4-6H PRN 06/06/18 06/07/21 Rx aerosol inhaler shortness of breath #18 grams Allergies Allergy/AdvReac Type Severity Reaction Status Date / Time No Known Drug Allergies Allergy Verified 05/02/22 14:06 Review of Systems Review of Systems Narrative: 14 systems reviewed and negative aside from what is noted in HPI Exam Vital Signs (past 8 hours): - 07/23/22 21:10 07/23/22 21:14 07/23/22 21:17 Temperature 98.9 F Pulse Rate 122 H 124 H Respiratory Rate 18 Blood Pressure 90/53 L 90/53 L Pulse Oximetry 97 96 Oxygen Delivery Method Room Air 07/23/22 21:17 07/23/22 21:30 07/23/22 22:00 Temperature Pulse Rate 121 H 126 H Respiratory Rate 20 Blood Pressure 102/51 L Pulse Oximetry 97 97 Oxygen Delivery Method Room Air 07/23/22 22:00 07/23/22 22:30 07/23/22 22:30 Temperature Pulse Rate 113 H 114 H Respiratory Rate 21 13 Blood Pressure 127/68 Pulse Oximetry 99 97 Oxygen Delivery Method 07/23/22 23:00 07/23/22 23:01 07/23/22 23:01 Temperature Pulse Rate 129 H 130 H Respiratory Rate 26 H 23 Blood Pressure 81/51 L Pulse Oximetry 98 98 Oxygen Delivery Method 07/23/22 23:30 07/23/22 23:30 07/23/22 23:33 Temperature Pulse Rate 115 H 113 H Respiratory Rate 19 20 Blood Pressure 116/59 L Pulse Oximetry 96 98 Oxygen Delivery Method Room Air 07/23/22 23:33 07/24/22 00:00 07/24/22 00:30 Temperature Pulse Rate 115 H 111 H Respiratory Rate 19 18 Blood Pressure 109/53 L Pulse Oximetry 97 99 Oxygen Delivery Method 07/24/22 00:58 07/24/22 00:58 07/24/22 01:00 Temperature Pulse Rate 118 H Respiratory Rate 21 Blood Pressure 111/55 L 102/50 L Pulse Oximetry 97 Oxygen Delivery Method 07/24/22 01:00 07/24/22 01:30 07/24/22 01:30 Temperature Pulse Rate 123 H 116 H Respiratory Rate 21 20 Blood Pressure 103/52 L Pulse Oximetry 96 97 Oxygen Delivery Method Oxygen Delivery Method Room Air Narrative Exam Narrative: GEN: sleepy, fatigued HEENT: dry mucous membranes, PERRL NECK: trachea midline, no JVD PULM: clear bilaterally, no wheezes, rhonchi, rales CV: regular rate and rhythm, no murmurs ABD: soft, nontender, nondistended, no organomegaly EXT: warm and well perfused with no edema NEURO: awake, alert, oriented, no focal deficits Objective Labs 07/23/22 21:28 07/23/22 21:28 Labs: Laboratory Results - last 24 hr 07/23/22 07/23/22 07/23/22 21:28 21:28 21:28 WBC 11.4 H RBC 5.92 H Hgb 18.0 H Hct 52.4 MCV 88.5 MCH 30.3 MCHC 34.3 RDW 13.6 Plt Count 271 Neut % (Auto) 82.5 H Lymph % (Auto) 6.9 L [place] % (Auto) 8.9 Eos % (Auto) 1.5 L Baso % (Auto) 0.2 Neut # (Auto) 9400 H Lymph # (Auto) 800 L [place] # (Auto) 1000 H Eos # (Auto) 200 Baso # (Auto) 0 PT 11.6 INR 1.0 APTT 30 Sodium 139 Potassium 4.6 Chloride 107 Carbon Dioxide 16 L BUN 55 H Creatinine 2.91 H Estimated GFR 30 L BUN/Creatinine Ratio 18.9 Glucose 133 H Lactate Calcium 9.2 Total Bilirubin 0.8 AST 26 ALT 43 Alkaline Phosphatase 69 Total Protein 9.3 H Albumin 5.0 Globulin 4.3 H Albumin/Globulin Ratio 1.2 Lipase 174 Procalcitonin 0.19 Stl C. cayetanensis PCR Stool Rotavirus (PCR) Stool Adenovirus (PCR) Stool Astrovirus (PCR) Stool Cryptosporidium PCR Stl E.coli Shiga Tox PCR St Sh/Enteroin Ecoli PCR Stool E coli O157 PCR Stl Enterotoxigenic E PCR Stool EPEC (PCR) Stl E. histolytica PCR Stool Giardia Lamblia PCR Stool Sapovirus (PCR) Stl P. shigelloides PCR St Y.enterocolitica PCR Stool Vibrio (PCR) Stl Vibrio cholerae PCR Stl Enteroaggr Ecoli PCR Stl Norovirus GI/GII PCR Campylobacter (PCR) C. difficile Tox (PCR) SARS-CoV-2 (PCR) Salmonella (PCR) 07/23/22 07/23/22 07/23/22 21:28 22:09 23:23 WBC RBC Hgb Hct MCV MCH MCHC RDW Plt Count Neut % (Auto) Lymph % (Auto) [place] % (Auto) Eos % (Auto) Baso % (Auto) Neut # (Auto) Lymph # (Auto) [place] # (Auto) Eos # (Auto) Baso # (Auto) PT INR APTT Sodium Potassium Chloride Carbon Dioxide BUN Creatinine Estimated GFR BUN/Creatinine Ratio Glucose Lactate 1.2 Calcium Total Bilirubin AST ALT Alkaline Phosphatase Total Protein Albumin Globulin Albumin/Globulin Ratio Lipase Procalcitonin Stl C. cayetanensis PCR Not detected Stool Rotavirus (PCR) Detected H Stool Adenovirus (PCR) Not detected Stool Astrovirus (PCR) Not detected Stool Cryptosporidium PCR Not detected Stl E.coli Shiga Tox PCR Not detected St Sh/Enteroin Ecoli PCR Not detected Stool E coli O157 PCR Not Reportable Stl Enterotoxigenic E PCR Not detected Stool EPEC (PCR) Not detected Stl E. histolytica PCR Not detected Stool Giardia Lamblia PCR Not detected Stool Sapovirus (PCR) Not detected Stl P. shigelloides PCR Not detected St Y.enterocolitica PCR Not detected Stool Vibrio (PCR) Not detected Stl Vibrio cholerae PCR Not detected Stl Enteroaggr Ecoli PCR Not detected Stl Norovirus GI/GII PCR Detected H Campylobacter (PCR) Not detected C. difficile Tox (PCR) Detected H SARS-CoV-2 (PCR) Negative Salmonella (PCR) Not detected Assessment & Plan Assessment & Plan narrative: 1. Sepsis from gastroenteritis and c diff colitis -has significant diarrhea, with gastroenteritis findings on CT -stool pcr shows rotavirus, norovirus, c. diff -for c. diff will treat with vancomycin po 500mg q6 and flagyl 500mg q8 [address] anned 10-14 day course -patient was rotavirus positive in april, question of weakened immune system leading to persistent positive rotavirus -consider further workup for immunodeficiency as outpatient -continue IV fluids as remains dehydrated 2. CJ on CKD stage 3 -baseline creatinine appears to be approximately 2.2, was 2.9 on admission -suspect secondary to hypovolemia -trend creatinine daily with fluid resuscitation as above I have discussed care and obtained history from patient and family. I have discussed plan of care with ED physician and bedside nurse. I have reviewed labs and CT imaging. CODE: Full Proxy: Layne Cruz, mother Time Spent With Patient Critical Care time: I spent a total of [] minutes of critical care time on this patient's care today; this time is exclusive of procedural time. Quality [facility] - Meds 'Current medications' to include all prescriptions, [id number] products, herbals, cannabis/cannabidiol products, and vitamin/mineral/dietary (nutritional) supplements. I have utilized all available resources to obtain, update, or review the patient?s current medications. [If Yes, STOP here]: Yes
[2022-07-24 02:38] LABS: BUN Creatinine Ratio 22.7 (6-22); Blood Urea Nitrogen 58 mg/dL (9-20); Calcium 7.5 mg/dL (8.4-10.2); Carbon Dioxide 18 mmol/L (22-32); Chloride 116 mmol/L (98-107); Estimated Glomerular Filt Rate 35 mL/min (>60); Glucose 107 mg/dL (70-100); HEMOLYSIS 15 (0-50); Potassium 4.7 mmol/L (3.4-5.1); Sodium 141 mmol/L (137-145)
[2022-07-24] MEDS: VANCOMYCIN 125 MG CAPSULE 500 MG PO ×4 (03:29→20:09)
[2022-07-24] MEDS: ACETAMINOPHEN 325 MG TABLET 650 MG PO ×3 (03:30→20:09)
[2022-07-24] MEDS: metroNIDAZOLE 500 MG/100 ML PIGGYBACK 100 MG IV ×3 (03:31→18:44)
[2022-07-24] MEDS: SODIUM CHLORIDE 0.9% 1,000 ML 150 ML IV ×2 (04:20→11:33)
--- NOTE | 2022-07-24 05:29 | PC.NURSE ---
Admit/NOC Shift Note- Patient arrived to room via streatcher from ER at 0320. Patient alert and oriented and able to make needs known to staff. Admit questions done, medications completed, physical assessment done, and skin check completed. Patient oriented to bed and bed cotrols,m room, lightws, phoe, menu, bathroom, and call boone/TV Remote. Safety measures in place. Patient agress to call for assistance. Mpm staying night in room for support. Call boone and phone within reach. Will continue to monitor.
--- NOTE | 2022-07-24 07:39 | P.PN_ITS ---
Subjective Subjective Interval history: Diarrhea continues. Abdominal pain, or nausea or vomiting. No fevers, or chills. Exam Vital Signs (past 8 hours): - 07/24/22 00:00 07/24/22 00:30 07/24/22 00:58 Temperature Pulse Rate 115 H 111 H Respiratory Rate 19 18 Blood Pressure 111/55 L Pulse Oximetry 97 99 Oxygen Delivery Method Oxygen Flow Rate 07/24/22 00:58 07/24/22 01:00 07/24/22 01:00 Temperature Pulse Rate 118 H 123 H Respiratory Rate 21 21 Blood Pressure 102/50 L Pulse Oximetry 97 96 Oxygen Delivery Method Oxygen Flow Rate 07/24/22 01:30 07/24/22 01:30 07/24/22 02:00 Temperature Pulse Rate 116 H Respiratory Rate 20 Blood Pressure 103/52 L 97/56 L Pulse Oximetry 97 Oxygen Delivery Method Oxygen Flow Rate 07/24/22 02:00 07/24/22 02:30 07/24/22 02:30 Temperature Pulse Rate 130 H 116 H Respiratory Rate 24 22 Blood Pressure 99/55 L Pulse Oximetry 98 97 Oxygen Delivery Method Oxygen Flow Rate 07/24/22 03:00 07/24/22 03:00 07/24/22 03:30 Temperature 101.2 F H Pulse Rate 119 H Respiratory Rate 13 Blood Pressure 94/46 L Pulse Oximetry 97 Oxygen Delivery Method Oxygen Flow Rate 07/24/22 03:35 07/24/22 04:30 07/24/22 03:14 Temperature 101.2 F H 100.4 F H Pulse Rate 121 H Respiratory Rate 19 Blood Pressure 95/51 L Pulse Oximetry 99 98 Oxygen Delivery Method Room Air Oxygen Flow Rate 0 0 07/24/22 05:00 Temperature 100.4 F H Pulse Rate Respiratory Rate Blood Pressure Pulse Oximetry Oxygen Delivery Method Oxygen Flow Rate Oxygen Delivery Method Room Air Oxygen Flow Rate 0 Narrative Exam Narrative: GEN: Awake, walking. Nontoxic appearance. HEENT: dry mucous membranes, symmetric pupils NECK: trachea midline, normal range of motion PULM: clear bilaterally, burden rate. CV: regular rate and rhythm, no murmurs ABD: soft, non-tender, non-distended, no organomegaly EXT: warm and well perfused with no edema NEURO: awake, alert, oriented, with normal judgment and speech. Objective Labs 07/23/22 21:28 07/24/22 02:08 Labs: Laboratory Results - last 24 hr 07/23/22 07/23/22 07/23/22 21:28 21:28 21:28 WBC 11.4 H RBC 5.92 H Hgb 18.0 H Hct 52.4 MCV 88.5 MCH 30.3 MCHC 34.3 RDW 13.6 Plt Count 271 Neut % (Auto) 82.5 H Lymph % (Auto) 6.9 L [place] % (Auto) 8.9 Eos % (Auto) 1.5 L Baso % (Auto) 0.2 Neut # (Auto) 9400 H Lymph # (Auto) 800 L [place] # (Auto) 1000 H Eos # (Auto) 200 Baso # (Auto) 0 PT 11.6 INR 1.0 APTT 30 Sodium 139 Potassium 4.6 Chloride 107 Carbon Dioxide 16 L BUN 55 H Creatinine 2.91 H Estimated GFR 30 L BUN/Creatinine Ratio 18.9 Glucose 133 H Lactate Calcium 9.2 Total Bilirubin 0.8 AST 26 ALT 43 Alkaline Phosphatase 69 Total Protein 9.3 H Albumin 5.0 Globulin 4.3 H Albumin/Globulin Ratio 1.2 Lipase 174 Procalcitonin 0.19 Stl C. cayetanensis PCR Stool Rotavirus (PCR) Stool Adenovirus (PCR) Stool Astrovirus (PCR) Stool Cryptosporidium PCR Stl E.coli Shiga Tox PCR St Sh/Enteroin Ecoli PCR Stool E coli O157 PCR Stl Enterotoxigenic E PCR Stool EPEC (PCR) Stl E. histolytica PCR Stool Giardia Lamblia PCR Stool Sapovirus (PCR) Stl P. shigelloides PCR St Y.enterocolitica PCR Stool Vibrio (PCR) Stl Vibrio cholerae PCR Stl Enteroaggr Ecoli PCR Stl Norovirus GI/GII PCR Campylobacter (PCR) C. difficile Tox (PCR) SARS-CoV-2 (PCR) Salmonella (PCR) 07/23/22 07/23/22 07/23/22 21:28 22:09 23:23 WBC RBC Hgb Hct MCV MCH MCHC RDW Plt Count Neut % (Auto) Lymph % (Auto) [place] % (Auto) Eos % (Auto) Baso % (Auto) Neut # (Auto) Lymph # (Auto) [place] # (Auto) Eos # (Auto) Baso # (Auto) PT INR APTT Sodium Potassium Chloride Carbon Dioxide BUN Creatinine Estimated GFR BUN/Creatinine Ratio Glucose Lactate 1.2 Calcium Total Bilirubin AST ALT Alkaline Phosphatase Total Protein Albumin Globulin Albumin/Globulin Ratio Lipase Procalcitonin Stl C. cayetanensis PCR Not detected Stool Rotavirus (PCR) Detected H Stool Adenovirus (PCR) Not detected Stool Astrovirus (PCR) Not detected Stool Cryptosporidium PCR Not detected Stl E.coli Shiga Tox PCR Not detected St Sh/Enteroin Ecoli PCR Not detected Stool E coli O157 PCR Not Reportable Stl Enterotoxigenic E PCR Not detected Stool EPEC (PCR) Not detected Stl E. histolytica PCR Not detected Stool Giardia Lamblia PCR Not detected Stool Sapovirus (PCR) Not detected Stl P. shigelloides PCR Not detected St Y.enterocolitica PCR Not detected Stool Vibrio (PCR) Not detected Stl Vibrio cholerae PCR Not detected Stl Enteroaggr Ecoli PCR Not detected Stl Norovirus GI/GII PCR Detected H Campylobacter (PCR) Not detected C. difficile Tox (PCR) Detected H SARS-CoV-2 (PCR) Negative Salmonella (PCR) Not detected 07/24/22 07/24/22 02:08 02:08 WBC RBC Hgb Hct MCV MCH MCHC RDW Plt Count Neut % (Auto) Lymph % (Auto) [place] % (Auto) Eos % (Auto) Baso % (Auto) Neut # (Auto) Lymph # (Auto) [place] # (Auto) Eos # (Auto) Baso # (Auto) PT INR APTT Sodium 141 Potassium 4.7 Chloride 116 H Carbon Dioxide 18 L BUN 58 H Creatinine 2.56 H Estimated GFR 35 L BUN/Creatinine Ratio 22.7 H Glucose 107 H Lactate 2.0 Calcium 7.5 L Total Bilirubin AST ALT Alkaline Phosphatase Total Protein Albumin Globulin Albumin/Globulin Ratio Lipase Procalcitonin Stl C. cayetanensis PCR Stool Rotavirus (PCR) Stool Adenovirus (PCR) Stool Astrovirus (PCR) Stool Cryptosporidium PCR Stl E.coli Shiga Tox PCR St Sh/Enteroin Ecoli PCR Stool E coli O157 PCR Stl Enterotoxigenic E PCR Stool EPEC (PCR) Stl E. histolytica PCR Stool Giardia Lamblia PCR Stool Sapovirus (PCR) Stl P. shigelloides PCR St Y.enterocolitica PCR Stool Vibrio (PCR) Stl Vibrio cholerae PCR Stl Enteroaggr Ecoli PCR Stl Norovirus GI/GII PCR Campylobacter (PCR) C. difficile Tox (PCR) SARS-CoV-2 (PCR) Salmonella (PCR) [facility] Medical History Asthma Chronic kidney disease Pyloric stricture Surgical History History of gastrostomy tube placement Family History Mother Placental abruption Grandmother Diabetes mellitus Father Alive and well Social History household members: family Smoking Status: Never smoker alcohol intake: never Assessment & Plan Assessment & Plan narrative: 1. Sepsis from gastroenteritis and c diff colitis, present on admission and active -has significant diarrhea, with gastroenteritis findings on CT -stool pcr shows rotavirus, norovirus, c. diff -for c. diff will treat with vancomycin po 500mg q6 and flagyl 500mg q8 for planned 10-14 day course -patient was rotavirus positive in April, question of weakened immune system leading to persistent positive rotavirus -consider further workup for immunodeficiency as outpatient -continue IV fluids as remains dehydrated -we will continue the current antibiotics for another 24 hours. 2. CJ on CKD stage 3, present on admission and improving. -baseline creatinine appears to be approximately 2.2, was 2.9 on admission -suspect secondary to hypovolemia -trend creatinine daily with fluid resuscitation as above I have discussed care and obtained history from patient and family. I have discussed plan of care with ED physician and bedside nurse. I have reviewed labs and CT imaging. CODE: Full Proxy: Layne Cruz, mother Quality VTE Deep Vein Thrombosis/Pulmonary Embolism Present on Admission: Yes
--- NOTE | 2022-07-24 08:31 | CM.DANOTE ---
Initial DCP Assessment Note Pt is a 22 yo male, lives w/family in [place], now POD#1 from Rt knee surgery by Dr Taylor Payor confirmed: [place] [facility] Reviewed chart, patient arrives w Chief complaint: vomiting, diarrhea, abn BP; Stool pcr positive for rotavirus, norovirus and c diff. CT abdomen showed air fluid levels in small and large bowel consistent with gastroenteritis. He was given fluids and admitted for further treatment. This note will serve as CM team initial assessment r/t patient's isolation precautions. Patient lives w/family, mostly indp at baseline, long standing h/o chronic illness. Likely no needs from this CM team, following Plan: Anticipate return home w/mom upon discharge, close outpatient follow up recommended BO Krause Discharge Planning/Care Management CM Discharge Assessment Start: 07/24/22 08:28 Freq: Status: Active Protocol: Document 07/24/22 08:28 LIZZIE (Rec: 07/24/22 08:31 LIZZIE [id number]) Discharge Planning Assessment Assigned Electric Accounting Machine Operator BO Randall DPOA/Assigned Designee Name Layne Cruz, mother Advance Directives? No History Provided By Patient,Parents,Medical Record Prior Living Arrangements House Household Members family Type of transporation used prior to Drives own vehicle admit Independent with ADL's Yes Is patient alert and oriented? Yes Needs Assistance With Meal Prep,Home Chores / Shopping Barriers to Discharge No Comment Home w/mom expected, close outpatient follow up Discharge Plan Home Transportation Arrangement Family Referrals Initiated None needed
[2022-07-24] MEDS: APIXABAN 5 MG TABLET PO ×2 (09:25→20:09)
--- NOTE | 2022-07-24 10:04 | PC.NURSE ---
Patients temp is 100, pulse increased. Will be getting more vs at 1100. If needed, will give patient some tylenol. He has been drinking a lot of fluids but not eating well. Up to the restroom independently and patient has had 1 loose bowel movement today. Mom in room and supportive.
--- NOTE | 2022-07-24 14:09 | CM.DANOTE ---
Initial DCP Assessment Note Pt is a 22 yo male, resident of [facility] CKD stage 3 who presents to the hospital with diarrhea and vomiting admitted for treatment of Sepsis from gastroenteritis and c diff colitis stool pcr shows rotavirus, norovirus, c. diff PCP: Andrea Mike Payer: [place] of [place] Reviewed chart, pt discussed in multidisciplinary rounds this morning. Patient here for treatment at least another 24 hrs This note acts as the CM team's initial assessment r/t patient's current isolation precaution for rotavirus, norovirus, c. diff + Patient lives w/supportive family, has had a complicated medical hx with CKD r/t renal failure requiring peritoneal dialysis and pyloric stricture requiring dilation and peg feedings No barriers identified at this time to patient's safe discharge home w/supportive family to assist. Close outpatient f/u recommended. BO Krause Discharge Planning/Care Management Document 07/24/22 14:08 LIZZIE (Rec: 07/24/22 14:09 LIZZIE [id number]) Discharge Planning Assessment Assigned Dry Transfer Worker BO Randall DPOA/Assigned Designee Name Layne Cruz, mother [phone] Advance Directives? No History Provided By Patient,Parents,Medical Record Prior Living Arrangements House Household Members family Type of transportation used prior to Drives own vehicle admit Independent with ADL's Yes Is patient alert and oriented? Yes Needs Assistance With Meal Prep,Home Chores / Shopping Barriers to Discharge No Comment Home w/mom expected, close outpatient follow up Discharge Plan Home Transportation Arrangement Family Referrals Initiated None needed
[2022-07-24] MEDS: NYSTATIN OINTMENT 15 APPLIC/TUBE OINT...G. TOP (15:19)
[2022-07-24 15:55] LABS: HIV 1 & 2 Ab/Ag 4th Gen Combo NEGATIVE (NEGATIVE)
[2022-07-24] MEDS: ONDANSETRON 4 MG/2 ML INJ IV (20:10)
[2022-07-25] VITALS (8 sets, daily range): BP systolic 104–131; BP diastolic 44–82; PULSE 88–109; RESP 16–18; TEMP 36.4–36.8; O2SAT 93–99
[2022-07-25] MEDS: metroNIDAZOLE 500 MG/100 ML PIGGYBACK 100 MG IV ×3 (03:08→18:30)
[2022-07-25] MEDS: VANCOMYCIN 125 MG CAPSULE 500 MG PO ×4 (03:08→20:41)
[2022-07-25] MEDS: ONDANSETRON 4 MG/2 ML INJ IV ×3 (04:07→23:17)
[2022-07-25] MEDS: ACETAMINOPHEN 325 MG TABLET 650 MG PO ×2 (04:07→15:41)
[2022-07-25 06:41] LABS: Add Manual Diff / Slide Review NO; Basophils Absolute Auto 0 /uL (0-100); Basophils Percent Auto 0.1 % (0-2); Eosinophils Absolute Auto 0 /uL (0-450); Eosinophils Percent Auto 0.6 % (2-4); Hematocrit 37.1 % (41-53); Hemoglobin 12.7 g/dL (13.5-17.5); Lymphocytes Absolute Auto 800 /uL (1100-4500); Lymphocytes Percent Auto 16.3 % (25-40); Mean Corpuscular HGB Conc 34.2 % (30-36); Mean Corpuscular Hemoglobin 30.8 PG (26-34); Monocytes Absolute Auto 700 /uL (0-900); Monocytes Percent Auto 14.3 % (3-14); Neutrophils Absolute Auto 3300 /uL (1500-7000); Neutrophils Percent Auto 68.7 % (50-75); Platelet Count 128 X10^3/uL (150-400); Red Blood Cell Count 4.13 X10^6/uL (4.5-5.9); Red Cell Distribution Width 13.3 % (11.6-14.8); White Blood Cell Count 4.8 X10^3/uL (4.5-11.0)
[2022-07-25 06:42] LABS: BUN Creatinine Ratio 14.8 (6-22); Blood Urea Nitrogen 43 mg/dL (9-20); Calcium 6.9 mg/dL (8.4-10.2); Carbon Dioxide 14 mmol/L (22-32); Chloride 114 mmol/L (98-107); Estimated Glomerular Filt Rate 30 mL/min (>60); Glucose 86 mg/dL (70-100); Magnesium 1.4 mg/dL (1.6-2.3); Potassium 3.9 mmol/L (3.4-5.1); Sodium 137 mmol/L (137-145)
[2022-07-25 06:44] LABS: HEMOLYSIS < 15 (0-50)
--- NOTE | 2022-07-25 07:21 | P.PN_ITS ---
Subjective Subjective Interval history: Exam Vital Signs (past 8 hours): - 07/25/22 01:35 07/25/22 03:00 07/25/22 06:00 Temperature 98.1 F 98.1 F Pulse Rate 104 H 109 H Respiratory Rate 16 16 Blood Pressure 104/55 L 105/82 Pulse Oximetry 98 97 97 Oxygen Delivery Method Room Air Oxygen Flow Rate 0 0 Oxygen Delivery Method Room Air Oxygen Flow Rate 0 Narrative Exam Narrative: GEN: Awake, walking. Nontoxic appearance. HEENT: dry mucous membranes, symmetric pupils NECK: trachea midline, normal range of motion PULM: clear bilaterally, burden rate. CV: regular rate and rhythm, no murmurs ABD: soft, non-tender, non-distended, no organomegaly EXT: warm and well perfused with no edema NEURO: awake, alert, oriented, with normal judgment and speech. Objective Labs 07/25/22 05:57 07/25/22 05:57 Labs: Laboratory Results - last 24 hr 07/24/22 07/25/22 07/25/22 14:20 05:57 05:57 WBC 4.8 D RBC 4.13 L Hgb 12.7 L Hct 37.1 L MCV 90.0 MCH 30.8 MCHC 34.2 RDW 13.3 Plt Count 128 L Neut % (Auto) 68.7 Lymph % (Auto) 16.3 L [place] % (Auto) 14.3 H Eos % (Auto) 0.6 L Baso % (Auto) 0.1 Neut # (Auto) 3300 Lymph # (Auto) 800 L [place] # (Auto) 700 Eos # (Auto) 0 Baso # (Auto) 0 Sodium 137 Potassium 3.9 Chloride 114 H Carbon Dioxide 14 L BUN 43 H Creatinine 2.90 H Estimated GFR 30 L BUN/Creatinine Ratio 14.8 Glucose 86 Calcium 6.9 L Magnesium 1.4 L HIV 1&2 Ab/P24 Ag 4thGn Negative [facility] Medical History Asthma Chronic kidney disease Pyloric stricture Surgical History History of gastrostomy tube placement Family History Mother Placental abruption Grandmother Diabetes mellitus Father Alive and well Social History household members: family Smoking Status: Never smoker alcohol intake: never Assessment & Plan Assessment & Plan narrative: [address] [address] Progress Note Patient: Chad Cruz MR#: [id number] : 2000 Acct:[id number] Age/Sex: 22 / M ? Date of Service: 07/24/22 Provider:?Stefan Hoffman MD Subjective Subjective Interval history: Diarrhea continues.? Abdominal pain, or nausea or vomiting.? No fevers, or chills. Exam Vital Signs (past 8 hours): - ? 07/24/2299:00 07/24/2299:30 07/24/2299:58 Temperature ? ? ? Pulse Rate 115 H 111 H ? Respiratory Rate 19 18 ? Blood Pressure ? ? 111/55 L Pulse Oximetry 97 99 ? Oxygen Delivery Method ? ? ? Oxygen Flow Rate ? 07/24/2299:58 07/24/2300:00 07/24/2300:00 Temperature ? ? ? Pulse Rate 118 H ? 123 H Respiratory Rate 21 ? 21 Blood Pressure ? 102/50 L ? Pulse Oximetry 97 ? 96 Oxygen Delivery Method ? ? ? Oxygen Flow Rate ? 07/24/2300:30 07/24/2300:30 07/24/2301:00 Temperature ? ? ? Pulse Rate ? 116 H ? Respiratory Rate ? 20 ? Blood Pressure 103/52 L ? 97/56 L Pulse Oximetry ? 97 ? Oxygen Delivery Method ? ? ? Oxygen Flow Rate ? 07/24/2301:00 07/24/2301:30 07/24/2301:30 Temperature ? ? ? Pulse Rate 130 H ? 116 H Respiratory Rate 24 ? 22 Blood Pressure ? 99/55 L ? Pulse Oximetry 98 ? 97 Oxygen Delivery Method ? ? ? Oxygen Flow Rate ? 07/24/2302:00 07/24/2302:00 07/24/2302:30 Temperature ? ? 101.2 F H Pulse Rate ? 119 H ? Respiratory Rate ? 13 ? Blood Pressure 94/46 L ? ? Pulse Oximetry ? 97 ? Oxygen Delivery Method ? ? ? Oxygen Flow Rate ? 07/24/2302:35 07/25/2303:30 07/24/2302:14 Temperature 101.2 F H 100.4 F H ? Pulse Rate 121 H ? ? Respiratory Rate 19 ? ? Blood Pressure 95/51 L ? ? Pulse Oximetry 99 ? 98 Oxygen Delivery Method ? ? Room Air Oxygen Flow Rate 0 ? 0 ? 07/24/2304:00 Temperature 100.4 F H Pulse Rate ? Respiratory Rate ? Blood Pressure ? Pulse Oximetry ? Oxygen Delivery Method ? Oxygen Flow Rate ? Oxygen Delivery Method? Room Air? Oxygen Flow Rate? 0 ? Narrative Exam Narrative: GEN:? Awake, walking.? Nontoxic appearance. HEENT: dry mucous membranes, symmetric pupils NECK: trachea midline, normal range of motion PULM: clear bilaterally, burden rate. CV: regular rate and rhythm, no murmurs ABD: soft, non-tender, non-distended, no organomegaly EXT: warm and well perfused with no edema NEURO: awake, alert, oriented, with normal judgment and speech. Objective Labs 07/23/22 21:28? 07/24/22 02:08? Labs: Laboratory Results - last 24 hr ? 07/23/22 07/23/22 07/23/22 ? 21:28 21:28 21:28 WBC ?11.4 H ? ? RBC ?5.92 H ? ? Hgb ?18.0 H ? ? Hct ?52.4 ? ? MCV ?88.5 ? ? MCH ?30.3 ? ? MCHC ?34.3 ? ? RDW ?13.6B ? ? Plt Count ?271 ? ? Neut % (Auto) ?82.5 H ? ? Lymph % (Auto) ?6.9 L ? ? [place] % (Auto) ?8.9 ? ? Eos % (Auto) ?1.5 L ? ? Baso % (Auto) ?0.2 ? ? Neut # (Auto) ?9400 H ? ? Lymph # (Auto) ?800 L ? ? [place] # (Auto) ?1000 H ? ? Eos # (Auto) ?200 ? ? Baso # (Auto) ?0 ? ? PT ? ?11.6 ? INR ? ?1.0 ? APTT ? ?30 ? Sodium ? ? ?139 Potassium ? ? ?4.6 Chloride ? ? ?107 Carbon Dioxide ? ? ?16 L BUN ? ? ?55 H Creatinine ? ? ?2.91 H Estimated GFR ? ? ?30 L BUN/Creatinine Ratio ? ? ?18.9 Glucose ? ? ?133 H Lactate ? ? ? Calcium ? ? ?9.2 Total Bilirubin ? ? ?0.8 AST ? ? ?26 ALT ? ? ?43 Alkaline Phosphatase ? ? ?69 Total Protein ? ? ?9.3 H Albumin ? ? ?5.0 Globulin ? ? ?4.3 H Albumin/Globulin Ratio ? ? ?1.2 Lipase ? ? ?174 Procalcitonin ? ? ?0.19 Stl C. cayetanensis PCR ? ? ? Stool Rotavirus (PCR) ? ? ? Stool Adenovirus (PCR) ? ? ? Stool Astrovirus (PCR) ? ? ? Stool Cryptosporidium PCR ? ? ? Stl E.coli Shiga Tox PCR ? ? ? St Sh/Enteroin Ecoli PCR ? ? ? Stool E coli O157 PCR ? ? ? Stl Enterotoxigenic E PCR ? ? ? Stool EPEC (PCR) ? ? ? Stl E. histolytica PCR ? ? ? Stool Giardia Lamblia PCR ? ? ? Stool Sapovirus (PCR) ? ? ? Stl P. shigelloides PCR ? ? ? St Y.enterocolitica PCR ? ? ? Stool Vibrio (PCR) ? ? ? Stl Vibrio cholerae PCRB ? ? ? Stl Enteroaggr Ecoli PCR ? ? ? Stl Norovirus GI/GII PCR ? ? ? Campylobacter (PCR) ? ? ? C. difficile Tox (PCR) ? ? ? SARS-CoV-2 (PCR) ? ? ? Salmonella (PCR) ? 07/23/22 07/23/22 07/23/22 ? 21:28 22:09 23:23 D WBC ? ? ? RBC ? ? ? Hgb ? ? ? Hct ? ? ? MCV ? ? ? MCH ? ? ? MCHC ? ? ? RDW ? ? ? Plt Count ? ? ? Neut % (Auto) ? ? ? Lymph % (Auto) ? ? ? D [place] % (Auto) ? ? ? Eos % (Auto) ? ? ? Baso % (Auto) ? ? ? Neut # (Auto) ? ? ? Lymph # (Auto) ? ? ? [place] # (Auto) ? ? ? Eos # (Auto) ? ? ? Baso # (Auto) ? ? ? PT ? ? ? INR ? ? ? APTT ? ? ? Sodium ?B ? ? Potassium ? ? ? Chloride ? ? ? Carbon Dioxide ? ? ? BUN ? ? ? Creatinine ? ? ? Estimated GFR ? ? ? BUN/Creatinine Ratio ? ? ? Glucose ? ? ? Lactate ?1.2 ? ? Calcium ? ? ? Total Bilirubin ? ? ? AST ? ? ? ALT ? ? ? Alkaline Phosphatase ? ? ? Total Protein ? ? ? Albumin ? ? ? Globulin ? ? ? Albumin/Globulin Ratio ? ? ? Lipase ? ? ? Procalcitonin ? ? ? Stl C. cayetanensis PCR ? ?C ?Not detected Stool Rotavirus (PCR) ? ? ?Detected H Stool Adenovirus (PCR) ? ? ?Not detected Stool Astrovirus (PCR) ? ? ?Not detected Stool Cryptosporidium PCR ? ?C ?Not detected Stl E.coli Shiga Tox PCR ? ? ?Not detected St Sh/Enteroin Ecoli PCR ? ? ?Not detected Stool E coli O157 PCR ? ? ?Not Reportable Stl Enterotoxigenic E PCR ? ? ?Not detected Stool EPEC (PCR) ? ? ?Not detected Stl E. histolytica PCR ? ? ?Not detected Stool Giardia [place] PCR ? ? ?Not detected Stool Sapovirus (PCR) ?B ? ?Not detected Stl P. shigelloides PCR ? ? ?Not detected St Y.enterocolitica PCR ? ? ?Not detected Stool Vibrio (PCR) ? ? ?Not detected Stl Vibrio cholerae PCR ? ? ?Not detected Stl Enteroaggr Ecoli PCR ? ? ?Not detected Stl Norovirus GI/GII PCR ? ? ?Detected H Campylobacter (PCR) ? ? ?Not detected C. difficile Tox (PCR) ? ? ?Detected H SARS-CoV-2 (PCR) ? ?Negative ? Salmonella (PCR) ? ? ?Not detected ? 07/24/22 07/24/22 ? 02:08 02:08 WBC ? ? RBC ? ? Hgb ? ? Hct ? ? MCV ? ? MCH ? ? MCHC ? ? RDW ? ? Plt Count ? ? Neut % (Auto) ? ? Lymph % (Auto) ? ? [place] % (Auto) ? ? Eos % (Auto) ? ? Baso % (Auto) ? ? Neut # (Auto) ? ? Lymph # (Auto) ? ? [place] # (Auto) ? ? Eos # (Auto) ? ? Baso # (Auto) ? ? PT ? ? INR ? ? APTT ? ? Sodium ?141 ? Potassium ?4.7 ? Chloride ?116 H ? Carbon Dioxide ?18 L ? BUN ?58 H ? Creatinine ?2.56 H ? Estimated GFR ?35 L ? BUN/Creatinine Ratio ?22.7 H ? Glucose ?107 H ? Lactate ? ?2.0 Calcium ?7.5 L ? Total Bilirubin ? ? AST ? ? ALT ? ? Alkaline Phosphatase ? ? Total Protein ? ? Albumin ? ? Globulin ? ? Albumin/Globulin Ratio ? ? Lipase ? ? Procalcitonin ? ? Stl C. cayetanensis PCR ? ? Stool Rotavirus (PCR) ? ? Stool Adenovirus (PCR) ? ? Stool Astrovirus (PCR) ? ? Stool Cryptosporidium PCR ? ? Stl E.coli Shiga Tox PCR ? ? St Sh/Enteroin Ecoli PCR ? ? Stool E coli O157 PCR ? ? Stl Enterotoxigenic E PCR ? ? Stool EPEC (PCR) ? ? Stl E. histolytica PCR ? ? Stool Giardia Lamblia PCR ? ? Stool Sapovirus (PCR) ? ? Stl P. shigelloides PCR ? ? St Y.enterocolitica PCR ? ? Stool Vibrio (PCR) ? ? Stl Vibrio cholerae PCR ? ? Stl Enteroaggr Ecoli PCR ? ? Stl Norovirus GI/GII PCR ? ? Campylobacter (PCR) ? ? C. difficile Tox (PCR) ? ? SARS-CoV-2 (PCR) ? ? Salmonella (PCR) ? ? PFSH Medical History? Asthma Chronic kidney disease Pyloric stricture Surgical History? History of gastrostomy tube placement Family History? Mother Placental abruptionGrandmother Diabetes mellitusFather Alive and well Social History? household members:? family Smoking Status:? Never smoker alcohol intake:? never Assessment & Plan 1. Sepsis from gastroenteritis (noro and rota) and c diff colitis, present on admission and active -has significant diarrhea, with gastroenteritis findings on CT -stool pcr shows rotavirus, norovirus, c. diff -for c. diff will treat with vancomycin po 500mg q6 and flagyl 500mg q8 for planned 10-14 day course -patient was rotavirus positive in April, question of weakened immune system leading to persistent positive rotavirus -consider further workup for immunodeficiency -continue IV fluids as remains dehydrated -we will continue the current antibiotics for another 24 hours. Then go to PO vanco. 2. CJ on CKD stage 3, present on admission and improving. -baseline creatinine appears to be approximately 2.2, was 2.9 on admission -suspect secondary to hypovolemia -trend creatinine daily with fluid resuscitation as above I have discussed care and obtained history from patient and family. I have dis cussed plan of care with ED physician and bedside nurse. I have reviewed labs and CT imaging. CODE: Full Proxy: Layne Cruz, mother Quality VTE Deep Vein Thrombosis/Pulmonary Embolism Present on Admission: Yes
[2022-07-25 08:36] LABS: Complement C3 76 mg/dL (82-167)
[2022-07-25] MEDS: MAGNESIUM CHLORIDE 64 MG TABLET 128 MG PO (10:12)
[2022-07-25] MEDS: APIXABAN 5 MG TABLET PO ×2 (10:12→20:40)
[2022-07-25] MEDS: NYSTATIN OINTMENT 15 APPLIC/TUBE OINT...G. TOP ×2 (10:13→15:50)
--- NOTE | 2022-07-25 14:12 | P.PN_ITS ---
Subjective Subjective Interval history: Feeling better, less diarrhea. Less nausea. Taking oral fluids. Exam Vital Signs (past 8 hours): - 07/25/22 08:00 07/25/22 07:45 07/25/22 07:45 Temperature 97.6 F Pulse Rate 102 H Respiratory Rate 18 Blood Pressure 115/62 Pulse Oximetry 98 95 Oxygen Delivery Method Room Air Room Air Oxygen Flow Rate 0 Oxygen Delivery Method Room Air Oxygen Flow Rate 0 Narrative Exam Narrative: GEN: Awake, walking. Nontoxic appearance. HEENT: dry mucous membranes, symmetric pupils NECK: trachea midline, normal range of motion PULM: clear bilaterally, burden rate. CV: regular rate and rhythm, no murmurs ABD: soft, non-tender, non-distended, no organomegaly EXT: warm and well perfused with no edema NEURO: awake, alert, oriented, with normal judgment and speech. Objective Labs 07/25/22 05:57 07/25/22 05:57 Labs: Laboratory Results - last 24 hr 07/24/22 07/24/22 07/25/22 14:20 14:20 05:57 WBC 4.8 D RBC 4.13 L Hgb 12.7 L Hct 37.1 L MCV 90.0 MCH 30.8 MCHC 34.2 RDW 13.3 Plt Count 128 L Neut % (Auto) 68.7 Lymph % (Auto) 16.3 L [place] % (Auto) 14.3 H Eos % (Auto) 0.6 L Baso % (Auto) 0.1 Neut # (Auto) 3300 Lymph # (Auto) 800 L [place] # (Auto) 700 Eos # (Auto) 0 Baso # (Auto) 0 Sodium Potassium Chloride Carbon Dioxide BUN Creatinine Estimated GFR BUN/Creatinine Ratio Glucose Calcium Magnesium Complement C3 76 L Complement C4 21 HIV 1&2 Ab/P24 Ag 4thGn Negative 07/25/22 05:57 WBC RBC Hgb Hct MCV MCH MCHC RDW Plt Count Neut % (Auto) Lymph % (Auto) [place] % (Auto) Eos % (Auto) Baso % (Auto) Neut # (Auto) Lymph # (Auto) [place] # (Auto) Eos # (Auto) Baso # (Auto) Sodium 137 Potassium 3.9 Chloride 114 H Carbon Dioxide 14 L BUN 43 H Creatinine 2.90 H Estimated GFR 30 L BUN/Creatinine Ratio 14.8 Glucose 86 Calcium 6.9 L Magnesium 1.4 L Complement C3 Complement C4 HIV 1&2 Ab/P24 Ag 4thGn [facility] Medical History Asthma Chronic kidney disease Pyloric stricture Surgical History History of gastrostomy tube placement Family History Mother Placental abruption Grandmother Diabetes mellitus Father Alive and well Social History household members: family Smoking Status: Never smoker alcohol intake: never Assessment & Plan Assessment & Plan narrative: 1. Sepsis from gastroenteritis and c diff colitis, present on admission and improving. -has significant diarrhea, with gastroenteritis findings on CT -stool pcr shows rotavirus, norovirus, c. diff -for c. diff will treat with vancomycin po 500mg q6 and flagyl 500mg q8 for planned 10-14 day course -patient was rotavirus positive in April, question of weakened immune system leading to persistent positive rotavirus -consider further workup for immunodeficiency as outpatient -continue IV fluids as remains dehydrated -we will continue the current antibiotics for another 24 hours. 2. C Diff colitis, present on admission and active. 3. Norovirus, rotavirus, present on admission and active 4. CJ on CKD stage 3 (volume depletion from diarrhea), present on admission and active. -baseline creatinine appears to be approximately 2.2, was 2.9 on admission -suspect secondary to hypovolemia -trend creatinine daily with fluid resuscitation as above Anticipate IV fluids and IV antibiotics for 1-2 more days. Met with mother and patient at the bedside. CODE: Full Proxy: mother Salazar Quality VTE Deep Vein Thrombosis/Pulmonary Embolism Present on Admission: Yes
[2022-07-25] MEDS: CALCIUM GLUCONATE 4.65 MEQ in SODIUM CHLORIDE 0.9% 50 ML 180 MEQ IV (15:16)
[2022-07-25] MEDS: SODIUM CHLORIDE 0.9% 1,000 ML 150 ML IV ×2 (15:16→23:11)
[2022-07-26] VITALS (10 sets, daily range): BP systolic 109–128; BP diastolic 58–82; PULSE 65–100; RESP 16–18; TEMP 36.5–37.2; O2SAT 93–100
[2022-07-26] MEDS: ACETAMINOPHEN 325 MG TABLET 650 MG PO ×2 (01:12→08:18)
[2022-07-26] MEDS: VANCOMYCIN 125 MG CAPSULE 500 MG PO ×2 (03:18→08:18)
[2022-07-26] MEDS: metroNIDAZOLE 500 MG/100 ML PIGGYBACK 100 MG IV ×2 (03:19→11:06)
[2022-07-26 06:17] LABS: Magnesium 1.6 mg/dL (1.6-2.3)
[2022-07-26] MEDS: ONDANSETRON 4 MG/2 ML INJ IV (08:18)
[2022-07-26] MEDS: MAGNESIUM CHLORIDE 64 MG TABLET 128 MG PO (08:18)
[2022-07-26] MEDS: NYSTATIN OINTMENT 15 APPLIC/TUBE OINT...G. TOP ×3 (08:18→23:19)
[2022-07-26] MEDS: APIXABAN 5 MG TABLET PO ×2 (08:18→20:25)
--- NOTE | 2022-07-26 10:57 | CM.DPNOTE ---
Discharge Planning Note: According to nursing, patient had N/V much of morning. Plan: When medically cleared, discharge home to family. Will need close outpatient followup on dc. Sara Crespo RN/DCP
--- NOTE | 2022-07-26 16:01 | PM.PN.1 ---
Subjective Subjective Interval history: Feeling better today, only one episode of loose stool but less watery today. Tolerating a diet today. Exam Vital Signs (past 8 hours): - 07/26/22 09:34 07/26/22 11:45 Temperature 97.7 F 98.1 F Pulse Rate 100 H 65 Respiratory Rate 18 18 Blood Pressure 128/82 126/58 L Pulse Oximetry 100 100 Oxygen Flow Rate 0 0 Oxygen Delivery Method Room Air Oxygen Flow Rate 0 Narrative Exam Narrative: GEN: Awake, walking. Nontoxic appearance. HEENT: moist mucous membranes, symmetric pupils NECK: trachea midline, normal range of motion PULM: clear bilaterally, burden rate. CV: regular rate and rhythm, no murmurs ABD: soft, non-tender, non-distended, no organomegaly EXT: warm and well perfused with no edema NEURO: awake, alert, oriented, with normal judgment and speech. Objective Labs 07/25/22 05:57 07/25/22 05:57 Labs: Laboratory Results - last 24 hr 07/26/22 05:20 Magnesium 1.6 PFSH Medical History Asthma Chronic kidney disease Pyloric stricture Surgical History History of gastrostomy tube placement Family History Mother Placental abruption Grandmother Diabetes mellitus Father Alive and well Social History household members: family Smoking Status: Never smoker alcohol intake: never Assessment & Plan Assessment & Plan narrative: 1. Sepsis from gastroenteritis and c diff colitis, present on admission and improving. -has significant diarrhea, with gastroenteritis findings on CT -stool pcr shows rotavirus, norovirus, c. diff -for c. diff will treat with vancomycin po 500mg q6 and flagyl 500mg q8 for planned 10-14 day course -patient was rotavirus positive in April, question of weakened immune system leading to persistent positive rotavirus -consider further workup for immunodeficiency as outpatient -can stop IV fluids today -we will continue the current antibiotics, change to oral antinauseal medications today to see if he can tolerate. 2. C Diff colitis, present on admission and active. - continue oral vanco 3. Norovirus, rotavirus, present on admission and active - supportive care. 4. CJ on CKD stage 3 (volume depletion from diarrhea), present on admission and active. -baseline creatinine appears to be approximately 2.2, was 2.9 on admission -suspect secondary to hypovolemia -trend creatinine Probable discharge home tomorrow if continues to improve, and can tolerate diet with oral antinausea medications. Met with patient at the bedside. CODE: Full Proxy: Layne Cruz, mother Time Spent With Patient Critical Care time: I spent a total of [] minutes of critical care time on this patient's care today; this time is exclusive of procedural time. Quality VTE Deep Vein Thrombosis/Pulmonary Embolism Present on Admission: Yes
[2022-07-26] MEDS: METOCLOPRAMIDE HCL 10 MG TABLET PO ×2 (17:58→23:18)
[2022-07-26] MEDS: VANCOMYCIN 125 MG CAPSULE PO ×2 (17:59→23:18)
[2022-07-27] MEDS: ACETAMINOPHEN 325 MG TABLET 650 MG PO (00:50)
[2022-07-27 03:00] VITALS: O2SAT 94
[2022-07-27] MEDS: ONDANSETRON 4 MG ODT SL (04:07)
[2022-07-27 05:20] LABS: Add Manual Diff / Slide Review NO; Basophils Absolute Auto 0 /uL (0-100); Basophils Percent Auto 0.5 % (0-2); Eosinophils Absolute Auto 100 /uL (0-450); Eosinophils Percent Auto 1.3 % (2-4); Hematocrit 36.2 % (41-53); Hemoglobin 12.9 g/dL (13.5-17.5); Lymphocytes Absolute Auto 800 /uL (1100-4500); Lymphocytes Percent Auto 12.3 % (25-40); Mean Corpuscular HGB Conc 35.7 % (30-36); Monocytes Absolute Auto 400 /uL (0-900); Monocytes Percent Auto 6.4 % (3-14); Neutrophils Absolute Auto 5500 /uL (1500-7000); Neutrophils Percent Auto 79.5 % (50-75); Platelet Count 158 X10^3/uL (150-400); Red Blood Cell Count 4.16 X10^6/uL (4.5-5.9); Red Cell Distribution Width 13.3 % (11.6-14.8); White Blood Cell Count 6.9 X10^3/uL (4.5-11.0)
[2022-07-27 05:30] LABS: Blood Urea Nitrogen 22 mg/dL (9-20); Calcium 8.1 mg/dL (8.4-10.2); Carbon Dioxide 14 mmol/L (22-32); Chloride 117 mmol/L (98-107); Estimated Glomerular Filt Rate 43 mL/min (>60); Glucose 110 mg/dL (70-100); HEMOLYSIS < 15 (0-50); Potassium 3.4 mmol/L (3.4-5.1); Sodium 140 mmol/L (137-145)
[2022-07-27 05:31] LABS: Magnesium 1.5 mg/dL (1.6-2.3)
[2022-07-27] MEDS: VANCOMYCIN 125 MG CAPSULE PO ×2 (05:53→10:37)
[2022-07-27 07:00] VITALS: BP 124/72; PULSE 103; RESP 20; TEMP 36.8; O2SAT 98
--- NOTE | 2022-07-27 09:37 | P.DS_ITS ---
History of Present Illness History of Present Illness Date Patient Seen: 07/27/22 Time Patient Seen: 09:37 Chief complaint: vomiting, diarrhea, abn BP Narrative: Per admitting provider, Mr. Cruz is a 22M with PMH CKD stage 3 who presents to the hospital with diarrhea and vomiting. 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 He also has a hsitory of pyloric stricture requiring dilation, he previously needed PEG feedings. He presented to the hospital with gastroenteritis in April and was found to have rotavirus. After discharge he had felt better, but had chronic diarrhea 1-2x daily. Earlier this week his family member had gotten sick with vomiting, and today he developed frequent diarrhea and vomiting. He felt dizzy and lightheaded so he presented to the hospital. In the ED workup was done, vitals notable for heart rate in the 120s, blood pressure in the 90s/50s, afebrile. Labs notable for WBC 11.4 hgb 18, plts 271. CO2 16, BUN 55, creatinine 2.91. Procal 0.19, Lactate 1.2. Stool pcr positive for rotavirus, norovirus and c diff. CT abdomen showed air fluid levels in small and large bowel consistent with gastroenteritis. He was given fluids and admitted for further treatment. Discharge Providers Provider Date of admission: 07/24/22 02:17 Discharge Date: 07/27/22 Primary care physician: Andrea Mike DO Discharge provider: Eduardo Ramirez DO Summary Hospital Course Discharge Diagnosis: 1. Sepsis from gastroenteritis and c diff colitis, present on admission and improving. 2. C Diff colitis, present on admission and active. 3. Norovirus, rotavirus, present on admission and active 4. CJ on CKD stage 3 (volume depletion from diarrhea), present on admission and active. 5. Recent VTE on anticoagulation Hospital Course: This is a 22 year old male with a PMH of CKD, recent VTE on AC admitted with sepsis secondary to gastroenteritis combined with C. diff colitis. Initial creatinine was 2.9 but improved to baseline of 2.2 with IV fluids. He tested positive for C. diff, noro and rotoviruses. Oral vancomycin was started with improvement in diarrhea. He did have a metabolic acidosis, due to his renal disease, and oral bicarbinate was sent on discharge for renal protection, this may need to be increased or stopped depending on lab evaluation in the next week or so with his PCP. Given multiple virsuses and persistent rotavirus on GI panel, immune deficiency evaluation was sent. Complement levels were unremarkable, though C3 was just barely below the cutoff for normal. Immuno globulin levels are currently pending and results are recommended to be followed up with primary care provider as well. No medication changes are recommended at this time, with improvement in his CJ he can resume his home lisinopril on discharge, which was held here. Time Spent with Patient Time spent: Greater than 30 minutes Exam Vital Signs (past 8 hours): - 07/27/22 03:00 07/27/22 07:00 Temperature 98.3 F Pulse Rate 103 H Respiratory Rate 20 Blood Pressure 124/72 Pulse Oximetry 94 98 Oxygen Delivery Method Room Air Oxygen Delivery Method Room Air Oxygen Flow Rate 0 Narrative Exam Narrative: GEN: Awake, showering. Nontoxic appearance. NEURO: awake, alert, oriented, with normal judgment and speech. Objective Labs 07/27/22 05:00 07/27/22 05:00 Labs: Laboratory Results - last 24 hr 07/27/22 07/27/22 07/27/22 05:00 05:00 05:00 WBC 6.9 RBC 4.16 L Hgb 12.9 L Hct 36.2 L MCV 87.0 D MCH 31.0 MCHC 35.7 RDW 13.3 Plt Count 158 Neut % (Auto) 79.5 H Lymph % (Auto) 12.3 L [place] % (Auto) 6.4 Eos % (Auto) 1.3 L Baso % (Auto) 0.5 Neut # (Auto) 5500 Lymph # (Auto) 800 L [place] # (Auto) 400 Eos # (Auto) 100 Baso # (Auto) 0 Sodium 140 Potassium 3.4 Chloride 117 H Carbon Dioxide 14 L BUN 22 H Creatinine 2.19 H Estimated GFR 43 L BUN/Creatinine Ratio 10.0 Glucose 110 H Calcium 8.1 L Magnesium 1.5 L PFSH Medical History Asthma Chronic kidney disease Pyloric stricture Surgical History History of gastrostomy tube placement Family History Mother Placental abruption Grandmother Diabetes mellitus Father Alive and well Social History household members: family Smoking Status: Never smoker alcohol intake: never Discharge Plan Discharge Plan Patient Disposition: Home Provider Discharge Comment: You were admitted to the hospital with C. diff colitis, along with rotovirus and norovirus. You improved with treatments and fluids. Nausea medications prescribed. I have also sent a bicarb tab to take for kidney protection. Please follow up with primary care as soon as possible, ideally next week to review symptoms, renal function, and repeat blood work. You may be able to stop taking the bicarb tablets based on repeat blood work. Discharge orders & Medications Prescriptions: New ondansetron 4 mg Tablet,Disintegrating 4 mg sublingual Q4HR PRN (Reason: Nausea) 7 Days Qty: 30 0RF metoclopramide HCl 10 mg Tablet 10 mg PO Q4HR PRN (Reason: Nausea And Vomiting) 7 Days Qty: 30 0RF vancomycin 125 mg Capsule 125 mg PO Q6H 11 Days Qty: 44 0RF sodium bicarbonate 650 mg tablet 650 mg PO BID 30 Days Qty: 60 0RF Continued albuterol sulfate 90 mcg/actuation HFA aerosol inhaler 1 inh INHALATION Q4-6H PRN (Reason: shortness of breath) Qty: 18 0RF lamotrigine 150 mg tablet 150 mg PO DAILY Patient Comments: Take 1 tablet by mouth once a day methylphenidate HCl 20 mg tablet extended release 20 mg PO DAILY lisinopril 5 mg tablet 5 mg PO DAILY escitalopram oxalate 20 mg tablet 20 mg PO DAILY Xarelto 10 mg tablet 10 mg PO DAILY Patient Comments: Take 1 tablet by mouth once a day Follow up/Referrals: Andrea Mike DO [Primary Care Provider] - Diet/Activity/Treatments Diet: Diet as Tolerated and Low-protein/Renal Activity: As tolerated Visit Report/Discharge Packet Instructions: Immune Support (Alternative Therapy), Norovirus Infection, DI for Norovirus Infection, Clostridioides (Clostridium) difficile Infection Stand Alone Forms: Patient Portal/API, Stroke Signs & Symptoms Discharge Data Primary Care Provider: Andrea Mike Quality VTE Deep Vein Thrombosis/Pulmonary Embolism Present on Admission: Yes
[2022-07-27] MEDS: POTASSIUM CHLORIDE 20 MEQ TAB 40 MEQ PO (10:33)
[2022-07-27] MEDS: APIXABAN 5 MG TABLET PO (10:34)
[2022-07-27] MEDS: MAGNESIUM CHLORIDE 64 MG TABLET 128 MG PO (10:34)
[2022-07-27] MEDS: NYSTATIN OINTMENT 15 APPLIC/TUBE OINT...G. TOP (10:34)
[2022-07-27 11:00] VITALS: O2SAT 98
--- NOTE | 2022-07-27 11:22 | CM.DPNOTE ---
Discharge Planning Note: Patient discharging home with family today. No needs. Sara Crespo, RN/DCP
[2022-07-27 19:36] LABS: Complement Total CH50 31 U/mL (>41)
[2022-07-28 06:40] LABS: IGA 108 mg/dL (90-386); IGG 880 mg/dL (603-1613); IGM 101 mg/dL (20-172)
[2022-07-29 11:57] LABS: C difficie Toxins A and B, EIA Negative (Negative)
== END 2022-07-27 11:15 | disposition home or self-care (01) | DRG 872 ==
LOC: ED 21:44 → AC 07-24 02:17
PROVIDERS: Hospitalist; Internal Medicine; Admitting Provider Internal Medicine; Emergency Provider Emergency Medicine; PCP Family Medicine; Referring Provider Emergency Medicine; Visit Provider Internal Medicine
DX: A41.9 Sepsis, unspecified organism (principal); A04.72 Enterocolitis due to Clostridium difficile, not specified as recurrent; N17.8 Other acute kidney failure; A08.11 Acute gastroenteropathy due to Norwalk agent; N18.30 Chronic kidney disease, stage 3 unspecified; B34.8 Other viral infections of unspecified site; J45.909 Unspecified asthma, uncomplicated; Z86.718 Personal history of other venous thrombosis and embolism; Z20.822 Contact with and (suspected) exposure to COVID-19; Z79.01 Long term (current) use of anticoagulants
CPT/HCPCS: 36415; 71045; 74176; 80048; 80053; 82784; 83605; 83690; 83735; 84145; 85025; 85610; 85730; 86160; 86162; 87040; 87324; 87389; 87507; 87635; 93005; 93010; 96374; 96375; 99284; C9803; C9113; J0610; J2405; J2765

== ENCOUNTER 2022-09-20 07:54 | Emergency (ER) | payer BC, SELFPAY ==
[2022-07-24 02:20] VITALS: BMI 27.9
[2022-09-20] VITALS (14 sets, daily range): BP systolic 93–129; BP diastolic 50–70; PULSE 94–112; RESP 10–24; TEMP 36.6; O2SAT 93–100; BMI 25.1
--- NOTE | 2022-09-20 08:04 | DI.RAD.S_ITS ---
PROCEDURE: XR CHEST 1V INDICATIONS: asthma, trouble breathing TECHNIQUE: One view of the chest was acquired. COMPARISON: [facility], CR, XR CHEST 1V, 07/23/2022, 21:57. FINDINGS: Surgical changes and devices: None. Lungs and pleura: Lungs are clear. No pleural effusions or pneumothorax. Mediastinum: Mediastinal contours appear normal. Heart size is normal. Bones and chest wall: No suspicious bony lesions. Overlying soft tissues appear unremarkable. IMPRESSION: No acute cardiopulmonary abnormality Dictated by: Joe Cedillo M.D. on 09/20/2022 at 8:59 Approved by: Joe Cedillo M.D. on 09/20/2022 at 9:00
--- NOTE | 2022-09-20 08:07 | ED.SOB ---
HPI - SOB/Dyspnea General Chief Complaint: Shortness of Breath/Dyspnea Stated Complaint: labored breathing, severe asthma attack Time Seen by Provider: 09/20/22 08:04 History of Present Illness HPI Narrative: This is a 22-year-old male with history of asthma chronic kidney disease, prior DVT and mood disorder who presents with difficulty breathing. Patient and mom state he often has seasonal allergy issues. He is had increased work of breathing and wheezing starting last night. Patient states he used his ProAir inhaler 4 times last night with his spacer. He would do 2 puffs each time with minimal to no improvement. Patient had some as well this morning without much improvement. Denies fevers or chills, he has not had any nasal congestion but states he is had a nonproductive cough. He denies chest pain or pressure. Feels tight and wheezy in his chest. He denies nausea or vomiting. Denies any diarrhea or constipation. No urinary symptoms. No new swelling in his extremities. Patient does take Claritin daily and had some this morning as well as his lisinopril. Family notes that he would completed his Xarelto and is no longer taking this medication. Patient and family note that they are also several farm animals in the with the heat that starting this spring they noticed that the smell is stronger and are wondering if that might be a trigger. Patient has had 1 prior hospitalization when he was initially diagnosed with asthma as a child. He otherwise has had ER visits but no inpatient. Mom states he had what sounds like BiPAP at that time but no intubation. He is never required that sort of intervention since. No prior surgeries. No known drug allergies. No tobacco, alcohol or illicit. Related Data Home Medications Medication Instructions Recorded Confirmed escitalopram oxalate 20 mg tablet 20 mg PO DAILY 07/27/22 07/27/22 lamotrigine 150 mg tablet 150 mg PO DAILY 07/27/22 07/27/22 lisinopril 5 mg tablet 5 mg PO DAILY 07/27/22 07/27/22 methylphenidate HCl 20 mg 20 mg PO DAILY 07/27/22 07/27/22 tablet,extended release rivaroxaban 10 mg tablet (Xarelto) 10 mg PO DAILY 07/27/22 07/27/22 Previous Rx's Medication Instructions Recorded albuterol sulfate 90 mcg/actuation 1 inh inhalation Q4-6H PRN 06/06/18 aerosol inhaler shortness of breath #18 grams albuterol sulfate 2.5 mg/3 mL 2.5 mg (3 mL) inhalation Q4-6H PRN 09/20/22 (0.083 %) solution for nebulization shortness of breath or wheezing #90 mL fluticasone 250 mcg-salmeterol 50 1 inh inhalation Q12H #60 ea 09/20/22 mcg/dose blistr powdr for inhalation (Advair Diskus) nebulizer accessories #1 ea 09/20/22 prednisone 20 mg tablet 40 mg PO DAILY #10 tabs 09/20/22 Allergies Allergy/AdvReac Type Severity Reaction Status Date / Time No Known Drug Allergies Allergy Verified 05/02/22 14:06 Review of Systems Review of Systems ROS Unobtainable: All systems reviewed & are unremarkable except as noted in HPI and below Patient History Medical History Asthma Chronic kidney disease Pyloric stricture Surgical History History of gastrostomy tube placement Family History Mother Placental abruption Grandmother Diabetes mellitus Father Alive and well Social History household members: family Smoking Status: Never smoker alcohol intake: never Smoking Status: Never smoker alcohol intake frequency: holidays/special occasions only Substance Use Type: does not use Exam Narrative Exam Narrative: GEN: well nourished, well appearing male, alert and oriented x 3, patient appears to be in mild distress. HEENT: Atraumatic, pupils are equal round reactive to light, extraocular movements are intact, nares are clear, there is no conjunctival pallor. Throat is clear without any exudates, erythema, tonsillar enlargement or uvular deviation HEART: Slightly tachycardic Regular rhythm without murmur, clicks, rubs. pulses are equal in upper and lower extremities. No swelling bilateral lower extremities. LUNGS:Lungs bilateral expiratory wheezes upper and lower lungs, no rales, crackles, chest moves symmetrically, mild tachypnea. Able to speak in 4-5 word sentences. ABD:bowel sounds normal, soft, non-tender, no guarding, rebound, rigidity, no masses noted, no hepatosplenomegaly :No CVA tenderness MSCL: Non-tender, no muscle atrophy, muscles strength 5/5 upper and lower extremities, full range of motion, normal gait NEURO:CN 2-12 intact, sensation normal SKIN: No rash, erythema or other skin changes. Initial Vital Signs Initial Vital Signs: Vital Signs Pulse Rate 112 H 09/20/22 07:59 Pulse Oximetry 98 09/20/22 07:59 Course Orders Ordered: ED Orders 09/20/22 08:04 XR chest 1V Stat 09/20/22 08:15 Covid-19 + FLU A/B + RSV - PCR Stat 09/20/22 08:18 BNP [NT-proBNP (BNP-Adult 18+)] Stat CBC Auto Diff [Complete Blood Count AUTO DIFF] Stat CMP [Comprehensive Metabolic Panel] Stat D Dimer Stat Troponin & CK Cardiac Panel Stat 09/20/22 08:21 EKG-12 Lead Stat Discontinued Medications Albuterol/Ipratropium (Albuterol/Ipratropium 3 Ml Ampul) 3 ml INH Q20M MICAELA Stop: 09/20/22 08:56 Last Admin: 09/20/22 09:35 Dose: Not Given Documented By: Admin: 09/20/22 09:35 Dose: Not Given Documented By: Admin: 09/20/22 08:13 Dose: 3 ml Documented By: MINA Sodium Chloride (Normal Saline 0.9%) 1,000 mls @ 1,000 mls/hr IV BOLUS ONE Stop: 09/20/22 09:34 Last Infusion: 09/20/22 09:35 Dose: 0 mls/hr Documented By: Admin: 09/20/22 08:37 Dose: 1,000 mls/hr Documented By: RB Methylprednisolone (Methylprednisolone 125 Mg/2 Ml Vial) 125 mg IV NOW ONE Stop: 09/20/22 08:05 Last Admin: 09/20/22 08:24 Dose: 125 mg Documented By: VENUS Vital Signs Vital signs: Vital Signs - 8 hr 09/20/22 08:03 09/20/22 08:13 09/20/22 07:59 Temperature 97.8 F Pulse Rate 96 H 94 H 112 H Respiratory Rate 24 22 Blood Pressure 108/59 L Pulse Oximetry 98 96 98 Oxygen Delivery Method Room Air Room Air 09/20/22 08:00 09/20/22 08:00 09/20/22 08:02 Temperature Pulse Rate 111 H Respiratory Rate 19 Blood Pressure 120/62 108/59 L Pulse Oximetry 99 Oxygen Delivery Method 09/20/22 08:02 09/20/22 08:15 09/20/22 08:27 Temperature Pulse Rate 102 H 97 H Respiratory Rate 14 14 Blood Pressure 123/70 Pulse Oximetry 100 94 Oxygen Delivery Method 09/20/22 08:27 09/20/22 08:30 09/20/22 08:30 Temperature Pulse Rate 95 H 98 H Respiratory Rate 13 19 Blood Pressure 93/50 L Pulse Oximetry 98 94 Oxygen Delivery Method 09/20/22 08:45 09/20/22 08:45 09/20/22 09:00 Temperature Pulse Rate 97 H Respiratory Rate 15 Blood Pressure 129/64 100/50 L Pulse Oximetry 94 Oxygen Delivery Method 09/20/22 09:00 09/20/22 09:15 09/20/22 09:15 Temperature Pulse Rate 101 H 100 H Respiratory Rate 17 17 Blood Pressure 104/51 L Pulse Oximetry 96 93 Oxygen Delivery Method 09/20/22 09:30 09/20/22 09:30 09/20/22 09:36 Temperature Pulse Rate 98 H Respiratory Rate 17 Blood Pressure 105/51 L 105/51 L Pulse Oximetry 95 Oxygen Delivery Method 09/20/22 09:36 09/20/22 09:45 09/20/22 09:45 Temperature Pulse Rate 111 H 102 H Respiratory Rate 10 L 15 Blood Pressure 112/58 L Pulse Oximetry 97 95 Oxygen Delivery Method MDM - SOB/Dyspnea Lab Data 09/20/22 08:18 09/20/22 08:18 Labs: Lab Results 09/20/22 09/20/22 09/20/22 Range/Units 08:15 08:18 08:18 WBC 6.2 (4.5-11.0) X10^3/uL RBC 4.79 (4.5-5.9) X10^6/uL Hgb 14.5 (13.5-17.5) g/dL Hct 41.3 (41-53) % MCV 86.3 (80-100) fL MCH 30.4 (26-34) PG MCHC 35.2 (30-36) % RDW 13.6 (11.6-14.8) % Plt Count 185 (150-400) X10^3/uL Neut % (Auto) 50.5 (50-75) % Lymph % (Auto) 36.3 (25-40) % Evangeline % (Auto) 8.1 (3-14) % Eos % (Auto) 4.8 H (2-4) % Baso % (Auto) 0.3 (0-2) % Neut # (Auto) 3100 (9667-6188) /uL Lymph # (Auto) 2300 (9574-9833) /uL Evangeline # (Auto) 500 (0-900) /uL Eos # (Auto) 300 (0-450) /uL Baso # (Auto) 0 (0-100) /uL D-Dimer (<500) ng/ml Sodium 140 (137-145) mmol/L Potassium 3.8 (3.4-5.1) mmol/L Chloride 107 (98-107) mmol/L Carbon Dioxide 19 L (22-32) mmol/L BUN 65 H (9-20) mg/dL Creatinine 2.78 H (0.66-1.25) mg/dL Estimated GFR 32 L (>60) mL/min BUN/Creatinine Ratio 23.4 H (6-22) Glucose 102 H (70-100) mg/dL Calcium 9.5 (8.4-10.2) mg/dL Total Bilirubin 0.5 (0.2-1.3) mg/dL AST 21 (17-59) IU/L ALT 33 (<50) IU/L Alkaline Phosphatase 53 (38-126) U/L Total Creatine Kinase (55-170) U/L CK-MB (CK-2) CK-MB (CK-2) Rel Index Troponin I (0.01-0.034) ng/mL NT-Pro-B Natriuret Pep (<125) pg/mL Total Protein 7.4 (6.3-8.2) g/dL Albumin 4.3 (3.5-5.0) g/dL Globulin 3.1 (1.7-4.1) g/dL Albumin/Globulin Ratio 1.4 (1.0-2.8) SARS-CoV-2 (PCR) Negative (Negative) Influenza A (RT-PCR) Flu a negative (NEGATIVE) Influenza B (RT-PCR) Flu b negative (NEGATIVE) RSV (PCR) Negative (Negative) 09/20/22 09/20/22 Range/Units 08:18 08:18 WBC (4.5-11.0) X10^3/uL RBC (4.5-5.9) X10^6/uL Hgb (13.5-17.5) g/dL Hct (41-53) % MCV (80-100) fL MCH (26-34) PG MCHC (30-36) % RDW (11.6-14.8) % Plt Count (150-400) X10^3/uL Neut % (Auto) (50-75) % Lymph % (Auto) (25-40) % Evangeline % (Auto) (3-14) % Eos % (Auto) (2-4) % Baso % (Auto) (0-2) % Neut # (Auto) (7014-1360) /uL Lymph # (Auto) (8567-5457) /uL Evangeline # (Auto) (0-900) /uL Eos # (Auto) (0-450) /uL Baso # (Auto) (0-100) /uL D-Dimer < 215 (<500) ng/ml Sodium (137-145) mmol/L Potassium (3.4-5.1) mmol/L Chloride (98-107) mmol/L Carbon Dioxide (22-32) mmol/L BUN (9-20) mg/dL Creatinine (0.66-1.25) mg/dL Estimated GFR (>60) mL/min BUN/Creatinine Ratio (6-22) Glucose (70-100) mg/dL Calcium (8.4-10.2) mg/dL Total Bilirubin (0.2-1.3) mg/dL AST (17-59) IU/L ALT (<50) IU/L Alkaline Phosphatase (38-126) U/L Total Creatine Kinase 71 (55-170) U/L CK-MB (CK-2) TNP CK-MB (CK-2) Rel Index TNP Troponin I < 0.012 (0.01-0.034) ng/mL NT-Pro-B Natriuret Pep < 11 (<125) pg/mL Total Protein (6.3-8.2) g/dL Albumin (3.5-5.0) g/dL Globulin (1.7-4.1) g/dL Albumin/Globulin Ratio (1.0-2.8) SARS-CoV-2 (PCR) (Negative) Influenza A (RT-PCR) (NEGATIVE) Influenza B (RT-PCR) (NEGATIVE) RSV (PCR) (Negative) Imaging Data Chest x-ray: Radiologist's Impression: [address] [address] XRay Report Signed Patient: Chad Cruz MR#: [id number] : 2000 Acct:[id number] Age/Sex: 22 / M Date of Service: 09/20/22 Loc: ED Accession Number: [id number] ?? Procedure: XR chest 1V Ordering Provider: Alena Orlando D.O. PROCEDURE:? XR CHEST 1V ? INDICATIONS:? asthma, trouble breathing ? TECHNIQUE:? One view of the chest was acquired.? ? COMPARISON:? [facility], CR, XR CHEST 1V, 07/23/2022, 21:57. ? FINDINGS:? ? Surgical changes and devices:? None.? ? Lungs and pleura:? Lungs are clear.? No pleural effusions or pneumothorax.? ? Mediastinum:? Mediastinal contours appear normal.? Heart size is normal.? ? Bones and chest wall:? No suspicious bony lesions.? Overlying soft tissues appear unremarkable.? ? IMPRESSION:? No acute cardiopulmonary abnormality ? ? Dictated by: Joe Cedillo M.D. on 09/20/2022 at 8:59 ? ? Approved by: Joe Cedillo M.D. on 09/20/2022 at 9:00?? ECG Data Attestation: I personally reviewed and interpreted this ECG as follows: Prior ECG tracings: available for review Interpretation: EKGs normal sinus rhythm rate of 97 [place] 144 QRS of 96 QTC of 403. No acute ST elevation depression nonspecific change. Patient has had from 07/23/2022 nonspecific change. MDM Narrative Medical decision making narrative: This is a 22-year-old male with history of chronic kidney disease, asthma, mood disorder who is also had prior DVT after having sepsis from gastritis and C diff colitis. During his stay he was positive for C diff, neuro and rotavirus. Patient has completed his anticoagulation according to family. He typically does have some seasonal flares with his asthma. He was using his albuterol frequently overnight. Patient has expiratory wheezes throughout but based on patient's prior history dimer, troponin, BNP were included as long as CBC and true lytes and renal function workup. Chest x-ray, EKG and for Plex swab-these show chronic kidney disease appears to be close to baseline no significant abnormalities. D-dimer is negative, troponin BNP were both negative. Mom notes that patient had about 40 days of anticoagulation with DOAC and then continued with high-dose aspirin at the recommendation of the physicians until completion after ultrasound showed resolution of his DVT. DVT was felt to be present because he had a PICC line in that arm and was felt to be the likely source. For Plex swab is negative. No other acute changes and lab work at this time suspect asthma exacerbation as patient's main source of symptoms. Patient received DuoNeb, Solu-Medrol: On recheck patient has had significant improvement patient was monitored for little bit longer while awaiting labs and still is clear. Blood pressure was a little bit low throughout his stay was given a L of fluids normal according to mom and patient is little bit closer to 110. Plan to restart patient's steroid inhaler he has been off of it for some time which might be contributing, mom states she has a nebulizer at home so was given albuterol vials as needed we discussed he can do actually 6-8 puffs which is more similar he does have a spacer and oral steroid with return precautions. Discharge Plan Departure Patient Disposition: Home Clinical Impression: Asthma exacerbation, CKD (chronic kidney disease) Instructions: DI for Asthma -- Adult Activity Restrictions/Additional Instructions: Please follow-up with your physician for recheck. You can use 6-8 puffs of albuterol with spacer every 4-6 hours as needed this is similar to dose of nebulized albuterol or you can use 1-2 vials of albuterol nebulized. Take steroids daily until gone. I would recommend restarting steroid inhaler, use twice daily whether you feel good or bad with your breathing. Prescription sent to [facility] in [place]. Please return to the emergency department for new or worsening difficulty with breathing, new chest pain, increasing shortness of breath, lightheadedness or passing out, new swelling in her extremities or other new or concerning changes. Prescriptions: New prednisone 20 mg tablet 40 mg PO DAILY Qty: 10 0RF fluticasone propion-salmeterol [Advair Diskus] 250-50 mcg/dose blister with device 1 inh inhalation Q12H Qty: 60 0RF albuterol sulfate 2.5 mg /3 mL (0.083 %) solution for nebulization 2.5 mg inhalation Q4-6H PRN (Reason: shortness of breath or wheezing) Qty: 90 0RF (DME) nebulizer accessories Kit See Rx Instructions .Route Qty: 1 0RF Rx Instructions: As directed No Action albuterol sulfate 90 mcg/actuation HFA aerosol inhaler 1 inh INHALATION Q4-6H PRN (Reason: shortness of breath) Qty: 18 0RF lamotrigine 150 mg tablet 150 mg PO DAILY Patient Comments: Take 1 tablet by mouth once a day methylphenidate HCl 20 mg tablet extended release 20 mg PO DAILY lisinopril 5 mg tablet 5 mg PO DAILY escitalopram oxalate 20 mg tablet 20 mg PO DAILY Xarelto 10 mg tablet 10 mg PO DAILY Patient Comments: Take 1 tablet by mouth once a day Referrals: Andrea Mike DO [Primary Care Provider] - Stand Alone Forms: Patient Portal/API
[2022-09-20] MEDS: ALBUTEROL/IPRATROPIUM 3 ML AMPUL INH (08:13)
[2022-09-20] MEDS: methylPREDNISolone 125 MG/2 ML VIAL IV (08:24)
--- NOTE | 2022-09-20 08:26 | RT ---
pt odalis cuevas well, on room air with no distress noted
[2022-09-20 08:27] LABS: Add Manual Diff / Slide Review NO; Basophils Absolute Auto 0 /uL (0-100); Basophils Percent Auto 0.3 % (0-2); Eosinophils Absolute Auto 300 /uL (0-450); Eosinophils Percent Auto 4.8 % (2-4); Hematocrit 41.3 % (41-53); Hemoglobin 14.5 g/dL (13.5-17.5); Lymphocytes Absolute Auto 2300 /uL (1100-4500); Lymphocytes Percent Auto 36.3 % (25-40); Mean Corpuscular HGB Conc 35.2 % (30-36); Mean Corpuscular Hemoglobin 30.4 PG (26-34); Mean Corpuscular Volume 86.3 fL (80-100); Monocytes Absolute Auto 500 /uL (0-900); Monocytes Percent Auto 8.1 % (3-14); Neutrophils Absolute Auto 3100 /uL (1500-7000); Neutrophils Percent Auto 50.5 % (50-75); Platelet Count 185 X10^3/uL (150-400); Red Blood Cell Count 4.79 X10^6/uL (4.5-5.9); Red Cell Distribution Width 13.6 % (11.6-14.8); White Blood Cell Count 6.2 X10^3/uL (4.5-11.0)
[2022-09-20 08:35] LABS: D Dimer < 215 ng/ml (<500)
[2022-09-20 08:37] LABS: Creatine Kinase 71 U/L (55-170)
[2022-09-20] MEDS: SODIUM CHLORIDE 0.9% 1,000 ML 1000 ML IV (08:37)
[2022-09-20 08:39] LABS: Alanine Aminotransferase 33 IU/L (<50); Albumin 4.3 g/dL (3.5-5.0); Albumin Globulin Ratio 1.4 (1.0-2.8); Alkaline Phosphatase 53 U/L (38-126); Aspartate Aminotransferase 21 IU/L (17-59); BUN Creatinine Ratio 23.4 (6-22); Bilirubin Total 0.5 mg/dL (0.2-1.3); Blood Urea Nitrogen 65 mg/dL (9-20); Calcium 9.5 mg/dL (8.4-10.2); Carbon Dioxide 19 mmol/L (22-32); Chloride 107 mmol/L (98-107); Estimated Glomerular Filt Rate 32 mL/min (>60); Globulin 3.1 g/dL (1.7-4.1); Glucose 102 mg/dL (70-100); HEMOLYSIS 16 (0-50); Potassium 3.8 mmol/L (3.4-5.1); Sodium 140 mmol/L (137-145); Total Protein 7.4 g/dL (6.3-8.2)
[2022-09-20 08:49] LABS: NT-proBNP (BNP-Adult 18+) < 11 pg/mL (<125); Troponin I < 0.012 ng/mL (0.01-0.034)
[2022-09-20 09:03] LABS: Influenza A - CEPHEID Flu A NEGATIVE (NEGATIVE); Influenza B - CEPHEID Flu B NEGATIVE (NEGATIVE); Respiratory Syncytial Virus Negative (Negative)
[2022-09-20 09:04] LABS: COVID-19 CEPHEID 4-PLEX PCR Negative (Negative)
== END 2022-09-20 09:57 | disposition home or self-care (01) ==
PROVIDERS: Emergency Provider Emergency Medicine; PCP Family Medicine
DX: J45.901 Unspecified asthma with (acute) exacerbation (principal); N18.9 Chronic kidney disease, unspecified; Z79.01 Long term (current) use of anticoagulants; Z79.899 Other long term (current) drug therapy; Z20.822 Contact with and (suspected) exposure to COVID-19
CPT/HCPCS: 0241U; 36415; 71045; 80053; 82550; 83880; 84484; 85025; 85379; 93005; 94150; 94640; 96361; 96374; 99284; J2930

== ENCOUNTER 2023-08-03 09:39 | Emergency (ER) | payer BC, SELFPAY ==
[2022-07-24 02:20] VITALS: BMI 27.9
[2023-08-03] VITALS (7 sets, daily range): BP systolic 112–126; BP diastolic 65–74; PULSE 63–92; RESP 18; TEMP 36.3; O2SAT 96–99; BMI 30.4
--- NOTE | 2023-08-03 09:58 | ED.MALEGU ---
HPI - Male Genitourinary General Chief complaint: Recheck/Abnormal Lab/Rx Stated complaint: sent by [facility]/ thinks Kidney Stones Time Seen by Provider: 08/03/23 09:44 History of Present Illness HPI Narrative: 23-year-old male with history of chronic kidney disease from presents for worsening kidney function and flank pain. Patient states that his normal GFR is 30, he used to be followed by [facility], however he was not seen his printing machine operator tape rules in 2 years it was in the process of establishing care with an adult printing machine operator tape rules. He states that last week he was having lots of scrotal pain, lower abdominal pain, and flank pain. He states that he passed a kidney stone on Thursday. He went to the walk-in clinic where blood work was drawn, and he received a call back stating that his kidney function was poor and he needed to go to the emergency department. Patient has been pain-free for the last 3 days Patient states kidney failure is a side effect from maternal hemorrhage during his . He was briefly on dialysis as a , but has not been on dialysis since. Related Data Home Medications Medication Instructions Recorded Confirmed escitalopram oxalate 20 mg tablet 20 mg PO DAILY 07/27/22 06/05/23 lamotrigine 150 mg tablet 150 mg PO DAILY 07/27/22 06/05/23 lisinopril 5 mg tablet 5 mg PO DAILY 07/27/22 06/05/23 methylphenidate HCl 20 mg 20 mg PO DAILY 07/27/22 06/05/23 tablet,extended release Previous Rx's Medication Instructions Recorded albuterol sulfate 2.5 mg/3 mL 2.5 mg (3 mL) inhalation Q4-6H PRN 09/20/22 (0.083 %) solution for nebulization shortness of breath or wheezing #90 mL nebulizer accessories #1 ea 09/20/22 prednisone 20 mg tablet 40 mg (2 x 20 mg) PO DAILY #10 tabs 09/20/22 albuterol sulfate 90 mcg/actuation 2 inh inhalation Q4-6H PRN 06/05/23 aerosol inhaler shortness of breath #18 grams fluticasone 250 mcg-salmeterol 50 1 inh inhalation Q12H #60 ea 06/05/23 mcg/dose blistr powdr for inhalation (Advair Diskus) Allergies Allergy/AdvReac Type Severity Reaction Status Date / Time No Known Drug Allergies Allergy Verified 05/02/22 14:06 Review of Systems Review of Systems Narrative: Negative except as noted above Patient History Medical History Pyloric stricture Chronic kidney disease Asthma Surgical History History of gastrostomy tube placement Family History Mother Placental abruption Grandmother Diabetes mellitus Father Alive and well Social History household members: family Smoking Status: Never smoker alcohol intake: never Smoking Status: Never smoker alcohol intake frequency: holidays/special occasions only Substance Use Type: does not use Exam Initial Vital Signs Initial Vital Signs: Vital Signs Pulse Rate 72 08/03/23 09:45 Pulse Oximetry 99 08/03/23 09:45 Const: Awake, alert, no acute distress, nontoxic appearing Cardiac: regular rate, regular rhythm RESP: unlabored, clear bilaterally, no wheezing GI: Soft, nontender, nondistended, no rebound, no guarding : Communications Attendant present, penis normal, testicles normal, no pain or tenderness to palpation, no masses MSK: Atraumatic, full range of motion, pulses equal Skin: Warm, Dry, intact, no rashes Neuro: AO x3, CN II-XII grossly intact, moves all extremities Course Orders Ordered: ED Orders 08/03/23 09:58 CT abdomen pelvis wo con Stat 08/03/23 10:00 CBC Auto Diff [Complete Blood Count AUTO DIFF] Stat CMP [Comprehensive Metabolic Panel] Stat 08/03/23 10:30 UA Complete [Urinalysis and Microscopic] Stat Vital Signs Vital signs: Vital Signs - 8 hr 08/03/23 09:45 08/03/23 09:46 08/03/23 09:46 Temperature Pulse Rate 72 75 Respiratory Rate Blood Pressure 126/65 Pulse Oximetry 99 96 Oxygen Delivery Method 08/03/23 09:49 08/03/23 10:07 08/03/23 10:07 Temperature 97.4 F L Pulse Rate 71 92 H Respiratory Rate 18 Blood Pressure 126/65 113/73 Pulse Oximetry 97 97 Oxygen Delivery Method Room Air 08/03/23 10:30 08/03/23 10:30 Temperature Pulse Rate 65 Respiratory Rate Blood Pressure 112/69 Pulse Oximetry 97 Oxygen Delivery Method MDM - Male Genitourinary Differential Diagnosis Differential diagnosis: Likely urinary tract infection, acute retention of urine and inguinal hernia Lab Data 08/03/23 10:00 08/03/23 10:00 Labs: Lab Results 08/03/23 08/03/23 Range/Units 10:00 10:30 WBC 5.4 (4.5-11.0) X10^3/uL RBC 4.75 (4.5-5.9) X10^6/uL Hgb 15.2 (13.5-17.5) g/dL Hct 43.2 (41-53) % MCV 90.9 (80-100) fL MCH 31.9 (26-34) PG MCHC 35.1 (30-36) % RDW 13.6 (11.6-14.8) % Plt Count 190 (150-400) X10^3/uL Neut % (Auto) 55.5 (50-75) % Lymph % (Auto) 30.3 (25-40) % Nye % (Auto) 7.7 (3-14) % Eos % (Auto) 5.8 H (2-4) % Baso % (Auto) 0.7 (0-2) % Neut # (Auto) 3000 (3567-0354) /uL Lymph # (Auto) 1600 (6303-2257) /uL Nye # (Auto) 400 (0-900) /uL Eos # (Auto) 300 (0-450) /uL Baso # (Auto) 0 (0-100) /uL Sodium 142 (137-145) mmol/L Potassium 4.2 (3.4-5.1) mmol/L Chloride 112 H (98-107) mmol/L Carbon Dioxide 27 (22-32) mmol/L BUN 51 H (9-20) mg/dL Creatinine 2.71 H (0.66-1.25) mg/dL Estimated GFR 33 L (>60) mL/min BUN/Creatinine Ratio 18.8 (6-22) Glucose 99 (70-100) mg/dL Calcium 10.4 H (8.4-10.2) mg/dL Total Bilirubin 0.6 (0.2-1.3) mg/dL AST 26 (17-59) IU/L ALT 41 (<50) IU/L Alkaline Phosphatase 49 (38-126) U/L Total Protein 7.1 (6.3-8.2) g/dL Albumin 4.0 (3.5-5.0) g/dL Globulin 3.1 (1.7-4.1) g/dL Albumin/Globulin Ratio 1.3 (1.0-2.8) Urine Color Yellow Urine Appearance Clear Urine pH 6.5 (4.5-8.0) Ur Specific [place] 1.010 (1.000-1.035) Urine Protein Trace H (Negative) Urine Glucose (UA) Trace H (Negative) g/dL Urine Ketones Negative (NEGATIVE) Urine Occult Blood Negative (Negative) Urine Nitrate Negative (Negative) Urine Bilirubin Negative (NEGATIVE) Urine Urobilinogen 0.2 (0.2) E.U./dL Ur Leukocyte Esterase Negative (NEGATIVE) Urine RBC None seen (0-5/HPF) Urine WBC None seen (0-5/HPF) Ur Squamous Epith Cells None seen (0-5/HPF) Urine Bacteria None seen (None) Ur Culture Indicated? Cult not indicated Vol Urine Centrifuged 10ml (spun) Imaging Data CT scan - abdomen/pelvis: My Impression: PROCEDURE: CT ABDOMEN PELVIS WO CON INDICATIONS: BILAT FLANK PAIN, HX STONES, WORSENING RENAL FX TECHNIQUE: Axial sections were acquired from the lung bases to the pubic symphysis. Coronal and sagittal reformats were performed. For radiation dose reduction, the following was used: automated exposure control, adjustment of mA and/or kV according to patient size. COMPARISON: [facility], CT, CT ABDOMEN PELVIS WO CON, 07/23/2022, 23:43. FINDINGS: Image quality: Diagnostic. Lower Chest: No significant findings. URINARY: Right Kidney: No stones or hydronephrosis. Right Ureter: No hydroureter. Left Kidney: No stones or hydronephrosis. Left Ureter: No hydroureter. Bladder: Normal wall thickness. No stones. ABDOMEN: Liver: No contour-deforming solid mass. Gallbladder: The gallbladder is not visualized and may be surgically absent. Biliary ducts: No biliary dilation. Pancreas: No ductal dilation. Spleen: Size is within normal limits. Adrenal Glands: No adrenal nodules. Stomach and Bowel: Normal colonic caliber, without significant wall thickening. The appendix is thin walled and gas filled. A large amount of inspissated appearing stool is present in the rectosigmoid. Peritoneum: No abnormal intraperitoneal fluid. No free air. Ventral Wall: No hernia. Abdominal Nodes: No enlarged retroperitoneal or mesenteric lymph nodes. Vessels: Aorta and inferior vena cava are normal in size. PELVIS: Pelvic Organs: Unremarkable. Pelvic Nodes: Unremarkable. Miscellaneous: There is a moderate-sized fluid-filled left inguinal hernia. Bones: Unremarkable. IMPRESSION: 1. No nephrolithiasis, hydronephrosis, hydroureter, or ureterolithiasis. 2. No acute intra-abdominal findings. Normal appendix. Dictated by: Lisa Marcial M.D. on 08/03/2023 at 10:29 Approved by: Lisa Marcial M.D. on 08/03/2023 at 10:31 MDM Narrative Medical decision making narrative: Well-appearing patient with abnormal labs 3 days prior. Patient has longstanding chronic kidney disease and his labs showed worsening, there was concerned that a kidney stone may be contributing to his worsening kidney function. On physical exam today patient has no complaints, there was no CVA tenderness, no scrotal tenderness or abnormalities. Repeat laboratory work shows stable creatinine and GFR from patient's reported baseline. CT shows no signs of stones or infection. Urinalysis shows mild protein, which has been seen previously, but no other signs of infection or other abnormalities. Patient informed of lab and imaging findings, he was relieved to know that his GFR and creatinine are baseline. He states that he has been trying to get into see a printing machine operator tape rules at [place] but has not heard back from their stick welder. I encouraged the patient to continue to reach out to the nephrology office for further monitoring so that he may have be established with a nephrology office given his history of chronic kidney disease. ED return precautions discussed at bedside. Patient expressed understanding of the plan and is in agreement at this time. All questions answered at the time of discharge. Discharge Plan Departure Patient Disposition: Home Clinical Impression: Chronic kidney disease (CKD) Qualifiers: Chronic kidney disease stage: stage 3 (moderate) Chronic kidney disease stage 3 subtype: stage 3b (GFR 30-44) Qualified Code(s): N18.32 - Chronic kidney disease, stage 3b Instructions: Chronic Kidney Disease Activity Restrictions/Additional Instructions: Your creatinine today is 2.1 and your GFR is 33. One year ago your GFR was 32 and your creatinine was 2.78. Your CT today did not show any signs of stones or infection. Your urinalysis did not show any signs of infection either. Continue to follow up with the primary and try to get into see the referred to printing machine operator tape rules. Prescriptions: No Action lamotrigine 150 mg tablet 150 mg PO DAILY Patient Comments: Take 1 tablet by mouth once a day methylphenidate HCl 20 mg tablet extended release 20 mg PO DAILY lisinopril 5 mg tablet 5 mg PO DAILY escitalopram oxalate 20 mg tablet 20 mg PO DAILY prednisone 20 mg tablet 40 mg PO DAILY Qty: 10 0RF albuterol sulfate 2.5 mg /3 mL (0.083 %) solution for nebulization 2.5 mg inhalation Q4-6H PRN (Reason: shortness of breath or wheezing) Qty: 90 0RF (DME) nebulizer accessories Kit See Rx Instructions .Route Qty: 1 0RF Rx Instructions: As directed albuterol sulfate 90 mcg/actuation HFA aerosol inhaler 2 inh INHALATION Q4-6H PRN (Reason: shortness of breath) Qty: 18 5RF fluticasone propion-salmeterol [Advair Diskus] 250-50 mcg/dose blister with device 1 inh inhalation Q12H Qty: 60 11RF Rx Instructions: rinse mouth with water, gargle and spit Referrals: Joyce Anguiano ARNP [Primary Care Provider] - Stand Alone Forms: Patient Portal/API
[2023-08-03 10:14] LABS: Add Manual Diff / Slide Review NO; Basophils Absolute Auto 0 /uL (0-100); Basophils Percent Auto 0.7 % (0-2); Eosinophils Absolute Auto 300 /uL (0-450); Eosinophils Percent Auto 5.8 % (2-4); Hematocrit 43.2 % (41-53); Hemoglobin 15.2 g/dL (13.5-17.5); Lymphocytes Absolute Auto 1600 /uL (1100-4500); Lymphocytes Percent Auto 30.3 % (25-40); Mean Corpuscular HGB Conc 35.1 % (30-36); Mean Corpuscular Hemoglobin 31.9 PG (26-34); Mean Corpuscular Volume 90.9 fL (80-100); Monocytes Absolute Auto 400 /uL (0-900); Monocytes Percent Auto 7.7 % (3-14); Neutrophils Absolute Auto 3000 /uL (1500-7000); Neutrophils Percent Auto 55.5 % (50-75); Platelet Count 190 X10^3/uL (150-400); Red Blood Cell Count 4.75 X10^6/uL (4.5-5.9); Red Cell Distribution Width 13.6 % (11.6-14.8); White Blood Cell Count 5.4 X10^3/uL (4.5-11.0)
[2023-08-03 10:22] LABS: Alanine Aminotransferase 41 IU/L (<50); Albumin Globulin Ratio 1.3 (1.0-2.8); Alkaline Phosphatase 49 U/L (38-126); Aspartate Aminotransferase 26 IU/L (17-59); BUN Creatinine Ratio 18.8 (6-22); Bilirubin Total 0.6 mg/dL (0.2-1.3); Blood Urea Nitrogen 51 mg/dL (9-20); Calcium 10.4 mg/dL (8.4-10.2); Carbon Dioxide 27 mmol/L (22-32); Chloride 112 mmol/L (98-107); Estimated Glomerular Filt Rate 33 mL/min (>60); Globulin 3.1 g/dL (1.7-4.1); Glucose 99 mg/dL (70-100); HEMOLYSIS 17 (0-50); Potassium 4.2 mmol/L (3.4-5.1); Sodium 142 mmol/L (137-145); Total Protein 7.1 g/dL (6.3-8.2)
[2023-08-03 10:50] LABS: Appearance Urine UA CLEAR; Bilirubin Urine UA NEGATIVE (NEGATIVE); Color Urine UA YELLOW; Glucose Urine UA TRACE g/dL (Negative); Ketones Urine UA NEGATIVE (NEGATIVE); Leukocyte Esterase Urine UA NEGATIVE (NEGATIVE); Nitrite Urine UA NEGATIVE (Negative); Occult Blood Urine UA NEGATIVE (Negative); Protein Urine UA TRACE (Negative); Urobilinogen Urine UA 0.2 E.U./dL (0.2); pH Urine UA 6.5 (4.5-8.0)
[2023-08-03 11:14] LABS: Bacteria Urine None Seen; Culture Indicated Urine Cult Not Indicated; RBC Urine None Seen (0-5/HPF); Squamous Epithelial Cell Urine None Seen (0-5/HPF); Urine Volume 10mL (spun); WBC Urine None Seen (0-5/HPF)
== END 2023-08-03 11:41 | disposition home or self-care (01) ==
PROVIDERS: Emergency Provider Emergency Medicine; PCP Nurse Practitioner Family
DX: N18.32 Chronic kidney disease, stage 3b (principal)
CPT/HCPCS: 36415; 74176; 80053; 81001; 85025; 99284

== ENCOUNTER 2024-01-22 04:31 | Observation (INO) | payer BC, SELFPAY ==
[2022-07-24 02:20] VITALS: BMI 27.9
[2024-01-22] VITALS (38 sets, daily range): BP systolic 97–115; BP diastolic 50–58; PULSE 75–93; RESP 10–20; TEMP 36.6–37.1; O2SAT 94–98; BMI 30.5
--- NOTE | 2024-01-22 04:37 | ED_ITS ---
HPI - General Adult <Alena Orlando DO - Last Filed: 01/23/24 02:52> General Chief complaint: Nausea/Vomiting/Diarrhea Stated complaint: D/V/N feels like he got hit by train Time Seen by Provider: 01/22/24 04:35 Source: patient, RN notes reviewed and old records reviewed Mode of arrival: Ambulatory Limitations: no limitations History of Present Illness HPI narrative: 23-year-old male with history of chronic kidney disease from , asthma, mood disorder, prior C diff infection patient presents with complaint of diarrhea for the past week. Patient states no fevers he is felt hot occasionally. He has had some abdominal pain across his abdomen. States he had 1 episode of vomiting this morning. Has had nausea all week. States he has had frequent diarrhea 3 or 4 times nightly and several times throughout the day. He states no black or bloody stools, no mucus, denies any dysuria urgency or frequency. States he has had C diff in the past. He states this is quite as bad and he required hospitalization at that time. Patient states he thought he was going to improve so waited to be evaluated bony threw up this morning sought treatment. States home medications include lamotrigine, lisinopril, citalopram, lisinopril, Advair and albuterol. States he would prior abdominal surgery secondary to dialysis and treatments when he was in infant. No known drug allergies. No tobacco, occasional alcohol, no recreational drugs. Related Data Home Medications Medication Instructions Recorded Confirmed escitalopram oxalate 20 mg tablet 20 mg PO DAILY 07/27/22 01/22/24 lamotrigine 150 mg tablet 150 mg PO DAILY 07/27/22 01/22/24 lisinopril 5 mg tablet 5 mg PO DAILY 07/27/22 01/22/24 methylphenidate HCl 20 mg 20 mg PO DAILY 07/27/22 01/22/24 tablet,extended release prednisone 20 mg tablet 40 mg PO PRN PRN other 01/22/24 01/22/24 Previous Rx's Medication Instructions Recorded albuterol sulfate 2.5 mg/3 mL 2.5 mg (3 mL) inhalation Q4-6H PRN 09/20/22 (0.083 %) solution for nebulization shortness of breath or wheezing #90 mL nebulizer accessories #1 ea 09/20/22 albuterol sulfate 90 mcg/actuation 2 inh inhalation Q4-6H PRN 06/05/23 aerosol inhaler shortness of breath #18 grams fluticasone 250 mcg-salmeterol 50 1 inh inhalation Q12H #60 ea 06/05/23 mcg/dose blistr powdr for inhalation (Advair Diskus) Allergies Allergy/AdvReac Type Severity Reaction Status Date / Time No Known Drug Allergies Allergy Verified 05/02/22 14:06 Review of Systems <Alena Orlando DO - Last Filed: 01/23/24 02:52> Review of Systems ROS Unobtainable: All systems reviewed & are unremarkable except as noted in HPI and below Patient History <Alena Orlando DO - Last Filed: 01/23/24 02:52> Medical History Pyloric stricture Chronic kidney disease Asthma Surgical History History of gastrostomy tube placement Family History Mother Placental abruption Grandmother Diabetes mellitus Father Alive and well Social History household members: family Smoking Status: Never smoker alcohol intake: current Smoking Status: Never smoker alcohol intake frequency: holidays/special occasions only Substance Use Type: does not use Exam <Alena Orlando DO - Last Filed: 01/23/24 02:52> Narrative Exam Narrative: GENERAL: Alert and oriented x three, well-appearing male in mild distress HEENT: Head normocephalic, atraumatic, EOMI, pupils reactive, face symmetric, moist mucous membranes NECK: Supple, full range of motion CARDIOVASCULAR: Regular rate and rhythm without murmurs, rubs or gallops. RESPIRATORY: Breath sounds equal bilaterally, no wheezes rales or rhonchi. ABDOMEN: Soft, nontender. Nondistended. Normoactive bowel sounds all 4 quadrants. No guarding or rebound, rigidity, no mass : No CVA tenderness EXTREMITIES: Normal range of motion, no clubbing or edema. Neurovascularly intact NEUROLOGICAL: Cranial nerves II through XII grossly intact. Moving all extremities SKIN: Warm, dry, no petechiae, no rashes or lesions. Initial Vital Signs Initial Vital Signs: Vital Signs Temperature 97.9 F 01/22/24 04:42 Pulse Rate 83 01/22/24 04:42 Respiratory Rate 18 01/22/24 04:42 Blood Pressure 111/56 L 01/22/24 04:42 Pulse Oximetry 94 01/22/24 04:42 Oxygen Delivery Method Room Air 01/22/24 04:42 <Julissa Toney, DO - Last Filed: 01/22/24 10:28> Initial Vital Signs Initial Vital Signs: Vital Signs Temperature 97.9 F 01/22/24 04:42 Pulse Rate 83 01/22/24 04:42 Respiratory Rate 18 01/22/24 04:42 Blood Pressure 111/56 L 01/22/24 04:42 Pulse Oximetry 94 01/22/24 04:42 Oxygen Delivery Method Room Air 01/22/24 04:42 Course <Alena Orlando, DO - Last Filed: 01/23/24 02:52> Orders Ordered: Acetaminophen (Acetaminophen 325 Mg Tablet) 650 mg PO Q6H PRN PRN Reason: Fever/Mild Pain (1-3) Last Admin: 01/23/24 00:58 Dose: 650 mg Documented By: JAZMYNE Sodium Chloride (Normal Saline 0.9%) 1,000 mls @ 125 mls/hr IV CONT MICAELA Last Admin: 01/23/24 01:05 Dose: 125 mls/hr Documented By: Infusion: 01/23/24 01:05 Dose: Infused Documented By: Admin: 01/22/24 19:51 Dose: 125 mls/hr Documented By: Infusion: 01/22/24 19:51 Dose: Infused Documented By: Infusion: 01/22/24 12:36 Dose: 125 mls/hr Documented By: Admin: 01/22/24 11:48 Dose: 100 mls/hr Documented By: KRISS Naloxone HCl (Naloxone 0.4 Mg/Ml Vial) 0.2 mg IV Q2MIN PRN PRN Reason: Opiate Reversal Ondansetron HCl (Ondansetron 4 Mg/2 Ml Inj) 4 mg IV Q8HR PRN PRN Reason: Nausea And Vomiting Last Admin: 01/23/24 00:58 Dose: 4 mg Documented By: JAZMYNE Potassium Chloride (Potassium Chloride 20 Meq Tab) 40 meq PO [facility]ILYCC [facility] Last Admin: 01/22/24 07:52 Dose: 40 meq Documented By: Admin: 01/22/24 05:50 Dose: 40 meq Documented By: Discontinued Medications Sodium Chloride (Normal Saline 0.9%) 1,000 mls @ 1,000 mls/hr IV BOLUS ONE Stop: 01/22/24 05:44 Last Infusion: 01/22/24 06:45 Dose: Infused Documented By: Admin: 01/22/24 05:04 Dose: 1,000 mls/hr Documented By: Sodium Chloride (Normal Saline 0.9%) 500 mls @ 1,000 mls/hr IV BOLUS ONE Stop: 01/22/24 06:09 Last Infusion: 01/22/24 07:41 Dose: Infused Documented By: Admin: 01/22/24 06:50 Dose: 1,000 mls/hr Documented By: Sodium Chloride (Normal Saline 0.9%) 1,000 mls @ 125 mls/hr IV CONT [facility] Last Admin: 01/22/24 11:38 Dose: 125 mls/hr Documented By: Infusion: 01/22/24 11:38 Dose: Infused Documented By: Infusion: 01/22/24 10:10 Dose: 125 mls/hr Documented By: Admin: 01/22/24 09:04 Dose: 125 mls/hr Documented By: LEONARD POTASSIUM CHLORIDE IN WATER (Potassium Cl 10 Meq/100 Ml Windy) 10 meq in 100 mls @ 100 mls/hr IV Q1H MICAELA Stop: 01/22/24 12:29 Last Infusion: 01/22/24 23:04 Dose: Infused Documented By: Admin: 01/22/24 12:32 Dose: 100 mls/hr Documented By: Infusion: 01/22/24 12:32 Dose: Infused Documented By: Admin: 01/22/24 11:36 Dose: 100 mls/hr Documented By: Infusion: 01/22/24 11:36 Dose: Infused Documented By: Admin: 01/22/24 10:38 Dose: 100 mls/hr Documented By: Infusion: 01/22/24 10:10 Dose: Infused Documented By: Admin: 01/22/24 09:05 Dose: 100 mls/hr Documented By: LEONARD Ondansetron HCl (Ondansetron 4 Mg/2 Ml Inj) 4 mg IV NOW ONE Stop: 01/22/24 04:46 Last Admin: 01/22/24 05:04 Dose: 4 mg Documented By: Potassium Chloride (Potassium Chloride 20 Meq Tab) 40 meq PO [facility]ILY[facility] Vital Signs Vital signs: Vital Signs - 8 hr 01/22/24 04:42 01/22/24 05:00 01/22/24 05:00 Temperature 97.9 F Pulse Rate 83 86 Respiratory Rate 18 Blood Pressure 111/56 L 110/55 L Pulse Oximetry 94 96 Oxygen Delivery Method Room Air 01/22/24 05:30 01/22/24 05:30 01/22/24 06:12 Temperature Pulse Rate 80 83 Respiratory Rate 20 Blood Pressure 103/58 L Pulse Oximetry 96 96 Oxygen Delivery Method Room Air 01/22/24 06:14 01/22/24 06:14 01/22/24 06:33 Temperature Pulse Rate 76 90 Respiratory Rate 13 Blood Pressure 101/54 L Pulse Oximetry 95 97 Oxygen Delivery Method Room Air 01/22/24 06:34 01/22/24 06:34 01/22/24 07:00 Temperature Pulse Rate 81 78 Respiratory Rate 18 17 Blood Pressure 113/55 L Pulse Oximetry 96 94 Oxygen Delivery Method 01/22/24 07:00 01/22/24 07:12 01/22/24 07:12 Temperature Pulse Rate 78 Respiratory Rate 17 Blood Pressure 102/50 L 103/55 L Pulse Oximetry 96 Oxygen Delivery Method 01/22/24 07:30 01/22/24 07:30 01/22/24 07:40 Temperature Pulse Rate 87 77 Respiratory Rate 18 17 Blood Pressure 111/53 L Pulse Oximetry 96 96 Oxygen Delivery Method Room Air Room Air 01/22/24 07:45 01/22/24 07:45 01/22/24 07:50 Temperature Pulse Rate 82 75 Respiratory Rate 17 18 Blood Pressure 101/50 L Pulse Oximetry 96 96 Oxygen Delivery Method 01/22/24 08:00 01/22/24 08:03 01/22/24 08:03 Temperature Pulse Rate 84 82 Respiratory Rate 16 16 Blood Pressure 107/56 L Pulse Oximetry 95 96 Oxygen Delivery Method Room Air 01/22/24 08:10 01/22/24 08:15 01/22/24 08:15 Temperature Pulse Rate 80 81 Respiratory Rate 16 17 Blood Pressure 100/52 L Pulse Oximetry 94 95 Oxygen Delivery Method 01/22/24 08:20 01/22/24 08:30 01/22/24 08:30 Temperature Pulse Rate 78 82 Respiratory Rate 18 10 L Blood Pressure 107/57 L Pulse Oximetry 96 96 Oxygen Delivery Method <Julissa Toney DO - Last Filed: 01/22/24 10:28> Orders Ordered: Acetaminophen (Acetaminophen 325 Mg Tablet) 650 mg PO Q6H PRN PRN Reason: Fever/Mild Pain (1-3) Last Admin: 01/23/24 00:58 Dose: 650 mg Documented By: JAZMYNE Sodium Chloride (Normal Saline 0.9%) 1,000 mls @ 125 mls/hr IV CONT [facility] Last Admin: 01/23/24 01:05 Dose: 125 mls/hr Documented By: Infusion: 01/23/24 01:05 Dose: Infused Documented By: Admin: 01/22/24 19:51 Dose: 125 mls/hr Documented By: Infusion: 01/22/24 19:51 Dose: Infused Documented By: Infusion: 01/22/24 12:36 Dose: 125 mls/hr Documented By: Admin: 01/22/24 11:48 Dose: 100 mls/hr Documented By: KRISS Naloxone HCl (Naloxone 0.4 Mg/Ml Vial) 0.2 mg IV Q2MIN PRN PRN Reason: Opiate Reversal Ondansetron HCl (Ondansetron 4 Mg/2 Ml Inj) 4 mg IV Q8HR PRN PRN Reason: Nausea And Vomiting Last Admin: 01/23/24 00:58 Dose: 4 mg Documented By: JAZMYNE Potassium Chlor[facility] ([facility] Tab[facility] Last Admin: 01/22/24 07:52 Dose: 40 meq Documented By: Admin: 01/22/24 05:50 Dose: 40 meq Documented By: Discontinued Medications Sodium Chloride (Normal Saline 0.9%) 1,000 mls @ 1,000 mls/hr IV BOLUS ONE Stop: 01/22/24 05:44 Last Infusion: 01/22/24 06:45 Dose: Infused Documented By: Admin: 01/22/24 05:04 Dose: 1,000 mls/hr Documented By: Sodium Chloride (Normal Saline 0.9%) 500 mls @ 1,000 mls/hr IV BOLUS ONE Stop: 01/22/24 06:09 Last Infusion: 01/22/24 07:41 Dose: Infused Documented By: Admin: 01/22/24 06:50 Dose: 1,000 mls/hr Documented By: Sodium Chloride (Normal Saline 0.9%) 1,000 mls @ 125 mls/hr IV CONT MICAELA Last Admin: 01/22/24 11:38 Dose: 125 mls/hr Documented By: Infusion: 01/22/24 11:38 Dose: Infused Documented By: Infusion: 01/22/24 10:10 Dose: 125 mls/hr Documented By: Admin: 01/22/24 09:04 Dose: 125 mls/hr Documented By: LEONARD POTASSIUM CHLORIDE IN WATER (Potassium Cl 10 Meq/100 Ml Windy) 10 meq in 100 mls @ 100 mls/hr IV Q1H MICAELA Stop: 01/22/24 12:29 Last Infusion: 01/22/24 23:04 Dose: Infused Documented By: Admin: 01/22/24 12:32 Dose: 100 mls/hr Documented By: Infusion: 01/22/24 12:32 Dose: Infused Documented By: Admin: 01/22/24 11:36 Dose: 100 mls/hr Documented By: Infusion: 01/22/24 11:36 Dose: Infused Documented By: Admin: 01/22/24 10:38 Dose: 100 mls/hr Documented By: Infusion: 01/22/24 10:10 Dose: Infused Documented By: Admin: 01/22/24 09:05 Dose: 100 mls/hr Documented By: LEONARD Ondansetron HCl (Ondansetron 4 Mg/2 Ml Inj) 4 mg IV NOW ONE Stop: 01/22/24 04:46 Last Admin: 01/22/24 05:04 Dose: 4 mg Documented By: Potassium Chloride (Potassium Chloride 20 Meq Tab) 40 meq PO [facility]ILYCC [facility] Vital Signs Vital signs: Vital Signs - 8 hr 01/22/24 04:42 01/22/24 05:00 01/22/24 05:00 Temperature 97.9 F Pulse Rate 83 86 Respiratory Rate 18 Blood Pressure 111/56 L 110/55 L Pulse Oximetry 94 96 Oxygen Delivery Method Room Air 01/22/24 05:30 01/22/24 05:30 01/22/24 06:12 Temperature Pulse Rate 80 83 Respiratory Rate 20 Blood Pressure 103/58 L Pulse Oximetry 96 96 Oxygen Delivery Method Room Air 01/22/24 06:14 01/22/24 06:14 01/22/24 06:33 Temperature Pulse Rate 76 90 Respiratory Rate 13 Blood Pressure 101/54 L Pulse Oximetry 95 97 Oxygen Delivery Method Room Air 01/22/24 06:34 01/22/24 06:34 01/22/24 07:00 Temperature Pulse Rate 81 78 Respiratory Rate 18 17 Blood Pressure 113/55 L Pulse Oximetry 96 94 Oxygen Delivery Method 01/22/24 07:00 01/22/24 07:12 01/22/24 07:12 Temperature Pulse Rate 78 Respiratory Rate 17 Blood Pressure 102/50 L 103/55 L Pulse Oximetry 96 Oxygen Delivery Method 01/22/24 07:30 01/22/24 07:30 01/22/24 07:40 Temperature Pulse Rate 87 77 Respiratory Rate 18 17 Blood Pressure 111/53 L Pulse Oximetry 96 96 Oxygen Delivery Method Room Air Room Air 01/22/24 07:45 01/22/24 07:45 01/22/24 07:50 Temperature Pulse Rate 82 75 Respiratory Rate 17 18 Blood Pressure 101/50 L Pulse Oximetry 96 96 Oxygen Delivery Method 01/22/24 08:00 01/22/24 08:03 01/22/24 08:03 Temperature Pulse Rate 84 82 Respiratory Rate 16 16 Blood Pressure 107/56 L Pulse Oximetry 95 96 Oxygen Delivery Method Room Air 01/22/24 08:10 01/22/24 08:15 01/22/24 08:15 Temperature Pulse Rate 80 81 Respiratory Rate 16 17 Blood Pressure 100/52 L Pulse Oximetry 94 95 Oxygen Delivery Method 01/22/24 08:20 01/22/24 08:30 01/22/24 08:30 Temperature Pulse Rate 78 82 Respiratory Rate 18 10 L Blood Pressure 107/57 L Pulse Oximetry 96 96 Oxygen Delivery Method Medical Decision Making <Alena Orlando DO - Last Filed: 01/23/24 02:52> Lab Data 01/22/24 04:50 01/22/24 15:31 Labs: Lab Results 01/22/24 01/22/24 01/22/24 Range/Units 04:50 05:00 06:32 WBC 9.0 (4.5-11.0) X10^3/uL RBC 5.35 (4.5-5.9) X10^6/uL Hgb 16.9 (13.5-17.5) g/dL Hct 46.3 (41-53) % MCV 86.4 (80-100) fL MCH 31.6 (26-34) PG MCHC 36.6 H (30-36) % RDW 14.4 (11.6-14.8) % Plt Count 242 (150-400) X10^3/uL Neut % (Auto) 61.9 (50-75) % Lymph % (Auto) 22.2 L (25-40) % [place] % (Auto) 12.6 (3-14) % Eos % (Auto) 3.1 (2-4) % Baso % (Auto) 0.2 (0-2) % Neut # (Auto) 5600 (7470-1455) /uL Lymph # (Auto) 2000 (4491-6978) /uL [place] # (Auto) 1100 H (0-900) /uL Eos # (Auto) 300 (0-450) /uL Baso # (Auto) 0 (0-100) /uL Sodium 132 L (137-145) mmol/L Potassium 2.8 L (3.4-5.1) mmol/L Chloride 105 (98-107) mmol/L Carbon Dioxide 14 L (22-32) mmol/L BUN 53 H (9-20) mg/dL Creatinine 4.77 H (0.66-1.25) mg/dL Estimated GFR 17 L (>60) mL/min BUN/Creatinine Ratio 11.1 (6-22) Glucose 113 H (70-100) mg/dL Calcium 9.6 (8.4-10.2) mg/dL Total Bilirubin 0.9 (0.2-1.3) mg/dL AST 20 (17-59) IU/L ALT 43 (<50) IU/L Alkaline Phosphatase 76 (38-126) U/L Total Protein 6.9 (6.3-8.2) g/dL Albumin 4.0 (3.5-5.0) g/dL Globulin 2.9 (1.7-4.1) g/dL Albumin/Globulin Ratio 1.4 (1.0-2.8) Lipase 100 (23-300) U/L Urine RBC None seen (0-5/HPF) Urine WBC None seen (0-5/HPF) Ur Squamous Epith Cells 1-5 /hpf (0-5/HPF) Urine Bacteria None seen (None) Hyaline Casts 0-1/lpf (None) Granular Casts 0-1/lpf (None) Vol Urine Centrifuged 10ml (spun) Stl C. cayetanensis PCR Not detected (Not Detect) Stool Rotavirus (PCR) Not detected (Not Detect) Stool Adenovirus (PCR) Not detected (Not Detect) Stool Astrovirus (PCR) Not detected (Not Detect) Stool Cryptosporidium PCR Not detected (Not Detect) Stl E.coli Shiga Tox PCR Not detected (Not Detect) St Sh/Enteroin Ecoli PCR Not detected (Not Detect) Stl Enterotoxigenic E PCR Not detected (Not Detect) Stool EPEC (PCR) Not detected (Not Detect) Stl E. histolytica PCR Not detected (Not Detect) Stool Giardia Lamblia PCR Not detected (Not Detect) Stool Sapovirus (PCR) Not detected (Not Detect) Stl P. shigelloides PCR Not detected (Not Detect) St Y.enterocolitica PCR Not detected (Not Detect) Stool Vibrio (PCR) Not detected (Not Detect) Stl Vibrio cholerae PCR Not detected (Not Detect) Stl Enteroaggr Ecoli PCR Not detected (Not Detect) Stl Norovirus GI/GII PCR Not detected (Not Detect) Campylobacter (PCR) Not detected (Not Detect) C. difficile Tox (PCR) Not detected (Not Detect) Salmonella (PCR) Not detected (Not Detect) 01/22/24 Range/Units 08:05 WBC (4.5-11.0) X10^3/uL RBC (4.5-5.9) X10^6/uL Hgb (13.5-17.5) g/dL Hct (41-53) % MCV (80-100) fL MCH (26-34) PG MCHC (30-36) % RDW (11.6-14.8) % Plt Count (150-400) X10^3/uL Neut % (Auto) (50-75) % Lymph % (Auto) (25-40) % [place] % (Auto) (3-14) % Eos % (Auto) (2-4) % Baso % (Auto) (0-2) % Neut # (Auto) (5736-2623) /uL Lymph # (Auto) (0215-1379) /uL [place] # (Auto) (0-900) /uL Eos # (Auto) (0-450) /uL Baso # (Auto) (0-100) /uL Sodium 131 L (137-145) mmol/L Potassium 2.9 L (3.4-5.1) mmol/L Chloride 108 H (98-107) mmol/L Carbon Dioxide 14 L (22-32) mmol/L BUN 56 H (9-20) mg/dL Creatinine 4.23 H (0.66-1.25) mg/dL Estimated GFR 19 L (>60) mL/min BUN/Creatinine Ratio 13.2 (6-22) Glucose 102 H (70-100) mg/dL Calcium 8.5 (8.4-10.2) mg/dL Total Bilirubin (0.2-1.3) mg/dL AST (17-59) IU/L ALT (<50) IU/L Alkaline Phosphatase (38-126) U/L Total Protein (6.3-8.2) g/dL Albumin (3.5-5.0) g/dL Globulin (1.7-4.1) g/dL Albumin/Globulin Ratio (1.0-2.8) Lipase (23-300) U/L Urine RBC (0-5/HPF) Urine WBC (0-5/HPF) Ur Squamous Epith Cells (0-5/HPF) Urine Bacteria (None) Hyaline Casts (None) Granular Casts (None) Vol Urine Centrifuged Stl C. cayetanensis PCR (Not Detect) Stool Rotavirus (PCR) (Not Detect) Stool Adenovirus (PCR) (Not Detect) Stool Astrovirus (PCR) (Not Detect) Stool Cryptosporidium PCR (Not Detect) Stl E.coli Shiga Tox PCR (Not Detect) St Sh/Enteroin Ecoli PCR (Not Detect) Stl Enterotoxigenic E PCR (Not Detect) Stool EPEC (PCR) (Not Detect) Stl E. histolytica PCR (Not Detect) Stool Giardia Lamblia PCR (Not Detect) Stool Sapovirus (PCR) (Not Detect) Stl P. shigelloides PCR (Not Detect) St Y.enterocolitica PCR (Not Detect) Stool Vibrio (PCR) (Not Detect) Stl Vibrio cholerae PCR (Not Detect) Stl Enteroaggr Ecoli PCR (Not Detect) Stl Norovirus GI/GII PCR (Not Detect) Campylobacter (PCR) (Not Detect) C. difficile Tox (PCR) (Not Detect) Salmonella (PCR) (Not Detect) Urine Dip Bedside Urine Glucose Negative Bedside Urine Bilirubin - Negative Bedside Urine Ketone - Negative Urine Specific [employer] 1.025 Bedside Urine Occult Blood - Negative Bedside Urine pH 5.5 Bedside Urine Protein ++ 100 Bedside Urine Urobilinogen 1+ 2mg Bedside Urine Nitrite - Negative Bedside Urine Leukocytes - Negative Esterase Point of care testing: Urine Dip Bedside Urine Glucose Negative Bedside Urine Bilirubin - Negative Bedside Urine Ketone - Negative Urine Specific [employer] [facility] 1.025 Bedside Urine Occult Blood - Negative Bedside Urine pH 5.5 Bedside Urine Protein ++ 100 Bedside Urine Urobilinogen 1+ 2mg Bedside Urine Nitrite - Negative Bedside Urine Leukocytes - Negative Esterase [facility] Narrative Medical decision making narrative: 23-year-old male with diarrhea and frequency for the past week, patient has had C diff in the past as well as other viral GI infections. 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 Vitals overall appropriate today. Patient has been on abdominal exam so we will wait for labs before deciding whether additional imaging, Labs white count 9 hemoglobin of 16.9, platelets of 242. Sodium is 132 potassium 2.8 chloride 105 CO2 is 14 BUN 53 with a creatinine of 4.77 patient's baseline appears to be around 2.7. Glucose of 113 LFTs are negative. Lipase is 100. GI panel pending Urine pending KUB CT shows mild colitis, no obstructive changes. Patient was given fluids and Zofran. Signed out to Dr. Toney while awaiting GI panel. Dr. Toney-patient signed out to me by Dr. Orlando I have seen evaluated patient myself. Abdomen is soft nontender. Complaints of diarrhea ongoing for 1 week. Reports uncomfortable number of diarrhea more than 10 or 20 getting up in the middle of the night to go to the bathroom. GI panel is negative. He did receive IV fluids baseline creatinine is 2.7, today creatinine is 4.7 after IV fluids improved to 4.23. He [facility] he did see [address] [facility] but has not seen him in a long time. KUB does not show any urolithiasis or UTI obstruction with some mild colitis Dr. Hoffman accepts patient <Julissa Toney, - Last Filed: 01/22/24 10:28> Lab Data Labs: Lab Results 01/22/24 01/22/24 01/22/24 Range/Units 04:50 05:00 06:32 WBC 9.0 (4.5-11.0) X10^3/uL RBC 5.35 (4.5-5.9) X10^6/uL Hgb 16.9 (13.5-17.5) g/dL Hct 46.3 (41-53) % MCV 86.4 (80-100) fL MCH 31.6 (26-34) PG MCHC 36.6 H (30-36) % RDW 14.4 (11.6-14.8) % Plt Count 242 (150-400) X10^3/uL Neut % (Auto) 61.9 (50-75) % Lymph % (Auto) 22.2 L (25-40) % [place] % (Auto) 12.6 (3-14) % Eos % (Auto) 3.1 (2-4) % Baso % (Auto) 0.2 (0-2) % Neut # (Auto) 5600 (6638-2556) /uL Lymph # (Auto) 2000 (6749-9558) /uL [place] # (Auto) 1100 H (0-900) /uL Eos # (Auto) 300 (0-450) /uL Baso # (Auto) 0 (0-100) /uL Sodium 132 L (137-145) mmol/L Potassium 2.8 L (3.4-5.1) mmol/L Chloride 105 (98-107) mmol/L Carbon Dioxide 14 L (22-32) mmol/L BUN 53 H (9-20) mg/dL Creatinine 4.77 H (0.66-1.25) mg/dL Estimated GFR 17 L (>60) mL/min BUN/Creatinine Ratio 11.1 (6-22) Glucose 113 H (70-100) mg/dL Calcium 9.6 (8.4-10.2) mg/dL Total Bilirubin 0.9 (0.2-1.3) mg/dL AST 20 (17-59) IU/L ALT 43 (<50) IU/L Alkaline Phosphatase 76 (38-126) U/L Total Protein 6.9 (6.3-8.2) g/dL Albumin 4.0 (3.5-5.0) g/dL Globulin 2.9 (1.7-4.1) g/dL Albumin/Globulin Ratio 1.4 (1.0-2.8) Lipase 100 (23-300) U/L Urine RBC None seen (0-5/HPF) Urine WBC None seen (0-5/HPF) Ur Squamous Epith Cells 1-5 /hpf (0-5/HPF) Urine Bacteria None seen (None) Hyaline Casts 0-1/lpf (None) Granular Casts 0-1/lpf (None) Vol Urine Centrifuged 10ml (spun) Stl C. cayetanensis PCR Not detected (Not Detect) Stool Rotavirus (PCR) Not detected (Not Detect) Stool Adenovirus (PCR) Not detected (Not Detect) Stool Astrovirus (PCR) Not detected (Not Detect) Stool Cryptosporidium PCR Not detected (Not Detect) Stl E.coli Shiga Tox PCR Not detected (Not Detect) St Sh/Enteroin Ecoli PCR Not detected (Not Detect) Stl Enterotoxigenic E PCR Not detected (Not Detect) Stool EPEC (PCR) Not detected (Not Detect) Stl E. histolytica PCR Not detected (Not Detect) Stool Giardia Lamblia PCR Not detected (Not Detect) Stool Sapovirus (PCR) Not detected (Not Detect) Stl P. shigelloides PCR Not detected (Not Detect) St Y.enterocolitica PCR Not detected (Not Detect) Stool Vibrio (PCR) Not detected (Not Detect) Stl Vibrio cholerae PCR Not detected (Not Detect) Stl Enteroaggr Ecoli PCR Not detected (Not Detect) Stl Norovirus GI/GII PCR Not detected (Not Detect) Campylobacter (PCR) Not detected (Not Detect) C. difficile Tox (PCR) Not detected (Not Detect) Salmonella (PCR) Not detected (Not Detect) 01/22/24 Range/Units 08:05 WBC (4.5-11.0) X10^3/uL RBC (4.5-5.9) X10^6/uL Hgb (13.5-17.5) g/dL Hct (41-53) % MCV (80-100) fL MCH (26-34) PG MCHC (30-36) % RDW (11.6-14.8) % Plt Count (150-400) X10^3/uL Neut % (Auto) (50-75) % Lymph % (Auto) (25-40) % [place] % (Auto) (3-14) % Eos % (Auto) (2-4) % Baso % (Auto) (0-2) % Neut # (Auto) (8394-6726) /uL Lymph # (Auto) (3789-8929) /uL [place] # (Auto) (0-900) /uL Eos # (Auto) (0-450) /uL Baso # (Auto) (0-100) /uL Sodium 131 L (137-145) mmol/L Potassium 2.9 L (3.4-5.1) mmol/L Chloride 108 H (98-107) mmol/L Carbon Dioxide 14 L (22-32) mmol/L BUN 56 H (9-20) mg/dL Creatinine 4.23 H (0.66-1.25) mg/dL Estimated GFR 19 L (>60) mL/min BUN/Creatinine Ratio 13.2 (6-22) Glucose 102 H (70-100) mg/dL Calcium 8.5 (8.4-10.2) mg/dL Total Bilirubin (0.2-1.3) mg/dL AST (17-59) IU/L ALT (<50) IU/L Alkaline Phosphatase (38-126) U/L Total Protein (6.3-8.2) g/dL Albumin (3.5-5.0) g/dL Globulin (1.7-4.1) g/dL Albumin/Globulin Ratio (1.0-2.8) Lipase (23-300) U/L Urine RBC (0-5/HPF) Urine WBC (0-5/HPF) Ur Squamous Epith Cells (0-5/HPF) Urine Bacteria (None) Hyaline Casts (None) Granular Casts (None) Vol Urine Centrifuged Stl C. cayetanensis PCR (Not Detect) Stool Rotavirus (PCR) (Not Detect) Stool Adenovirus (PCR) (Not Detect) Stool Astrovirus (PCR) (Not Detect) Stool Cryptosporidium PCR (Not Detect) Stl E.coli Shiga Tox PCR (Not Detect) St Sh/Enteroin Ecoli PCR (Not Detect) Stl Enterotoxigenic E PCR (Not Detect) Stool EPEC (PCR) (Not Detect) Stl E. histolytica PCR (Not Detect) Stool Giardia Lamblia PCR (Not Detect) Stool Sapovirus (PCR) (Not Detect) Stl P. shigelloides PCR (Not Detect) St Y.enterocolitica PCR (Not Detect) Stool Vibrio (PCR) (Not Detect) Stl Vibrio cholerae PCR (Not Detect) Stl Enteroaggr Ecoli PCR (Not Detect) Stl Norovirus GI/GII PCR (Not Detect) Campylobacter (PCR) (Not Detect) C. difficile Tox (PCR) (Not Detect) Salmonella (PCR) (Not Detect) Urine Dip Bedside Urine Glucose Negative Bedside Urine Bilirubin - Negative Bedside Urine Ketone - Negative Urine Specific [facility] 1.025 Bedside Urine Occult Blood - Negative Bedside Urine pH 5.5 Bedside Urine Protein ++ 100 Bedside Urine Urobilinogen 1+ 2mg Bedside Urine Nitrite - Negative Bedside Urine Leukocytes - Negative Esterase Point of care testing: Urine Dip Bedside Urine Glucose Negative Bedside Urine Bilirubin - Negative Bedside Urine Ketone - Negative Urine Specific [facility] 1.025 Bedside Urine Occult Blood - Negative Bedside Urine pH 5.5 Bedside Urine Protein ++ 100 Bedside Urine Urobilinogen 1+ 2mg Bedside Urine Nitrite - Negative Bedside Urine Leukocytes - Negative Esterase Imaging Data CT scan - abdomen/pelvis: Radiologist's Impression: Preliminary report no nephrolithiasis or urinary tract obstruction mild colitis MDM Narrative Medical decision making narrative: 23-year-old male with diarrhea and frequency for the past week, patient has had C diff in the past as well as other viral GI infections. 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 Vitals overall appropriate today. Patient has been on abdominal exam so we will wait for labs before deciding whether additional imaging, Labs white count 9 hemoglobin of 16.9, platelets of 242. Sodium is 132 potassium 2.8 chloride 105 CO2 is 14 BUN 53 with a creatinine of 4.77 patient's baseline appears to be around 2.7. Glucose of 113 LFTs are negative. Lipase is 100. GI panel Urine KUB CT Patient was given fluids and Zofran. Dr. Toney-patient signed out to me by Dr. Orlando I have seen evaluated patient myself. Abdomen is soft nontender. Complaints of diarrhea ongoing for 1 week. Reports uncomfortable number of diarrhea more than 10 or 20 getting up in the middle of the night to go to the bathroom. GI panel is negative. He did receive IV fluids baseline creatinine is 2.7, today creatinine is 4.7 after IV fluids improved to 4.23. He was previously seen at [facility] nephrology he did see [address] [facility] but has not seen him in a long time. KUB does not show any urolithiasis or UTI obstruction with some mild colitis Dr. Hoffman accepts patient Discharge Plan Departure Patient Disposition: Admitted as Observation Clinical Impression: Gastroenteritis, Acute dehydration, Acute hypokalemia Admit Date/Time: 01/22/24 08:34 Admit Provider: Stefan Hoffman
[2024-01-22] MEDS: SODIUM CHLORIDE 0.9% 1,000 ML 1000 ML IV (05:04)
[2024-01-22] MEDS: ONDANSETRON 4 MG/2 ML INJ IV (05:04)
[2024-01-22 05:06] LABS: Add Manual Diff / Slide Review NO; Basophils Absolute Auto 0 /uL (0-100); Basophils Percent Auto 0.2 % (0-2); Eosinophils Absolute Auto 300 /uL (0-450); Eosinophils Percent Auto 3.1 % (2-4); Hematocrit 46.3 % (41-53); Hemoglobin 16.9 g/dL (13.5-17.5); Lymphocytes Absolute Auto 2000 /uL (1100-4500); Lymphocytes Percent Auto 22.2 % (25-40); Mean Corpuscular HGB Conc 36.6 % (30-36); Mean Corpuscular Hemoglobin 31.6 PG (26-34); Mean Corpuscular Volume 86.4 fL (80-100); Monocytes Absolute Auto 1100 /uL (0-900); Monocytes Percent Auto 12.6 % (3-14); Neutrophils Absolute Auto 5600 /uL (1500-7000); Neutrophils Percent Auto 61.9 % (50-75); Platelet Count 242 X10^3/uL (150-400); Red Blood Cell Count 5.35 X10^6/uL (4.5-5.9); Red Cell Distribution Width 14.4 % (11.6-14.8)
[2024-01-22 05:14] LABS: Lipase 100 U/L (23-300)
--- NOTE | 2024-01-22 05:15 | PC.NURSE ---
Pt up to BR independently. Had 50 mL of yellow liquid stool. Collected and sent to lab. Pt is A/O x 4. Medicated for nausea.
[2024-01-22 05:23] LABS: Alanine Aminotransferase 43 IU/L (<50); Albumin Globulin Ratio 1.4 (1.0-2.8); Alkaline Phosphatase 76 U/L (38-126); Aspartate Aminotransferase 20 IU/L (17-59); BUN Creatinine Ratio 11.1 (6-22); Bilirubin Total 0.9 mg/dL (0.2-1.3); Blood Urea Nitrogen 53 mg/dL (9-20); Calcium 9.6 mg/dL (8.4-10.2); Carbon Dioxide 14 mmol/L (22-32); Chloride 105 mmol/L (98-107); Estimated Glomerular Filt Rate 17 mL/min (>60); Globulin 2.9 g/dL (1.7-4.1); Glucose 113 mg/dL (70-100); HEMOLYSIS < 15 (0-50); Potassium 2.8 mmol/L (3.4-5.1); Sodium 132 mmol/L (137-145); Total Protein 6.9 g/dL (6.3-8.2)
--- NOTE | 2024-01-22 05:36 | DI.CT.S_ITS ---
PROCEDURE: CT KIDNEY URETER BLADDER (KUB) INDICATIONS: acute on chronic kidney injury, diarrhea TECHNIQUE: Axial sections were acquired from the lung bases to the pubic symphysis. Coronal and sagittal reformats were performed. For radiation dose reduction, the following was used: automated exposure control, adjustment of mA and/or kV according to patient size. COMPARISON: [facility], CT, CT KIDNEY URETER BLADDER (KUB), 05/02/2022, 17:31. FINDINGS: Image quality: Diagnostic. Lower Chest: No significant findings. URINARY: Right Kidney: No stones or hydronephrosis. Right Ureter: No hydroureter. Left Kidney: No stones or hydronephrosis. Left Ureter: No hydroureter. Bladder: Normal wall thickness. No stones. ABDOMEN: Liver: No contour-deforming solid mass. Gallbladder: No radiopaque gallstones or wall thickening. Biliary ducts: No biliary dilation. Pancreas: No ductal dilation. Spleen: Mild splenomegaly. AP diameter is 15.3 cm. It previously was 14.0 cm. Adrenal Glands: No adrenal nodules. Stomach and Bowel: Normal colonic caliber, without significant wall thickening. Liquid colonic contents suggest gastroenteritis. Peritoneum: No abnormal intraperitoneal fluid. No free air. Ventral Wall: No hernia. Abdominal Nodes: No enlarged retroperitoneal or mesenteric lymph nodes. Vessels: Aorta and inferior vena cava are normal in size. PELVIS: Pelvic Organs: Left testicle not completely descended down the inguinal canal. Pelvic Nodes: Unremarkable. Miscellaneous: No inguinal hernias are seen. Bones: Unremarkable. IMPRESSION: 1. No acute abdominal process. 2. No renal stone, ureteral stone, or hydronephrosis. 3. Incompletely descended left testicle. 4. Mild splenomegaly. AP diameter is 15.3 cm. Dictated by: Vaibhav Anna M.D. on 01/22/2024 at 8:30 Approved by: Vaibhav Anna M.D. on 01/22/2024 at 8:33
[2024-01-22] MEDS: POTASSIUM CHLORIDE 20 MEQ TAB 40 MEQ PO ×2 (05:50→07:52)
[2024-01-22] MEDS: SODIUM CHLORIDE 0.9% 500 ML 1000 ML IV (06:50)
[2024-01-22 07:08] LABS: Adenovirus F 40/41 Not Detected (Not Detect); Astrovirus Not Detected (Not Detect); Campylobacter Not Detected (Not Detect); Clostridium difficile toxin AB Not Detected (Not Detect); Cryptosporidium Not Detected (Not Detect); Cyclospora cayetanensis Not Detected (Not Detect); Entamoeba histolytica Not Detected (Not Detect); Enteroaggregative E.coli Not Detected (Not Detect); Enteropathogenic E.coli Not Detected (Not Detect); Enterotoxigenic E.coli It/st Not Detected (Not Detect); Giardia lamblia Not Detected (Not Detect); Norovirus GI/GII Not Detected (Not Detect); Plesiomonsa shigelloides Not Detected (Not Detect); Rotavirus A Not Detected (Not Detect); Salmonella Not Detected (Not Detect); Sapovirus Not Detected (Not Detect); Shiga-like toxin-prod E.coli Not Detected (Not Detect); Shigella/Enteroinvasive E.coli Not Detected (Not Detect); Vibrio Not Detected (Not Detect); Vibrio cholerae Not Detected (Not Detect); Yersinia enterocolitica Not Detected (Not Detect)
[2024-01-22 07:31] LABS: Bacteria Urine None Seen; RBC Urine None Seen (0-5/HPF); Urine Volume 10mL (spun); WBC Urine None Seen (0-5/HPF)
[2024-01-22 07:32] LABS: Granular Casts Urine 0-1/LPF; Hyaline Casts Urine 0-1/LPF; Squamous Epithelial Cell Urine 1-5 /HPF (0-5/HPF)
--- NOTE | 2024-01-22 08:09 | PC.NURSE ---
Pt currently denies dizziness, lightheaded, chest pain, abdominal pain, and nausea. He is resting in bed, denies further needs at this time.
[2024-01-22 08:23] LABS: BUN Creatinine Ratio 13.2 (6-22); Blood Urea Nitrogen 56 mg/dL (9-20); Calcium 8.5 mg/dL (8.4-10.2); Carbon Dioxide 14 mmol/L (22-32); Chloride 108 mmol/L (98-107); Estimated Glomerular Filt Rate 19 mL/min (>60); Glucose 102 mg/dL (70-100); HEMOLYSIS 16 (0-50); Potassium 2.9 mmol/L (3.4-5.1); Sodium 131 mmol/L (137-145)
[2024-01-22] MEDS: SODIUM CHLORIDE 0.9% 1,000 ML 125 ML IV ×3 (09:04→19:51)
[2024-01-22] MEDS: POTASSIUM CHLORIDE IN WATER 10 MEQ/100 ML PIGGYBACK 100 MEQ IV ×4 (09:05→12:32)
--- NOTE | 2024-01-22 10:15 | P.DS_ITS ---
History of Present Illness History of Present Illness Chief complaint: D/V/N feels like he got hit by train Discharge Providers Provider Date of admission: 01/22/24 08:34 Primary care physician: SHARON Chan Discharge provider: Stefan Hoffman MD Exam Vital Signs (past 8 hours): - 01/22/24 04:42 01/22/24 05:00 01/22/24 05:00 Temperature 97.9 F Pulse Rate 83 86 Respiratory Rate 18 Blood Pressure 111/56 L 110/55 L Pulse Oximetry 94 96 Oxygen Delivery Method Room Air 01/22/24 05:30 01/22/24 05:30 01/22/24 06:12 Temperature Pulse Rate 80 83 Respiratory Rate 20 Blood Pressure 103/58 L Pulse Oximetry 96 96 Oxygen Delivery Method Room Air 01/22/24 06:14 01/22/24 06:14 01/22/24 06:33 Temperature Pulse Rate 76 90 Respiratory Rate 13 Blood Pressure 101/54 L Pulse Oximetry 95 97 Oxygen Delivery Method Room Air 01/22/24 06:34 01/22/24 06:34 01/22/24 07:00 Temperature Pulse Rate 81 78 Respiratory Rate 18 17 Blood Pressure 113/55 L Pulse Oximetry 96 94 Oxygen Delivery Method 01/22/24 07:00 01/22/24 07:12 01/22/24 07:12 Temperature Pulse Rate 78 Respiratory Rate 17 Blood Pressure 102/50 L 103/55 L Pulse Oximetry 96 Oxygen Delivery Method 01/22/24 07:30 01/22/24 07:30 01/22/24 07:40 Temperature Pulse Rate 87 77 Respiratory Rate 18 17 Blood Pressure 111/53 L Pulse Oximetry 96 96 Oxygen Delivery Method Room Air Room Air 01/22/24 07:45 01/22/24 07:45 01/22/24 07:50 Temperature Pulse Rate 82 75 Respiratory Rate 17 18 Blood Pressure 101/50 L Pulse Oximetry 96 96 Oxygen Delivery Method 01/22/24 08:00 01/22/24 08:03 01/22/24 08:03 Temperature Pulse Rate 84 82 Respiratory Rate 16 16 Blood Pressure 107/56 L Pulse Oximetry 95 96 Oxygen Delivery Method Room Air 01/22/24 08:10 01/22/24 08:15 01/22/24 08:15 Temperature Pulse Rate 80 81 Respiratory Rate 16 17 Blood Pressure 100/52 L Pulse Oximetry 94 95 Oxygen Delivery Method 01/22/24 08:20 01/22/24 08:30 01/22/24 08:30 Temperature Pulse Rate 78 82 Respiratory Rate 18 10 L Blood Pressure 107/57 L Pulse Oximetry 96 96 Oxygen Delivery Method 01/22/24 08:40 01/22/24 08:45 01/22/24 08:45 Temperature Pulse Rate 80 90 Respiratory Rate 17 14 Blood Pressure 101/54 L Pulse Oximetry 95 96 Oxygen Delivery Method 01/22/24 08:50 01/22/24 09:00 01/22/24 09:00 Temperature Pulse Rate 76 81 Respiratory Rate 20 16 Blood Pressure 115/54 L Pulse Oximetry 94 95 Oxygen Delivery Method 01/22/24 09:10 01/22/24 09:15 01/22/24 09:15 Temperature Pulse Rate 84 79 Respiratory Rate 16 17 Blood Pressure 97/54 L Pulse Oximetry 96 94 Oxygen Delivery Method 01/22/24 09:20 01/22/24 09:30 01/22/24 09:30 Temperature Pulse Rate 80 81 Respiratory Rate 17 18 Blood Pressure 101/51 L Pulse Oximetry 96 96 Oxygen Delivery Method 01/22/24 09:40 01/22/24 09:45 01/22/24 09:45 Temperature Pulse Rate 84 92 H Respiratory Rate 19 Blood Pressure 104/55 L Pulse Oximetry 96 95 Oxygen Delivery Method Room Air 01/22/24 09:50 Temperature Pulse Rate 77 Respiratory Rate 16 Blood Pressure Pulse Oximetry 95 Oxygen Delivery Method Room Air Oxygen Delivery Method Room Air Objective Labs 01/22/24 04:50 01/22/24 08:05 Labs: Laboratory Results - last 24 hr 01/22/24 01/22/24 01/22/24 04:50 05:00 06:32 WBC 9.0 RBC 5.35 Hgb 16.9 Hct 46.3 MCV 86.4 MCH 31.6 MCHC 36.6 H RDW 14.4 Plt Count 242 Neut % (Auto) 61.9 Lymph % (Auto) 22.2 L [place] % (Auto) 12.6 Eos % (Auto) 3.1 Baso % (Auto) 0.2 Neut # (Auto) 5600 Lymph # (Auto) 2000 [place] # (Auto) 1100 H Eos # (Auto) 300 Baso # (Auto) 0 Sodium 132 L Potassium 2.8 L Chloride 105 Carbon Dioxide 14 L BUN 53 H Creatinine 4.77 H Estimated GFR 17 L BUN/Creatinine Ratio 11.1 Glucose 113 H Calcium 9.6 Total Bilirubin 0.9 AST 20 ALT 43 Alkaline Phosphatase 76 Total Protein 6.9 Albumin 4.0 Globulin 2.9 Albumin/Globulin Ratio 1.4 Lipase 100 Urine RBC None seen Urine WBC None seen Ur Squamous Epith Cells 1-5 /hpf Urine Bacteria None seen Hyaline Casts 0-1/lpf Granular Casts 0-1/lpf Vol Urine Centrifuged 10ml (spun) Stl C. cayetanensis PCR Not detected Stool Rotavirus (PCR) Not detected Stool Adenovirus (PCR) Not detected Stool Astrovirus (PCR) Not detected Stool Cryptosporidium PCR Not detected Stl E.coli Shiga Tox PCR Not detected St Sh/Enteroin Ecoli PCR Not detected Stl Enterotoxigenic E PCR Not detected Stool EPEC (PCR) Not detected Stl E. histolytica PCR Not detected Stool Giardia Lamblia PCR Not detected Stool Sapovirus (PCR) Not detected Stl P. shigelloides PCR Not detected St Y.enterocolitica PCR Not detected Stool Vibrio (PCR) Not detected Stl Vibrio cholerae PCR Not detected Stl Enteroaggr Ecoli PCR Not detected Stl Norovirus GI/GII PCR Not detected Campylobacter (PCR) Not detected C. difficile Tox (PCR) Not detected Salmonella (PCR) Not detected 01/22/24 08:05 WBC RBC Hgb Hct MCV MCH MCHC RDW Plt Count Neut % (Auto) Lymph % (Auto) [place] % (Auto) Eos % (Auto) Baso % (Auto) Neut # (Auto) Lymph # (Auto) [place] # (Auto) Eos # (Auto) Baso # (Auto) Sodium 131 L Potassium 2.9 L Chloride 108 H Carbon Dioxide 14 L BUN 56 H Creatinine 4.23 H Estimated GFR 19 L BUN/Creatinine Ratio 13.2 Glucose 102 H Calcium 8.5 Total Bilirubin AST ALT Alkaline Phosphatase Total Protein Albumin Globulin Albumin/Globulin Ratio Lipase Urine RBC Urine WBC Ur Squamous Epith Cells Urine Bacteria Hyaline Casts Granular Casts Vol Urine Centrifuged Stl C. cayetanensis PCR Stool Rotavirus (PCR) Stool Adenovirus (PCR) Stool Astrovirus (PCR) Stool Cryptosporidium PCR Stl E.coli Shiga Tox PCR St Sh/Enteroin Ecoli PCR Stl Enterotoxigenic E PCR Stool EPEC (PCR) Stl E. histolytica PCR Stool Giardia Lamblia PCR Stool Sapovirus (PCR) Stl P. shigelloides PCR St Y.enterocolitica PCR Stool Vibrio (PCR) Stl Vibrio cholerae PCR Stl Enteroaggr Ecoli PCR Stl Norovirus GI/GII PCR Campylobacter (PCR) C. difficile Tox (PCR) Salmonella (PCR) [facility] Medical History Pyloric stricture Chronic kidney disease Asthma Surgical History History of gastrostomy tube placement Family History Mother Placental abruption Grandmother Diabetes mellitus Father Alive and well Social History household members: family Smoking Status: Never smoker alcohol intake: never Discharge Plan Discharge Plan Patient Disposition: Home Discharge orders & Medications Prescriptions: No Action lamotrigine 150 mg tablet 150 mg PO DAILY Patient Comments: Take 1 tablet by mouth once a day methylphenidate HCl 20 mg tablet extended release 20 mg PO DAILY lisinopril 5 mg tablet 5 mg PO DAILY escitalopram oxalate 20 mg tablet 20 mg PO DAILY prednisone 20 mg tablet 40 mg PO DAILY Qty: 10 0RF albuterol sulfate 2.5 mg /3 mL (0.083 %) solution for nebulization 2.5 mg inhalation Q4-6H PRN (Reason: shortness of breath or wheezing) Qty: 90 0RF (DME) nebulizer accessories Kit See Rx Instructions .Route Qty: 1 0RF Rx Instructions: As directed albuterol sulfate 90 mcg/actuation HFA aerosol inhaler 2 inh INHALATION Q4-6H PRN (Reason: shortness of breath) Qty: 18 5RF fluticasone propion-salmeterol [Advair Diskus] 250-50 mcg/dose blister with device 1 inh inhalation Q12H Qty: 60 11RF Rx Instructions: rinse mouth with water, gargle and spit Follow up/Referrals: Joyce Anguiano ARNP [Primary Care Provider] - Visit Report/Discharge Packet Stand Alone Forms: Patient Portal/API, Stroke Signs & Symptoms Discharge Data Primary Care Provider: Joyce Anguiano Attending Provider: Stefan Hoffmanit Date/Time: 01/22/24 08:34
--- NOTE | 2024-01-22 10:53 | P.HP_ITS ---
History of Present Illness History of Present Illness Date Patient Seen: 01/22/24 Chief complaint: D/V/N feels like he got hit by train Narrative: From ED doctor: 23-year-old male with history of chronic kidney disease from , asthma, mood disorder, prior C diff infection patient presents with complaint of diarrhea for the past week. Patient states no fevers he is felt hot occasionally. He has had some abdominal pain across his abdomen. States he had 1 episode of vomiting this morning. Has had nausea all week. States he has had frequent diarrhea 3 or 4 times nightly and several times throughout the day. He states no black or bloody stools, no mucus, denies any dysuria urgency or frequency. States he has had C diff in the past. He states this is quite as bad and he required hospitalization at that time. Patient states he thought he was going to improve so waited to be evaluated bony threw up this morning sought treatment. States home medications include lamotrigine, lisinopril, citalopram, lisinopril, Advair and albuterol. States he would prior abdominal surgery secondary to dialysis and treatments when he was in infant. No known drug allergies. No tobacco, occasional alcohol, no recreational drugs. Additional information: He has had diarrhea for a week. He has a history of an infection including norovirus and C diff toxin at the same time once in the past. The patient does have chronic kidney disease since . This related to his mother having a placental abruption. He was had diarrhea every day for the last week has become more fatigued. He denies any blood in the diarrhea. He has had some abdominal cramping and has become progressively more weak. In the ED his creatinine had gone from 2 to about 4. He was started on IV fluids and his potassium was found to be 2.4. He was given 40 mEq of IV potassium. He denies any fevers, or chills. He did vomit this morning. He has had anorexia. Stool PCR is negative. ON LICENSE OF [facility] Medical History Pyloric stricture Chronic kidney disease Asthma Surgical History History of gastrostomy tube placement Family History Mother Placental abruption Grandmother Diabetes mellitus Father Alive and well Social History household members: family Smoking Status: Never smoker alcohol intake: never Meds Home Medications and Allergies Home Medications Medication Instructions Recorded Confirmed Type escitalopram oxalate 20 mg tablet 20 mg PO DAILY 07/27/22 01/22/24 History lamotrigine 150 mg tablet 150 mg PO DAILY 07/27/22 01/22/24 History lisinopril 5 mg tablet 5 mg PO DAILY 07/27/22 01/22/24 History methylphenidate HCl 20 mg 20 mg PO DAILY 07/27/22 01/22/24 History tablet,extended release albuterol sulfate 2.5 mg/3 mL 2.5 mg (3 mL) inhalation Q4-6H PRN 09/20/22 01/22/24 Rx (0.083 %) solution for nebulization shortness of breath or wheezing #90 mL nebulizer accessories #1 ea 09/20/22 01/22/24 Rx albuterol sulfate 90 mcg/actuation 2 inh inhalation Q4-6H PRN 06/05/23 01/22/24 Rx aerosol inhaler shortness of breath #18 grams fluticasone 250 mcg-salmeterol 50 1 inh inhalation Q12H #60 ea 06/05/23 01/22/24 Rx mcg/dose blistr powdr for inhalation (Advair Diskus) prednisone 20 mg tablet 40 mg PO PRN PRN other 01/22/24 01/22/24 History Allergies Allergy/AdvReac Type Severity Reaction Status Date / Time No Known Drug Allergies Allergy Verified 05/02/22 14:06 Review of Systems Review of Systems Narrative: All else reviewed and otherwise unremarkable except as noted in the history and physical. Exam Vital Signs (past 8 hours): - 01/22/24 04:42 01/22/24 05:00 01/22/24 05:00 Temperature 97.9 F Pulse Rate 83 86 Respiratory Rate 18 Blood Pressure 111/56 L 110/55 L Pulse Oximetry 94 96 Oxygen Delivery Method Room Air 01/22/24 05:30 01/22/24 05:30 01/22/24 06:12 Temperature Pulse Rate 80 83 Respiratory Rate 20 Blood Pressure 103/58 L Pulse Oximetry 96 96 Oxygen Delivery Method Room Air 01/22/24 06:14 01/22/24 06:14 01/22/24 06:33 Temperature Pulse Rate 76 90 Respiratory Rate 13 Blood Pressure 101/54 L Pulse Oximetry 95 97 Oxygen Delivery Method Room Air 01/22/24 06:34 01/22/24 06:34 01/22/24 07:00 Temperature Pulse Rate 81 78 Respiratory Rate 18 17 Blood Pressure 113/55 L Pulse Oximetry 96 94 Oxygen Delivery Method 01/22/24 07:00 01/22/24 07:12 01/22/24 07:12 Temperature Pulse Rate 78 Respiratory Rate 17 Blood Pressure 102/50 L 103/55 L Pulse Oximetry 96 Oxygen Delivery Method 01/22/24 07:30 01/22/24 07:30 01/22/24 07:40 Temperature Pulse Rate 87 77 Respiratory Rate 18 17 Blood Pressure 111/53 L Pulse Oximetry 96 96 Oxygen Delivery Method Room Air Room Air 01/22/24 07:45 01/22/24 07:45 01/22/24 07:50 Temperature Pulse Rate 82 75 Respiratory Rate 17 18 Blood Pressure 101/50 L Pulse Oximetry 96 96 Oxygen Delivery Method 01/22/24 08:00 01/22/24 08:03 01/22/24 08:03 Temperature Pulse Rate 84 82 Respiratory Rate 16 16 Blood Pressure 107/56 L Pulse Oximetry 95 96 Oxygen Delivery Method Room Air 01/22/24 08:10 01/22/24 08:15 01/22/24 08:15 Temperature Pulse Rate 80 81 Respiratory Rate 16 17 Blood Pressure 100/52 L Pulse Oximetry 94 95 Oxygen Delivery Method 01/22/24 08:20 01/22/24 08:30 01/22/24 08:30 Temperature Pulse Rate 78 82 Respiratory Rate 18 10 L Blood Pressure 107/57 L Pulse Oximetry 96 96 Oxygen Delivery Method 01/22/24 08:40 01/22/24 08:45 01/22/24 08:45 Temperature Pulse Rate 80 90 Respiratory Rate 17 14 Blood Pressure 101/54 L Pulse Oximetry 95 96 Oxygen Delivery Method 01/22/24 08:50 01/22/24 09:00 01/22/24 09:00 Temperature Pulse Rate 76 81 Respiratory Rate 20 16 Blood Pressure 115/54 L Pulse Oximetry 94 95 Oxygen Delivery Method 01/22/24 09:10 01/22/24 09:15 01/22/24 09:15 Temperature Pulse Rate 84 79 Respiratory Rate 16 17 Blood Pressure 97/54 L Pulse Oximetry 96 94 Oxygen Delivery Method 01/22/24 09:20 01/22/24 09:30 01/22/24 09:30 Temperature Pulse Rate 80 81 Respiratory Rate 17 18 Blood Pressure 101/51 L Pulse Oximetry 96 96 Oxygen Delivery Method 01/22/24 09:40 01/22/24 09:45 01/22/24 09:45 Temperature Pulse Rate 84 92 H Respiratory Rate 19 Blood Pressure 104/55 L Pulse Oximetry 96 95 Oxygen Delivery Method Room Air 01/22/24 09:50 Temperature Pulse Rate 77 Respiratory Rate 16 Blood Pressure Pulse Oximetry 95 Oxygen Delivery Method Room Air Oxygen Delivery Method Room Air Narrative Exam Narrative: NAD, alert and oriented, fluent speech, calm. Normocephalic skull, EOMI, anicteric sclera, symmetric pupils. Oropharynx unremarkable, no droop. Neck supple, midline trachea, no adenopathy. Lungs clear, normal rate and effort. Heart regular, no murmur gallop or rub. Abdomen is soft, non distended and non tender. Extremities are free of edema. Skin is free of rash or lesions. Joints are not swollen or deformed. Judgment appears to be normal. Objective Imaging CT scan - abdomen: Radiologist's impression: 1. No acute abdominal process. 2. No renal stone, ureteral stone, or hydronephrosis. 3. Incompletely descended left testicle. 4. Mild splenomegaly. AP diameter is 15.3 cm. Labs 01/22/24 04:50 01/22/24 08:05 Labs: Laboratory Results - last 24 hr 01/22/24 01/22/24 01/22/24 04:50 05:00 06:32 WBC 9.0 RBC 5.35 Hgb 16.9 Hct 46.3 MCV 86.4 MCH 31.6 MCHC 36.6 H RDW 14.4 Plt Count 242 Neut % (Auto) 61.9 Lymph % (Auto) 22.2 L [place] % (Auto) 12.6 Eos % (Auto) 3.1 Baso % (Auto) 0.2 Neut # (Auto) 5600 Lymph # (Auto) 2000 [place] # (Auto) 1100 H Eos # (Auto) 300 Baso # (Auto) 0 Sodium 132 L Potassium 2.8 L Chloride 105 Carbon Dioxide 14 L BUN 53 H Creatinine 4.77 H Estimated GFR 17 L BUN/Creatinine Ratio 11.1 Glucose 113 H Calcium 9.6 Total Bilirubin 0.9 AST 20 ALT 43 Alkaline Phosphatase 76 Total Protein 6.9 Albumin 4.0 Globulin 2.9 Albumin/Globulin Ratio 1.4 Lipase 100 Urine RBC None seen Urine WBC None seen Ur Squamous Epith Cells 1-5 /hpf Urine Bacteria None seen Hyaline Casts 0-1/lpf Granular Casts 0-1/lpf Vol Urine Centrifuged 10ml (spun) Stl C. cayetanensis PCR Not detected Stool Rotavirus (PCR) Not detected Stool Adenovirus (PCR) Not detected Stool Astrovirus (PCR) Not detected Stool Cryptosporidium PCR Not detected Stl E.coli Shiga Tox PCR Not detected St Sh/Enteroin Ecoli PCR Not detected Stl Enterotoxigenic E PCR Not detected Stool EPEC (PCR) Not detected Stl E. histolytica PCR Not detected Stool Giardia Lamblia PCR Not detected Stool Sapovirus (PCR) Not detected Stl P. shigelloides PCR Not detected St Y.enterocolitica PCR Not detected Stool Vibrio (PCR) Not detected Stl Vibrio cholerae PCR Not detected Stl Enteroaggr Ecoli PCR Not detected Stl Norovirus GI/GII PCR Not detected Campylobacter (PCR) Not detected C. difficile Tox (PCR) Not detected Salmonella (PCR) Not detected 01/22/24 08:05 WBC RBC Hgb Hct MCV MCH MCHC RDW Plt Count Neut % (Auto) Lymph % (Auto) [place] % (Auto) Eos % (Auto) Baso % (Auto) Neut # (Auto) Lymph # (Auto) [place] # (Auto) Eos # (Auto) Baso # (Auto) Sodium 131 L Potassium 2.9 L Chloride 108 H Carbon Dioxide 14 L BUN 56 H Creatinine 4.23 H Estimated GFR 19 L BUN/Creatinine Ratio 13.2 Glucose 102 H Calcium 8.5 Total Bilirubin AST ALT Alkaline Phosphatase Total Protein Albumin Globulin Albumin/Globulin Ratio Lipase Urine RBC Urine WBC Ur Squamous Epith Cells Urine Bacteria Hyaline Casts Granular Casts Vol Urine Centrifuged Stl C. cayetanensis PCR Stool Rotavirus (PCR) Stool Adenovirus (PCR) Stool Astrovirus (PCR) Stool Cryptosporidium PCR Stl E.coli Shiga Tox PCR St Sh/Enteroin Ecoli PCR Stl Enterotoxigenic E PCR Stool EPEC (PCR) Stl E. histolytica PCR Stool Giardia Lamblia PCR Stool Sapovirus (PCR) Stl P. shigelloides PCR St Y.enterocolitica PCR Stool Vibrio (PCR) Stl Vibrio cholerae PCR Stl Enteroaggr Ecoli PCR Stl Norovirus GI/GII PCR Campylobacter (PCR) C. difficile Tox (PCR) Salmonella (PCR) Assessment & Plan Assessment & Plan narrative: 1. Acute diarrheal illness with negative stool PCR, present on admission and active. 2. Volume depletion, present on admission and active. 3. Acute kidney injury on chronic kidney disease, present on admission and active. 4. Hypokalemia, present on admission and active. Plan: -replace potassium, repeat and replace again if needed. -IV fluids, saline at 125. -monitor renal function. -recheck magnesium. Inpatient status, anticipate 2 midnights length of stay. Full resuscitation. Mother is proxy decision maker. Time-Based Coding :: 35 min spent with patient and on the chart (including review of chart, obtaining history, exam, reviewing outside data, placing orders, documenting exam and treatment plan, and counseling patient) on 01/21. Quality MIPS - Admit I confirm the patient?s Advance Care Plan is present, Code status is documented, Surrogate decision maker is in patient?s record [If Yes, STOP here]: Yes MIPS - Meds 'Current medications' to include all prescriptions, [id number] products, herbals, cannabis/cannabidiol products, and vitamin/mineral/dietary (nutritional) supplements. I have utilized all available resources to obtain, update, or review the patient?s current medications. [If Yes, STOP here]: Yes
--- NOTE | 2024-01-22 10:55 | PC.NURSE ---
Day shift: Pt in room from ED at approx 1015. He is A&Ox4. VS ok with BP 107/55 but asymptomatic. Resting in bed watching TV w/ Mother at bedside. Tolerating IV fluids and IV K+. Skin ok. Pt does report Hx of genital herpes. Denies a herpes flare up at this time. Will continue with plan sof care. Oriented to room and call light. Has urinal. Agrees to use call light when needing to get OOB. Not a high fall risk. Steady on feet.
[2024-01-22] MEDS: SODIUM CHLORIDE 0.9% 1,000 ML 100 ML IV (11:48)
[2024-01-22 14:18] LABS: MRSA (Nasal) PCR NOT DETECTED (Not Detect)
[2024-01-22 15:53] LABS: BUN Creatinine Ratio 12.4 (6-22); Blood Urea Nitrogen 55 mg/dL (9-20); Calcium 8.9 mg/dL (8.4-10.2); Carbon Dioxide 15 mmol/L (22-32); Chloride 114 mmol/L (98-107); Estimated Glomerular Filt Rate 18 mL/min (>60); Glucose 101 mg/dL (70-100); HEMOLYSIS < 15 (0-50); Magnesium 1.9 mg/dL (1.6-2.3); Potassium 3.6 mmol/L (3.4-5.1); Sodium 136 mmol/L (137-145)
[2024-01-23] MEDS: ONDANSETRON 4 MG/2 ML INJ IV (00:58)
[2024-01-23] MEDS: ACETAMINOPHEN 325 MG TABLET 650 MG PO (00:58)
[2024-01-23] MEDS: SODIUM CHLORIDE 0.9% 1,000 ML 125 ML IV ×2 (01:05→10:21)
[2024-01-23 03:00] VITALS: O2SAT 94
[2024-01-23 05:30] LABS: BUN Creatinine Ratio 14.1 (6-22); Blood Urea Nitrogen 53 mg/dL (9-20); Calcium 9.4 mg/dL (8.4-10.2); Carbon Dioxide 12 mmol/L (22-32); Chloride 119 mmol/L (98-107); Estimated Glomerular Filt Rate 22 mL/min (>60); Glucose 102 mg/dL (70-100); HEMOLYSIS < 15 (0-50); Potassium 3.7 mmol/L (3.4-5.1); Sodium 138 mmol/L (137-145)
--- NOTE | 2024-01-23 06:16 | PC.NURSE ---
Patient has been resting in bed most of the shift. Up to bathroom w/ sba. C/o abd pain, tylenol effective. Patient has been A&O, calm and cooperative.
[2024-01-23 07:00] VITALS: BP 119/62; PULSE 73; RESP 16; TEMP 36.7; O2SAT 96
--- NOTE | 2024-01-23 08:18 | P.PN_ITS ---
Subjective Subjective Interval history: Patient with history of CKD who presented with diarrhea, volume depletion, and CJ. This is improving. S: Exam Vital Signs (past 8 hours): - 01/23/24 03:00 Pulse Oximetry 94 Oxygen Delivery Method Room Air Fraction of Inspired Oxygen 100 Oxygen Delivery Method Room Air Oxygen Flow Rate 55 Narrative Exam Narrative: NAD, alert and oriented. Fluent speech. Lungs are clear, normal rate and effort. Heart is regular, no murmur gallop or rub. Abdomen is soft, non distended. Extremities are free of edema. Objective Labs 01/22/24 04:50 01/23/24 03:50 Labs: Laboratory Results - last 24 hr 01/22/24 01/22/24 01/22/24 08:05 11:00 15:31 Sodium 131 L 136 L Potassium 2.9 L 3.6 Chloride 108 H 114 H Carbon Dioxide 14 L 15 L BUN 56 H 55 H Creatinine 4.23 H 4.42 H Estimated GFR 19 L 18 L BUN/Creatinine Ratio 13.2 12.4 Glucose 102 H 101 H Calcium 8.5 8.9 Magnesium 1.9 Nasal Screen MRSA (PCR) Not detected 01/23/24 03:50 Sodium 138 Potassium 3.7 Chloride 119 H Carbon Dioxide 12 L BUN 53 H Creatinine 3.76 H Estimated GFR 22 L BUN/Creatinine Ratio 14.1 Glucose 102 H Calcium 9.4 Magnesium Nasal Screen MRSA (PCR) [facility] Medical History Pyloric stricture Chronic kidney disease Asthma Surgical History History of gastrostomy tube placement Family History Mother Placental abruption Grandmother Diabetes mellitus Father Alive and well Social History household members: family Smoking Status: Never smoker alcohol intake: current Assessment & Plan Assessment & Plan narrative: 1. Acute diarrheal illness with negative stool PCR, present on admission and active. 2. Volume depletion, present on admission and active. 3. Acute kidney injury on chronic kidney disease, present on admission and active. 4. Hypokalemia, present on admission and active. Plan: -replace potassium, repeat and replace again if needed. -IV fluids, saline at 125. -monitor renal function. -recheck magnesium. Inpatient status, anticipate 2 midnights length of stay. Full resuscitation. Time-Based Coding :: [TOTAL MINUTES] spent with patient and on the chart (including review of chart, obtaining history, exam, reviewing outside data, placing orders, documenting exam and treatment plan, and counseling patient) on [DATE]. Quality VTE Deep Vein Thrombosis/Pulmonary Embolism Present on Admission: No
[2024-01-23] MEDS: POTASSIUM CHLORIDE 20 MEQ TAB 40 MEQ PO (08:24)
--- NOTE | 2024-01-23 11:23 | CM.DANOTE ---
DCP Assessment Note: Pt is a 23yo male, resident of [place], is admitted for acute hypokalemia and gastroenteritis. Pt lives in a house with his parents and siblings. Pt's Primary Care Provider is SHARON Lord and insurance is [employer]. Reviewed chart and team rounds for pt's medical status and initial discharge needs. DCP met w/patient at bedside; introduced self and role. Present in the room is pt's mother, Layne. Patient was found in bed, alert and oriented, cooperative with assessment. Pt confirmed living situation and good support in family. Pt expressed preference in returning home when medically stable, requested to speak with hospitalist to communicate this. No discharge needs identified. Plan: Anticipating discharge home with family when medically stable. CM team will follow closely for coordination of discharge plans. LUCERO Renee Discharge Planning/Care Management CM Discharge Assessment Start: 01/23/24 11:21 Freq: Status: Active Protocol: Document 01/23/24 11:21 MW (Rec: 01/23/24 11:23 MW [id number]) Discharge Planning Assessment Assigned Senior Executive Assistant BO Faith DPOA/Assigned Designee Name Mother Tillman Contact Information [phone] Advance Directives? No History Provided By Patient,Parents,Medical Record Expected Length of Stay 1 Has Patient been admitted in last 30 No days? Prior Living Arrangements House Household Members family Type of transporation used prior to Drives own vehicle admit Independent with ADL's Yes Is patient alert and oriented? Yes Caregiver for Another No Comment Home w/mom expected, close outpatient follow up Discharge Plan Home Transportation Arrangement Family Referrals Initiated None needed Whiteboard Updated in Patient Room with Yes name and ext. # of Senior Executive Assistant Comment [phone] Review Status In Process Please Provide Date Initial DC 01/23/24 Assessment Was Performed Next Review Type Continued Stay Review
[2024-01-23] MEDS: ESCITALOPRAM 10 MG TABLET 20 MG PO (11:41)
[2024-01-23] MEDS: lamoTRIgine 100 MG TABLET 150 MG PO (11:41)
[2024-01-23] MEDS: LOPERAMIDE 2 MG CAPSULE PO (11:46)
[2024-01-23 12:54] VITALS: BP 121/60; PULSE 83; RESP 18; TEMP 36.9; O2SAT 98
[2024-01-23 14:28] VITALS: O2SAT 98
[2024-01-23 16:00] VITALS: BP 121/64; PULSE 74; RESP 16; TEMP 36.7; O2SAT 99
--- NOTE | 2024-01-23 16:17 | P.DS_ITS ---
History of Present Illness History of Present Illness Chief complaint: D/V/N feels like he got hit by train Narrative: From ED doctor: 23-year-old male with history of chronic kidney disease from , asthma, mood disorder, prior C diff infection patient presents with complaint of diarrhea for the past week. Patient states no fevers he is felt hot occasionally. He has had some abdominal pain across his abdomen. States he had 1 episode of vomiting this morning. Has had nausea all week. States he has had frequent diarrhea 3 or 4 times nightly and several times throughout the day. He states no black or bloody stools, no mucus, denies any dysuria urgency or frequency. States he has had C diff in the past. He states this is quite as bad and he required hospitalization at that time. Patient states he thought he was going to improve so waited to be evaluated bony threw up this morning sought treatment. States home medications include lamotrigine, lisinopril, citalopram, lisinopril, Advair and albuterol. States he would prior abdominal surgery secondary to dialysis and treatments when he was in infant. No known drug allergies. No tobacco, occasional alcohol, no recreational drugs. Additional information: He has had diarrhea for a week. He has a history of an infection including norovirus and C diff toxin at the same time once in the past. The patient does have chronic kidney disease since . This related to his mother having a placental abruption. He was had diarrhea every day for the last week has become more fatigued. He denies any blood in the diarrhea. He has had some abdominal cramping and has become progressively more weak. In the ED his creatinine had gone from 2 to about 4. He was started on IV fluids and his potassium was found to be 2.4. He was given 40 mEq of IV potassium. He denies any fevers, or chills. He did vomit this morning. He has had anorexia. Stool PCR is negative. Discharge Providers Provider Date of admission: 01/22/24 08:34 Discharge Date: 01/23/24 Primary care physician: SHARON Chan Discharge provider: Stefan Hoffman MD Summary Hospital Course Discharge Diagnosis: 1. Acute diarrheal illness with negative stool PCR, present on admission and active. 2. Volume depletion, present on admission and active. 3. Acute kidney injury on chronic kidney disease, present on admission and active. 4. Hypokalemia, present on admission and active. Hospital Course: The patient was admitted for replacement of potassium and IV fluids. He improved with regards to his potassium after replacement in his renal function approach 3-3.5 which is said to be his baseline by his mother. His diarrhea improved dramatically he felt much better on the day of discharge. He was felt to be stable for discharge with close follow up mid week with repeat BMP to reassess his renal function and potassium. Status at Discharge Cognitive/behavioral status at discharge: oriented Functional status at discharge: independent ambulation Overall status at discharge: patient is back to baseline Time Spent with Patient Time spent: Greater than 30 minutes Exam Vital Signs (past 8 hours): - 01/23/24 12:54 01/23/24 14:28 Temperature 98.4 F Pulse Rate 83 Respiratory Rate 18 Blood Pressure 121/60 Pulse Oximetry 98 98 Oxygen Delivery Method Room Air Oxygen Flow Rate 0 Fraction of Inspired Oxygen 100 Oxygen Delivery Method Room Air Oxygen Flow Rate 0 Narrative Exam Narrative: NAD, alert and oriented. Fluent speech. Lungs are clear, normal rate and effort. Heart is regular, no murmur gallop or rub. Abdomen is soft, non distended. Extremities are free of edema. Objective Imaging CT scan - head: Radiologist's impression: CT scan - abdomen: Radiologist's impression: 1. No acute abdominal process. 2. No renal stone, ureteral stone, or hydronephrosis. 3. Incompletely descended left testicle. 4. Mild splenomegaly. AP diameter is 15.3 cm. Labs 01/22/24 04:50 01/23/24 03:50 Labs: Laboratory Results - last 24 hr 01/23/24 03:50 Sodium 138 Potassium 3.7 Chloride 119 H Carbon Dioxide 12 L BUN 53 H Creatinine 3.76 H Estimated GFR 22 L BUN/Creatinine Ratio 14.1 Glucose 102 H Calcium 9.4 [facility] Medical History Pyloric stricture Chronic kidney disease Asthma Surgical History History of gastrostomy tube placement Family History Mother Placental abruption Grandmother Diabetes mellitus Father Alive and well Social History household members: family Smoking Status: Never smoker alcohol intake: current Discharge Assessment & Plan Assessment and Plan Assessment: 1. Acute diarrheal illness with negative stool PCR, present on admission and active. 2. Volume depletion, present on admission and active. 3. Acute kidney injury on chronic kidney disease, present on admission and active. 4. Hypokalemia, present on admission and active. Plan of Treatment: Patient was stable for discharge with close follow up mid week coming up with his PCP with a repeat BMP to reassess potassium and creatinine. Discharge Plan Discharge Plan Patient Disposition: Home Provider Discharge Comment: Stable for discharge home with close follow up and repeat basic metabolic panel. Discharge orders & Medications Prescriptions: Continued lamotrigine 150 mg tablet 150 mg PO DAILY Patient Comments: Take 1 tablet by mouth once a day methylphenidate HCl 20 mg tablet extended release 20 mg PO DAILY Patient Comments: HAs been out of med at home and not been taking for awhile. lisinopril 5 mg tablet 5 mg PO DAILY escitalopram oxalate 20 mg tablet 20 mg PO DAILY albuterol sulfate 2.5 mg /3 mL (0.083 %) solution for nebulization 2.5 mg inhalation Q4-6H PRN (Reason: shortness of breath or wheezing) Qty: 90 0RF (DME) nebulizer accessories Kit See Rx Instructions .Route Qty: 1 0RF Rx Instructions: As directed prednisone 20 mg tablet 40 mg PO PRN PRN (Reason: other) albuterol sulfate 90 mcg/actuation HFA aerosol inhaler 2 inh INHALATION Q4-6H PRN (Reason: shortness of breath) Qty: 18 5RF fluticasone propion-salmeterol [Advair Diskus] 250-50 mcg/dose blister with device 1 inh inhalation Q12H Qty: 60 11RF Rx Instructions: rinse mouth with water, gargle and spit Follow up/Referrals: Joyce Anguiano ARNP [Primary Care Provider] - Diet/Activity/Treatments Diet: Regular Skin/Wound/Dressing Care Report to your healthcare provider any signs of infection, such as:: chills, fever and increased pain Visit Report/Discharge Packet Instructions: DI for Diarrhea and Traveler's Diarrhea -- Adult Stand Alone Forms: Patient Portal/API Discharge Data Primary Care Provider: Joyce Anguiano Attending Provider: Stefan Hoffman Admit Date/Time: 01/22/24 08:34 Quality VTE Deep Vein Thrombosis/Pulmonary Embolism Present on Admission: No
--- NOTE | 2024-01-23 17:56 | PC.NURSE ---
Patient d/c teaching done with patient and mother at bedside, IV removed w/ out difficulty. Patient and mother are aware that [facility] is a send out lab and may take up to 7 days to retrieve results. Results can be accessed on his patient portal. Instructions given on how to set up portal. Patient states understanding to f/u w/ PCP and get repeat labs per hospitalist recommendation on d/c paperwork. Patient req. to shower prior to d/c, was set up for shower and patient showered indep. Belongings were gather up by mother. Patient was escorted down to private vehicle. Was able to ambulate out of hospital in stable condition.
[2024-01-24 10:36] LABS: Parathyroid Hormone, Intact 5 pg/mL (15-65)
== END 2024-01-23 17:15 | disposition home or self-care (01) ==
LOC: ED 07:22 → AC 08:35 → ICU 08:49
PROVIDERS: Emergency Medicine; Admitting Provider Hospitalist; Emergency Provider Emergency Medicine; PCP Nurse Practitioner Family; Referring Provider Emergency Medicine; Visit Provider Hospitalist
DX: R11.2 Nausea with vomiting, unspecified (principal); R19.7 Diarrhea, unspecified; N17.9 Acute kidney failure, unspecified; N18.9 Chronic kidney disease, unspecified; E87.6 Hypokalemia; E86.9 Volume depletion, unspecified
CPT/HCPCS: 36415; 74176; 80048; 80053; 81003; 81015; 82310; 83690; 83735; 83970; 85025; 87086; 87507; 87797; 96361; 96365; 96366; 96375; 96376; 99284; G0378; J2405

== ENCOUNTER 2024-07-29 04:27 | Observation (INO) | payer BC, SELFPAY ==
[2024-01-22 16:46] VITALS: BMI 30.5
[2024-07-29] VITALS (10 sets, daily range): BP systolic 143–162; BP diastolic 89–106; PULSE 74–95; RESP 12–20; TEMP 36.4–37.3; O2SAT 94–99; BMI 31.4; BMI 32.3
--- NOTE | 2024-07-29 04:41 | EKG_ITS ---
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
[2024-07-29 05:01] LABS: Add Manual Diff / Slide Review NO; Basophils Absolute Auto 100 /uL (0-100); Basophils Percent Auto 0.7 % (0-2); Eosinophils Absolute Auto 500 /uL (0-450); Hematocrit 40.2 % (41-53); Hemoglobin 14.8 g/dL (13.5-17.5); Lymphocytes Absolute Auto 2300 /uL (1100-4500); Lymphocytes Percent Auto 29.5 % (25-40); Mean Corpuscular HGB Conc 36.9 % (30-36); Mean Corpuscular Volume 86.6 fL (80-100); Monocytes Absolute Auto 700 /uL (0-900); Monocytes Percent Auto 9.1 % (3-14); Neutrophils Absolute Auto 4200 /uL (1500-7000); Neutrophils Percent Auto 54.7 % (50-75); Platelet Count 208 X10^3/uL (150-400); Red Blood Cell Count 4.64 X10^6/uL (4.5-5.9); White Blood Cell Count 7.7 X10^3/uL (4.5-11.0)
[2024-07-29 05:10] LABS: Alanine Aminotransferase 56 IU/L (<50); Albumin 3.7 g/dL (3.5-5.0); Albumin Globulin Ratio 1.4 (1.0-2.8); Alkaline Phosphatase 56 U/L (38-126); Aspartate Aminotransferase 43 IU/L (17-59); BUN Creatinine Ratio 13.9 (6-22); Bilirubin Total 0.8 mg/dL (0.2-1.3); Blood Urea Nitrogen 34 mg/dL (9-20); Calcium 9.1 mg/dL (8.4-10.2); Carbon Dioxide 29 mmol/L (22-32); Chloride 106 mmol/L (98-107); Estimated Glomerular Filt Rate 37 mL/min (>60); Globulin 2.6 g/dL (1.7-4.1); Glucose 106 mg/dL (70-100); HEMOLYSIS < 15 (0-50); Sodium 142 mmol/L (137-145); Total Protein 6.3 g/dL (6.3-8.2)
[2024-07-29 05:17] LABS: Potassium 2.4 mmol/L (3.4-5.1)
--- NOTE | 2024-07-29 05:25 | ED.RECABL ---
HPI - Recheck/Abnormal Lab/Rx General Chief Complaint: Recheck/Abnormal Lab/Rx Stated Complaint: potassium level is low 2.5 Time Seen by Provider: 07/29/24 05:19 Source: patient Mode of arrival: Ambulatory History of Present Illness HPI narrative: Patient is a 24-year-old male with a past medical history of CKD hypertension hypokalemia presenting for abnormal lab work. He states that he had potassium level drawn few days ago only recently found the results and the message to go into the emergency department. He states that his potassium was 2.5. He does state he has been feeling a little weak states that he has been taking oral potassium supplements but otherwise not complaining of any other symptoms such as headache visual disturbances chest pain shortness breath fever chills nausea vomiting abdominal pain or any other GI/ symptoms at this time. Related Data Home Medications Medication Instructions Recorded Confirmed escitalopram oxalate 20 mg tablet 20 mg PO DAILY 07/27/22 01/22/24 lamotrigine 150 mg tablet 150 mg PO DAILY 07/27/22 01/22/24 lisinopril 5 mg tablet 5 mg PO DAILY 07/27/22 01/22/24 methylphenidate HCl 20 mg 20 mg PO DAILY 07/27/22 01/22/24 tablet,extended release prednisone 20 mg tablet 40 mg PO PRN PRN other 01/22/24 01/22/24 Previous Rx's Medication Instructions Recorded albuterol sulfate 2.5 mg/3 mL 2.5 mg (3 mL) inhalation Q4-6H PRN 09/20/22 (0.083 %) solution for nebulization shortness of breath or wheezing #90 mL nebulizer accessories #1 ea 09/20/22 albuterol sulfate 90 mcg/actuation 2 inh inhalation Q4-6H PRN 06/05/23 aerosol inhaler shortness of breath #18 grams fluticasone 250 mcg-salmeterol 50 1 inh inhalation Q12H #60 ea 06/05/23 mcg/dose blistr powdr for inhalation (Advair Diskus) Allergies Allergy/AdvReac Type Severity Reaction Status Date / Time No Known Drug Allergies Allergy Verified 05/02/22 14:06 Review of Systems Review of Systems Narrative: General: Positive abnormal lab work Denies fever, chills, weight loss HEENT: Denies headache, eye drainage, eye irritation, head trauma, sore throat, voice change Cardiovascular: Denies any chest pain, palpitations, tachycardia Respiratory: Denies any shortness of breath, cough, wheeze, stridor GI/: Denies any abdominal pain, nausea, vomiting, diarrhea, bright red blood per rectum, melanotic stools, urinary frequency, urinary retention, dysuria, hematuria MSK: Denies any joint pain, muscle pains, swelling Skin: Denies any rashes, lesions, discoloration Neuro: Denies any headache, lightheadedness, dizziness, fainting, weakness Psych: Denies SI/HI Patient History Medical History Pyloric stricture Chronic kidney disease Asthma Surgical History History of gastrostomy tube placement Family History Mother Placental abruption Grandmother Diabetes mellitus Father Alive and well Social History household members: family Smoking Status: Never smoker alcohol intake: current Smoking Status: Never smoker alcohol intake frequency: holidays/special occasions only Exam Narrative Exam Narrative: General: Cooperative, comfortable, well-developed, not in acute distress HEENT: Normocephalic, atraumatic, PERRLA, normal sclera, eyelids normal, Neck: Active full range of motion, atraumatic Chest: Normal to inspection, negative crepitus, no overlying erythema ecchymosis Respiratory: Normal respiratory effort, not in acute respiratory distress, clear to auscultation bilaterally negative cough, wheeze, tachypnea, rhonchi, rales Cardiology: Regular rate rhythm negative gallop, murmur, rubs GI/: Normal to inspection, soft, nonrigid, no tenderness to palpation, exam deferred MSK: Full range of active range of motion of all 4 extremities, atraumatic Skin: No rashes lesions noted Neuro: Alert awake oriented x3, moves all 4 extremities spontaneously, cranial nerves intact, able to answer all questions appropriately follows commands appropriately Psych: Cooperative, negative suicidal or homicidal ideations Initial Vital Signs Initial Vital Signs: Vital Signs Temperature 98.2 F 07/29/24 04:34 Pulse Rate 81 07/29/24 04:34 Respiratory Rate 16 07/29/24 04:34 Blood Pressure 147/95 H 07/29/24 04:34 Pulse Oximetry 95 07/29/24 04:34 Oxygen Delivery Method Room Air 07/29/24 04:34 Course Orders Ordered: ED Orders 07/29/24 04:37 EKG-12 Lead Stat 07/29/24 04:50 Complete Blood Count AUTO DIFF Stat Comprehensive Metabolic Panel Stat MAG [Magnesium] Stat Sodium Chloride (Normal Saline 0.9%) 1,000 mls @ 1,000 mls/hr IV BOLUS ONE Stop: 07/29/24 06:18 Last Admin: 07/29/24 05:39 Dose: 1,000 mls/hr Documented By: ROLF POTASSIUM CHLORIDE IN WATER (Potassium Cl 10 Meq/100 Ml Windy) 10 meq in 100 mls @ 100 mls/hr IV Q1H MICAELA Stop: 07/29/24 09:29 Last Admin: 07/29/24 05:35 Dose: 100 mls/hr Documented By: ROLF Discontinued Medications Magnesium Sulfate (Magnesium Sulfate) 2 gm in 50 mls @ 150 mls/hr IV NOW ONE Stop: 07/29/24 05:38 Last Admin: 07/29/24 05:59 Dose: Not Given Documented By: ROLF Magnesium Sulfate (Magnesium Sulfate) 2 gm in 50 mls @ 150 mls/hr IV NOW ONE Stop: 07/29/24 05:40 Last Admin: 07/29/24 05:37 Dose: 150 mls/hr Documented By: ROLF Co-signed By: CLAUDIA Potassium Chloride (Potassium Chloride 20 Meq/15 Ml Udc) 40 meq PO NOW ONE Stop: 07/29/24 05:20 Last Admin: 07/29/24 05:35 Dose: 40 meq Documented By: ROLF Vital Signs Vital signs: Vital Signs - 8 hr 07/29/24 04:34 Temperature 98.2 F Pulse Rate 81 Respiratory Rate 16 Blood Pressure 147/95 H Pulse Oximetry 95 Oxygen Delivery Method Room Air MDM - Recheck/Abnormal Lab/Rx Differential Diagnosis Differential diagnosis: Likely other (Hypokalemia, CKD, electrolyte abnormality) Lab Data 07/29/24 04:50 07/29/24 04:50 Labs: Lab Results 07/29/24 Range/Units 04:50 WBC 7.7 (4.5-11.0) X10^3/uL RBC 4.64 (4.5-5.9) X10^6/uL Hgb 14.8 (13.5-17.5) g/dL Hct 40.2 L (41-53) % MCV 86.6 (80-100) fL MCH 32.0 (26-34) PG MCHC 36.9 H (30-36) % RDW 14.0 (11.6-14.8) % Plt Count 208 (150-400) X10^3/uL Neut % (Auto) 54.7 (50-75) % Lymph % (Auto) 29.5 (25-40) % [place] % (Auto) 9.1 (3-14) % Eos % (Auto) 6.0 H (2-4) % Baso % (Auto) 0.7 (0-2) % Neut # (Auto) 4200 (1632-1432) /uL Lymph # (Auto) 2300 (3288-1060) /uL [place] # (Auto) 700 (0-900) /uL Eos # (Auto) 500 H (0-450) /uL Baso # (Auto) 100 (0-100) /uL Sodium 142 (137-145) mmol/L Potassium 2.4 L* (3.4-5.1) mmol/L Chloride 106 (98-107) mmol/L Carbon Dioxide 29 (22-32) mmol/L BUN 34 H (9-20) mg/dL Creatinine 2.45 H (0.66-1.25) mg/dL Estimated GFR 37 L (>60) mL/min BUN/Creatinine Ratio 13.9 (6-22) Glucose 106 H (70-100) mg/dL Calcium 9.1 (8.4-10.2) mg/dL Magnesium 1.7 (1.6-2.3) mg/dL Total Bilirubin 0.8 (0.2-1.3) mg/dL AST 43 (17-59) IU/L ALT 56 H (<50) IU/L Alkaline Phosphatase 56 (38-126) U/L Total Protein 6.3 (6.3-8.2) g/dL Albumin 3.7 (3.5-5.0) g/dL Globulin 2.6 (1.7-4.1) g/dL Albumin/Globulin Ratio 1.4 (1.0-2.8) ECG Data Interpretation: EKG interpreted ED physician sinus 78 beats per minute QTC [address] changes no STEMI, however there does appear to be some T-wave flattening throughout no obvious U-waves MDM Narrative Medical decision making narrative: 24-year-old male with a past medical history of hypertension CKD hypokalemia presenting to the emergency department abnormal lab work. He states that he had lab work performed by his primary care doctor few days ago, states that he only recently saw the message that his potassium was 2.5, he states that he has been weak recently but denies any other symptoms. States that he has had a history of intermittent hypokalemia due to his known history of CKD states it is due to the fact that he was born with placental abruption and has always had issues with his electrolytes. He states however that this is the lowest it has ever been. Patient's potassium here 2.4, creatinine 2.45 which appears to be his baseline. Otherwise lab work unremarkable. Patient EKG nonischemic but does appear to have some mild T-wave flattening QTC not prolonged however given patient with severe hypokalemia in the setting of history of CKD will require admission for electrolyte replacement and repeat labs. Did order 2 g Mag, 40 mg of p.o. potassium as well as 40 mg of IV potassium. The patient's management plan was discussed Dr. Dalal, who agrees to admit the patient to their service and assumes care of this patient at this time. Full admission orders will be placed by the primary team. Discharge Plan Departure Patient Disposition: Admitted As Inpatient Clinical Impression: CKD (chronic kidney disease), Acute hypokalemia Prescriptions: No Action lamotrigine 150 mg tablet 150 mg PO DAILY Patient Comments: Take 1 tablet by mouth once a day methylphenidate HCl 20 mg tablet extended release 20 mg PO DAILY Patient Comments: HAs been out of med at home and not been taking for awhile. lisinopril 5 mg tablet 5 mg PO DAILY escitalopram oxalate 20 mg tablet 20 mg PO DAILY albuterol sulfate 2.5 mg /3 mL (0.083 %) solution for nebulization 2.5 mg inhalation Q4-6H PRN (Reason: shortness of breath or wheezing) Qty: 90 0RF (DME) nebulizer accessories Kit See Rx Instructions .Route Qty: 1 0RF Rx Instructions: As directed prednisone 20 mg tablet 40 mg PO PRN PRN (Reason: other) albuterol sulfate 90 mcg/actuation HFA aerosol inhaler 2 inh INHALATION Q4-6H PRN (Reason: shortness of breath) Qty: 18 5RF fluticasone propion-salmeterol [Advair Diskus] 250-50 mcg/dose blister with device 1 inh inhalation Q12H Qty: 60 11RF Rx Instructions: rinse mouth with water, gargle and spit Referrals: Joyce Anguiano ARNP [Primary Care Provider] - Admit Date/Time: 07/29/24 06:01 Admit Provider: Amilcar Arce
[2024-07-29] MEDS: POTASSIUM CHLORIDE 20 MEQ/15 ML UDC 40 MEQ PO ×2 (05:35→14:27)
[2024-07-29] MEDS: POTASSIUM CHLORIDE IN WATER 10 MEQ/100 ML PIGGYBACK 100 MEQ IV ×4 (05:35→09:10)
[2024-07-29] MEDS: MAGNESIUM SULFATE 2 GM/50 ML PIGGYBACK IV (05:37)
[2024-07-29] MEDS: SODIUM CHLORIDE 0.9% 1,000 ML 1000 ML IV (05:39)
[2024-07-29 05:58] LABS: Magnesium 1.7 mg/dL (1.6-2.3)
--- NOTE | 2024-07-29 06:15 | P.HP_ITS ---
History of Present Illness History of Present Illness Date Patient Seen: 07/29/24 Chief complaint: potassium level is low 2.5 Narrative: 24 y/o with PMH of CKD, asthma, ADH, pyloric stenosis, chronic hypokalemia, notified by [employer]ator [employer] Dr Sharon Jalloh on 07/28 about low potassium level of 2.5 and need to go to ER. He discovered that message only today. On arrival w/o EKG changes. Denies nausea, vomiting, diarrhea. The only symptom ios generalized weakness. He takes some OTC potassium supplements when he thinks that he needs it. He never had potassium prescribed, apparently. Mg 1.7. He had PO and IV K and IV Mg in the ED. Placed in observation on telemetry. ON LICENSE OF [facility] Medical History Pyloric stricture Chronic kidney disease Asthma Surgical History History of gastrostomy tube placement Family History Mother Placental abruption Grandmother Diabetes mellitus Father Alive and well Social History household members: family Smoking Status: Never smoker alcohol intake: current Meds Home Medications and Allergies Home Medications Medication Instructions Recorded Confirmed Type escitalopram oxalate 20 mg tablet 20 mg PO DAILY 07/27/22 01/22/24 History lamotrigine 150 mg tablet 150 mg PO DAILY 07/27/22 01/22/24 History lisinopril 5 mg tablet 5 mg PO DAILY 07/27/22 07/29/24 History methylphenidate HCl 20 mg 20 mg PO DAILY 07/27/22 07/29/24 History tablet,extended release albuterol sulfate 2.5 mg/3 mL 2.5 mg (3 mL) inhalation Q4-6H PRN 09/20/22 07/29/24 Rx (0.083 %) solution for nebulization shortness of breath or wheezing #90 mL nebulizer accessories #1 ea 09/20/22 01/22/24 Rx albuterol sulfate 90 mcg/actuation 2 inh inhalation Q4-6H PRN 06/05/23 01/22/24 Rx aerosol inhaler shortness of breath #18 grams fluticasone 250 mcg-salmeterol 50 1 inh inhalation Q12H #60 ea 06/05/23 01/22/24 Rx mcg/dose blistr powdr for inhalation (Advair Diskus) prednisone 20 mg tablet 40 mg PO PRN PRN other 01/22/24 07/29/24 History Allergies Allergy/AdvReac Type Severity Reaction Status Date / Time No Known Drug Allergies Allergy Verified 05/02/22 14:06 Review of Systems Review of Systems Narrative: General - generalized weakness GI - w/o N/V, diarrhea UG - w/o dysuria or hematuria CVS / RS - negative Exam Vital Signs (past 8 hours): - 07/29/24 04:34 Temperature 98.2 F Pulse Rate 81 Respiratory Rate 16 Blood Pressure 147/95 H Pulse Oximetry 95 Oxygen Delivery Method Room Air Oxygen Delivery Method Room Air Narrative Exam Narrative: General - in no distress CVS - RRR RS - normal respiratory effort GI - abdomen obese Neuro -lucid, w/o deficits, appropriate mood Objective ECG Impression: NSR 78, non-specific ST and T changes Labs 07/29/24 04:50 07/29/24 04:50 Labs: Laboratory Results - last 24 hr 07/29/24 04:50 WBC 7.7 RBC 4.64 Hgb 14.8 Hct 40.2 L MCV 86.6 MCH 32.0 MCHC 36.9 H RDW 14.0 Plt Count 208 Neut % (Auto) 54.7 Lymph % (Auto) 29.5 [place] % (Auto) 9.1 Eos % (Auto) 6.0 H Baso % (Auto) 0.7 Neut # (Auto) 4200 Lymph # (Auto) 2300 [place] # (Auto) 700 Eos # (Auto) 500 H Baso # (Auto) 100 Sodium 142 Potassium 2.4 L* Chloride 106 Carbon Dioxide 29 BUN 34 H Creatinine 2.45 H Estimated GFR 37 L BUN/Creatinine Ratio 13.9 Glucose 106 H Calcium 9.1 Magnesium 1.7 Total Bilirubin 0.8 AST 43 ALT 56 H Alkaline Phosphatase 56 Total Protein 6.3 Albumin 3.7 Globulin 2.6 Albumin/Globulin Ratio 1.4 Assessment & Plan Assessment and plan (1) Acute hypokalemia: Status: Acute (2) CKD (chronic kidney disease): Status: Acute (3) Moderate persistent asthma: Qualifiers: Asthma complication type: uncomplicated Qualified Code(s): J45.40 - Moderate persistent asthma, uncomplicated Status: Acute (4) Anxiety: Status: Acute Assessment & Plan narrative: Acute on chronic hypokalemia - likely renal loses - KCl, Mg - BMP at 10 AM CKD - at baseline, likely stage 4 Asthma - prn albuterol Anxiety / ADH - continue home medications DVT prophylaxis - SCDs Time-Based Coding :: [TOTAL MINUTES] spent with patient and on the chart (including review of chart, obtaining history, exam, reviewing outside data, placing orders, documenting exam and treatment plan, and counseling patient) on [DATE].
--- NOTE | 2024-07-29 09:15 | PC.NURSE ---
Addendum entered by Telma Guzman R.N. 07/29/24 14:42: provider ordered PO potassium and repeat lab draw to check k+ level at 1800 today, Rn called lab and notified to wait and draw that at 1800 per provider. Original Note: RN started 4th final bag of K+ about 0910, notified lab to wait and draw blood around 1115, pt was having burning in arm at start of shift, this has resolved, RN gave K+ with NS drip to reduce burning. pt has no complaints at this time.
[2024-07-29 12:51] LABS: BUN Creatinine Ratio 12.2 (6-22); Blood Urea Nitrogen 29 mg/dL (9-20); Calcium 8.1 mg/dL (8.4-10.2); Carbon Dioxide 28 mmol/L (22-32); Chloride 108 mmol/L (98-107); Estimated Glomerular Filt Rate 38 mL/min (>60); Glucose 109 mg/dL (70-100); HEMOLYSIS < 15 (0-50); Sodium 141 mmol/L (137-145)
[2024-07-29 12:53] LABS: Potassium 2.5 mmol/L (3.4-5.1)
--- NOTE | 2024-07-29 16:23 | CM.DANOTE ---
Initial DCP Assessment Visit Note Reviewed EMR and team rounds for patient's medical status and updates. Met with patient and his mother at bedside to introduce self and role. Patient was found to be alert and oriented. Patient was calm and cooperative during our conversation. Patient lives with his mother. He is fully independent with self care and ADLs. Patient relies on his mother for transportation. he does not drive. Plan is to return back home after leaving the hospital. Payor: [employer] out of state [employer]. PCP: Joyce Anguiano Patient is a 24 year old male who presented to the ER on 07/29/24 hypokalemia. Patient's potassium was 2.5 at the ER. Patient has not been experiencing any symptoms and reported feeling well overall today. He is currently in OBS status. Plan is to get potassium level up to a safer place. Discharge Planning/Care Management CM Discharge Assessment Start: 07/29/24 14:53 Freq: Status: Active Protocol: Document 07/29/24 15:35 JFM (Rec: 07/29/24 15:37 JF [id number]) Discharge Planning Assessment Assigned [employer] Rikki Kim RN DPOA/Assigned Designee Name None Advance Directives? No Advance Directives on File No History Provided By Patient,Parents,Medical Record Expected Length of Stay 2 Has Patient been admitted in last 30 No days? Prior Living Arrangements House Household Members family Comment Patient lives with his mother. Type of transporation used prior to Relies on Others admit Comment Mother provides transportation . Independent with ADL's Yes Is patient alert and oriented? Yes Comment None Caregiver for Another No Comment None Comment None Barriers to Discharge No Comment Home w/mom expected, close outpatient follow up Discharge Plan Home Transportation Arrangement Family Referrals Initiated None needed Whiteboard Updated in Patient Room with Yes name and ext. # of [employer] Review Status In Process Please Provide Date Initial DC 07/29/24 Assessment Was Performed
[2024-07-29 18:17] LABS: Blood Urea Nitrogen 28 mg/dL (9-20); Calcium 8.6 mg/dL (8.4-10.2); Carbon Dioxide 23 mmol/L (22-32); Chloride 109 mmol/L (98-107); Estimated Glomerular Filt Rate 39 mL/min (>60); Glucose 108 mg/dL (70-100); Sodium 140 mmol/L (137-145)
[2024-07-29 18:23] LABS: HEMOLYSIS 145 (0-50)
[2024-07-29 18:24] LABS: Potassium 3.3 mmol/L (3.4-5.1)
--- NOTE | 2024-07-29 19:00 | P.DS_ITS ---
History of Present Illness History of Present Illness Date Patient Seen: 07/29/24 Time Patient Seen: 19:00 Chief complaint: potassium level is low 2.5 Narrative: 24 y/o with PMH of CKD, asthma, ADH, pyloric stenosis, chronic hypokalemia, notified by inspector [employer] Dr Sharon Jalloh on 07/28 about low potassium level of 2.5 and need to go to ER. He discovered that message only today. On arrival w/o EKG changes. Denies nausea, vomiting, diarrhea. The only symptom ios generalized weakness. He takes some OTC potassium supplements when he thinks that he needs it. He never had potassium prescribed, apparently. Potassium improved to 3.3 with 80 mEq orally patient given 20 mEq and discharged home with 10 mEq a day follow up with Nephrology Discharge time 20 minutes Discharge Providers Provider Date of admission: 07/29/24 06:01 Discharge Date: 07/29/24 Primary care physician: SHARON Chan Discharge provider: Ryne Glynn MD Exam Vital Signs (past 8 hours): - 07/29/24 12:00 07/29/24 16:00 Temperature 98.3 F 99.1 F Pulse Rate 77 74 Respiratory Rate 16 18 Blood Pressure 152/97 H 162/106 H Pulse Oximetry 97 97 Oxygen Flow Rate 0 0 Oxygen Delivery Method Room Air Oxygen Flow Rate 0 Objective Labs 07/29/24 04:50 07/29/24 17:55 Labs: Laboratory Results - last 24 hr 07/29/24 07/29/24 07/29/24 04:50 11:55 17:55 WBC 7.7 RBC 4.64 Hgb 14.8 Hct 40.2 L MCV 86.6 MCH 32.0 MCHC 36.9 H RDW 14.0 Plt Count 208 Neut % (Auto) 54.7 Lymph % (Auto) 29.5 [place] % (Auto) 9.1 Eos % (Auto) 6.0 H Baso % (Auto) 0.7 Neut # (Auto) 4200 Lymph # (Auto) 2300 [place] # (Auto) 700 Eos # (Auto) 500 H Baso # (Auto) 100 Sodium 142 141 140 Potassium 2.4 L* 2.5 L* 3.3 L Chloride 106 108 H 109 H Carbon Dioxide 29 28 23 BUN 34 H 29 H 28 H Creatinine 2.45 H 2.38 H 2.33 H Estimated GFR 37 L 38 L 39 L BUN/Creatinine Ratio 13.9 12.2 12.0 Glucose 106 H 109 H 108 H Calcium 9.1 8.1 L 8.6 Magnesium 1.7 Total Bilirubin 0.8 AST 43 ALT 56 H Alkaline Phosphatase 56 Total Protein 6.3 Albumin 3.7 Globulin 2.6 Albumin/Globulin Ratio 1.4 PFSH Medical History Pyloric stricture Chronic kidney disease Asthma Surgical History History of gastrostomy tube placement Family History Mother Placental abruption Grandmother Diabetes mellitus Father Alive and well Social History household members: family Smoking Status: Never smoker alcohol intake: current Discharge Plan Discharge Plan Patient Disposition: Home Discharge orders & Medications Prescriptions: New potassium chloride 10 mEq capsule, extended release 10 meq PO DAILY Qty: 7 0RF Continued lamotrigine 150 mg tablet 150 mg PO DAILY Patient Comments: Take 1 tablet by mouth once a day methylphenidate HCl 20 mg tablet extended release 20 mg PO DAILY Patient Comments: HAs been out of med at home and not been taking for awhile. lisinopril 5 mg tablet 5 mg PO DAILY escitalopram oxalate 20 mg tablet 20 mg PO DAILY albuterol sulfate 2.5 mg /3 mL (0.083 %) solution for nebulization 2.5 mg inhalation Q4-6H PRN (Reason: shortness of breath or wheezing) Qty: 90 0RF (DME) nebulizer accessories Kit See Rx Instructions .Route Qty: 1 0RF Rx Instructions: As directed prednisone 20 mg tablet 40 mg PO PRN PRN (Reason: other) albuterol sulfate 90 mcg/actuation HFA aerosol inhaler 2 inh INHALATION Q4-6H PRN (Reason: shortness of breath) Qty: 18 5RF fluticasone propion-salmeterol [Advair Diskus] 250-50 mcg/dose blister with device 1 inh inhalation Q12H Qty: 60 11RF Rx Instructions: rinse mouth with water, gargle and spit Follow up/Referrals: Joyce Anguiano, [employer] [Primary Care Provider] - Visit Report/Discharge Packet Stand Alone Forms: Patient Portal/API, Stroke Signs & Symptoms Discharge Data Primary Care Provider: Joyce Anguiano Attending Provider: Amilcar Arce Admit Date/Time: 07/29/24 06:01 Quality VTE Deep Vein Thrombosis/Pulmonary Embolism Present on Admission: No
--- NOTE | 2024-09-08 11:10 | PC.NURSE ---
Late Entry Potassium [id number] ended at 1045 on 07/29/2024
== END 2024-07-29 19:55 | disposition home or self-care (01) ==
LOC: ED 05:19 → AC 06:02
PROVIDERS: Internal Medicine; Admitting Provider Internal Medicine; Emergency Provider Student in an Organized Health Care Education/Training Program; PCP Nurse Practitioner Family; Referring Provider Student in an Organized Health Care Education/Training Program; Visit Provider Internal Medicine
DX: E87.6 Hypokalemia (principal); R53.1 Weakness; I13.10 Hypertensive heart and chronic kidney disease without heart failure, with stage 1 through stage 4 chronic kidney disease, or unspecified chronic kidney disease; N18.9 Chronic kidney disease, unspecified; F41.9 Anxiety disorder, unspecified
CPT/HCPCS: 36415; 80048; 80053; 83735; 85025; 93005; 93010; 96365; 96366; 96368; 99284; G0378; J3475

== ENCOUNTER 2025-01-12 09:10 | Emergency (ER) | payer BC, SELFPAY ==
[2024-07-29 09:00] VITALS: BMI 32.3
[2025-01-12] VITALS (11 sets, daily range): BP systolic 111–119; BP diastolic 63–75; PULSE 57–77; RESP 11–20; TEMP 36.4; O2SAT 94–100; BMI 32.3
--- NOTE | 2025-01-12 11:12 | ED.NAVMDI ---
HPI - Nausea/Vomiting/Diarrhea General Chief complaint: Nausea/Vomiting/Diarrhea Stated complaint: Dehydrated , Dizzy . Numb x 1 day Time Seen by Provider: 01/12/25 09:12 Source: patient Mode of arrival: Ambulatory History of Present Illness HPI Narrative: PMHx significant for chronic renal insufficiency/failure since currently under the care of a environmental protection inspector and candidate for kidney transplant, hypokalemia, anxiety, asthma, dehydration, bactermia Pt presents to the ER with complaints of feeling numb, dizzy, and dehydrated since yesterday. Patient reports feeling tired and experiencing a little bit of diarrhea. He denies nausea, vomiting, fever, chest pain, shortness of breath, abdominal pain, or pain when urinating. The patient describes the numbness as all over his body, along with feeling flushed. He states that he has felt this way before when dehydrated and low potassium. The dizziness does not involve a sensation of the room spinning, and he does not report weakness on one side of his body specifically, but rather overall weakness. The patient's father, who is present, has not noticed any slurred speech or confusion. Chad reports that he has been eating and drinking. He denies alcohol consumption and use of recreational drugs. The patient mentions recent dietary changes, including avoiding dairy for the past 30 weeks in preparation for an upcoming colonoscopy, and reports eating a lot of salt recently. Chad states that his last blood work to check kidney function was done almost a month ago, and he was due for another check this week. His GFR at that time was 22. He has no known thyroid issues and is not diabetic. Related Data Home Medications ?Medication ?Instructions ?Recorded ?Confirmed escitalopram oxalate 20 mg tablet 20 mg PO DAILY 07/27/22 01/22/24 lamotrigine 150 mg tablet 150 mg PO DAILY 07/27/22 07/29/24 lisinopril 5 mg tablet 5 mg PO DAILY 07/27/22 07/29/24 methylphenidate HCl 20 mg 20 mg PO DAILY 07/27/22 07/29/24 tablet,extended release prednisone 20 mg tablet 40 mg PO PRN PRN other 01/22/24 07/29/24 Previous Rx's ?Medication ?Instructions ?Recorded albuterol sulfate 2.5 mg/3 mL 2.5 mg (3 mL) inhalation Q4-6H PRN 09/20/22 (0.083 %) solution for nebulization shortness of breath or wheezing #90 mL nebulizer accessories #1 ea 09/20/22 albuterol sulfate 90 mcg/actuation 2 inh inhalation Q4-6H PRN 06/05/23 aerosol inhaler shortness of breath #18 grams fluticasone 250 mcg-salmeterol 50 1 inh inhalation Q12H #60 ea 06/05/23 mcg/dose blistr powdr for inhalation (Advair Diskus) potassium chloride 10 mEq 10 meq PO DAILY #7 caps 07/29/24 capsule,extended release Allergies Allergy/AdvReac Type Severity Reaction Status Date / Time No Known Drug Allergies Allergy Verified 01/12/25 09:20 Patient History Medical History Pyloric stricture Chronic kidney disease Asthma Surgical History History of gastrostomy tube placement Family History Mother Placental abruption Grandmother Diabetes mellitus Father Alive and well Social History household members: family Smoking Status: Unknown if ever smoked alcohol intake: current Smoking Status: Unknown if ever smoked alcohol intake frequency: holidays/special occasions only Exam Narrative Exam Narrative: VS as noted above Focused physical exam as follows: General: Well developed, well nourished, no acute distress HEENT: pink palpebral conjunctiva, anicteric sclera, BRANDY, moist mucous membranes, no JVD, no cervical lymphadenopathy Lungs: no respiratory distress, clear to auscultation without wheezes or crackles; equal breath sounds Heart: normal rate, regular rhythm, no appreciable murmurs Abdomen: soft, nontender, no rebound or rigidity Musculoskeletal: no gross deformities with full ROM in all extremities, no pedal edema Skin: pink, warm; no rashes Neuro: ?AAOx3, GCS 15, nonfocal exam Psyche: no SI/HI, normal affect Initial Vital Signs Initial Vital Signs: Vital Signs Temperature 97.6 F 01/12/25 09:20 Pulse Rate 77 01/12/25 09:20 Respiratory Rate 14 01/12/25 09:20 Blood Pressure 118/70 01/12/25 09:20 Pulse Oximetry 94 01/12/25 09:20 Oxygen Delivery Method Room Air 01/12/25 09:20 Course Orders Ordered: Discontinued Medications Sodium Chloride (Normal Saline 0.9%) 1,000 mls @ 1,000 mls/hr IV BOLUS PRN PRN Reason: Fluid replacement Last Infusion: 01/12/25 12:39 Dose: Infused Documented By: Admin: 01/12/25 11:36 Dose: 1,000 mls/hr Documented By: JAY Sodium Chloride (Normal Saline 0.9%) 1,000 mls @ 1,000 mls/hr IV BOLUS PRN PRN Reason: Fluid replacement Vital Signs Vital signs: Vital Signs - 8 hr 01/12/25 09:20 01/12/25 11:36 01/12/25 12:00 Temperature 97.6 F Pulse Rate 77 61 59 L Respiratory Rate 14 12 11 L Blood Pressure 118/70 Pulse Oximetry 94 98 100 Oxygen Delivery Method Room Air 01/12/25 12:00 01/12/25 12:38 01/12/25 12:39 Temperature Pulse Rate 67 58 L Respiratory Rate 14 Blood Pressure 117/71 Pulse Oximetry 94 97 Oxygen Delivery Method 01/12/25 12:39 01/12/25 13:00 01/12/25 13:00 Temperature Pulse Rate 62 Respiratory Rate 16 Blood Pressure 119/66 114/64 Pulse Oximetry 100 Oxygen Delivery Method 01/12/25 13:30 01/12/25 13:30 01/12/25 14:00 Temperature Pulse Rate 61 62 Respiratory Rate 14 20 Blood Pressure 111/65 Pulse Oximetry 100 100 Oxygen Delivery Method 01/12/25 14:00 Temperature Pulse Rate Respiratory Rate Blood Pressure 116/68 Pulse Oximetry Oxygen Delivery Method MDM - Nausea/Vomiting/Diarrhea Lab Data 01/12/25 11:35 01/12/25 11:35 Labs: Lab Results 01/12/25 01/12/25 01/12/25 Range/Units 11:35 12:39 12:39 WBC 5.7 (4.5-11.0) X10^3/uL RBC 4.91 (4.5-5.9) X10^6/uL Hgb 15.3 (13.5-17.5) g/dL Hct 44.3 (41-53) % MCV 90.4 (80-100) fL MCH 31.3 (26-34) PG MCHC 34.6 (30-36) % RDW 13.1 (11.6-14.8) % Plt Count 192 (150-400) X10^3/uL Neut % (Auto) 52.3 (50-75) % Lymph % (Auto) 34.0 (25-40) % [place] % (Auto) 7.2 (3-14) % Eos % (Auto) 6.1 H (2-4) % Baso % (Auto) 0.4 (0-2) % Neut # (Auto) 3000 (4674-4517) /uL Lymph # (Auto) 1900 (3951-0563) /uL [place] # (Auto) 400 (0-900) /uL Eos # (Auto) 300 (0-450) /uL Baso # (Auto) 0 (0-100) /uL Sodium 140 (137-145) mmol/L Potassium 4.4 (3.4-5.1) mmol/L Chloride 106 (98-107) mmol/L Carbon Dioxide 24 (22-32) mmol/L BUN 52 H (9-20) mg/dL Creatinine 3.29 H (0.66-1.25) mg/dL Estimated GFR 26 L (>60) mL/min BUN/Creatinine Ratio 15.8 (6-22) Glucose 86 (70-99) mg/dL POC Whole Bld Glucose 100 H (70-99) mg/dL Calcium 9.4 (8.4-10.2) mg/dL Magnesium 1.9 (1.6-2.3) mg/dL Total Bilirubin 0.7 (0.2-1.3) mg/dL AST 35 (17-59) IU/L ALT 53 H (<50) IU/L Alkaline Phosphatase 53 (38-126) U/L Total Protein 7.4 (6.3-8.2) g/dL Albumin 4.4 (3.5-5.0) g/dL Globulin 3.0 (1.7-4.1) g/dL Albumin/Globulin Ratio 1.5 (1.0-2.8) Lipase 105 (23-300) U/L TSH 1.68 (0.47-4.68) uIU/mL Urine Color Yellow Urine Appearance Clear Urine pH 6.5 Normal (4.5-8.0) Ur Specific [place] <=1.005 (1.000-1.035) Urine Protein 1+ H (Negative) Urine Glucose (UA) Negative (Negative) g/dL Urine Ketones Negative (NEGATIVE) Urine Occult Blood Trace-intact (Negative) Urine Nitrate Negative (Negative) Urine Bilirubin Negative (NEGATIVE) Urine Urobilinogen 0.2 (0.2) E.U./dL Ur Leukocyte Esterase Negative (NEGATIVE) Urine RBC None seen (0-5/HPF) Urine WBC None seen (0-5/HPF) Ur Squamous Epith Cells None seen (0-5/HPF) Urine Bacteria None seen (None) Ur Culture Indicated? Cult not indicated Vol Urine Centrifuged 10ml (spun) U Opiates 300ng/mL cut Negative (Negative) Ur Oxycodone Screen Negative (Negative) Urine Methadone Screen Negative (Negative) Ur Barbiturates Screen Negative (Negative) U Tricyclic Antidepress Negative (Negative) Ur Phencyclidine Scrn Negative (Negative) Ur Amphetamines Screen Negative (Negative) U Methamphetamines Scrn Negative (Negative) Ur MDMA Scrn (Ecstasy) Negative (Negative) U Benzodiazepines Scrn Negative (Negative) Urine Cocaine Screen Negative (Negative) U Marijuana (THC) Screen Negative (Negative) Urine Specific [place] Normal (Normal) Ethyl Alcohol < 10 (<10) mg/dL Ur Creatinine Normal (Normal) Point of Care Testing Glucose POC 100 MDM Narrative Medical decision making narrative: HPI, PMHx, PSHx, Medication list, Allergies, ROS and Focused exam were reviewed above. ?Differential diagnosis as noted below. ?Social determinants affecting care considered. ?All of these were taken into consideration warranting above listed work up. ?Consultations as deemed necessary were documented below (if listed). Labs (if ordered and noted) were independently reviewed by me. Imaging studies (if ordered and noted) were independently reviewed by me EKG (if noted) was independently reviewed by me External documents (if reviewed) are documented above Initial VS noted above. ? Differential diagnosis considered include (but not limited to) the following: dehydration, electrolyte imbalance, liver or kidney failure, symptomatic anemia, hypo/hyperglycemia, TIA/CVA, labyrinthitis, Meniere's disease, BPPV, gastroenteritis, colitis, UTI Pt interviewed and examined. Does not appear clinically dehydrated but will give IVF bolus while awaiting studies. Minimal leukocytosis noted. Creatinine is noted to be 3.29 today with GFR of 26. BS 86. Normal LFTs, and urine without evidence of UTI. Pt reports feeling better after IVF bolus and is relieved to hear that his potassium is normal today and that his renal function has not worsened compared to last month. He is agreeable with follow up with his environmental protection inspector and return if with worsening symptoms. Stable for discharge with return precautions. Discharge Plan Departure Patient Disposition: Home Clinical Impression: Chronic kidney disease Qualifiers: Chronic kidney disease stage: unspecified stage Qualified Code(s): N18.9 - Chronic kidney disease, unspecified Diarrhea Qualifiers: Diarrhea type: unspecified type Qualified Code(s): R19.7 - Diarrhea, unspecified Fatigue Qualifiers: Fatigue type: unspecified Qualified Code(s): R53.83 - Other fatigue Instructions: DI for Dehydration -- Adult Activity Restrictions/Additional Instructions: Follow up with your environmental protection inspector for this ongoing issue. Drink plenty of fluids. Return to the ER if with worsening symptoms or diarrhea. Prescriptions: No Action lamotrigine 150 mg tablet 150 mg PO DAILY Patient Comments: Take 1 tablet by mouth once a day methylphenidate HCl 20 mg tablet extended release 20 mg PO DAILY Patient Comments: HAs been out of med at home and not been taking for awhile. lisinopril 5 mg tablet 5 mg PO DAILY escitalopram oxalate 20 mg tablet 20 mg PO DAILY albuterol sulfate 2.5 mg /3 mL (0.083 %) solution for nebulization 2.5 mg inhalation Q4-6H PRN (Reason: shortness of breath or wheezing) Qty: 90 0RF (DME) nebulizer accessories Kit See Rx Instructions .Route Qty: 1 0RF Rx Instructions: As directed prednisone 20 mg tablet 40 mg PO PRN PRN (Reason: other) potassium chloride 10 mEq capsule, extended release 10 meq PO DAILY Qty: 7 0RF albuterol sulfate 90 mcg/actuation HFA aerosol inhaler 2 inh INHALATION Q4-6H PRN (Reason: shortness of breath) Qty: 18 5RF fluticasone propion-salmeterol [Advair Diskus] 250-50 mcg/dose blister with device 1 inh inhalation Q12H Qty: 60 11RF Rx Instructions: rinse mouth with water, gargle and spit Referrals: Joyce Anguiano ARNP [Primary Care Provider, Nursing] Stand Alone Forms: Patient Portal/API
--- NOTE | 2025-01-12 11:18 | EKG_ITS ---
[facility] [address], [place] [address] Test Date: 2025-01-12 Pat Name: Chad Cruz Department: [facility] Room: Gender: Male Rn X Ray: DANIELA : 2000 Requested By: Order Number: [id number] Reading MD: Stefan Hoffman Measurements Intervals [place] Rate: 54 P: 27 [place]: 158 QRS: 23 QRSD: 102 T: 32 QT: 360 QTc: 341 Interpretive Statements Sinus bradycardia Nonspecific ST abnormality Electronically Signed On 01-16-2025 16:21:19 PDT by Stefan Hoffman
[2025-01-12] MEDS: SODIUM CHLORIDE 0.9% 1,000 ML 1000 ML IV (11:36)
[2025-01-12 11:43] LABS: Add Manual Diff / Slide Review NO; Hematocrit 44.3 % (41-53); Hemoglobin 15.3 g/dL (13.5-17.5); Lymphocytes Absolute Auto 1900 /uL (1100-4500); Mean Corpuscular HGB Conc 34.6 % (30-36); Mean Corpuscular Hemoglobin 31.3 PG (26-34); Mean Corpuscular Volume 90.4 fL (80-100); Platelet Count 192 X10^3/uL (150-400)
[2025-01-12 11:55] LABS: Alanine Aminotransferase 53 IU/L (<50); Albumin 4.4 g/dL (3.5-5.0); Albumin Globulin Ratio 1.5 (1.0-2.8); Alkaline Phosphatase 53 U/L (38-126); Blood Urea Nitrogen 52 mg/dL (9-20); Calcium 9.4 mg/dL (8.4-10.2); Carbon Dioxide 24 mmol/L (22-32); Chloride 106 mmol/L (98-107); Estimated Glomerular Filt Rate 26 mL/min (>60); Ethanol (ETOH) < 10 mg/dL (<10); Globulin 3.0 g/dL (1.7-4.1); Glucose 86 mg/dL (70-99); HEMOLYSIS < 15 (0-50); Lipase 105 U/L (23-300); Magnesium 1.9 mg/dL (1.6-2.3); Potassium 4.4 mmol/L (3.4-5.1); Sodium 140 mmol/L (137-145); Total Protein 7.4 g/dL (6.3-8.2)
[2025-01-12 12:37] LABS: Thyroid Stimulating Hormone 1.68 uIU/mL (0.47-4.68)
[2025-01-12 12:44] LABS: Appearance Urine UA CLEAR; Bilirubin Urine UA NEGATIVE (NEGATIVE); Color Urine UA YELLOW; Glucose Urine UA NEGATIVE (Negative); Ketones Urine UA NEGATIVE (NEGATIVE); Leukocyte Esterase Urine UA NEGATIVE (NEGATIVE); Nitrite Urine UA NEGATIVE (Negative); Occult Blood Urine UA TRACE-INTACT (Negative); Protein Urine UA 1+ (Negative); Specific Gravity Urine UA <=1.005 (1.000-1.035); Urobilinogen Urine UA 0.2 E.U./dL (0.2); pH Urine UA 6.5 (4.5-8.0)
[2025-01-12 12:46] LABS: UR Morphine/Opiate cutoff 300 Negative (Negative); Ur Specific Gravity Normal (Normal); Urine MDMA Negative (Negative); Urine Methamphetamines Negative (Negative); Urine Tetrahydrocannabinol Negative (Negative)
[2025-01-12 12:47] LABS: Urine Tricyclic Antidepressant Negative (Negative)
[2025-01-12 12:51] LABS: Culture Indicated Urine Cult Not Indicated
== END 2025-01-12 15:46 | disposition home or self-care (01) ==
PROVIDERS: Emergency Provider Emergency Medicine; PCP Nurse Practitioner Family
DX: N18.9 Chronic kidney disease, unspecified (principal); R19.7 Diarrhea, unspecified; R53.83 Other fatigue
CPT/HCPCS: 36415; 80053; 80305; 80320; 81001; 82962; 83690; 83735; 84443; 85025; 93005; 96360; 99284